=== PATIENT | female | born 1955 | race Caucasian/White ===

== ENCOUNTER 2016-08-26 11:35 | Outpatient (CLI) | payer MEDICARE, MEDICAID ==
[2016-08-26 20:15] LABS: BASOPHILS % (AUTO) 0.6 %; EOSINOPHILS # (AUTO) 0.1 10^3/uL (0.0-0.7); EOSINOPHILS % (AUTO) 2.2 %; HCT - HEMATOCRIT 38.5 % (37.0-47.0); HGB - HEMOGLOBIN 12.6 g/dL (12.0-16.0); LYMPHOCYTES # (AUTO) 1.1 10^3/uL (1.5-3.5); LYMPHOCYTES % (AUTO) 21.1 %; MEAN CORPUSCULAR HEMOGLOBIN 30.5 pg (27.0-31.0); MEAN CORPUSCULAR HGB CONC 32.8 g/dL (32.0-36.0); MEAN CORPUSCULAR VOLUME 92.9 fL (81.0-99.0); MEAN PLATELET VOLUME 8.8 fL (7.9-10.8); MONOCYTES # (AUTO) 0.3 10^3/uL (0.0-1.0); MONOCYTES % (AUTO) 6.7 %; NEUTROPHILS # (AUTO) 3.5 10^3/uL (1.5-6.6); NEUTROPHILS % (AUTO) 69.4 %; NUCLEATED RED BLOOD CELLS AUTO 0.1 /100WBC; RED BLOOD COUNT 4.14 10^6/uL (4.20-5.40); UNCORRECTED WHITE BLOOD COUNT 5.1 x10^3/uL; WHITE BLOOD COUNT 5.1 x10^3/uL (4.8-10.8)
[2016-08-26 20:25] LABS: ALBUMIN/GLOBULIN RATIO 1.3 (1.0-2.2); BILIRUBIN,TOTAL 0.6 mg/dL (0.2-1.0); BUN - BLOOD UREA NITROGEN 12 mg/dL (6-20); CALCIUM 9.8 mg/dL (8.5-10.3); CARBON DIOXIDE - CO2 27 mmol/L (21-32); CHLORIDE 110 mmol/L (101-111); CHOL/HDL RATIO 4.5 (<4.4); CHOLESTEROL 217 mg/dL; CREATININE 0.8 mg/dL (0.4-1.0); GFR - MDRD 74 (>89); GLUCOSE 105 mg/dL (70-100); HDL CHOLESTEROL 48 mg/dL; LDL/HDL RATIO 3.2 (<4.4); POTASSIUM 3.9 mmol/L (3.5-5.0); SODIUM 143 mmol/L (135-145); TRIGLYCERIDES 69 mg/dL; VLDL CHOLESTEROL 14 mg/dL
== END 2016-08-26 11:36 | disposition home or self-care (01) ==
LOC: LAB.WCP 11:35
PROVIDERS: ATTEND Physician Assistant Medical
DX: Z00.00 Encounter for general adult medical examination without abnormal findings (principal); F31.81 Bipolar II disorder; E78.5 Hyperlipidemia, unspecified; Z78.9 Other specified health status
CPT/HCPCS: 36415; 80053; 80061; 80178; 84443; 85025; 86803

== ENCOUNTER 2017-11-29 22:53 | Outpatient (CLI) | payer MEDICARE, MEDICAID ==
[2017-11-29 12:50] LABS: BASOPHILS % (AUTO) 0.3 %; EOSINOPHILS # (AUTO) 0.1 10^3/uL (0.0-0.7); EOSINOPHILS % (AUTO) 2.2 %; HGB - HEMOGLOBIN 12.7 g/dL (12.0-16.0); LYMPHOCYTES # (AUTO) 1.4 10^3/uL (1.5-3.5); LYMPHOCYTES % (AUTO) 32.7 %; MEAN CORPUSCULAR HEMOGLOBIN 31.7 pg (27.0-31.0); MEAN CORPUSCULAR HGB CONC 34.4 g/dL (32.0-36.0); MEAN CORPUSCULAR VOLUME 92.1 fL (81.0-99.0); MEAN PLATELET VOLUME 8.8 fL (7.9-10.8); MONOCYTES # (AUTO) 0.3 10^3/uL (0.0-1.0); MONOCYTES % (AUTO) 6.7 %; NEUTROPHILS # (AUTO) 2.4 10^3/uL (1.5-6.6); NEUTROPHILS % (AUTO) 58.1 %; PLT - PLATELET COUNT 244 10^3/uL (130-450); RED CELL DISTRIBUTION WIDTH 13.8 % (12.0-15.0); WHITE BLOOD COUNT 4.2 x10^3/uL (4.8-10.8)
[2017-11-29 13:25] LABS: ALBUMIN 4.2 g/dL (3.2-5.5); ALBUMIN/GLOBULIN RATIO 1.4 (1.0-2.2); ALKALINE PHOSPHATASE 104 IU/L (42-121); ALT ALANINE AMINOTRANSFERASE 16 IU/L (10-60); AST ASPARTATE AMINOTRANSFERASE 17 IU/L (10-42); BILIRUBIN,TOTAL 0.5 mg/dL (0.2-1.0); BUN - BLOOD UREA NITROGEN 10 mg/dL (6-20); CHOL/HDL RATIO 3.5 (<4.4); CHOLESTEROL 216 mg/dL; CREATININE 0.9 mg/dL (0.4-1.0); GFR - MDRD 64 (>89); HDL CHOLESTEROL 61 mg/dL; LDL CHOLESTEROL,CALCULATED 142 mg/dL; LDL/HDL RATIO 2.3 (<4.4); TOTAL PROTEIN 7.2 g/dL (6.7-8.2); VLDL CHOLESTEROL 13 mg/dL
[2017-11-29 13:36] LABS: LITHIUM < 0.05 mmol/L
[2017-11-29 14:19] LABS: CALCIUM 9.7 mg/dL (8.5-10.3); CARBON DIOXIDE - CO2 23 mmol/L (21-32); CHLORIDE 107 mmol/L (101-111); GLUCOSE 93 mg/dL (70-100); SODIUM 140 mmol/L (135-145)
== END 2017-11-29 22:54 | disposition home or self-care (01) ==
LOC: LAB.WCP 22:53
PROVIDERS: ATTEND Physician Assistant Medical
DX: Z00.00 Encounter for general adult medical examination without abnormal findings (principal); E78.5 Hyperlipidemia, unspecified; E03.9 Hypothyroidism, unspecified; F31.81 Bipolar II disorder
CPT/HCPCS: 36415; 80053; 80061; 80178; 83721; 84443; 85025

== ENCOUNTER 2018-02-15 11:41 | Outpatient (CLI) | payer MEDICARE, MEDICAID ==
--- NOTE | 2018-02-15 15:45 | CT Report ---
Reason: TOBACCO DEPENDENCE Procedure Date: 02/15/2018 Accession Number: [id number] / [id number] Procedure: CT - Chest W/O CPT Code: FULL RESULT: EXAM: CT CHEST EXAM DATE: 02/15/2018 03:07 PM. CLINICAL HISTORY: Tobacco dependence. COMPARISONS: None. TECHNIQUE: Routine helical CT imaging was performed through the chest. IV contrast: None. Reconstructions: Coronal and sagittal. In accordance with CT protocol optimization, one or more of the following dose reduction techniques were utilized for this exam: automated exposure control, adjustment of mA and/or KV based on patient size, or use of iterative reconstructive technique. FINDINGS: Lungs/Pleura: There is a mild to moderate amount of emphysema. No suspicious nodules, bronchial thickening, consolidation, or edema. Pulmonary vasculature is normal. No pericardial or pleural effusion. No pneumothorax. Mediastinum: Proximal coronary calcifications are noted. No adenopathy or masses. The heart and great vessels are normal. Bones: Unremarkable. Visualized Abdomen: Unremarkable. Other: None. IMPRESSION: Emphysema with no suspicious pulmonary nodules. RADIA
== END 2018-02-15 11:42 | disposition home or self-care (01) ==
LOC: DI 11:41
PROVIDERS: ATTEND Physician Assistant Medical
DX: Z12.2 Encounter for screening for malignant neoplasm of respiratory organs (principal); J43.9 Emphysema, unspecified; F17.210 Nicotine dependence, cigarettes, uncomplicated
CPT/HCPCS: 71250

== ENCOUNTER 2018-03-01 08:00 | Outpatient (CLI) | payer MEDICARE, MEDICAID | END 2018-03-01 23:59 | disposition home or self-care (01) | LOC: LAB.WCP 08:00 | PROVIDERS: ATTEND Physician Assistant Medical | DX: E03.9 Hypothyroidism, unspecified (principal) | CPT/HCPCS: 36415; 84443 ==

== ENCOUNTER 2018-04-12 11:36 | Outpatient (CLI) | payer MEDICARE, MEDICAID ==
--- NOTE | 2018-04-13 08:16 | Mammography Report ---
Reason: SCREENING MAMMO Procedure Date: 04/12/2018 Accession Number: [id number] / [id number] Procedure: MGN - Screening Mammo Dig Bilat CPT Code: FULL RESULT: EXAM: Screening Mammo Dig Bilat DATE: 04/12/2018 12:20 PM CLINICAL HISTORY: Screening encounter. Family history of breast cancer in the mother at age 63. TECHNIQUE: Bilateral CC and MLO views were obtained. COMPARISON: 09/09/2015 through 10/01/2010. FINDINGS: The breasts demonstrate scattered fibroglandular densities bilaterally. A isodense ovoid nodule in the upper right breast 9.3 cm from the nipple demonstrates no architectural distortion or suspicious calcifications and is not enlarged dating back to 2010, present on prior studies and therefore typically benign. Similarly, a hyperdense well-circumscribed left breast nodule laterally in the upper breast is stable dating back to 2010 and typically benign. No suspicious masses, clustered microcalcifications, or regions of architectural distortion are identified. IMPRESSION: Benign findings RECOMMENDATION: Routine annual screening unless otherwise clinically indicated. BIRADS CATEGORY 2: Benign findings STANDARD QUALIFYING STATEMENTS: 1. This examination was reviewed with the aid of Computer-Aided Detection (CAD). 2. A negative or benign imaging report should not delay biopsy if clinically suspicious findings are present. Consider surgical consultation if warrented. More than 5% of cancers are not identified by imaging. 3. Dense breasts may obscure an underlying neoplasm.
== END 2018-04-12 11:37 | disposition home or self-care (01) ==
LOC: DI.N 11:36
DX: Z12.31 Encounter for screening mammogram for malignant neoplasm of breast (principal); Z80.3 Family history of malignant neoplasm of breast
CPT/HCPCS: 77067

== ENCOUNTER 2018-04-20 08:00 | Outpatient (CLI) | payer MEDICARE, MEDICAID | END 2018-04-20 23:59 | LOC: LAB.WCP 08:00 | PROVIDERS: ATTEND Physician Assistant Medical | DX: E03.9 Hypothyroidism, unspecified (principal) | CPT/HCPCS: 36415; 84443 ==

== ENCOUNTER 2018-11-29 08:56 | Outpatient (CLI) | payer MEDICARE, MEDICAID ==
[2018-11-29 12:18] LABS: BASOPHILS % (AUTO) 0.6 %; EOSINOPHILS # (AUTO) 0.2 10^3/uL (0.0-0.7); EOSINOPHILS % (AUTO) 3.3 %; HGB - HEMOGLOBIN 11.8 g/dL (12.0-16.0); LYMPHOCYTES # (AUTO) 1.4 10^3/uL (1.5-3.5); LYMPHOCYTES % (AUTO) 27.5 %; MEAN CORPUSCULAR HEMOGLOBIN 30.3 pg (27.0-31.0); MEAN CORPUSCULAR HGB CONC 30.8 g/dL (32.0-36.0); MEAN CORPUSCULAR VOLUME 98.5 fL (81.0-99.0); MEAN PLATELET VOLUME 10.4 fL (7.9-10.8); MONOCYTES # (AUTO) 0.3 10^3/uL (0.0-1.0); MONOCYTES % (AUTO) 6.9 %; NEUTROPHILS % (AUTO) 61.3 %; PLT - PLATELET COUNT 256 10^3/uL (130-450); RED BLOOD COUNT 3.89 10^6/uL (4.20-5.40); RED CELL DISTRIBUTION WIDTH 14.2 % (12.0-15.0); WHITE BLOOD COUNT 4.9 x10^3/uL (4.8-10.8)
[2018-11-29 13:15] LABS: ALBUMIN 4.1 g/dL (3.2-5.5); ALBUMIN/GLOBULIN RATIO 1.3 (1.0-2.2); BILIRUBIN,TOTAL 0.6 mg/dL (0.2-1.0); CALCIUM 9.9 mg/dL (8.5-10.3); CREATININE 0.9 mg/dL (0.4-1.0); TOTAL PROTEIN 7.2 g/dL (6.7-8.2)
[2018-11-29 13:17] LABS: LITHIUM 0.88 mmol/L
== END 2018-11-29 23:59 | disposition home or self-care (01) ==
LOC: LAB.WCP 08:56
PROVIDERS: ATTEND Nurse Practitioner Family
DX: F31.9 Bipolar disorder, unspecified (principal); R42 Dizziness and giddiness
CPT/HCPCS: 36415; 80053; 80178; 85025

== ENCOUNTER 2018-12-13 07:00 | Outpatient (CLI) | payer MEDICARE, MEDICAID ==
[2018-12-13 19:35] LABS: FERRITIN 33.3 ng/mL (11.0-306.8)
== END 2018-12-13 23:59 | disposition home or self-care (01) ==
LOC: LAB.WCP 07:00
PROVIDERS: ATTEND Physician Assistant Medical
DX: E78.5 Hyperlipidemia, unspecified (principal); R53.83 Other fatigue; E03.9 Hypothyroidism, unspecified
CPT/HCPCS: 36415; 82306; 82607; 82728; 84443

== ENCOUNTER 2020-03-14 08:00 | Outpatient (CLI) | payer MEDICARE, MEDICAID ==
[2020-03-14 18:11] LABS: BASOPHILS % (AUTO) 0.7 %; EOSINOPHILS # (AUTO) 0.2 10^3/uL (0.0-0.7); EOSINOPHILS % (AUTO) 3.9 %; HGB - HEMOGLOBIN 12.2 g/dL (12.0-16.0); LYMPHOCYTES # (AUTO) 1.2 10^3/uL (1.5-3.5); LYMPHOCYTES % (AUTO) 25.8 %; MEAN CORPUSCULAR HEMOGLOBIN 30.4 pg (27.0-31.0); MEAN CORPUSCULAR HGB CONC 30.3 g/dL (32.0-36.0); MEAN CORPUSCULAR VOLUME 100.2 fL (81.0-99.0); MEAN PLATELET VOLUME 10.7 fL (7.9-10.8); MONOCYTES # (AUTO) 0.3 10^3/uL (0.0-1.0); MONOCYTES % (AUTO) 6.3 %; NEUTROPHILS # (AUTO) 2.9 10^3/uL (1.5-6.6); NEUTROPHILS % (AUTO) 63.1 %; PLT - PLATELET COUNT 260 10^3/uL (130-450); RED BLOOD COUNT 4.01 10^6/uL (4.20-5.40); RED CELL DISTRIBUTION WIDTH 14.4 % (12.0-15.0); WHITE BLOOD COUNT 4.6 x10^3/uL (4.8-10.8)
[2020-03-14 18:12] LABS: LITHIUM 0.92 mmol/L
[2020-03-14 18:29] LABS: ALBUMIN 4.2 g/dL (3.2-5.5); ALBUMIN/GLOBULIN RATIO 1.4 (1.0-2.2); ALKALINE PHOSPHATASE 76 IU/L (42-121); ALT ALANINE AMINOTRANSFERASE 11 IU/L (10-60); AST ASPARTATE AMINOTRANSFERASE 14 IU/L (10-42); BILIRUBIN,TOTAL 0.8 mg/dL (0.2-1.0); BUN - BLOOD UREA NITROGEN 14 mg/dL (6-20); CARBON DIOXIDE - CO2 25 mmol/L (21-32); CHLORIDE 107 mmol/L (101-111); CHOL/HDL RATIO 4.1 (<4.4); CHOLESTEROL 267 mg/dL; CREATININE 1.1 mg/dL (0.4-1.0); GLUCOSE 95 mg/dL (70-100); HDL CHOLESTEROL 65 mg/dL; LDL CHOLESTEROL,CALCULATED 183 mg/dL; LDL/HDL RATIO 2.8 (<4.4); TOTAL PROTEIN 7.3 g/dL (6.7-8.2); VLDL CHOLESTEROL 19 mg/dL
[2020-03-14 19:25] LABS: FREE T4 (FREE THYROXINE) 0.89 ng/dL (0.58-1.64)
== END 2020-03-14 23:59 | disposition home or self-care (01) ==
LOC: LAB.WCP 08:00
PROVIDERS: ATTEND Physician Assistant Medical
DX: R42 Dizziness and giddiness (principal); E78.5 Hyperlipidemia, unspecified; E03.9 Hypothyroidism, unspecified; F31.9 Bipolar disorder, unspecified
CPT/HCPCS: 36415; 80053; 80061; 80178; 83721; 84439; 84443; 85025

== ENCOUNTER 2020-03-31 12:36 | Outpatient (CLI) | payer MEDICARE, MEDICAID ==
--- NOTE | 2020-03-31 14:29 | DEXA Report ---
PROCEDURE: Dexa Spine and/or Hip INDICATIONS: POST MENOPAUSAL TECHNIQUE: Dual energy x-ray absorptiometry (DXA) was performed on a [employer] System. Regions measur ed are the AP Spine, femoral neck, and if needed forearm. COMPARISON: None. FINDINGS: Lumbar Spine: Bone Mineral Density 1.140 g/cm/cm,T score -0.3, Left Femoral Neck: Bone Mineral Density 0.927 g/cm/cm, T score -0.6, (T score greater or equal to -1.0: NORMAL) (T score from -1.1 to -2.4: OSTEOPENIA) (T score less than or equal to -2.5 to: OSTEOPOROSIS) Impression: Normal Patients with diagnosis of osteoporosis or osteopenia should have regular bone mineral density assess ment. For those eligible for Medicare, routine testing is allowed once every 2 years. Testing frequ ency can be increased for patients who have rapidly progressing disease or for those who are receivin g medical therapy to restore bone mass. Reviewed by: Reza Abdi MD on 03/31/2020 2:28 PM PST Approved by: Reza Abdi MD on 03/31/2020 2:28 PM PST Station ID: [id number]
== END 2020-03-31 12:37 | disposition home or self-care (01) ==
LOC: DI 12:36
PROVIDERS: ATTEND Physician Assistant Medical
DX: Z78.0 Asymptomatic menopausal state (principal)

== ENCOUNTER 2020-06-06 15:06 | Outpatient (CLI) | payer MEDICARE, MEDICAID | END 2020-06-06 15:07 | disposition home or self-care (01) | LOC: COV 15:06 | PROVIDERS: ATTEND Surgery | DX: Z01.812 Encounter for preprocedural laboratory examination (principal); K21.9 Gastro-esophageal reflux disease without esophagitis; R19.4 Change in bowel habit; Z20.822 Contact with and (suspected) exposure to COVID-19 ==

== ENCOUNTER 2020-06-10 11:53 | Day surgery (SDC) | payer MEDICARE, MEDICAID ==
[2020-06-10] MEDS ORDERED: LACTATED RINGERS 1,000 ML IV ONE (12:15)
[2020-06-10] MEDS ORDERED: ePHEDrine 50 MG/ML VIAL IVP PRN (13:13)
[2020-06-10] MEDS ORDERED: METOCLOPRAMIDE 10 MG/2 ML VIAL IVP PRN (13:13)
[2020-06-10] MEDS ORDERED: MORPHINE 2 MG/ML CARPUJECT IVP PRN (13:13)
[2020-06-10] MEDS ORDERED: ONDANSETRON 4 MG/2 ML VIAL IVP PRN (13:13)
[2020-06-10] MEDS ORDERED: NALOXONE 0.4 MG/ML VIAL IVP PRN (13:13)
[2020-06-10] MEDS ORDERED: ATROPINE ABBOJECT 1 MG/10 ML SYRINGE IVP PRN (13:13)
[2020-06-10] MEDS ORDERED: HYDROmorphone 0.5 MG/0.5 ML SYRINGE IVP PRN (13:13)
[2020-06-10] MEDS ORDERED: fentaNYL 100 MCG/2 ML VIAL IVP PRN (13:13)
--- NOTE | 2020-06-10 13:13 | ANESTHESIA ---
Pre-Anesthesia VS, & Labs - Diagnosis reflux, change in bowel habits - Procedure colonoscopy Vital Signs: Temp Pulse Resp BP Pulse Ox 36.8 C 68 16 146/85 H 97 06/10/20 12:18 06/10/20 12:18 06/10/20 12:18 06/10/20 12:18 06/10/20 12:18 Height: 5 ft 4 in Weight (kg): 78 kg Body Mass Index: 29.5 BMI Classification: Overweight - NPO >8 hours - Is Patient ?: No - Lab Results Lab results reviewed: Yes Home Medications and Allergies Home Medications: Ambulatory Orders Atorvastatin [Lipitor] 20 mg PO DAILY PM 06/10/20 Albuterol Sulfate [Proair Hfa] 8.5 gm IH Q4-6H PRN 12/29/12 DULoxetine [Cymbalta] 60 mg PO DAILY 12/29/12 Fluticasone [Flonase] 1 sprays CARLITA DAILY PRN MDD 1 12/29/12 Gabapentin [Neurontin] 1,600 mg PO BID 12/29/12 [place] ER [Lithobid] 900 mg PO DAILY 12/29/12 Omeprazole [Prilosec] 80 mg PO DAILY 12/29/12 Levothyroxine Sodium 125 mcg PO ONCE 12/16/15 Atorvastatin [Lipitor] 20 mg PO DAILY PM 06/10/20 Allergies/Adverse Reactions: Allergies Allergy/AdvReac Type Severity Reaction Status Date / Time bupropion HCl * Allergy ANXIETY/ANG Verified 12/29/12 15:13 [From Wellbutrin] RY cephalexin [From Keflex] Allergy C-Diff/Coli Verified 06/10/20 12:37 tis ciprofloxacin [From Cipro] Allergy C-DIFF/COLI Verified 12/29/12 15:13 TIS ciprofloxacin HCl * Allergy C-DIFF/COLI Verified 12/29/12 15:13 [From Cipro] TIS Anes History & Medical History - Anesthetic History Anesthesia Complications: reports: No previous complications Family history of Anesthesia Complications: Denies Family history of Malignant Hyperthermia: Denies - Medical History Cardiovascular: reports: High cholesterol Pulmonary: reports: Asthma Gastrointestinal: reports: GERD Urinary: reports: None Musculoskeletal: reports: Osteoarthritis, Osteopenia Endocrine/Autoimmune: reports: HyPOthyroidism Skin: reports: Eczema - Surgical History General: reports: Cholecystectomy, Appendectomy, Colonoscopy Gynecologic: reports: LEEP (Cervical surgery) Orthopedic: reports: Other Exam General: Alert, Oriented x3, Cooperative, No acute distress Dental: Dentures full Upper, Dentures full Lower Mouth Openin Fingerbreadth Neck Mobility: Normal Mallampati classification: I Respiratory: Lungs clear, Normal breath sounds, No respiratory distress, No accessory muscle use Cardiovascular: Regular rate, Normal S1, Normal S2, No murmurs Plan Anesthesia Type: General, Total IV Consent for Procedure(s) Verified and Reviewed: Yes Code Status: Attempt Resuscitation ASA classification: 2-Mild systemic disease Is this case an emergency?: No
[2020-06-10] MEDS ORDERED: LACTATED RINGERS 1,000 ML IV SCH (14:00)
[2020-06-10] MEDS ORDERED: LIDOCAINE-MPF 2% 5 ML VIAL ONE (15:29)
[2020-06-10] MEDS ORDERED: PROPOFOL 1000 MG/100 ML 1,000 MG/100 ML BOTTLE IV ONE (15:29)
[2020-06-10] MEDS ORDERED: PROPOFOL 200 MG/20 ML VIAL IVP ONE (16:43)
[2020-06-10] MEDS ORDERED: LACTATED RINGERS 600 ML IV ONE (17:08)
[2020-06-10 17:53] VITALS: BP 133/76
--- NOTE | 2020-06-10 17:58 | ANESTHESIA POST OP EVALUATION ---
Anesthesia Post Eval - Post Anesthesia Eval Vitals: Last Vital Signs Temp 36.3 C L 06/10/20 17:52 Pulse 74 06/10/20 17:52 Resp 16 06/10/20 17:52 BP 133/76 H 06/10/20 17:52 Pulse Ox 100 06/10/20 17:52 CV Function Including HR & BP: Stable Pain Control: Satisfactory Nausea & Vomiting: Negative Mental Status: Baseline Respiratory Status: Airway Patent Hydration Status: Satisfactory Anesthesia Complications: None
== END 2020-06-10 11:54 | disposition home or self-care (01) ==
LOC: SDS 11:53
PROVIDERS: ATTEND Surgery
PROC: 0DB98ZX Excision of Duodenum, Via Natural or Artificial Opening Endoscopic, Diagnostic (ICD-10-PCS; 2020-06-10)
PROC: 0DBL8ZZ Excision of Transverse Colon, Via Natural or Artificial Opening Endoscopic (ICD-10-PCS; principal; 2020-06-10 13:00)
PROC: 0DB68ZZ Excision of Stomach, Via Natural or Artificial Opening Endoscopic (ICD-10-PCS; 2020-06-10 13:00)
DX: D12.2 Benign neoplasm of ascending colon (principal); D12.0 Benign neoplasm of cecum; D12.3 Benign neoplasm of transverse colon; K64.8 Other hemorrhoids; K63.89 Other specified diseases of intestine; K31.7 Polyp of stomach and duodenum; K29.60 Other gastritis without bleeding; K21.9 Gastro-esophageal reflux disease without esophagitis; J45.909 Unspecified asthma, uncomplicated; E03.9 Hypothyroidism, unspecified; E78.00 Pure hypercholesterolemia, unspecified; E66.3 Overweight; Z68.29 Body mass index [BMI] 29.0-29.9, adult; Z79.51 Long term (current) use of inhaled steroids; Z79.899 Other long term (current) drug therapy
CPT/HCPCS: 43239; 43251; 45381; 45385; J7120

== ENCOUNTER 2020-06-12 14:21 | Inpatient (IN) | payer MEDICARE, MEDICAID ==
[~2020-06-12 14:21] MED LIST: PIPERACILLIN/TAZOBACTAM 3.375 GM in SODIUM CHLORIDE 0.9% MINIBAG 100 ML IV ONE
--- OUTSIDE RECORDS SUMMARY | 2020-06-12 14:36 | EXTERNAL MEDICAL SUMMARY RPT | Continuity of Care Document ---
:1955 Demographics Phone Unavailable Preferred Language Unknown Marital Status Unknown Restoration Affiliation Unknown Race Unknown Ethnic Group Unknown Author Organization [place] Address [address] [id number] Phone Social History date description facility [id number]
[2020-06-12 16:32] LABS: BASOPHILS % (AUTO) 0.4 %; EOSINOPHILS # (AUTO) 0.1 10^3/uL (0.0-0.7); EOSINOPHILS % (AUTO) 0.7 %; HCT - HEMATOCRIT 40.3 % (37.0-47.0); HGB - HEMOGLOBIN 13.2 g/dL (12.0-16.0); LYMPHOCYTES # (AUTO) 0.5 10^3/uL (1.5-3.5); LYMPHOCYTES % (AUTO) 4.2 %; MEAN CORPUSCULAR HGB CONC 32.8 g/dL (32.0-36.0); MEAN CORPUSCULAR VOLUME 94.6 fL (81.0-99.0); MEAN PLATELET VOLUME 10.4 fL (7.9-10.8); MONOCYTES # (AUTO) 0.3 10^3/uL (0.0-1.0); MONOCYTES % (AUTO) 2.3 %; NEUTROPHILS # (AUTO) 10.3 10^3/uL (1.5-6.6); NEUTROPHILS % (AUTO) 91.7 %; PLT - PLATELET COUNT 217 10^3/uL (130-450); RED BLOOD COUNT 4.26 10^6/uL (4.20-5.40); RED CELL DISTRIBUTION WIDTH 14.1 % (12.0-15.0); WHITE BLOOD COUNT 11.2 x10^3/uL (4.8-10.8)
[2020-06-12 16:35] LABS: SLIDE REVIEW? Indicated
[2020-06-12 16:46] LABS: ALBUMIN 3.4 g/dL (3.2-5.5); ALBUMIN/GLOBULIN RATIO 0.9 (1.0-2.2); BILIRUBIN,TOTAL 0.5 mg/dL (0.2-1.0); CALCIUM 9.8 mg/dL (8.5-10.3); CREATININE 2.2 mg/dL (0.4-1.0); TOTAL PROTEIN 7.1 g/dL (6.7-8.2)
[2020-06-12 16:48] LABS: PLATELET ESTIMATE, MANUAL NORMAL (130-450,000) (NORMAL); PLATELET MORPHOLOGY NORMAL APPEARANCE (NORMAL); POTASSIUM 2.5 mmol/L (3.5-5.0); RBC MORPHOLOGY (MULTIPLE) NORMAL APPEARANCE (NORMAL); WBC MORPHOLOGY (MULTIPLE) NORMAL APPEARANCE (NORMAL)
[2020-06-12] MEDS ORDERED: SODIUM CHLORIDE 0.9% 1,000 ML IV STA ×2 (17:32→17:47)
[2020-06-12] MEDS ORDERED: ONDANSETRON 4 MG/2 ML VIAL IVP STA (17:47)
[2020-06-12] MEDS ORDERED: HYDROmorphone 1 MG/ML CARPUJECT IVP STA (17:47)
[2020-06-12] MEDS ORDERED: POTASSIUM CHLOR 10 MEQ/100 ML 10 MEQ/100 ML BAG IV STA (17:48)
--- NOTE | 2020-06-12 17:53 | ED Physician Documentation ---
PD HPI ABD PAIN - Stated complaint Stated Complaint: ABD PX POST OP - Chief complaint Chief Complaint: Abd Pain - History obtained from History obtained from: Patient - History of Present Illness Timing - onset: How many days ago (2) Timing - duration: Days (2) Timing - details: Gradual onset, Still present (Patient had routine colonoscopy with standard prep 2 days ago with snare biopsies done. She felt okay on discharge developed abdominal pain later in the day and through yesterday and significantly worse last night to today. She has abdominal pain and distention nausea.) Quality: Cramping, Aching, Fullness/distended Location: RLQ, Suprapubic, LLQ Radiation: Lower back Worsened by: Eating (Trying to drink fluids but felt her abdomen more painful with intake.) Associated symptoms: Nausea, Loss of appetite. No: Fever, Diarrhea (No bowel movement since the colonoscopy 2 days ago which actually is reasonable.), Constipation, Dysuria (States small amounts of urine output the last 2 days.) Similar symptoms before: Has not had sx before Recently seen: Surgery (colonoscopy 2 days ago) Review of Systems Constitutional: reports: Chills, Fatigue. denies: Fever, Myalgias Nose: denies: Rhinorrhea / runny nose, Congestion Throat: denies: Sore throat Respiratory: denies: Cough GI: reports: Abdominal Pain, Abdominal Swelling, Nausea. denies: Vomiting, Diarrhea, Bloody / black stool : denies: Dysuria, Frequency Skin: denies: Rash Neurologic: reports: Generalized weakness, Near syncope. denies: Syncope PD PAST MEDICAL HISTORY - Past Medical History Cardiovascular: High cholesterol Respiratory: Asthma Endocrine/Autoimmune: HyPOthyroidism GI: GERD : None HEENT: Chronic hearing loss Psych: Bipolar disorder, Post traumatic stress disorder, Claustrophobia Musculoskeletal: Osteoarthritis, Osteopenia Derm: Eczema - Past Surgical History General: Cholecystectomy, Appendectomy, Colonoscopy Ortho: Other /[employer]: LEEP (Cervical surgery) - Present Medications Home Medications: Ambulatory Orders Medication Instructions Recorded Confirmed Albuterol Sulfate [Proair Hfa] 8.5 gm IH Q4-6H PRN 12/29/12 06/10/20 DULoxetine [Cymbalta] 60 mg PO DAILY 12/29/12 06/10/20 Fluticasone [Flonase] 1 sprays CARLITA DAILY PRN MDD 1 12/29/12 06/10/20 Gabapentin [Neurontin] 1,600 mg PO BID 12/29/12 06/10/20 [place] ER [Lithobid] 900 mg PO DAILY 12/29/12 06/10/20 Omeprazole [Prilosec] 80 mg PO DAILY 12/29/12 06/10/20 Levothyroxine Sodium 125 mcg PO ONCE 12/16/15 06/10/20 Atorvastatin [Lipitor] 20 mg PO DAILY PM 06/10/20 06/10/20 - Allergies Allergies/Adverse Reactions: Allergies Allergy/AdvReac Type Severity Reaction Status Date / Time bupropion HCl * Allergy ANXIETY/ANG Verified 06/12/20 14:41 [From Wellbutrin] RY cephalexin [From Keflex] Allergy C-Diff/Coli Verified 06/12/20 14:41 tis ciprofloxacin [From Cipro] Allergy C-DIFF/COLI Verified 06/12/20 14:41 TIS ciprofloxacin HCl * Allergy C-DIFF/COLI Verified 06/12/20 14:41 [From Cipro] TIS PD ED PE NORMAL - Vitals Vital signs reviewed: Yes - General General: Alert and oriented X 3, Well developed/nourished, Other (Are slightly pale. Mildly unkempt. Does appear uncomfortable.) - HEENT HEENT: Pharynx benign. No: Moist mucous membranes - Neck Neck: Supple, no meningeal sign, No adenopathy - Cardiac Cardiac: No murmur. No: RRR (tachycardic, regular. ) - Respiratory Respiratory: Clear bilaterally - Abdomen Abdomen: No organomegaly, Other (Tender significantly in the suprapubic and lower abdomen both sides. There is fullness in the lower abdomen and distention of the abdomen. There is guarding and percussion tenderness down lower. The whole abdomen however is somewhat tender with distention.). No: Normal bowel sounds (diminished) - Female Female : Deferred - Rectal Rectal: Deferred - Back Back: No CVA TTP - Derm Derm: No: Normal color (pale) - Extremities Extremities: No edema, No calf tenderness / cord - Neuro Neuro: Alert and oriented X 3, No motor deficit, Normal speech Results - Vitals Vitals: Vital Signs - 24 hr 06/12/20 14:41 Temperature 36.8 C Heart Rate 106 H Respiratory 16 Rate Blood Pressure 100/62 O2 Saturation 92 Oxygen O2 Source Room air - Labs Labs: Laboratory Tests 06/12/20 06/12/20 06/12/20 16:17 16:17 16:17 WBC 11.2 H RBC 4.26 Hgb 13.2 Hct 40.3 MCV 94.6 MCH 31.0 MCHC 32.8 RDW 14.1 Plt Count 217 MPV 10.4 Neut # (Auto) 10.3 H Lymph # (Auto) 0.5 L [place] # (Auto) 0.3 Eos # (Auto) 0.1 Baso # (Auto) 0.0 Absolute Nucleated RBC 0.00 Nucleated RBC % 0.0 Manual Slide Review Indicated WBC Morphology NORMAL APPEARANCE Platelet Estimate NORMAL (130-450,000) Platelet Morphology NORMAL APPEARANCE RBC Morph Micro Appear NORMAL APPEARANCE Sodium 138 Potassium 2.5 L* Chloride 101 Carbon Dioxide 25 Anion Gap 12.0 BUN 30 H Creatinine 2.2 H Estimated GFR (MDRD) 23 L Glucose 113 H Calcium 9.8 Total Bilirubin 0.5 AST 15 ALT 16 Alkaline Phosphatase 66 C-Reactive Protein 47.9 H Total Protein 7.1 Albumin 3.4 Globulin 3.7 Albumin/Globulin Ratio 0.9 L Lipase 18 L - Rads (name of study) abd/pelvic CT Radiology: Prelim report reviewed (Fluid-filled prominence of small bowel suggestive of ileus or partial small bowel obstruction. Focal loop of descending colon with inflammation suggestive of focal colitis. No visualized free air.), See rad report PD MEDICAL DECISION MAKING - ED course Complexity details: considered differential (Significant delay in the waiting room due to nursing staffing and busyness of the ER. She was evaluated upon coming into her room. We will give IV fluids and pain medicine. CT scan without contrast due to acute renal insufficiency. Concern for perforated viscus.), d/w patient Departure - Departure Disposition: ED Place in Observation Clinical Impression: Abdominal distension, Acute colitis, Dehydration, Hypokalemia, JOHANNE (acute kidney injury), Status post colonoscopy Abdominal pain Qualifiers: Abdominal location: lower abdomen, unspecified Qualified Code(s): R10.30 - Lower abdominal pain, unspecified Condition: Stable Record reviewed to determine appropriate education?: Yes
--- NOTE | 2020-06-12 18:12 | CT Report ---
PROCEDURE: Abdomen/Pelvis WO INDICATIONS: abd pain s/p colonoscopy 2 days ago TECHNIQUE: Noncontrast 5 mm thick sections acquired from the diaphragms to the symphysis. 5 mm coronal and sagi ttal reformats were then performed. For radiation dose reduction, the following was used: automated exposure control, adjustment of mA and/or kV according to patient size. COMPARISON: None. FINDINGS: Image quality: Excellent. ABDOMEN: Lung bases: Mild appearance of streaky opacities within the bases are noted, right greater than left. Heart size is normal. Solid organs: Liver and spleen are normal in size. Hepatic steatosis is present. Gallbladder has bee n removed Pancreas is normal in contours. No adrenal nodules. Kidneys are atrophic in size, withou t hydronephrosis or nephrolithiasis. Peritoneum and bowel: Unenhanced small bowel loops demonstrate mild fluid-filled prominence. No free fluid or free air. There is a focal loop of descending colon within the left hemiabdomen demonstrati ng minimal appearance of pericolonic inflammatory change. Nodes and vessels: No retroperitoneal or mesenteric adenopathy by size criteria. Aorta and inferior vena cava are normal in caliber. Miscellaneous: No ventral hernias. PELVIS: Genitourinary: Bladder wall thickness is normal. Miscellaneous: No inguinal hernias or adenopathy. Bones: No suspicious bony lesions. No vertebral body compression fractures. IMPRESSION: 1. Streaky opacities within the bases suggestive atelectasis. 2. Mild fluid-filled prominence of small bowel suggestive of mild partial small bowel obstruction. 3. Focal loop of descending colon demonstrating minimal surrounding inflammatory change. This can be related to a focal area of colitis. 4. No visualized free air. Reviewed by: Joselin Gannon MD on 06/12/2020 5:11 PM AKDT Approved by: Joselin Gannon MD on 06/12/2020 5:11 PM AKDT Station ID: [id number]
[2020-06-12] MEDS ORDERED: AMPICILLIN/SULBACTAM 3 GM in SODIUM CHLORIDE 0.9% MINIBAG 100 ML IV STA (18:36)
[2020-06-12 18:49] LABS: BILIRUBIN,URINE NEGATIVE (NEGATIVE); GLUCOSE, URINE (UA) NEGATIVE (NEGATIVE); KETONES,URINE (UA) NEGATIVE (NEGATIVE); LEUKOCYTE ESTERASE, URINE NEGATIVE (NEGATIVE); NITRITE,URINE NEGATIVE (NEGATIVE); OCCULT BLOOD,URINE TRACE-INTA (NEGATIVE); PH,URINE 5.5 PH (5.0-7.5); PROTEIN,URINE 30 mg/dL (NEGATIVE); UROBILINOGEN,URINE 0.2 (NORMAL) E.U./dL (NORMAL)
[2020-06-12 18:52] LABS: CLARITY,URINE CLOUDY (CLEAR)
[2020-06-12 18:58] LABS: AMORPHOUS SEDIMENT,UR Few /LPF; BACTERIA,URINE Moderate /HPF (None Seen); RBC,URINE 0-5 /HPF (0-5); SQUAMOUS EPITHELIAL CELL,UR MANY Squamous (<= Few)
[2020-06-12 18:59] LABS: CASTS, URINE 3-5 Granular Casts /LPF; MUCUS,URINE Few Strands
[2020-06-12] MEDS ORDERED: LORazepam 2 MG/ML VIAL IVP PRN (19:41)
[2020-06-12] MEDS ORDERED: ONDANSETRON 4 MG/2 ML VIAL IVP PRN (19:41)
[2020-06-12] MEDS ORDERED: HYDROmorphone 1 MG/ML CARPUJECT IVP PRN (19:41)
[2020-06-12] MEDS ORDERED: FLUTICASONE NASAL SPRAY NAS PRN (19:50)
[2020-06-12] MEDS ORDERED: LEVOTHYROXINE 125 MCG TABLET PO ONE (20:00)
--- OUTSIDE RECORDS SUMMARY | 2020-06-12 20:00 | EXTERNAL MEDICAL SUMMARY RPT | Continuity of Care Document ---
:1955 Demographics Phone Unavailable Preferred Language Unknown Marital Status Unknown Syn[employer] Affiliation Unknown Race Unknown Ethnic Group Unknown Author Organization [place] Address [address] [phone] Phone Social History date description facility [phone]
[2020-06-12] MEDS ORDERED: ALBUTEROL 6.7 GM INHALER INH PRN (20:45)
[2020-06-12 21:24] LABS: B. PARAPERTUSSIS- RESP PCR PAN NOT DETECTED; B. PERTUSSIS- RESP PCR PANEL NOT DETECTED; C. PNEUMONIAE- RESP PCR PANEL NOT DETECTED; CORONAVIRUS 229E-RESP PCR NOT DETECTED; CORONAVIRUS HKU1-RESP PCR NOT DETECTED; CORONAVIRUS NL63-RESP PCR NOT DETECTED; CORONAVIRUS OC43-RESP PCR NOT DETECTED; HUMAN METAPNEUMOVIRUS NOT DETECTED; INFLUENZA A- RESP PCR PANEL NOT DETECTED; INFLUENZA B - RESP PCR PANEL NOT DETECTED; M. PNEUMONIAE- RESP PCR PANEL NOT DETECTED; PARAINFLUENZA VIRUS 1 NOT DETECTED; PARAINFLUENZA VIRUS 2 NOT DETECTED; PARAINFLUENZA VIRUS 3 NOT DETECTED; PARAINFLUENZA VIRUS 4 NOT DETECTED; RHINOVIRUS/ENTEROVIRUS NOT DETECTED; RSV- RESP PCR PANEL NOT DETECTED; SARS-CoV-2 -RESP PCR PANEL NOT DETECTED
[2020-06-12] MEDS: ACETAMINOPHEN 1,000 MG/100 ML 100 ML IV SCH (21:42)
[2020-06-12] MEDS: NS W/20 MEQ KCL 1,000 ML IV SCH (21:45)
[2020-06-12] MEDS: GABAPENTIN 400 MG CAPSULE PO SCH (21:49)
[2020-06-12] MEDS: ATORVASTATIN 10 MG TABLET PO SCH (21:49)
[2020-06-12] MEDS: PANTOPRAZOLE 40 MG VIAL IVP SCH (22:00)
[2020-06-12] MEDS: metroNIDAZOLE 500 MG/100 ML 500 MG/100 ML BAG IV SCH (22:03)
[2020-06-13] MEDS ORDERED: PIPERACILLIN/TAZOBACTAM 3.375 GM in SODIUM CHLORIDE 0.9% MINIBAG 100 ML IV ONE ×2
[2020-06-13] MEDS: SODIUM CHLORIDE FLUSH 0.9% 10 ML SYRINGE IVP SCH ×3 (00:21→16:41)
[2020-06-13] MEDS: ACETAMINOPHEN 1,000 MG/100 ML 100 ML IV SCH ×4 (01:32→20:00)
[2020-06-13] MEDS: metroNIDAZOLE 500 MG/100 ML 500 MG/100 ML BAG IV SCH ×3 (05:12→20:16)
[2020-06-13] MEDS: PIPERACILLIN/TAZOBACTAM 3.375 GM in SODIUM CHLORIDE 0.9% MINIBAG 100 ML IV SCH ×3 (05:13→21:28)
[2020-06-13] MEDS: NS W/20 MEQ KCL 1,000 ML IV SCH ×4 (05:13→22:28)
[2020-06-13 05:19] LABS: BASOPHILS % (AUTO) 0.3 %; EOSINOPHILS % (AUTO) 0.3 %; HCT - HEMATOCRIT 31.8 % (37.0-47.0); LYMPHOCYTES # (AUTO) 0.6 10^3/uL (1.5-3.5); LYMPHOCYTES % (AUTO) 7.5 %; MEAN CORPUSCULAR HEMOGLOBIN 30.6 pg (27.0-31.0); MEAN CORPUSCULAR HGB CONC 31.4 g/dL (32.0-36.0); MEAN CORPUSCULAR VOLUME 97.2 fL (81.0-99.0); MEAN PLATELET VOLUME 10.9 fL (7.9-10.8); MONOCYTES # (AUTO) 0.3 10^3/uL (0.0-1.0); MONOCYTES % (AUTO) 3.7 %; NEUTROPHILS # (AUTO) 6.6 10^3/uL (1.5-6.6); NEUTROPHILS % (AUTO) 87.5 %; PLT - PLATELET COUNT 167 10^3/uL (130-450); RED BLOOD COUNT 3.27 10^6/uL (4.20-5.40); RED CELL DISTRIBUTION WIDTH 14.2 % (12.0-15.0); WHITE BLOOD COUNT 7.6 x10^3/uL (4.8-10.8)
[2020-06-13 05:34] LABS: ALBUMIN 2.4 g/dL (3.2-5.5); ALKALINE PHOSPHATASE 55 IU/L (42-121); ALT ALANINE AMINOTRANSFERASE 11 IU/L (10-60); AST ASPARTATE AMINOTRANSFERASE < 10 IU/L (10-42); BILIRUBIN,TOTAL 0.5 mg/dL (0.2-1.0); BUN - BLOOD UREA NITROGEN 35 mg/dL (6-20); CALCIUM 8.3 mg/dL (8.5-10.3); CARBON DIOXIDE - CO2 21 mmol/L (21-32); CHLORIDE 110 mmol/L (101-111); CREATININE 2.1 mg/dL (0.4-1.0); GFR - MDRD 24 (>89); GLUCOSE 93 mg/dL (70-100); POTASSIUM 2.8 mmol/L (3.5-5.0); SODIUM 139 mmol/L (135-145); TOTAL PROTEIN 4.9 g/dL (6.7-8.2)
[2020-06-13] MEDS ORDERED: PANTOPRAZOLE 40 MG VIAL IVP SCH (07:00)
[2020-06-13] MEDS ORDERED: LITHIUM ER 300 MG TABLET PO SCH (09:00)
[2020-06-13] MEDS: GABAPENTIN 400 MG CAPSULE PO SCH ×2 (09:07→21:29)
[2020-06-13] MEDS: ENOXAPARIN 30 MG/0.3 ML SYRINGE SUBQ SCH (09:10)
[2020-06-13] MEDS: DULoxetine 30 MG CAPSULE PO SCH (09:15)
[2020-06-13] MEDS: PANTOPRAZOLE 40 MG VIAL IVP SCH ×2 (09:15→21:29)
[2020-06-13] MEDS ORDERED: SODIUM CHLORIDE 0.9% 1,000 ML IV ONE (09:24)
[2020-06-13] MEDS: POTASSIUM CHLOR 10 MEQ/100 ML 10 MEQ/100 ML BAG IV SCH ×4 (11:17→14:17)
--- NOTE | 2020-06-13 11:27 | SURGERY HX AND PHYSICAL(T) ---
Surgical History & Physical - Chief Complaint/HPI Chief Complaint: Abdominal pain with nausea History of Present Illness: Benjamin is a pleasant 64-year-old lady who underwent a colonoscopy with removal of a large cecal polyp 2 days ago. She reports that she felt fine on the day of the procedure but went home and over the next 2 days has gradually developed abdominal pain that has become more and more severe. She reports she has had some nausea but no vomiting.She has had significantly decreased oral intake.She cannot identify any exacerbating or relieving factors. She reports that the pain is constant now in the right side.She presented to the emergency room where she was seen and evaluated by Dr. Valdez. She was found to have inflammation in the right colon as well as a mild leukocytosis.No pneumoperitoneum was appreciated on CT. Overnight the patient has been hydrated and she reports her abdominal pain is about the same.She describes it as a 6/10.She denies any nausea now. - PMH/PSH/Social Hx Does the pt have a hx of MRSA?: No Neurological History: None Eyes, Ears, Nose, Throat: Chronic hearing loss Cardiovascular: High cholesterol Respiratory: Asthma, COPD, Emphysema Skin: Eczema Endocrine/Autoimmune: HyPOthyroidism Gastrointestinal: GERD, Colon polyps Urinary: Incontinence Musculoskeletal: Osteoarthritis, Osteopenia Blood Disorders: None Psychiatric: Bipolar disorder, Post traumatic stress disorder, Claustrophobia General: Cholecystectomy, Appendectomy, Colonoscopy, EGD Orthopedic: Other Smoking Status: Former smoker Does the pt drink ETOH?: Yes Frequency: Occasional Does the pt have substance abuse?: No - Home Meds and Allergies Home Medications: Albuterol Sulfate [Proair Hfa] 8.5 gm IH Q4-6H PRN 12/29/12 DULoxetine [Cymbalta] 60 mg PO DAILY 12/29/12 Fluticasone [Flonase] 1 sprays CARLITA DAILY PRN MDD 1 12/29/12 Gabapentin [Neurontin] 1,600 mg PO BID 12/29/12 [place] ER [Lithobid] 900 mg PO DAILY 12/29/12 Omeprazole [Prilosec] 80 mg PO DAILY 12/29/12 Levothyroxine Sodium 125 mcg PO ONCE 12/16/15 Atorvastatin [Lipitor] 20 mg PO DAILY PM 06/10/20 Allergies/Adverse Reactions: Allergies Allergy/AdvReac Type Severity Reaction Status Date / Time bupropion HCl * Allergy ANXIETY/ANG Verified 06/12/20 14:41 [From Wellbutrin] RY cephalexin [From Keflex] Allergy C-Diff/Coli Verified 06/12/20 14:41 tis ciprofloxacin [From Cipro] Allergy C-DIFF/COLI Verified 06/12/20 14:41 TIS ciprofloxacin HCl * Allergy C-DIFF/COLI Verified 06/12/20 14:41 [From Cipro] TIS - Review of Systems Constitutional: Fatigue, Malaise, Poor appetite, Night sweats Gastrointestinal: Nausea, Abdominal pain. No: Vomiting - Vital Signs Heart Rate: 92 Blood Pressure: 103/78 Temperature: 36.5 C Respiratory Rate: 14 O2 Saturation: 99 Weight (kg): 80.5 kg Height: 1.63 m - Physical Exam General Appearance: positive: No acute distress, Alert Eyes Bilatera: positive: Normal inspection, PERRL, EOMI ENT: positive: ENT inspection nml, Pharynx nml Neck: positive: Nml inspection, No JVD, Trachea midline Respiratory: positive: Chest non-tender, No respiratory distress, Breath sounds nml Cardiovascular: positive: Regular rate & rhythm Peripheral Pulses: positive: 0 Abdomen: positive: Tenderness, Abnml bowel sounds (Hypoactive), Other (Tender to palpation in the right lower quadrant. Voluntary guarding with palpation on the right side. Very mild tenderness to palpation otherwise.) Skin: positive: Color nml Neurologic/Psychiatric: positive: Oriented x3, Mood/affect nml - Patient Review Patient Review: Problems were reviewed with the patient during this visit. Medications were reviewed with the patient during this visit. Allergies were reviewed this patient during this visit. Pertinent Tests Reviewed: All pertitent test for this patient were reviewed. 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 Overnight she has improved slightly with normalization of her white cell count. She remains volume contracted 1. Advance to clear liquid diet 2. Replace electrolytes 3. Continue fluid resuscitation 4. Repeat labs in the a.m.
--- NOTE | 2020-06-13 14:16 | PHARMACY PROGRESS NOTE ---
- Best Possible Medication History Admit Date and Time: 06/12/201940 Processed by: Pharmacy Medication History completed: Yes Patient Interview: Completed Secondary Source(s): Pharmacy records, Insurance records As the person ultimately responsible for medication therapy, providers are able to order a medication from an existing home medication list in [facility] via the "Reconcile Routine" prior to Confirmation of that medication by residential direct support professional. Such practice is discouraged except when the physician, in their clinical judgment, deems that a medical need exists for a medication without regard to previous use.
[2020-06-13] MEDS: SACCHAROMYCES BOULARDII 250 MG CAPSULE PO SCH (16:40)
[2020-06-13] MEDS: LITHIUM ER 300 MG TABLET PO SCH (21:28)
[2020-06-13] MEDS: ATORVASTATIN 10 MG TABLET PO SCH (21:29)
[2020-06-14] MEDS: SODIUM CHLORIDE FLUSH 0.9% 10 ML SYRINGE IVP SCH ×3 (00:06→18:42)
[2020-06-14] MEDS: ACETAMINOPHEN 1,000 MG/100 ML 100 ML IV SCH ×4 (01:58→20:52)
[2020-06-14] MEDS: metroNIDAZOLE 500 MG/100 ML 500 MG/100 ML BAG IV SCH ×2 (03:50→11:30)
[2020-06-14 05:05] LABS: HCT - HEMATOCRIT 31.7 % (37.0-47.0); HGB - HEMOGLOBIN 10.2 g/dL (12.0-16.0); MEAN CORPUSCULAR HEMOGLOBIN 31.4 pg (27.0-31.0); MEAN CORPUSCULAR HGB CONC 32.2 g/dL (32.0-36.0); MEAN CORPUSCULAR VOLUME 97.5 fL (81.0-99.0); MEAN PLATELET VOLUME 10.5 fL (7.9-10.8); RED BLOOD COUNT 3.25 10^6/uL (4.20-5.40); RED CELL DISTRIBUTION WIDTH 14.6 % (12.0-15.0); WHITE BLOOD COUNT 7.3 x10^3/uL (4.8-10.8)
[2020-06-14] MEDS: NS W/20 MEQ KCL 1,000 ML IV SCH (05:07)
[2020-06-14] MEDS: PIPERACILLIN/TAZOBACTAM 3.375 GM in SODIUM CHLORIDE 0.9% MINIBAG 100 ML IV SCH (05:07)
[2020-06-14 05:18] LABS: ALBUMIN 2.5 g/dL (3.2-5.5); ALBUMIN/GLOBULIN RATIO 0.9 (1.0-2.2); ALKALINE PHOSPHATASE 50 IU/L (42-121); ALT ALANINE AMINOTRANSFERASE 10 IU/L (10-60); AST ASPARTATE AMINOTRANSFERASE < 10 IU/L (10-42); BILIRUBIN,TOTAL 0.8 mg/dL (0.2-1.0); BUN - BLOOD UREA NITROGEN 27 mg/dL (6-20); CALCIUM 8.6 mg/dL (8.5-10.3); CARBON DIOXIDE - CO2 17 mmol/L (21-32); CHLORIDE 111 mmol/L (101-111); CREATININE 1.9 mg/dL (0.4-1.0); GFR - MDRD 27 (>89); GLUCOSE 88 mg/dL (70-100); IONIZED CALCIUM IF INDICATED NO; MAGNESIUM 1.9 mg/dL (1.7-2.8); POTASSIUM 3.4 mmol/L (3.5-5.0); SODIUM 136 mmol/L (135-145); TOTAL PROTEIN 5.4 g/dL (6.7-8.2)
[2020-06-14] MEDS: SACCHAROMYCES BOULARDII 250 MG CAPSULE PO SCH ×2 (08:27→20:55)
[2020-06-14] MEDS: ENOXAPARIN 30 MG/0.3 ML SYRINGE SUBQ SCH (08:27)
[2020-06-14] MEDS: PANTOPRAZOLE 40 MG VIAL IVP SCH ×2 (08:27→20:55)
[2020-06-14] MEDS: GABAPENTIN 400 MG CAPSULE PO SCH ×2 (08:27→20:54)
[2020-06-14] MEDS: DULoxetine 30 MG CAPSULE PO SCH ×2 (08:29→20:54)
--- NOTE | 2020-06-14 11:50 | PROVIDER PROGRESS NOTE ---
Progress Note Subjective Patient hospital day #2 admitted with post polypectomy syndrome. Patient with extensive colonic polyps as per below. Pathology is as follows as well. Continues with discomfort pending CT scan today. Admitted also with acute renal failure. PATHOLOGY: 1. Cecal polypectomy consistent with tubular adenoma negative for high-grade dysplasia and carcinoma. 2. Ascending colon tubular adenoma negative for high-grade dysplasia and carcinoma 3. Transverse colonic polyp please note that this polyp was not completely resected: Tubulovillous adenoma with patchy high-grade dysplasia negative for invasive carcinoma 4. Splenic flexure polyp tubulovillous adenoma multiple fragments negative for high-grade dysplasia and carcinoma COLON FINDINGS: 1. Appropriate prep 2. Ileocecal valve achieved as evidenced by the appendiceal orifice and ICV; both photographed. 3. Multiple scrolling large sessile polyps throughout the entirety of the right and transverse colon please see below. 4. Cecum without cecitis. The entirety of the colon was without colitis. No diverticulosis or diverticulitis. 5. Careful slow withdrawal notable for multiple polyps: A. Ascending colonic hot snare polypectomy x2. Complete. Retrieved. These were both irregular along folds and exceedingly difficult to resect. B. There was a large cecal polyp, broad sessile. Hot snare polypectomy. Complete. Retrieved. C. There was a semicircumferential discontinuous polyp within the mid transverse colon that could not be removed in its entirety thus NOT COMPLETE. Hot snare biopsy performed of an area concerning for malignancy. Clipped & tattoo. D. Within the splenic flexure there was yet another area concerning for a large semicircumferential polyp along a fold. Hot snare polypectomy. Complete. Retrieved. This area was clipped for hemostasis and also injected for tattoo 6. Exceedingly tortuous colon and redundant colon. 7. Rectum without proctitis. 8. Nonbleeding internal hemorrhoids nonbleeding. Objective General Appearance: positive: No acute distress Eyes Bilateral: positive: Normal inspection ENT: positive: ENT inspection nml Neck: positive: Nml inspection Respiratory: positive: Chest non-tender, No respiratory distress, Breath sounds nml. negative: Wheezes, Rales, Rhonchi Cardiovascular: positive: Regular rate & rhythm Abdomen: positive: Mild distention, Other. negative: Guarding, Rebound. Positive tenderness to palpation. Extremities: positive: Non-tender, Full ROM, Nml appearance Neurologic/Psychiatric: positive: Oriented x3, CN's nml (2-12) Impression/Plan Patient hospital day #2 admitted with post polypectomy syndrome. Patient with extensive colonic polyps as per below. Pathology is as follows as well. Continues with discomfort pending CT scan today. Admitted also with acute renal failure. (1) GI - IVF, bowel regimen, bowel rest. GI ppx. Opiate sparring analgesia. (2) SURGERY -Will reevaluate the patient's abdomen by CT scan. Still p ossibility that the patient may need surgical intervention if there is concern about abscess and/or delayed perforation. Patient advised that given the pathology and remnant polyps especially in the mid transverse we may need to consider completion right colectomy in spite of the benign pathology at the level of the cecum. (3) Renal/Lytes - continue IVF. Continues with elevated BUN and creatinine. We will continue to resuscitate. Has not worsened with slow improvement. Hypokalemia will replete. (4) Respiratory - O2 as necessary. Continue IS. (5) Heme - Will continue with DVT ppx. H/H stable. (6) Cardiovascular - HD acceptable. (7) Neuro - Opiate sparring analgesia. (8) Immune/Infectious Disease - continue Zosyn for post polypectomy syndrome and concern for colitis.
[2020-06-14] MEDS ORDERED: POTASSIUM CHLORIDE 20 MEQ/15 ML UDC PO ONE (12:00)
[2020-06-14 12:25] LABS: MAGNESIUM 2.1 mg/dL (1.7-2.8)
[2020-06-14 12:36] LABS: LITHIUM 0.37 mmol/L
[2020-06-14] MEDS: D5NS W/20 MEQ KCL 1,000 ML IV SCH (12:36)
[2020-06-14] MEDS: POTASSIUM CHLOR 10 MEQ/100 ML 10 MEQ/100 ML BAG IV SCH ×3 (12:36→15:41)
[2020-06-14] MEDS: MEROPENEM 1 GM in SODIUM CHLORIDE 0.9% MINIBAG 100 ML IV SCH ×2 (14:23→21:00)
[2020-06-14] MEDS ORDERED: IOPAMIDOL-300 50 ML VIAL ONE (16:35)
[2020-06-14] MEDS ORDERED: IOPAMIDOL-300 100 ML VIAL ONE (16:35)
[2020-06-14] MEDS: ATORVASTATIN 10 MG TABLET PO SCH (20:54)
[2020-06-14] MEDS: LITHIUM ER 300 MG TABLET PO SCH (20:55)
[2020-06-15] MEDS: D5NS W/20 MEQ KCL 1,000 ML IV SCH ×4 (00:13→21:36)
[2020-06-15] MEDS: SODIUM CHLORIDE FLUSH 0.9% 10 ML SYRINGE IVP SCH ×4 (01:17→23:44)
[2020-06-15] MEDS: ACETAMINOPHEN 1,000 MG/100 ML 100 ML IV SCH ×4 (02:07→22:52)
[2020-06-15] MEDS: MEROPENEM 1 GM in SODIUM CHLORIDE 0.9% MINIBAG 100 ML IV SCH ×3 (05:02→21:35)
[2020-06-15 05:10] LABS: BASOPHILS % (AUTO) 0.3 %; EOSINOPHILS # (AUTO) 0.2 10^3/uL (0.0-0.7); EOSINOPHILS % (AUTO) 2.6 %; HCT - HEMATOCRIT 32.8 % (37.0-47.0); HGB - HEMOGLOBIN 10.1 g/dL (12.0-16.0); LYMPHOCYTES # (AUTO) 0.3 10^3/uL (1.5-3.5); MEAN CORPUSCULAR HEMOGLOBIN 30.6 pg (27.0-31.0); MEAN CORPUSCULAR HGB CONC 30.8 g/dL (32.0-36.0); MEAN CORPUSCULAR VOLUME 99.4 fL (81.0-99.0); MEAN PLATELET VOLUME 10.4 fL (7.9-10.8); MONOCYTES # (AUTO) 0.4 10^3/uL (0.0-1.0); MONOCYTES % (AUTO) 5.5 %; NEUTROPHILS # (AUTO) 5.9 10^3/uL (1.5-6.6); NEUTROPHILS % (AUTO) 86.2 %; PLT - PLATELET COUNT 205 10^3/uL (130-450); RED CELL DISTRIBUTION WIDTH 15.2 % (12.0-15.0); WHITE BLOOD COUNT 6.9 x10^3/uL (4.8-10.8)
[2020-06-15 05:28] LABS: ALBUMIN 2.3 g/dL (3.2-5.5); ALBUMIN/GLOBULIN RATIO 0.7 (1.0-2.2); ALKALINE PHOSPHATASE 48 IU/L (42-121); ALT ALANINE AMINOTRANSFERASE < 10 IU/L (10-60); AST ASPARTATE AMINOTRANSFERASE < 10 IU/L (10-42); BILIRUBIN,TOTAL 0.6 mg/dL (0.2-1.0); BUN - BLOOD UREA NITROGEN 19 mg/dL (6-20); CALCIUM 9.2 mg/dL (8.5-10.3); CARBON DIOXIDE - CO2 19 mmol/L (21-32); CHLORIDE 119 mmol/L (101-111); CREATININE 1.5 mg/dL (0.4-1.0); GFR - MDRD 35 (>89); GLUCOSE 142 mg/dL (70-100); MAGNESIUM 2.2 mg/dL (1.7-2.8); PHOSPHORUS 2.4 mg/dL (2.5-4.6); SODIUM 144 mmol/L (135-145); TOTAL PROTEIN 5.5 g/dL (6.7-8.2)
[2020-06-15] MEDS: SACCHAROMYCES BOULARDII 250 MG CAPSULE PO SCH ×2 (07:55→16:40)
[2020-06-15] MEDS: GABAPENTIN 400 MG CAPSULE PO SCH ×2 (08:00→20:45)
[2020-06-15] MEDS: ENOXAPARIN 30 MG/0.3 ML SYRINGE SUBQ SCH (08:00)
[2020-06-15] MEDS: PANTOPRAZOLE 40 MG VIAL IVP SCH ×2 (08:00→20:44)
[2020-06-15] MEDS ORDERED: SODIUM PHOSPHATE 20 MMOL in SODIUM CHLORIDE 0.9% 250 ML IV ONE ×2 (13:42→15:00)
--- NOTE | 2020-06-15 15:04 | PROVIDER PROGRESS NOTE ---
Progress Note Subjective Patient hospital day #3 admitted with post polypectomy syndrome. Patient with extensive colonic polyps as per below. Pathology is as follows as well. Abdominal exam much improved. Voiding without complication. Renal indices appear to be improving as well. See below PATHOLOGY: 1. Cecal polypectomy consistent with tubular adenoma negative for high-grade dysplasia and carcinoma. 2. Ascending colon tubular adenoma negative for high-grade dysplasia and carcinoma 3. Transverse colonic polyp please note that this polyp was not completely resected: Tubulovillous adenoma with patchy high-grade dysplasia negative for invasive carcinoma 4. Splenic flexure polyp tubulovillous adenoma multiple fragments negative for high-grade dysplasia and carcinoma COLON FINDINGS: 1. Appropriate prep 2. Ileocecal valve achieved as evidenced by the appendiceal orifice and ICV; both photographed. 3. Multiple scrolling large sessile polyps throughout the entirety of the right and transverse colon please see below. 4. Cecum without cecitis. The entirety of the colon was without colitis. No diverticulosis or diverticulitis. 5. Careful slow withdrawal notable for multiple polyps: A. Ascending colonic hot snare polypectomy x2. Complete. Retrieved. These were both irregular along folds and exceedingly difficult to resect. B. There was a large cecal polyp, broad sessile. Hot snare polypectomy. Complete. Retrieved. C. There was a semicircumferential discontinuous polyp within the mid transverse colon that could not be removed in its entirety thus NOT COMPLETE. Hot snare biopsy performed of an area concerning for malignancy. Clipped & tattoo. D. Within the splenic flexure there was yet another area concerning for a large semicircumferential polyp along a fold. Hot snare polypectomy. Complete. Retrieved. This area was clipped for hemostasis and also injected for tattoo 6. Exceedingly tortuous colon and redundant colon. 7. Rectum without proctitis. 8. Nonbleeding internal hemorrhoids nonbleeding. Objective General Appearance: positive: No acute distress Eyes Bilateral: positive: Normal inspection ENT: positive: ENT inspection nml Neck: positive: Nml inspection Respiratory: positive: Chest non-tender, No respiratory distress, Breath sounds nml. negative: Wheezes, Rales, Rhonchi Cardiovascular: positive: Regular rate & rhythm Abdomen: positive: Mild distention, Other. negative: Guarding, Rebound. Positive tenderness to palpation. Extremities: positive: Non-tender, Full ROM, Nml appearance Neurologic/Psychiatric: positive: Oriented x3, CN's nml (2-12) Impression/Plan Patient hospital day #3 admitted with post polypectomy syndrome. Imaging and clinical concerns discussed with both the patient and her daughter the latter being a registered nurse. Patient has 1 remnant large sessile polyp with associated high-grade dysplasia within the mid transverse colon. No obvious concerns for perforation or acute intra-abdominal process at this time. She does have small bowel obstruction which could be inflammatory ileus versus mechanical. Will need to discuss with pathology high-grade dysplasia and degree to which this may be something for which further endoscopic intervention may be attempted versus en bloc resection by colectomy. We will reevaluate the patient tomorrow. Continue with fluid resuscitation in this patient who also presented with acute on chronic renal failure. (1) GI - IVF, bowel regimen, bowel rest. GI ppx. Opiate sparring analgesia. (2) SURGERY - See above. Still possibility that the patient may need surgical intervention if there is concern about abscess and/or delayed perforation. Patient and daughter advised that given pathology and remnant polyp especially in the mid transverse we may need to consider completion right colectomy in spite of the benign pathology at the level of the cecum. (3) Renal/Lytes - continue IVF. Continues with elevated BUN and creatinine however improved. We will continue to resuscitate. Has not worsened with slow improvement. (4) Respiratory - O2 as necessary. Continue IS. (5) Heme - Will continue with DVT ppx. H/H stable. (6) Cardiovascular - HD acceptable. (7) Neuro - Opiate sparring analgesia. (8) Immune/Infectious Disease - continue Zosyn for post polypectomy syndrome. CT abdomen pelvis impression May 1: 1. Small bowel obstruction pattern the small bowel dilated up to 5.1 cm, and the obstruction appears high-grade. A definitive source of this finding is not found. There is relatively normal caliber of the colon and contrast to the small bowel. 2. Quality of visualization is somewhat limited by absence of intravenous contrast. All contrast is transited only a small distance into the small bowel. 3. There is no free fluid found, or abscess. There is however a small amount of free peritoneal fluid within the perihepatic space, hepatorenal space on the right in the cul-de-sac of the low midline pelvis. Several scattered abdominal surgical clips appear present including prior cholecystectomy, and postoperative adhesion may explain the small bowel obstruction stenosis pattern.
[2020-06-15] MEDS: SODIUM CHLORIDE FLUSH 0.9% 10 ML SYRINGE IVP PRN (20:46)
[2020-06-15] MEDS: ATORVASTATIN 10 MG TABLET PO SCH (20:46)
[2020-06-15] MEDS: LITHIUM ER 300 MG TABLET PO SCH (20:49)
[2020-06-15] MEDS: DULoxetine 30 MG CAPSULE PO SCH (20:50)
[2020-06-16] MEDS: ACETAMINOPHEN 1,000 MG/100 ML 100 ML IV SCH (02:28)
[2020-06-16 05:36] LABS: BASOPHILS % (AUTO) 0.2 %; EOSINOPHILS # (AUTO) 0.2 10^3/uL (0.0-0.7); EOSINOPHILS % (AUTO) 2.9 %; HCT - HEMATOCRIT 32.5 % (37.0-47.0); HGB - HEMOGLOBIN 9.9 g/dL (12.0-16.0); LYMPHOCYTES # (AUTO) 0.4 10^3/uL (1.5-3.5); LYMPHOCYTES % (AUTO) 5.5 %; MEAN CORPUSCULAR HEMOGLOBIN 30.4 pg (27.0-31.0); MEAN CORPUSCULAR HGB CONC 30.5 g/dL (32.0-36.0); MEAN CORPUSCULAR VOLUME 99.7 fL (81.0-99.0); MEAN PLATELET VOLUME 10.2 fL (7.9-10.8); MONOCYTES # (AUTO) 0.5 10^3/uL (0.0-1.0); MONOCYTES % (AUTO) 7.2 %; NEUTROPHILS # (AUTO) 5.4 10^3/uL (1.5-6.6); NEUTROPHILS % (AUTO) 83.6 %; PLT - PLATELET COUNT 208 10^3/uL (130-450); RED BLOOD COUNT 3.26 10^6/uL (4.20-5.40); RED CELL DISTRIBUTION WIDTH 15.7 % (12.0-15.0); WHITE BLOOD COUNT 6.5 x10^3/uL (4.8-10.8)
[2020-06-16] MEDS: MEROPENEM 1 GM in SODIUM CHLORIDE 0.9% MINIBAG 100 ML IV SCH ×3 (05:40→20:45)
--- NOTE | 2020-06-16 05:42 | CT Report ---
PROCEDURE: Abdomen/Pelvis WO INDICATIONS: EVALUATE FOR ABSCESS/PERFORATION TECHNIQUE: Noncontrast 5 mm thick sections acquired from the diaphragms to the symphysis. 5 mm coronal and sagi ttal reformats were then performed. For radiation dose reduction, the following was used: automated exposure control, adjustment of mA and/or kV according to patient size. COMPARISON: No prior CT of the abdomen or pelvis.. FINDINGS: Image quality: Quality of visualization is limited by the absence of intravenous contrast.. ABDOMEN: Lung bases: Lung bases are clear. Heart size is normal. Solid organs: Liver and spleen are normal in size. Gallbladder has been resected Pancreas is oswald l in contours. No adrenal nodules. Kidneys are normal in size, without hydronephrosis or nephrolith iasis. Peritoneum and bowel: Unenhanced bowel loops demonstrate normal wall thickness but increased caliber . Oral contrast enters the proximal small bowel superiorly, with maximal axial dimension up to 5.1 cm . Upper limits of normal is 3.0 cm. The left colon appears relatively collapsed.. No free air. Mode rate free fluid in the perihepatic space and also at the deep midline pelvis and the hepatorenal spac e to a mild degree. Nodes and vessels: No retroperitoneal or mesenteric adenopathy by size criteria. Aorta and inferior vena cava are normal in caliber. Miscellaneous: No ventral hernias. PELVIS: Genitourinary: Bladder wall thickness is normal. Miscellaneous: No inguinal hernias or adenopathy. Several scattered surgical clips are seen at the lower abdomen on the right and left, Bones: No suspicious bony lesions. No vertebral body compression fractures. IMPRESSION: Small bowel obstruction pattern, with the small bowel dilated up to 5.1 cm, and the obstruction appea rs high-grade. A definite source of this finding is not found. There is a relatively normal caliber o f the colon in contrast to the small bowel. Quality of visualization is somewhat limited by absence of intravenous contrast. Oral contrast has tr ansited only a small distance into the small bowel. There is no free air found, or abscess. There is, however, a small amount of free peritoneal fluid wi thin the perihepatic space, hepatorenal space on the right, and at the cul-de-sac of the low midline pelvis. Several scattered abdominal surgical clips appear present, including prior cholecystectomy, a nd postoperative adhesion may explain this small bowel obstruction/stenosis pattern. Reviewed by: Hood Tai MD on 06/14/2020 6:41 PM PDT Approved by: Hood Tai MD on 06/14/2020 6:41 PM PDT Station ID: [id number]
[2020-06-16] MEDS: D5NS W/20 MEQ KCL 1,000 ML IV SCH (05:52)
[2020-06-16 06:02] LABS: ALBUMIN 2.2 g/dL (3.2-5.5); ALBUMIN/GLOBULIN RATIO 0.7 (1.0-2.2); BILIRUBIN,TOTAL 0.5 mg/dL (0.2-1.0); CREATININE 1.2 mg/dL (0.4-1.0); PHOSPHORUS 2.5 mg/dL (2.5-4.6); POTASSIUM 3.7 mmol/L (3.5-5.0); TOTAL PROTEIN 5.2 g/dL (6.7-8.2)
[2020-06-16] MEDS: ENOXAPARIN 40 MG/0.4 ML SYRINGE SUBQ SCH (08:27)
[2020-06-16] MEDS: GABAPENTIN 400 MG CAPSULE PO SCH ×2 (08:27→20:31)
[2020-06-16] MEDS: SACCHAROMYCES BOULARDII 250 MG CAPSULE PO SCH ×2 (08:27→17:05)
[2020-06-16 08:31] LABS: CALCIUM 9.5 mg/dL (8.5-10.3); CREATININE 1.3 mg/dL (0.4-1.0); POTASSIUM 3.7 mmol/L (3.5-5.0)
[2020-06-16] MEDS ORDERED: ACETAMINOPHEN 500 MG TABLET PO PRN (09:28)
[2020-06-16] MEDS ORDERED: HYDROmorphone 0.5 MG/0.5 ML SYRINGE IVP PRN (09:29)
[2020-06-16] MEDS: PANTOPRAZOLE 40 MG VIAL IVP SCH ×2 (11:11→20:37)
[2020-06-16] MEDS: SODIUM CHLORIDE FLUSH 0.9% 10 ML SYRINGE IVP SCH ×2 (11:13→17:06)
[2020-06-16] MEDS ORDERED: ALBUTEROL NEB 2.5 MG/3 ML INH PRN (11:50)
--- NOTE | 2020-06-16 15:27 | CONSULTATION NOTE ---
Referring Provider Name of Referring Provider:: Ken Cintron MD Consult Date: 06/16/20 Chief Complaint - Chief Complaint Chief Complaint: hyperchloremia and hypernatremia History of Present Illness - Admitted From Admitted From:: Home via POV - History Obtained From Records Reviewed: [facility] History obtained from: Patient, Dr. Cintron and [facility] Exam Limitations: none - History of Present Illness HPI Comment/Other: This osmani lady is a 64-year-old female who is on lithium for major depressive disorder and presented to the emergency room on June 12 complaining of abdominal distention and pain ever since she had a colonoscopy on June 10. She is felt to have post polypectomy syndrome. She has had [address] scans and there is no free air, with pericolonic inflammatory changes in a focal loop of the descending colon. The CT from June 14 shows small bowel obstruction pattern with high-grade obstruction. No abscess. The pathology from the polypectomy was consistent with tubular adenoma negative for high-grade dysplasia and carcinoma. A transverse colonic polyp had tubulovillous adenoma with patchy high-grade dysplasia negative for invasive carcinoma. She has been receiving IV fluids D5NS with 20 meq of potassium. She is a patient on lithium which can result in reduced clearance and excretion of lithium. If lithium is combined with sodium and volume depletion such as in this patient, this will result in increased lithium concentration in the serum, which in turn will affect the kidneys ability to concentrate urine negatively. She is on meropenem which is 444 milligrams of sodium (100 ml of NS + 90.2 mg) and has been given 3 times a day. And also received sodium phosphatase. Her sodium has been steadily climbing. She was admitted at 138 and is now 150 today. Chloride started 101 and is now 123 today. She has had decreased p.o. intake because of the n.p.o. status which was then changed to clear liquids today. Today she is having BM. Tolerating her clear liquids. no emesis. Abd is bloated . No fever. When she gets up to go to the bathroom, trujillo. She has COPD and says it's a little worse than usual. At home gets hand held HFA for treatment. No sputum. No hemoptysis. 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 Dad in his 70s after 20 years of having a heart transplant, and being diagnosed with cardiomyopathy in his 30s as he was attempting to reenlist in the [employer]. 1 brother who is healthy. 1 daughter who is healthy. Living arrangement: At home Living Situation: With family Social History Notes: [place]. They came here because of local friend connection and as well as the fact that she was near her grandparents. [place]. She has been from her for quite some time but they are still fairly good friends. She started smoking at the age of 16 and smoked up to 3 packs/day. Stopped smoking in 1999 when her grandchild was born. She was also a heavy drinker and her last drink was 1992. She has no history of other recreational substance abuse. She moved in with her mother in 2013 when her dad . Mom but never lived alone and did not want to be alone so she asked her daughter to move in with her and the patient did. They recently sold their home a year ago and brought a trailer home in [place]. - Substance History Use: Uses substance without health or social issues: NONE Abuse: Recurrent use of substance despite neg consequences: NONE Dependence: Experiences withdrawal or developed tolerances: NONE - POLST Patient has POLST: No POLST Status: Full Code Meds/Allgy - Home Medications Home Medications: Ambulatory Orders Medication Instructions Recorded Confirmed Albuterol Sulfate [Proair Hfa] 1 puffs IH Q4-6H PRN 12/29/12 06/13/20 DULoxetine [Cymbalta] 60 mg PO DAILY 12/29/12 06/12/20 Fluticasone [Flonase] 1 sprays CARLITA DAILY PRN MDD 1 12/29/12 06/12/20 Gabapentin [Neurontin] 1,600 mg PO BID 12/29/12 06/12/20 Reader ER [Lithobid] 900 mg PO QPM 12/29/12 06/13/20 Atorvastatin [Lipitor] 20 mg PO DAILY PM 06/10/20 06/12/20 Levothyroxine [Synthroid] 100 mcg PO QDAC 06/13/20 06/13/20 Omeprazole Magnesium 20 mg PO QDAC 06/13/20 06/13/20 - Allergies Allergies/Adverse Reactions: Allergies Allergy/AdvReac Type Severity Reaction Status Date / Time bupropion HCl * Allergy ANXIETY/ANG Verified 06/12/20 14:41 [From Wellbutrin] RY cephalexin [From Keflex] Allergy C-Diff/Coli Verified 06/12/20 14:41 tis ciprofloxacin [From Cipro] Allergy C-DIFF/COLI Verified 06/12/20 14:41 TIS ciprofloxacin HCl * Allergy C-DIFF/COLI Verified 06/12/20 14:41 [From Cipro] TIS Review of Systems - Constitutional Constitutional: reports: Fatigue, Poor appetite - Eyes Eyes: reports: Other (All negative) - Ears, Nose & Throat Ears, Nose & Throat: reports: Hearing loss - Cardiovascular Cariovascular: reports: Lightheadedness, Exertional dyspnea, Decr. exercise tolerance. denies: Irregular heart rate, Palpitations, Chest pain, Edema - Respiratory Respiratory: reports: Cough, Wheezing, SOB at rest, SOB with exertion - Gastrointestinal Gastrointestinal: reports: Abdominal pain, Abdominal distention, Change in bowel habits, Nausea, Vomiting. denies: Rectal bleeding, Black stools, Bloody stools, Bile emesis, Guillermo blood emesis - Genitourinary Genitourinary: reports: Frequency. denies: Dysuria, Urgency, Hematuria, Incontinence, Flank pain - Musculoskeletal Musculoskeletal: reports: Joint pain - Integumentary Integumentary: denies: Rash, Pruritis, Lesions, Dryness - Neurological Neurological: reports: General weakness. denies: Focal weakness, Headache, Di zziness, Memory problems, Pre-existing deficit, Abnormal gait - Psychiatric Psychiatric: reports: Depression. denies: Anxiety, Suicidal, Hallucinations - Endocrine Endocrine: denies: Polyuria, Polydypsia, Polyphagia - Hematologic/Lymphatic Hematologic/Lymphatic: denies: Anemia, Bruising, Petechiae Exam - Vital Signs Reviewed Vital Signs: Yes Vital Signs: Vital Signs x48h Temp Pulse Pulse Resp BP Pulse Ox 06/16/20 11:53 84 16 06/16/20 08:26 36.7 C 76 18 135/67 H 99 - Physical Exam General Appearance: positive: Alert, Other (White female who looks stated age, and I watched her get back into bed from bathroom with respiratory distress that clears after about 3 minutes of sitting and speaking to me.) Eyes Bilateral: positive: PERRL, EOMI ENT: positive: Pharynx nml, Other (low voice) Neck: positive: No JVD. negative: Stiff neck Respiratory: positive: Wheezes (that are present after walking to bed, resolve after 3 minutes rest), Rhonchi Cardiovascular: positive: Regular rate & rhythm, Systolic murmur. negative: Gallop/S4, Friction rub Abdomen: positive: Other (diffuse distension, tympanitic, mild gen tenderness, no rebound or guarding. Just had BM) Skin: positive: Warm, Dry Extremities: positive: Full ROM, No pedal edema Neurologic/Psychiatric: positive: Oriented x3, CN's nml (2-12), Motor nml Conclusion/Plan - Diagnosis Diagnosis: Hypernatremic hyperchloremic metabolic acidosis due to excessive normal saline, other sodium solute such as meropenem, in the face of decreased p.o. intake. She also seems to have COPD with wheezing on exam and decreased mobility because of shortness of breath.Anemia, acute without apparent blood loss. Acute kidney injury with creatinine 2.2, 1.3 today. - Plan Plan: D5 normal saline with potassium, is changed to just simple D5. We can not change the solutes in meropenem. Try to give phosphorus supplementation in a different way. Recheck BMP in the morning. She is albuterol as needed, Flonase. I will change to DuoNeb on a scheduled basis. Her anemia may be due to dilutional effects, and not true blood loss. Creatinine responding to hydration with no further intervention needed other than avoiding nephrotoxins. - Lab Results Lab results reviewed: Yes Fish Bones: 06/16/20 05:30 06/16/20 08:05
[2020-06-16] MEDS: DEXTROSE 5% 1,000 ML IV SCH (16:08)
[2020-06-16] MEDS: LITHIUM ER 300 MG TABLET PO SCH (20:30)
[2020-06-16] MEDS: DULoxetine 30 MG CAPSULE PO SCH (20:31)
[2020-06-16] MEDS: ATORVASTATIN 10 MG TABLET PO SCH (20:31)
[2020-06-16] MEDS: IPRATROPIUM/ALBUTEROL 3 ML NEB INH SCH (21:17)
[2020-06-17] MEDS: SODIUM CHLORIDE FLUSH 0.9% 10 ML SYRINGE IVP SCH ×4 (01:50→23:39)
[2020-06-17] MEDS: DEXTROSE 5% 1,000 ML IV SCH ×3 (02:26→22:06)
[2020-06-17] MEDS: SODIUM CHLORIDE FLUSH 0.9% 10 ML SYRINGE IVP PRN ×2 (04:46→20:24)
[2020-06-17] MEDS: MEROPENEM 1 GM in SODIUM CHLORIDE 0.9% MINIBAG 100 ML IV SCH ×3 (04:54→20:24)
[2020-06-17 05:31] LABS: BASOPHILS % (AUTO) 0.2 %; EOSINOPHILS # (AUTO) 0.2 10^3/uL (0.0-0.7); EOSINOPHILS % (AUTO) 2.9 %; HCT - HEMATOCRIT 34.3 % (37.0-47.0); HGB - HEMOGLOBIN 10.6 g/dL (12.0-16.0); LYMPHOCYTES # (AUTO) 0.6 10^3/uL (1.5-3.5); LYMPHOCYTES % (AUTO) 8.7 %; MEAN CORPUSCULAR HEMOGLOBIN 30.5 pg (27.0-31.0); MEAN CORPUSCULAR HGB CONC 30.9 g/dL (32.0-36.0); MEAN CORPUSCULAR VOLUME 98.8 fL (81.0-99.0); MEAN PLATELET VOLUME 10.9 fL (7.9-10.8); MONOCYTES # (AUTO) 0.5 10^3/uL (0.0-1.0); MONOCYTES % (AUTO) 7.7 %; NEUTROPHILS # (AUTO) 5.3 10^3/uL (1.5-6.6); NEUTROPHILS % (AUTO) 79.3 %; PLT - PLATELET COUNT 212 10^3/uL (130-450); RED BLOOD COUNT 3.47 10^6/uL (4.20-5.40); RED CELL DISTRIBUTION WIDTH 15.4 % (12.0-15.0); WHITE BLOOD COUNT 6.6 x10^3/uL (4.8-10.8)
[2020-06-17 05:45] LABS: ALBUMIN 2.2 g/dL (3.2-5.5); ALBUMIN/GLOBULIN RATIO 0.7 (1.0-2.2); BILIRUBIN,TOTAL 0.4 mg/dL (0.2-1.0); CALCIUM 9.1 mg/dL (8.5-10.3); CREATININE 1.1 mg/dL (0.4-1.0); MAGNESIUM 1.7 mg/dL (1.7-2.8); PHOSPHORUS 2.1 mg/dL (2.5-4.6); POTASSIUM 3.2 mmol/L (3.5-5.0); TOTAL PROTEIN 5.3 g/dL (6.7-8.2)
[2020-06-17] MEDS ORDERED: POTASSIUM CHLORIDE 20 MEQ TABLET PO ONE (06:50)
--- NOTE | 2020-06-17 07:58 | PROVIDER PROGRESS NOTE ---
Assessment/Plan - Problem List (1) Hypernatremia Assessment/Plan: Resolved. Patient's IV hydration was switched from D5 normal saline with potassium to simply D5 W yesterday 06/16/20. Patient's sodium level today is 142. This is an improvement from 150. We will continue IV hydration with D5W. Patient tolerate a clear liquid diet. Diet will be advanced as tolerated and per general surgery approval. (2) JOHANNE (acute kidney injury) Assessment/Plan: Likely prerenal. Patient's renal function has been improving steadily with IV hydration. At admission patient's creatinine was 1.9 with an estimated GFR of 27. Today which is 3 days later creatinine is 1.1 with an estimated GFR of 50. We will continue IV hydration with D5W at 100 mils per hour. (3) Hypokalemia Assessment/Plan: Potassium today was 3.2. Magnesium was 1.7. We will recheck with morning labs. Patient given potassium chloride 40 mEq p.o. X1 - Current Meds Current Meds: Current Medications Generic Name Dose Route Start Last Admin Trade Name Freq PRN Reason Stop Dose Admin Albuterol 2.5 mg 06/16/20 11:50 06/16/20 11:53 Albuterol Neb 2.5 Mg/3 Ml INH 2.5 mg RTQ4H PRN Administration Wheezing Albuterol/Ipratropium 3 ml 06/16/20 19:00 06/16/20 21:17 Ipratropium/Albuterol 3 Ml Neb INH 3 ml RTQID TORI Administration Atorvastatin Calcium 20 mg 06/12/20 21:00 06/16/20 20:31 Atorvastatin 10 Mg Tablet PO 20 mg QPM TORI Administration Duloxetine HCl 60 mg 06/14/20 21:00 06/16/20 20:31 Duloxetine 30 Mg Capsule PO 60 mg QPM TORI Administration Enoxaparin Sodium 40 mg 06/16/20 09:00 06/16/20 08:27 Enoxaparin 40 Mg/0.4 Ml Syringe SUBQ 40 mg DAILY TORI Administration Gabapentin 1,600 mg 06/12/20 21:00 06/16/20 20:31 Gabapentin 400 Mg Capsule PO 1,600 mg BID TORI Administration Meropenem 1 gm/ Sodium 100 mls @ 200 mls/hr 06/14/20 13:00 06/17/20 05:27 Chloride IV Infused Q8H TORI Infusion Dextrose 1,000 mls @ 100 mls/hr 06/16/20 16:00 06/17/20 05:28 D5w IV 100 mls/hr .Q10H TORI Infusion [place] Carbonate 900 mg 06/13/20 21:00 06/16/20 20:30 [place] Er 300 Mg Tablet PO 900 mg QPM TORI Administration Pantoprazole Sodium 40 mg 06/12/20 21:00 06/16/20 20:37 Pantoprazole 40 Mg Vial IVP 40 mg BID TORI Administration Saccharomyces Boulardii 250 mg 06/13/20 17:00 06/16/20 17:05 Saccharomyces Boulardii 250 Mg Capsule PO 250 mg BIDWM TORI Administration Sodium Chloride 10 ml 06/13/20 01:00 06/17/20 01:50 Sodium Chloride Flush 0.9% 10 Ml Syringe IVP Not Given 0100,0900,1700 TORI Sodium Chloride 10 ml 06/12/20 19:41 06/17/20 04:46 Sodium Chloride Flush 0.9% 10 Ml Syringe IVP 10 ml PRN PRN Administration NEEDED PER PROVIDER ORDERS - Lab Result Fish Bone Diagrams: 06/17/20 05:20 06/17/20 05:20 Subjective - Subjective Patient Reports: Other (Patient resting comfortably in bed. She reports 2 episodes of diarrhea this morning. Some lower abdominal pain persists. She tolerated a clear liquid diet well. She denied chest pain, dyspnea, nausea, vomiting, fever or chills.) Objective Vital Signs: Vital Signs - 24 hr 06/16/20 06/16/20 06/16/20 08:26 11:53 15:46 Temperature 36.7 C 36.7 C Heart Rate 84 Heart Rate [ 76 87 Brachial] Respiratory 18 16 16 Rate Blood Pressure 135/67 H [Left Radial artery] Blood Pressure 139/75 H [Right Brachial artery] O2 Saturation 99 97 06/16/20 06/17/20 06/17/20 21:18 00:00 05:33 Temperature 36.9 C 36.7 C Heart Rate 85 Heart Rate [ 89 80 Brachial] Respiratory 20 18 18 Rate Blood Pressure [Left Radial artery] Blood Pressure 128/65 143/73 H [Right Brachial artery] O2 Saturation 100 97 Oxygen O2 Source Room air Oxygen Flow Rate 2 I&O (Last 24 Hrs): Intake and Output Totals x24h 06/15/20 06/16/20 06/17/20 23:59 23:59 23:59 Intake Total 4459.3337 5548.333 1398.334 Balance 4459.3337 5548.333 1398.334 General: Alert, Oriented x3, Mild distress HEENT: Atraumatic, PERRLA, EOMI Neck: Supple, No JVD Neuro: Alert, Non Focal, Oriented Times 3 Cardiovascular: Regular rate, Normal S1, Normal S2 Respiratory: Chest non-tender, No respiratory distress, Breath sounds nml Abdomen: Normal bowel sounds, Soft, No tenderness Extremities: No clubbing, No cyanosis, No edema Skin: No rashes, No breakdown - Results Results: Laboratory Results WBC 6.6 x10^3/uL (4.8-10.8) 06/17/20 05:20 RBC 3.47 10^6/uL (4.20-5.40) L 06/17/20 05:20 Hgb 10.6 g/dL (12.0-16.0) L 06/17/20 05:20 Hct 34.3 % (37.0-47.0) L 06/17/20 05:20 MCV 98.8 fL (81.0-99.0) 06/17/20 05:20 MCH 30.5 pg (27.0-31.0) 06/17/20 05:20 MCHC 30.9 g/dL (32.0-36.0) L 06/17/20 05:20 RDW 15.4 % (12.0-15.0) H 06/17/20 05:20 Plt Count 212 10^3/uL (130-450) 06/17/20 05:20 MPV 10.9 fL (7.9-10.8) H 06/17/20 05:20 Neut # (Auto) 5.3 10^3/uL (1.5-6.6) 06/17/20 05:20 Lymph # (Auto) 0.6 10^3/uL (1.5-3.5) L 06/17/20 05:20 [place] # (Auto) 0.5 10^3/uL (0.0-1.0) 06/17/20 05:20 Eos # (Auto) 0.2 10^3/uL (0.0-0.7) 06/17/20 05:20 Baso # (Auto) 0.0 10^3/uL (0.0-0.1) 06/17/20 05:20 Absolute Nucleated RBC 0.00 x10^3/uL 06/17/20 05:20 Nucleated RBC % 0.0 /100WBC 06/17/20 05:20 Manual Slide Review Indicated 06/12/20 16:17 WBC Morphology NORMAL APPEARANCE (NORMAL) 06/12/20 16:17 Platelet Estimate NORMAL (130-450,000) (NORMAL) 06/12/20 16:17 Platelet Morphology NORMAL APPEARANCE (NORMAL) 06/12/20 16:17 RBC Morph Micro Appear NORMAL APPEARANCE (NORMAL) 06/12/20 16:17 Sodium 142 mmol/L (135-145) 06/17/20 05:20 Potassium 3.2 mmol/L (3.5-5.0) L 06/17/20 05:20 Chloride 117 mmol/L (101-111) H 06/17/20 05:20 Carbon Dioxide 19 mmol/L (21-32) L 06/17/20 05:20 Anion Gap 6.0 (6-13) 06/17/20 05:20 BUN 9 mg/dL (6-20) 06/17/20 05:20 Creatinine 1.1 mg/dL (0.4-1.0) H 06/17/20 05:20 Estimated GFR (MDRD) 50 (>89) L 06/17/20 05:20 Glucose 107 mg/dL (70-100) H 06/17/20 05:20 Calcium 9.1 mg/dL (8.5-10.3) 06/17/20 05:20 Ionized Calcium NO 06/14/20 04:25 Phosphorus 2.1 mg/dL (2.5-4.6) L 06/17/20 05:20 Magnesium 1.7 mg/dL (1.7-2.8) 06/17/20 05:20 Total Bilirubin 0.4 mg/dL (0.2-1.0) 06/17/20 05:20 AST 18 IU/L (10-42) 06/17/20 05:20 ALT 20 IU/L (10-60) 06/17/20 05:20 Alkaline Phosphatase 59 IU/L (42-121) 06/17/20 05:20 C-Reactive Protein 47.9 mg/dL (0-1.0) H 06/12/20 16:17 Total Protein 5.3 g/dL (6.7-8.2) L 06/17/20 05:20 Albumin 2.2 g/dL (3.2-5.5) L 06/17/20 05:20 Globulin 3.1 g/dL (2.1-4.2) 06/17/20 05:20 Albumin/Globulin Ratio 0.7 (1.0-2.2) L 06/17/20 05:20 Lipase 18 U/L (22-51) L 06/12/20 16:17 Urine Color YELLOW 06/12/20 18:42 Urine Clarity CLOUDY (CLEAR) 06/12/20 18:42 Urine pH 5.5 PH (5.0-7.5) 06/12/20 18:42 Ur Specific [place] 1.020 (1.002-1.030) 06/12/20 18:42 Urine Protein 30 mg/dL (NEGATIVE) H 06/12/20 18:42 Urine Glucose (UA) NEGATIVE mg/dL (NEGATIVE) 06/12/20 18:42 Urine Ketones NEGATIVE mg/dL (NEGATIVE) 06/12/20 18:42 Urine Occult Blood TRACE-INTA (NEGATIVE) 06/12/20 18:42 Urine Nitrite NEGATIVE (NEGATIVE) 06/12/20 18:42 Urine Bilirubin NEGATIVE (NEGATIVE) 06/12/20 18:42 Urine Urobilinogen 0.2 (NORMAL) E.U./dL (NORMAL) 06/12/20 18:42 Ur Leukocyte Esterase NEGATIVE (NEGATIVE) 06/12/20 18:42 Urine RBC 0-5 /HPF (0-5) 06/12/20 18:42 Urine WBC 4-5 /HPF (0-5) 06/12/20 18:42 Ur Squamous Epith Cells MANY Squamous (<= Few) H 06/12/20 18:42 Amorphous Sediment Few /LPF 06/12/20 18:42 Urine Bacteria Moderate /HPF (None Seen) H 06/12/20 18:42 Urine Casts 3-5 Granular Casts /LPF 06/12/20 18:42 Urine Mucus Few Strands 06/12/20 18:42 Ur Microscopic Review INDICATED 06/12/20 18:42 Urine Culture Comments NOT INDICATED 06/12/20 18:42 Nasal Adenovirus (PCR) NOT DETECTED 06/12/20 20:25 Nasal B. parapertussis DNA (PCR) NOT DETECTED 06/12/20 20:25 Nasal Coronavir 229E PCR NOT DETECTED 06/12/20 20:25 Nasal Coronavir HKU1 PCR NOT DETECTED 06/12/20 20:25 Nasal Coronavir NL63 PCR NOT DETECTED 06/12/20 20:25 Nasal Coronavir OC43 PCR NOT DETECTED 06/12/20 20:25 Nasal Enterovir/Rhinovir PCR NOT DETECTED 06/12/20 20:25 Nasal Influenza B PCR NOT DETECTED 06/12/20 20:25 Nasal Influenza A PCR NOT DETECTED 06/12/20 20:25 Nasal Parainfluen 1 PCR NOT DETECTED 06/12/20 20:25 Nasal Parainfluen 2 PCR NOT DETECTED 06/12/20 20:25 Nasal Parainfluen 3 PCR NOT DETECTED 06/12/20 20:25 Nasal Parainfluen 4 PCR NOT DETECTED 06/12/20 20:25 Nasal RSV (PCR) NOT DETECTED 06/12/20 20:25 Nasal B.pertussis DNA PCR NOT DETECTED 06/12/20 20:25 Nasal C.pneumoniae (PCR) NOT DETECTED 06/12/20 20:25 [place] Human Metapneumo PCR NOT DETECTED 06/12/20 20:25 Nasal M.pneumoniae (PCR) NOT DETECTED 06/12/20 20:25 Nasal SARS-CoV-2 (PCR) NOT DETECTED 06/12/20 20:25 Last Dose Date Not Reportable 06/14/20 11:59 Last Dose Time Not Reportable 06/14/20 11:59 [place] 0.37 mmol/L 06/14/20 11:59 - Procedures Procedures: Procedures EXCISION OF CECUM, ENDO (12/16/15) EXCISION OF SIGMOID COLON, ENDO (12/16/15) HAND FASCIECTOMY NEC (01/02/13) ABX Reporting Has patient been on IV antibiotics over the past 48 hours?: Yes
[2020-06-17] MEDS: ENOXAPARIN 40 MG/0.4 ML SYRINGE SUBQ SCH (08:02)
[2020-06-17] MEDS: GABAPENTIN 400 MG CAPSULE PO SCH ×2 (08:02→20:17)
[2020-06-17] MEDS: SACCHAROMYCES BOULARDII 250 MG CAPSULE PO SCH ×2 (08:02→16:54)
[2020-06-17] MEDS: PANTOPRAZOLE 40 MG VIAL IVP SCH ×2 (08:02→20:24)
[2020-06-17] MEDS: IPRATROPIUM/ALBUTEROL 3 ML NEB INH SCH ×4 (09:10→21:32)
--- NOTE | 2020-06-17 10:55 | PROVIDER PROGRESS NOTE ---
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 Hospital day #3. Pain improved today. Electrolyte abnormalities pending hospitalist consult. Objective General Appearance: positive: No acute distress Eyes Bilateral: positive: Normal inspection ENT: positive: ENT inspection nml Neck: positive: Nml inspection Respiratory: positive: Chest non-tender, No respiratory distress, Breath sounds nml. negative: Wheezes, Rales, Rhonchi Cardiovascular: positive: Regular rate & rhythm Abdomen: positive: No distention, Other. negative: Guarding, Rebound Extremities: positive: Non-tender, Full ROM, Nml appearance Neurologic/Psychiatric: positive: Oriented x3, CN's nml (2-12) Impression CT scan June 14, 2020: Small bowel obstruction pattern, with the small bowel dilated up to 5.1 cm. The obstruction appears high-grade. A definite source of this finding is not found. There is relatively normal caliber of the colon and contrast of the small bowel. Quality visualization is somewhat limited by absence of intravenous contrast. Oral contrast has transition only a small distance into the small bowel. There is no free air. No abscess. Small amount of free peritoneal fluid within the perihepatic space hepatorenal space in the cul-de-sac of the lobe midline pelvic. Several scattered abdominal surgical clips appear present including prior cholecystectomy and postoperative adhesion may explain the small bowel obstruction stenosis pattern. 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 Hospital day #3. Pain improved today. Electrolyte abnormalities pending hospitalist consult. Patient has transverse colonic polyp with high-grade dysplasia; this is not completely resected. (1) GI - IVF, bowel regimen, advance diet as tolerated. GI ppx. Bowel obstruction by imaging. Opiate sparring analgesia. (2) SURGERY - Pending discussion with pathology with regard to possible necessary segmental colectomy. Will discuss with patient and daughter. (3) Renal/Lytes - continue IVF. Renal indices improving. (4) Respiratory - O2 as necessary. Continue IS. (5) Heme - Will continue with DVT ppx. H/H stable. (6) Cardiovascular - HD acceptable. (7) Neuro - Opiate sparring analgesia. Antispasmodics with Robaxin. (8) Immune/Infectious Disease - Continue abx for post-polypectomy syndrome.
--- NOTE | 2020-06-17 15:35 | PROVIDER PROGRESS NOTE ---
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 Hospital day #4. Pain improved today. Electrolyte abnormalities pending hospitalist consult. Objective General Appearance: positive: No acute distress Eyes Bilateral: positive: Normal inspection ENT: positive: ENT inspection nml Neck: positive: Nml inspection Respiratory: positive: Chest non-tender, No respiratory distress, Breath sounds nml. negative: Wheezes, Rales, Rhonchi Cardiovascular: positive: Regular rate & rhythm Abdomen: positive: No distention, Other. negative: Guarding, Rebound Extremities: positive: Non-tender, Full ROM, Nml appearance Neurologic/Psychiatric: positive: Oriented x3, CN's nml (2-12) Impression CT scan June 14, 2020: Small bowel obstruction pattern, with the small bowel dilated up to 5.1 cm. The obstruction appears high-grade. A definite source of this finding is not found. There is relatively normal caliber of the colon and contrast of the small bowel. Quality visualization is somewhat limited by absence of intravenous contrast. Oral contrast has transition only a small distance into the small bowel. There is no free air. No abscess. Small amount of free peritoneal fluid within the perihepatic space hepatorenal space in the cul-de-sac of the lobe midline pelvic. Several scattered abdominal surgical clips appear present including prior cholecystectomy and postoperative adhesion may explain the small bowel obstruction stenosis pattern. Discussed with pathology extensively the patient's mid transverse colonic polyp that was not completely excised and only biopsied given its size. Multiple nests of high-grade dysplasia about 20 to 40% of the entirety of the examined specimen. Given the size of the polyp, the associated high-grade dysplasia, and concerns for remnant malignancy in this polyp that would not likely be candidate for complex polypectomy it seems prudent to proceed with segmental resection. 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 Hospital day #4. Pain improved today. Electrolyte abnormalities pending hospitalist consult. Patient has transverse colonic polyp with high-grade dysplasia; this is not completely resected. Discussed with pathology extensively the patient's mid transverse colonic polyp that was not completely excised and only biopsied given its size. Multiple nests of high-grade dysplasia about 20 to 40% of the entirety of the examined specimen. Given the size of the polyp, the associated high-grade dysplasia, and concerns for remnant malignancy in this polyp that would not likely be candidate for complex polypectomy it seems prudent to proceed with segmental resection. Concerns here include even in the setting of complex polypectomy persistent remnant adenomatous tissue and more concerning for remnant malignancy. Also concerned that the patient failed to tolerate complex polypectomy in a relatively and comparably less complex than benign site at the level of the cecum. (1) GI - IVF, bowel regimen, advance diet as tolerated. GI ppx. Bowel obstruction by imaging. Opiate sparring analgesia. (2) SURGERY - Necessary segmental colectomy. Will discuss with patient and daughter. (3) Renal/Lytes - continue IVF. Renal indices improving. (4) Respiratory - O2 as necessary. Continue IS. (5) Heme - Will continue with DVT ppx. H/H stable. (6) Cardiovascular - HD acceptable. (7) Neuro - Opiate sparring analgesia. Antispasmodics with Robaxin. (8) Immune/Infectious Disease - Continue abx for post-polypectomy syndrome. PREOPERATIVE MEDICAL OPTIMIZATION AND RISK ASSESSMENT: Discussed with hospitalist service. Patient was advised of risks as a relates including but not limited to injury to local structures including, possible conversion to open intervention, need for additional surgeries, as well as the development of postoperative surgical site hernias and infection. Moreover, there were the anesthesia and operative risks of heart attack, stroke, . Please note that voice recognition software was used to transcribe this note and inadvertent errors might persist in spite of review and editing. I am obliged to you for your attention. I am thankful to you for allowing me to participate with you in this care of this patient.
[2020-06-17] MEDS: ATORVASTATIN 10 MG TABLET PO SCH (20:16)
[2020-06-17] MEDS: LITHIUM ER 300 MG TABLET PO SCH (20:16)
[2020-06-17] MEDS: DULoxetine 30 MG CAPSULE PO SCH (20:17)
[2020-06-18 05:19] LABS: BASOPHILS % (AUTO) 0.2 %; EOSINOPHILS # (AUTO) 0.2 10^3/uL (0.0-0.7); HCT - HEMATOCRIT 33.6 % (37.0-47.0); HGB - HEMOGLOBIN 10.3 g/dL (12.0-16.0); LYMPHOCYTES # (AUTO) 0.8 10^3/uL (1.5-3.5); LYMPHOCYTES % (AUTO) 12.7 %; MEAN CORPUSCULAR HEMOGLOBIN 29.9 pg (27.0-31.0); MEAN CORPUSCULAR HGB CONC 30.7 g/dL (32.0-36.0); MEAN CORPUSCULAR VOLUME 97.7 fL (81.0-99.0); MEAN PLATELET VOLUME 10.5 fL (7.9-10.8); MONOCYTES # (AUTO) 0.4 10^3/uL (0.0-1.0); MONOCYTES % (AUTO) 6.7 %; NEUTROPHILS % (AUTO) 76.2 %; PLT - PLATELET COUNT 261 10^3/uL (130-450); RED BLOOD COUNT 3.44 10^6/uL (4.20-5.40); RED CELL DISTRIBUTION WIDTH 15.2 % (12.0-15.0); WHITE BLOOD COUNT 6.6 x10^3/uL (4.8-10.8)
[2020-06-18] MEDS: MEROPENEM 1 GM in SODIUM CHLORIDE 0.9% MINIBAG 100 ML IV SCH ×3 (05:20→21:03)
[2020-06-18 05:27] LABS: ALBUMIN 2.2 g/dL (3.2-5.5); ALBUMIN/GLOBULIN RATIO 0.7 (1.0-2.2); BILIRUBIN,TOTAL 0.5 mg/dL (0.2-1.0); CREATININE 1.1 mg/dL (0.4-1.0); MAGNESIUM 1.7 mg/dL (1.7-2.8); PHOSPHORUS 2.5 mg/dL (2.5-4.6); POTASSIUM 3.2 mmol/L (3.5-5.0); TOTAL PROTEIN 5.3 g/dL (6.7-8.2)
--- NOTE | 2020-06-18 07:18 | PROVIDER PROGRESS NOTE ---
Assessment/Plan - Problem List (1) Hypernatremia Assessment/Plan: Resolved. Patient's IV hydration was switched from D5 normal saline with potassium to simply D5 W yesterday 06/16/20. Patient's sodium level today is 140. We will continue IV hydration with D5W. We will sign off. (2) JOHANNE (acute kidney injury) Assessment/Plan: Stable with creatinine of 1.1 and estimated GFR of 50. (3) Hypokalemia Assessment/Plan: Potassium today was 3.2. Magnesium was 1.7. We will recheck with morning labs. Patient given potassium chloride 40 mEq IV - Current Meds Current Meds: Current Medications Generic Name Dose Route Start Last Admin Trade Name Freq PRN Reason Stop Dose Admin Albuterol 2.5 mg 06/16/20 11:50 06/16/20 11:53 Albuterol Neb 2.5 Mg/3 Ml INH 2.5 mg RTQ4H PRN Administration Wheezing Albuterol/Ipratropium 3 ml 06/16/20 19:00 06/17/20 21:32 Ipratropium/Albuterol 3 Ml Neb INH 3 ml RTQID TORI Administration Atorvastatin Calcium 20 mg 06/12/20 21:00 06/17/20 20:16 Atorvastatin 10 Mg Tablet PO 20 mg QPM TORI Administration Duloxetine HCl 60 mg 06/14/20 21:00 06/17/20 20:17 Duloxetine 30 Mg Capsule PO 60 mg QPM TORI Administration Enoxaparin Sodium 40 mg 06/16/20 09:00 06/17/20 08:02 Enoxaparin 40 Mg/0.4 Ml Syringe SUBQ 40 mg DAILY TORI Administration Gabapentin 1,600 mg 06/12/20 21:00 06/17/20 20:17 Gabapentin 400 Mg Capsule PO 1,600 mg BID TORI Administration Meropenem 1 gm/ Sodium 100 mls @ 200 mls/hr 06/14/20 13:00 06/18/20 05:56 Chloride IV Infused Q8H TORI Infusion Dextrose 1,000 mls @ 100 mls/hr 06/16/20 16:00 06/17/20 22:06 D5w IV 100 mls/hr .Q10H TORI Administration [place] Carbonate 900 mg 06/13/20 21:00 06/17/20 20:16 [place] Er 300 Mg Tablet PO 900 mg QPM TORI Administration Pantoprazole Sodium 40 mg 06/12/20 21:00 06/17/20 20:24 Pantoprazole 40 Mg Vial IVP 40 mg BID TORI Administration Saccharomyces Boulardii 250 mg 06/13/20 17:00 06/17/20 16:54 Saccharomyces Boulardii 250 Mg Capsule PO 250 mg BIDWM TORI Administration Sodium Chloride 10 ml 06/13/20 01:00 06/17/20 23:39 Sodium Chloride Flush 0.9% 10 Ml Syringe IVP Not Given 0100,0900,1700 TORI Sodium Chloride 10 ml 06/12/20 19:41 06/17/20 20:24 Sodium Chloride Flush 0.9% 10 Ml Syringe IVP 10 ml PRN PRN Administration NEEDED PER PROVIDER ORDERS - Lab Result Fish Bone Diagrams: 06/18/20 05:05 06/18/20 05:05 - Additional Planning My Orders: My Active Orders 06/18/20 08:00 Potassium Chloride/Water 10 mEq/100 mL q1h (Enter # of bags) Potassium Chlor 10 Meq/100 ml [Potassium Chloride] 10 meq in 100 ml IV Q1H Subjective - Subjective Patient Reports: Other (Patient resting comfortably in bed. She denied any complaints today. Denied any further incidences of diarrhea. Abdominal pain has significantly improved.) Objective Vital Signs: Vital Signs - 24 hr 06/17/20 06/17/20 06/17/20 07:55 09:10 13:15 Temperature 36.9 C Heart Rate 88 83 Heart Rate [ 92 Brachial] Respiratory 18 18 20 Rate Blood Pressure 121/73 [Right Brachial artery] O2 Saturation 96 06/17/20 06/17/20 06/17/20 16:36 17:50 21:32 Temperature 36.9 C Heart Rate 86 87 Heart Rate [ 88 Brachial] Respiratory 18 16 18 Rate Blood Pressure 140/69 H [Right Brachial artery] O2 Saturation 99 06/17/20 23:39 Temperature 36.8 C Heart Rate Heart Rate [ 77 Brachial] Respiratory 20 Rate Blood Pressure 106/59 L [Right Brachial artery] O2 Saturation 95 Oxygen O2 Source Room air Oxygen Flow Rate 2 I&O (Last 24 Hrs): Intake and Output Totals x24h 06/16/20 06/17/20 06/18/20 23:59 23:59 23:59 Intake Total 5548.333 5720.001 600 Output Total 400 Balance 5548.333 5720.001 200 General: Alert, Oriented x3, No acute distress HEENT: PERRLA, EOMI Neck: Supple, No JVD Neuro: Alert, Non Focal, Oriented Times 3 Cardiovascular: Regular rate Respiratory: Chest non-tender, No respiratory distress, Breath sounds nml Abdomen: Normal bowel sounds, Soft Extremities: No clubbing, No cyanosis, No edema Skin: No rashes, No breakdown, No significant lesion - Results Results: Laboratory Results WBC 6.6 x10^3/uL (4.8-10.8) 06/18/20 05:05 RBC 3.44 10^6/uL (4.20-5.40) L 06/18/20 05:05 Hgb 10.3 g/dL (12.0-16.0) L 06/18/20 05:05 Hct 33.6 % (37.0-47.0) L 06/18/20 05:05 MCV 97.7 fL (81.0-99.0) 06/18/20 05:05 MCH 29.9 pg (27.0-31.0) 06/18/20 05:05 MCHC 30.7 g/dL (32.0-36.0) L 06/18/20 05:05 RDW 15.2 % (12.0-15.0) H 06/18/20 05:05 Plt Count 261 10^3/uL (130-450) 06/18/20 05:05 MPV 10.5 fL (7.9-10.8) 06/18/20 05:05 Neut # (Auto) 5.0 10^3/uL (1.5-6.6) 06/18/20 05:05 Lymph # (Auto) 0.8 10^3/uL (1.5-3.5) L 06/18/20 05:05 [place] # (Auto) 0.4 10^3/uL (0.0-1.0) 06/18/20 05:05 Eos # (Auto) 0.2 10^3/uL (0.0-0.7) 06/18/20 05:05 Baso # (Auto) 0.0 10^3/uL (0.0-0.1) 06/18/20 05:05 Absolute Nucleated RBC 0.00 x10^3/uL 06/18/20 05:05 Nucleated RBC % 0.0 /100WBC 06/18/20 05:05 Manual Slide Review Indicated 06/12/20 16:17 WBC Morphology NORMAL APPEARANCE (NORMAL) 06/12/20 16:17 Platelet Estimate NORMAL (130-450,000) (NORMAL) 06/12/20 16:17 Platelet Morphology NORMAL APPEARANCE (NORMAL) 06/12/20 16:17 RBC Morph Micro Appear NORMAL APPEARANCE (NORMAL) 06/12/20 16:17 Sodium 140 mmol/L (135-145) 06/18/20 05:05 Potassium 3.2 mmol/L (3.5-5.0) L 06/18/20 05:05 Chloride 112 mmol/L (101-111) H 06/18/20 05:05 Carbon Dioxide 21 mmol/L (21-32) 06/18/20 05:05 Anion Gap 7.0 (6-13) 06/18/20 05:05 BUN 5 mg/dL (6-20) L 06/18/20 05:05 Creatinine 1.1 mg/dL (0.4-1.0) H 06/18/20 05:05 Estimated GFR (MDRD) 50 (>89) L 06/18/20 05:05 Glucose 119 mg/dL (70-100) H 06/18/20 05:05 Calcium 9.0 mg/dL (8.5-10.3) 06/18/20 05:05 Ionized Calcium NO 06/14/20 04:25 Phosphorus 2.5 mg/dL (2.5-4.6) 06/18/20 05:05 Magnesium 1.7 mg/dL (1.7-2.8) 06/18/20 05:05 Total Bilirubin 0.5 mg/dL (0.2-1.0) 06/18/20 05:05 AST 16 IU/L (10-42) 06/18/20 05:05 ALT 17 IU/L (10-60) 06/18/20 05:05 Alkaline Phosphatase 56 IU/L (42-121) 06/18/20 05:05 C-Reactive Protein 47.9 mg/dL (0-1.0) H 06/12/20 16:17 Total Protein 5.3 g/dL (6.7-8.2) L 06/18/20 05:05 Albumin 2.2 g/dL (3.2-5.5) L 06/18/20 05:05 Globulin 3.1 g/dL (2.1-4.2) 06/18/20 05:05 Albumin/Globulin Ratio 0.7 (1.0-2.2) L 06/18/20 05:05 Lipase 18 U/L (22-51) L 06/12/20 16:17 Urine Color YELLOW 06/12/20 18:42 Urine Clarity CLOUDY (CLEAR) 06/12/20 18:42 Urine pH 5.5 PH (5.0-7.5) 06/12/20 18:42 Ur Specific [place] 1.020 (1.002-1.030) 06/12/20 18:42 Urine Protein 30 mg/dL (NEGATIVE) H 06/12/20 18:42 Urine Glucose (UA) NEGATIVE mg/dL (NEGATIVE) 06/12/20 18:42 Urine Ketones NEGATIVE mg/dL (NEGATIVE) 06/12/20 18:42 Urine Occult Blood TRACE-INTA (NEGATIVE) 06/12/20 18:42 Urine Nitrite NEGATIVE (NEGATIVE) 06/12/20 18:42 Urine Bilirubin NEGATIVE (NEGATIVE) 06/12/20 18:42 Urine Urobilinogen 0.2 (NORMAL) E.U./dL (NORMAL) 06/12/20 18:42 Ur Leukocyte Esterase NEGATIVE (NEGATIVE) 06/12/20 18:42 Urine RBC 0-5 /HPF (0-5) 06/12/20 18:42 Urine WBC 4-5 /HPF (0-5) 06/12/20 18:42 Ur Squamous Epith Cells MANY Squamous (<= Few) H 06/12/20 18:42 Amorphous Sediment Few /LPF 06/12/20 18:42 Urine Bacteria Moderate /HPF (None Seen) H 06/12/20 18:42 Urine Casts 3-5 Granular Casts /LPF 06/12/20 18:42 Urine Mucus Few Strands 06/12/20 18:42 Ur Microscopic Review INDICATED 06/12/20 18:42 Urine Culture Comments NOT INDICATED 06/12/20 18:42 Nasal Adenovirus (PCR) NOT DETECTED 06/12/20 20:25 Nasal B. parapertussis DNA (PCR) NOT DETECTED 06/12/20 20:25 Nasal Coronavir 229E PCR NOT DETECTED 06/12/20 20:25 Nasal Coronavir HKU1 PCR NOT DETECTED 06/12/20 20:25 Nasal Coronavir NL63 PCR NOT DETECTED 06/12/20 20:25 Nasal Coronavir OC43 PCR NOT DETECTED 06/12/20 20:25 Nasal Enterovir/Rhinovir PCR NOT DETECTED 06/12/20 20:25 Nasal Influenza B PCR NOT DETECTED 06/12/20 20:25 Nasal Influenza A PCR NOT DETECTED 06/12/20 20:25 Nasal Parainfluen 1 PCR NOT DETECTED 06/12/20 20:25 Nasal Parainfluen 2 PCR NOT DETECTED 06/12/20 20:25 Nasal Parainfluen 3 PCR NOT DETECTED 06/12/20 20:25 Nasal Parainfluen 4 PCR NOT DETECTED 06/12/20 20:25 Nasal RSV (PCR) NOT DETECTED 06/12/20 20:25 Nasal B.pertussis DNA PCR NOT DETECTED 06/12/20 20:25 Nasal C.pneumoniae (PCR) NOT DETECTED 06/12/20 20:25 [place] Human Metapneumo PCR NOT DETECTED 06/12/20 20:25 Nasal M.pneumoniae (PCR) NOT DETECTED 06/12/20 20:25 Nasal SARS-CoV-2 (PCR) NOT DETECTED 06/12/20 20:25 Last Dose Date Not Reportable 06/14/20 11:59 Last Dose Time Not Reportable 06/14/20 11:59 [place]arate 0.37 mmol/L 06/14/20 11:59 - Procedures Procedures: Procedures EXCISION OF CECUM, ENDO (12/16/15) EXCISION OF DUODENUM, ENDO, DIAGN (06/10/20) EXCISION OF SIGMOID COLON, ENDO (12/16/15) EXCISION OF STOMACH, ENDO (06/10/20) EXCISION OF TRANSVERSE COLON, ENDO (06/10/20) HAND FASCIECTOMY NEC (01/02/13) ABX Reporting Has patient been on IV antibiotics over the past 48 hours?: Yes
[2020-06-18] MEDS: SACCHAROMYCES BOULARDII 250 MG CAPSULE PO SCH ×2 (07:48→16:46)
[2020-06-18] MEDS: IPRATROPIUM/ALBUTEROL 3 ML NEB INH SCH ×5 (07:50→20:18)
[2020-06-18] MEDS: POTASSIUM CHLOR 10 MEQ/100 ML 10 MEQ/100 ML BAG IV SCH ×4 (07:57→14:16)
[2020-06-18] MEDS: DEXTROSE 5% 1,000 ML IV SCH ×2 (09:16→16:46)
[2020-06-18] MEDS: PANTOPRAZOLE 40 MG VIAL IVP SCH ×2 (09:16→21:04)
[2020-06-18] MEDS: ENOXAPARIN 40 MG/0.4 ML SYRINGE SUBQ SCH (09:18)
[2020-06-18] MEDS: GABAPENTIN 400 MG CAPSULE PO SCH ×2 (09:18→21:05)
[2020-06-18] MEDS: SODIUM CHLORIDE FLUSH 0.9% 10 ML SYRINGE IVP SCH ×2 (09:19→16:00)
[2020-06-18] MEDS ORDERED: LIDOCAINE-MPF 2% 5 ML VIAL ONE (10:26)
[2020-06-18] MEDS: LITHIUM ER 300 MG TABLET PO SCH (21:04)
[2020-06-18] MEDS: ATORVASTATIN 10 MG TABLET PO SCH (21:04)
[2020-06-18] MEDS: DULoxetine 30 MG CAPSULE PO SCH (21:05)
[2020-06-18] MEDS: NS W/20 MEQ KCL 1,000 ML IV SCH (21:15)
[2020-06-19] MEDS: SODIUM CHLORIDE FLUSH 0.9% 10 ML SYRINGE IVP SCH ×7 (02:57→23:39)
[2020-06-19] MEDS: MEROPENEM 1 GM in SODIUM CHLORIDE 0.9% MINIBAG 100 ML IV SCH ×3 (04:51→21:03)
[2020-06-19 05:16] LABS: HCT - HEMATOCRIT 36.7 % (37.0-47.0); HGB - HEMOGLOBIN 11.7 g/dL (12.0-16.0); MEAN CORPUSCULAR HEMOGLOBIN 30.9 pg (27.0-31.0); MEAN CORPUSCULAR HGB CONC 31.9 g/dL (32.0-36.0); MEAN CORPUSCULAR VOLUME 96.8 fL (81.0-99.0); MEAN PLATELET VOLUME 10.7 fL (7.9-10.8); RED BLOOD COUNT 3.79 10^6/uL (4.20-5.40); RED CELL DISTRIBUTION WIDTH 15.1 % (12.0-15.0); WHITE BLOOD COUNT 10.5 x10^3/uL (4.8-10.8)
[2020-06-19 05:22] LABS: CALCIUM 9.2 mg/dL (8.5-10.3); POTASSIUM 3.8 mmol/L (3.5-5.0)
--- NOTE | 2020-06-19 07:24 | PROVIDER PROGRESS NOTE ---
Assessment/Plan - Problem List (1) Hypernatremia Assessment/Plan: Resolved (2) JOHANNE (acute kidney injury) Assessment/Plan: Improved/resolved (3) Hypokalemia Assessment/Plan: Resolved (4) Hyperplastic colonic polyp Qualifiers: Colon location: transverse Qualified Code(s): K63.5 - Polyp of colon Assessment/Plan: This was not completely excised during colonoscopy. Biopsy showed high-grade dysplasia and concern for remnant malignancy in the polyp. Patient is currently undergoing segmental resection by Dr. Ken Cintron. We will continue to follow status post surgery. - Current Meds Current Meds: Current Medications Generic Name Dose Route Start Last Admin Trade Name Freq PRN Reason Stop Dose Admin Albuterol 2.5 mg 06/16/20 11:50 06/16/20 11:53 Albuterol Neb 2.5 Mg/3 Ml INH 2.5 mg RTQ4H PRN Administration Wheezing Albuterol/Ipratropium 3 ml 06/16/20 19:00 06/18/20 20:18 Ipratropium/Albuterol 3 Ml Neb INH 3 ml RTQID TORI Administration Atorvastatin Calcium 20 mg 06/12/20 21:00 06/18/20 21:04 Atorvastatin 10 Mg Tablet PO 20 mg QPM TORI Administration Duloxetine HCl 60 mg 06/14/20 21:00 06/18/20 21:05 Duloxetine 30 Mg Capsule PO 60 mg QPM TORI Administration Enoxaparin Sodium 40 mg 06/16/20 09:00 06/18/20 09:18 Enoxaparin 40 Mg/0.4 Ml Syringe SUBQ 40 mg DAILY TORI Administration Gabapentin 1,600 mg 06/12/20 21:00 06/18/20 21:05 Gabapentin 400 Mg Capsule PO 1,600 mg BID TORI Administration Meropenem 1 gm/ Sodium 100 mls @ 200 mls/hr 06/14/20 13:00 06/19/20 05:21 Chloride IV Infused Q8H TORI Infusion Potassium Chloride/Sodium Chloride 1,000 mls @ 83.333 mls/hr 06/18/20 20:00 06/18/20 21:15 Normal Saline 0.9% W/20 Meq Kcl IV 83.333 mls/hr .Q12H TORI Administration [place] Carbonate 900 mg 06/13/20 21:00 06/18/20 21:04 [place] Er 300 Mg Tablet PO 900 mg QPM TORI Administration Pantoprazole Sodium 40 mg 06/12/20 21:00 06/18/20 21:04 Pantoprazole 40 Mg Vial IVP 40 mg BID TORI Administration Saccharomyces Boulardii 250 mg 06/13/20 17:00 06/18/20 16:46 Saccharomyces Boulardii 250 Mg Capsule PO 250 mg BIDWM TORI Administration Sodium Chloride 10 ml 06/13/20 01:00 06/19/20 02:57 Sodium Chloride Flush 0.9% 10 Ml Syringe IVP Not Given 0100,0900,1700 TORI Sodium Chloride 10 ml 06/12/20 19:41 06/17/20 20:24 Sodium Chloride Flush 0.9% 10 Ml Syringe IVP 10 ml PRN PRN Administration NEEDED PER PROVIDER ORDERS - Lab Result Fish Bone Diagrams: 06/19/20 05:00 06/19/20 05:00 - Additional Planning My Orders: My Active Orders 06/19/20 07:19 EKG - Electrocardiogram [RC] .ONCE 06/19/20 07:20 Chest 1 View X-Ray [XR] Stat Subjective - Subjective Patient Reports: Other (Patient was resting comfortably in bed at time of exam. Denied any chest pain, dyspnea, fever, chills, nausea or vomiting.) Objective Vital Signs: Vital Signs - 24 hr 06/18/20 06/18/20 06/18/20 07:50 08:15 11:30 Temperature 36.7 C Heart Rate 92 86 Heart Rate [ 90 Brachial] Respiratory 18 18 16 Rate Blood Pressure [Left Brachial artery] Blood Pressure 128/71 [Right Brachial artery] O2 Saturation 96 06/18/20 06/18/20 06/18/20 15:30 16:00 20:19 Temperature 37.3 C Heart Rate 95 84 Heart Rate [ 90 Brachial] Respiratory 16 18 16 Rate Blood Pressure [Left Brachial artery] Blood Pressure 121/58 L [Right Brachial artery] O2 Saturation 95 06/18/20 23:34 Temperature 36.7 C Heart Rate Heart Rate [ 93 Brachial] Respiratory 16 Rate Blood Pressure 110/61 [Left Brachial artery] Blood Pressure [Right Brachial artery] O2 Saturation 95 Oxygen O2 Source Room air Oxygen Flow Rate 2 I&O (Last 24 Hrs): Intake and Output Totals x24h 06/17/20 06/18/20 06/19/20 23:59 23:59 23:59 Intake Total 5720.001 5278.750 100 Output Total 400 Balance 5720.001 4878.750 100 General: Alert, Oriented x3, Cooperative, No acute distress HEENT: Atraumatic, PERRLA, EOMI Neck: Supple, No JVD Neuro: Alert, Non Focal, Oriented Times 3 Cardiovascular: Regular rate Respiratory: Chest non-tender, No respiratory distress, Breath sounds nml Abdomen: Soft, No tenderness Extremities: No clubbing, No edema Skin: No rashes, No breakdown, No significant lesion - Results Results: Laboratory Results WBC 10.5 x10^3/uL (4.8-10.8) 06/19/20 05:00 RBC 3.79 10^6/uL (4.20-5.40) L 06/19/20 05:00 Hgb 11.7 g/dL (12.0-16.0) L 06/19/20 05:00 Hct 36.7 % (37.0-47.0) L 06/19/20 05:00 MCV 96.8 fL (81.0-99.0) 06/19/20 05:00 MCH 30.9 pg (27.0-31.0) 06/19/20 05:00 MCHC 31.9 g/dL (32.0-36.0) L 06/19/20 05:00 RDW 15.1 % (12.0-15.0) H 06/19/20 05:00 Plt Count 330 10^3/uL (130-450) 06/19/20 05:00 MPV 10.7 fL (7.9-10.8) 06/19/20 05:00 Neut # (Auto) 5.0 10^3/uL (1.5-6.6) 06/18/20 05:05 Lymph # (Auto) 0.8 10^3/uL (1.5-3.5) L 06/18/20 05:05 [place] # (Auto) 0.4 10^3/uL (0.0-1.0) 06/18/20 05:05 Eos # (Auto) 0.2 10^3/uL (0.0-0.7) 06/18/20 05:05 Baso # (Auto) 0.0 10^3/uL (0.0-0.1) 06/18/20 05:05 Absolute Nucleated RBC 0.00 x10^3/uL 06/18/20 05:05 Nucleated RBC % 0.0 /100WBC 06/18/20 05:05 Manual Slide Review Indicated 06/12/20 16:17 WBC Morphology NORMAL APPEARANCE (NORMAL) 06/12/20 16:17 Platelet Estimate NORMAL (130-450,000) (NORMAL) 06/12/20 16:17 Platelet Morphology NORMAL APPEARANCE (NORMAL) 06/12/20 16:17 RBC Morph Micro Appear NORMAL APPEARANCE (NORMAL) 06/12/20 16:17 Sodium 144 mmol/L (135-145) 06/19/20 05:00 Potassium 3.8 mmol/L (3.5-5.0) 06/19/20 05:00 Chloride 114 mmol/L (101-111) H 06/19/20 05:00 Carbon Dioxide 24 mmol/L (21-32) 06/19/20 05:00 Anion Gap 6.0 (6-13) 06/19/20 05:00 BUN 5 mg/dL (6-20) L 06/19/20 05:00 Creatinine 1.0 mg/dL (0.4-1.0) 06/19/20 05:00 Estimated GFR (MDRD) 56 (>89) L 06/19/20 05:00 Glucose 94 mg/dL (70-100) 06/19/20 05:00 Calcium 9.2 mg/dL (8.5-10.3) 06/19/20 05:00 Ionized Calcium NO 06/14/20 04:25 Phosphorus 2.5 mg/dL (2.5-4.6) 06/18/20 05:05 Magnesium 1.7 mg/dL (1.7-2.8) 06/18/20 05:05 Total Bilirubin 0.5 mg/dL (0.2-1.0) 06/18/20 05:05 AST 16 IU/L (10-42) 06/18/20 05:05 ALT 17 IU/L (10-60) 06/18/20 05:05 Alkaline Phosphatase 56 IU/L (42-121) 06/18/20 05:05 C-Reactive Protein 47.9 mg/dL (0-1.0) H 06/12/20 16:17 Total Protein 5.3 g/dL (6.7-8.2) L 06/18/20 05:05 Albumin 2.2 g/dL (3.2-5.5) L 06/18/20 05:05 Globulin 3.1 g/dL (2.1-4.2) 06/18/20 05:05 Albumin/Globulin Ratio 0.7 (1.0-2.2) L 06/18/20 05:05 Lipase 18 U/L (22-51) L 06/12/20 16:17 Urine Color YELLOW 06/12/20 18:42 Urine Clarity CLOUDY (CLEAR) 06/12/20 18:42 Urine pH 5.5 PH (5.0-7.5) 06/12/20 18:42 Ur Specific [place] 1.020 (1.002-1.030) 06/12/20 18:42 Urine Protein 30 mg/dL (NEGATIVE) H 06/12/20 18:42 Urine Glucose (UA) NEGATIVE mg/dL (NEGATIVE) 06/12/20 18:42 Urine Ketones NEGATIVE mg/dL (NEGATIVE) 06/12/20 18:42 Urine Occult Blood TRACE-INTA (NEGATIVE) 06/12/20 18:42 Urine Nitrite NEGATIVE (NEGATIVE) 06/12/20 18:42 Urine Bilirubin NEGATIVE (NEGATIVE) 06/12/20 18:42 Urine Urobilinogen 0.2 (NORMAL) E.U./dL (NORMAL) 06/12/20 18:42 Ur Leukocyte Esterase NEGATIVE (NEGATIVE) 06/12/20 18:42 Urine RBC 0-5 /HPF (0-5) 06/12/20 18:42 Urine WBC 4-5 /HPF (0-5) 06/12/20 18:42 Ur Squamous Epith Cells MANY Squamous (<= Few) H 06/12/20 18:42 Amorphous Sediment Few /LPF 06/12/20 18:42 Urine Bacteria Moderate /HPF (None Seen) H 06/12/20 18:42 Urine Casts 3-5 Granular Casts /LPF 06/12/20 18:42 Urine Mucus Few Strands 06/12/20 18:42 Ur Microscopic Review INDICATED 06/12/20 18:42 Urine Culture Comments NOT INDICATED 06/12/20 18:42 Nasal Adenovirus (PCR) NOT DETECTED 06/12/20 20:25 Nasal B. parapertussis DNA (PCR) NOT DETECTED 06/12/20 20:25 Nasal Coronavir 229E PCR NOT DETECTED 06/12/20 20:25 Nasal Coronavir HKU1 PCR NOT DETECTED 06/12/20 20:25 Nasal Coronavir NL63 PCR NOT DETECTED 06/12/20 20:25 Nasal Coronavir OC43 PCR NOT DETECTED 06/12/20 20:25 Nasal Enterovir/Rhinovir PCR NOT DETECTED 06/12/20 20:25 Nasal Influenza B PCR NOT DETECTED 06/12/20 20:25 Nasal Influenza A PCR NOT DETECTED 06/12/20 20:25 Nasal Parainfluen 1 PCR NOT DETECTED 06/12/20 20:25 Nasal Parainfluen 2 PCR NOT DETECTED 06/12/20 20:25 Nasal Parainfluen 3 PCR NOT DETECTED 06/12/20 20:25 Nasal Parainfluen 4 PCR NOT DETECTED 06/12/20 20:25 Nasal RSV (PCR) NOT DETECTED 06/12/20 20:25 Nasal B.pertussis DNA PCR NOT DETECTED 06/12/20 20:25 Nasal C.pneumoniae (PCR) NOT DETECTED 06/12/20 20:25 [place] Human Metapneumo PCR NOT DETECTED 06/12/20 20:25 Nasal M.pneumoniae (PCR) NOT DETECTED 06/12/20 20:25 Nasal SARS-CoV-2 (PCR) NOT DETECTED 06/12/20 20:25 Last Dose Date Not Reportable 06/14/20 11:59 Last Dose Time Not Reportable 06/14/20 11:59 [place] 0.37 mmol/L 06/14/20 11:59 - Procedures Procedures: Procedures EXCISION OF CECUM, ENDO (12/16/15) EXCISION OF DUODENUM, ENDO, DIAGN (06/10/20) EXCISION OF SIGMOID COLON, ENDO (12/16/15) EXCISION OF STOMACH, ENDO (06/10/20) EXCISION OF TRANSVERSE COLON, ENDO (06/10/20) HAND FASCIECTOMY NEC (01/02/13) ABX Reporting Has patient been on IV antibiotics over the past 48 hours?: Yes
[2020-06-19] MEDS: IPRATROPIUM/ALBUTEROL 3 ML NEB INH SCH ×4 (07:30→20:19)
[2020-06-19] MEDS: NS W/20 MEQ KCL 1,000 ML IV SCH (07:46)
[2020-06-19] MEDS: SACCHAROMYCES BOULARDII 250 MG CAPSULE PO SCH ×2 (07:46→17:59)
--- NOTE | 2020-06-19 08:18 | XRAY Report ---
PROCEDURE: Chest 1 View X-Ray INDICATIONS: pre-op eval TECHNIQUE: One view of the chest was acquired. COMPARISON: CT chest 02/15/18. FINDINGS: Surgical changes and devices: None. Lungs and pleura: No pleural effusions or pneumothorax. Lungs are clear considering mildly reduced inspiration. Mediastinum: Mediastinal contours appear normal. Heart size is normal. Bones and chest wall: No suspicious bony lesions. Overlying soft tissues appear unremarkable. IMPRESSION: No acute disease, reduced inspiratory volume, no contraindication to operative intervention seen. Reviewed by: Hood Tai MD on 06/19/2020 8:17 AM PDT Approved by: Hood Tai MD on 06/19/2020 8:17 AM PDT Station ID: [id number]
[2020-06-19] MEDS: ENOXAPARIN 40 MG/0.4 ML SYRINGE SUBQ SCH (08:30)
[2020-06-19] MEDS: PANTOPRAZOLE 40 MG VIAL IVP SCH ×2 (08:31→21:03)
[2020-06-19] MEDS: GABAPENTIN 400 MG CAPSULE PO SCH ×2 (08:31→22:11)
--- NOTE | 2020-06-19 11:41 | ANESTHESIA ---
Pre-Anesthesia VS, & Labs - Diagnosis Diagnosis Hypernatremic hyperchloremic metabolic acidosis due to excessive normal saline, other sodium solute such as meropenem, in the face of decreased p.o. intake. She also seems to have COPD with wheezing on exam and decreased mobility because of shortness of breath.Anemia, acute without apparent blood loss. Acute kidney injury with creatinine 2.2, 1.3 today. - Procedure Laparoscopic colectomy Vital Signs: Temp Pulse Resp BP Pulse Ox 36.6 C 91 16 123/66 93 06/19/20 07:59 06/19/20 07:59 06/19/20 07:59 06/19/20 07:59 06/19/20 07:59 Height: 5 ft 4 in Weight (kg): 80.5 kg Body Mass Index: 30.4 BMI Classification: Obese - NPO >8 hours - Is Patient ?: No - Lab Results Current Lab Results: Laboratory Tests 06/19/20 05:00: Sodium 144, Potassium 3.8, Chloride 114 H, Carbon Dioxide 24, Anion Gap 6.0, BUN 5 L, Creatinine 1.0, Estimated GFR (MDRD) 56 L, Glucose 94, Calcium 9.2 06/19/20 05:00: WBC 10.5, RBC 3.79 L, Hgb 11.7 L, Hct 36.7 L, MCV 96.8, MCH 30.9, MCHC 31.9 L, RDW 15.1 H, Plt Count 330, MPV 10.7 06/18/20 05:05: Sodium 140, Potassium 3.2 L, Chloride 112 H, Carbon Dioxide 21, Anion Gap 7.0, BUN 5 L, Creatinine 1.1 H, Estimated GFR (MDRD) 50 L, Glucose 119 H, Calcium 9.0, Phosphorus 2.5, Magnesium 1.7, Total Bilirubin 0.5, AST 16, ALT 17, Alkaline Phosphatase 56, Total Protein 5.3 L, Albumin 2.2 L, Globulin 3.1, Albumin/Globulin Ratio 0.7 L 06/18/20 05:05: WBC 6.6, RBC 3.44 L, Hgb 10.3 L, Hct 33.6 L, MCV 97.7, MCH 29.9, MCHC 30.7 L, RDW 15.2 H, Plt Count 261, MPV 10.5, Neut # (Auto) 5.0, Lymph # (Auto) 0.8 L, [place] # (Auto) 0.4, Eos # (Auto) 0.2, Baso # (Auto) 0.0, Absolute Nucleated RBC 0.00, Nucleated RBC % 0.0 06/17/20 05:20: Sodium 142, Potassium 3.2 L, Chloride 117 H, Carbon Dioxide 19 L , Anion Gap 6.0, BUN 9, Creatinine 1.1 H, Estimated GFR (MDRD) 50 L, Glucose 107 H, Calcium 9.1, Phosphorus 2.1 L, Magnesium 1.7, Total Bilirubin 0.4, AST 18, ALT 20, Alkaline Phosphatase 59, Total Protein 5.3 L, Albumin 2.2 L, Globulin 3.1, Albumin/Globulin Ratio 0.7 L 06/17/20 05:20: WBC 6.6, RBC 3.47 L, Hgb 10.6 L, Hct 34.3 L, MCV 98.8, MCH 30.5, MCHC 30.9 L, RDW 15.4 H, Plt Count 212, MPV 10.9 H, Neut # (Auto) 5.3, Lymph # (Auto) 0.6 L, [place] # (Auto) 0.5, Eos # (Auto) 0.2, Baso # (Auto) 0.0, Absolute Nucleated RBC 0.00, Nucleated RBC % 0.0 06/16/20 08:05: Sodium 150 H, Potassium 3.7, Chloride 123 H*, Carbon Dioxide 21, Anion Gap 6.0, BUN 14, Creatinine 1.3 H, Estimated GFR (MDRD) 42 L, Glucose 123 H, Calcium 9.5 06/16/20 05:30: Sodium 146 H, Potassium 3.7, Chloride 122 H*, Carbon Dioxide 19 L, Anion Gap 5.0 L, BUN 14, Creatinine 1.2 H, Estimated GFR (MDRD) 46 L, Glucose 140 H, Calcium 9.0, Phosphorus 2.5, Magnesium 2.0, Total Bilirubin 0.5, AST 18, ALT 18, Alkaline Phosphatase 51, Total Protein 5.2 L, Albumin 2.2 L, Globulin 3.0, Albumin/Globulin Ratio 0.7 L 06/16/20 05:30: WBC 6.5, RBC 3.26 L, Hgb 9.9 L, Hct 32.5 L, MCV 99.7 H, MCH 30.4, MCHC 30.5 L, RDW 15.7 H, Plt Count 208, MPV 10.2, Neut # (Auto) 5.4, Lymph # (Auto) 0.4 L, [place] # (Auto) 0.5, Eos # (Auto) 0.2, Baso # (Auto) 0.0, Absolute Nucleated RBC 0.00, Nucleated RBC % 0.0 06/15/20 04:30: Sodium 144, Potassium 4.0, Chloride 119 H, Carbon Dioxide 19 L, Anion Gap 6.0, BUN 19, Creatinine 1.5 H, Estimated GFR (MDRD) 35 L, Glucose 142 H, Calcium 9.2, Phosphorus 2.4 L, Magnesium 2.2, Total Bilirubin 0.6, AST < 10 L , ALT < 10 L, Alkaline Phosphatase 48, Total Protein 5.5 L, Albumin 2.3 L, Globulin 3.2, Albumin/Globulin Ratio 0.7 L 06/15/20 04:30: WBC 6.9, RBC 3.30 L, Hgb 10.1 L, Hct 32.8 L, MCV 99.4 H, MCH 30.6, MCHC 30.8 L, RDW 15.2 H, Plt Count 205, MPV 10.4, Neut # (Auto) 5.9, Lymph # (Auto) 0.3 L, [place] # (Auto) 0.4, Eos # (Auto) 0.2, Baso # (Auto) 0.0, Absolute Nucleated RBC 0.00, Nucleated RBC % 0.0 06/14/20 11:59: Last Dose Date Not Reportable, Last Dose Time Not Reportable, [place] 0.37 06/14/20 11:59: Phosphorus 4.0, Magnesium 2.1 06/14/20 04:25: Sodium 136, Potassium 3.4 L, Chloride 111, Carbon Dioxide 17 L, Anion Gap 8.0, BUN 27 H, Creatinine 1.9 H, Estimated GFR (MDRD) 27 L, Glucose 88, Calcium 8.6, Ionized Calcium NO, Magnesium 1.9, Total Bilirubin 0.8, AST < 10 L, ALT 10, Alkaline Phosphatase 50, Total Protein 5.4 L, Albumin 2.5 L, Globulin 2.9, Albumin/Globulin Ratio 0.9 L 06/14/20 04:25: WBC 7.3, RBC 3.25 L, Hgb 10.2 L, Hct 31.7 L, MCV 97.5, MCH 31.4 H, MCHC 32.2, RDW 14.6, Plt Count 178, MPV 10.5 06/13/20 04:20: Sodium 139, Potassium 2.8 L, Chloride 110, Carbon Dioxide 21, Anion Gap 8.0, BUN 35 H, Creatinine 2.1 H, Estimated GFR (MDRD) 24 L, Glucose 93, Calcium 8.3 L, Magnesium 2.0, Total Bilirubin 0.5, AST < 10 L, ALT 11, Alkaline Phosphatase 55, Total Protein 4.9 L, Albumin 2.4 L, Globulin 2.5, Albumin/Globulin Ratio 1.0 06/13/20 04:20: WBC 7.6, RBC 3.27 L, Hgb 10.0 L, Hct 31.8 L, MCV 97.2, MCH 30.6, MCHC 31.4 L, RDW 14.2, Plt Count 167, MPV 10.9 H, Neut # (Auto) 6.6, Lymph # (Auto) 0.6 L, [place] # (Auto) 0.3, Eos # (Auto) 0.0, Baso # (Auto) 0.0, Absolute Nucleated RBC 0.00, Nucleated RBC % 0.0 06/12/20 16:17: C-Reactive Protein 47.9 H 06/12/20 16:17: Sodium 138, Potassium 2.5 L*, Chloride 101, Carbon Dioxide 25, Anion Gap 12.0, BUN 30 H, Creatinine 2.2 H, Estimated GFR (MDRD) 23 L, Glucose 113 H, Calcium 9.8, Total Bilirubin 0.5, AST 15, ALT 16, Alkaline Phosphatase 66, Total Protein 7.1, Albumin 3.4, Globulin 3.7, Albumin/Globulin Ratio 0.9 L, Lipase 18 L 06/12/20 16:17: WBC 11.2 H, RBC 4.26, Hgb 13.2, Hct 40.3, MCV 94.6, MCH 31.0, MCHC 32.8, RDW 14.1, Plt Count 217, MPV 10.4, Neut # (Auto) 10.3 H, Lymph # (Auto) 0.5 L, [place] # (Auto) 0.3, Eos # (Auto) 0.1, Baso # (Auto) 0.0, Absolute Nucleated RBC 0.00, Nucleated RBC % 0.0, Manual Slide Review Indicated, WBC Morphology NORMAL APPEARANCE, Platelet Estimate NORMAL (130-450,000), Platelet Morphology NORMAL APPEARANCE, RBC Morph Micro Appear NORMAL APPEARANCE Fish Bones: 06/19/20 05:00 06/19/20 05:00 Home Medications and Allergies Home Medications: Ambulatory Orders Levothyroxine [Synthroid] 100 mcg PO QDAC 06/13/20 Omeprazole Magnesium 20 mg PO QDAC 06/13/20 Active Medications Acetaminophen (Acetaminophen 500 Mg Tablet) 500 mg PO Q4HR PRN PRN Reason: Pain or Fever > 38C (100.4F) Albuterol (Albuterol Neb 2.5 Mg/3 Ml) 2.5 mg INH RTQ4H PRN PRN Reason: Wheezing Last Admin: 06/16/20 11:53 Dose: 2.5 mg Documented by: Albuterol/Ipratropium (Ipratropium/Albuterol 3 Ml Neb) 3 ml INH RTQID TORI Last Admin: 06/19/20 07:30 Dose: 3 ml Documented by: Atorvastatin Calcium (Atorvastatin 10 Mg Tablet) 20 mg PO QPM [facility] Last Admin: 06/18/20 21:04 Dose: 20 mg Documented by: Duloxetine HCl (Duloxetine 30 Mg Capsule) 60 mg PO QPM TORI Last Admin: 06/18/20 21:05 Dose: 60 mg Documented by: Enoxaparin Sodium (Enoxaparin 40 Mg/0.4 Ml Syringe) 40 mg SUBQ DAILY [facility] Last Admin: 06/19/20 08:30 Dose: Not Given Documented by: Fluticasone Propionate (Fluticasone Nasal [place]) 1 sprays CARLITA DAILY PRN PRN Reason: Nasal Congestion Gabapentin (Gabapentin 400 Mg Capsule) 1,600 mg PO BID [facility] Last Admin: 06/19/20 08:31 Dose: 1,600 mg Documented by: Hydromorphone HCl (Hydromorphone 0.5 Mg/0.5 Ml Syringe) 0.5 mg IVP Q2HR PRN PRN Reason: PAIN Meropenem 1 gm/ Sodium (Chloride) 100 mls @ 200 mls/hr IV Q8H [facility] Last Infusion: 06/19/20 05:21 Dose: Infused Documented by: Potassium Chloride/Sodium Chloride (Normal Saline 0.9% W/20 Meq Kcl) 1,000 mls @ 83.333 mls/hr IV .Q12H [facility] Last Admin: 06/19/20 07:46 Dose: 83.333 mls/hr Documented by: [place] Carbonate ([place] Er 300 Mg Tablet) 900 mg PO QPM [facility] Last Admin: 06/18/20 21:04 Dose: 900 mg Documented by: Lorazepam (Lorazepam 2 Mg/Ml Vial) 0.5 mg IVP Q1H PRN PRN Reason: Anxiety Pantoprazole Sodium (Pantoprazole 40 Mg Vial) 40 mg IVP BID [facility] Last Admin: 06/19/20 08:31 Dose: 40 mg Documented by: Saccharomyces Boulardii (Saccharomyces Boulardii 250 Mg Capsule) 250 mg PO BIDWM [facility] Last Admin: 06/19/20 07:46 Dose: 250 mg Documented by: Sodium Chloride (Sodium Chloride Flush 0.9% 10 Ml Syringe) 10 ml IVP 0100,0900,1700 [facility] Last Admin: 06/19/20 08:31 Dose: Not Given Documented by: Sodium Chloride (Sodium Chloride Flush 0.9% 10 Ml Syringe) 10 ml IVP PRN PRN PRN Reason: NEEDED PER PROVIDER ORDERS Last Admin: 06/17/20 20:24 Dose: 10 ml Documented by: Albuterol Sulfate [Proair Hfa] 1 puffs IH Q4-6H PRN 12/29/12 DULoxetine [Cymbalta] 60 mg PO DAILY 12/29/12 Fluticasone [Flonase] 1 sprays CARLITA DAILY PRN MDD 1 12/29/12 Gabapentin [Neurontin] 1,600 mg PO BID 12/29/12 [place] ER [Lithobid] 900 mg PO QPM 12/29/12 Atorvastatin [Lipitor] 20 mg PO DAILY PM 06/10/20 Levothyroxine [Synthroid] 100 mcg PO QDAC 06/13/20 Omeprazole Magnesium 20 mg PO QDAC 06/13/20 Allergies/Adverse Reactions: Allergies Allergy/AdvReac Type Severity Reaction Status Date / Time bupropion HCl * Allergy ANXIETY/ANG Verified 06/12/20 14:41 [From Wellbutrin] RY cephalexin [From Keflex] Allergy C-Diff/Coli Verified 06/12/20 14:41 tis ciprofloxacin [From Cipro] Allergy C-DIFF/COLI Verified 06/12/20 14:41 TIS ciprofloxacin HCl * Allergy C-DIFF/COLI Verified 06/12/20 14:41 [From Cipro] TIS Anes History & Medical History - Anesthetic History Anesthesia Complications: reports: No previous complications - Medical History Cardiovascular: reports: High cholesterol Pulmonary: reports: Asthma, COPD, Emphysema Gastrointestinal: reports: GERD, Colon polyps Urinary: reports: Incontinence Neuro: reports: None Musculoskeletal: reports: Osteoarthritis, Osteopenia Endocrine/Autoimmune: reports: HyPOthyroidism Blood Disorders: reports: None Skin: reports: Eczema Smoking Status: Former smoker (quit 1999) Psychosocial: reports: No issues indicated, Other (Bipolar type2) History of Cancer?: No - Surgical History General: reports: Cholecystectomy, Appendectomy, Colonoscopy, EGD Gynecologic: reports: LEEP (Cervical surgery) Orthopedic: reports: Other Exam General: Alert, Oriented x3, Cooperative, No acute distress Dental: Poor dentition (prominent over bite.), Other Mouth Openin Fingerbreadth Neck Mobility: Normal Mallampati classification: II Thyromental Distance: greater than 6 cm Respiratory: Lungs clear, Normal breath sounds, No respiratory distress, No accessory muscle use Cardiovascular: Regular rate, Normal S1, Normal S2, No murmurs Mental/Cognitive Status: Alert/Oriented X3, Normal for patient Plan Anesthesia Type: General, Transverse Abdominis Plane (TAP) Block (bilateral), Other (PICC line placement) Regional Block: Per Surgeon's request for Post Op pain control Consent for Procedure(s) Verified and Reviewed: Yes Code Status: Attempt Resuscitation ASA classification: 2-Mild systemic disease Is this case an emergency?: No
[2020-06-19] MEDS ORDERED: LIDOCAINE 1% 50 ML MDV ONE (11:46)
[2020-06-19] MEDS ORDERED: BUPIVACAINE 0.5%-EPI 1:200000 PF 30 ML VIAL ONE (11:46)
[2020-06-19] MEDS ORDERED: PROPOFOL 200 MG/20 ML VIAL IVP ONE (11:53)
[2020-06-19] MEDS ORDERED: MIDAZOLAM 2 MG/2 ML VIAL ONE (11:53)
[2020-06-19] MEDS ORDERED: fentaNYL 100 MCG/2 ML VIAL ONE ×2 (11:53→15:04)
[2020-06-19] MEDS ORDERED: LIDOCAINE-MPF 2% 5 ML VIAL ONE (11:53)
[2020-06-19] MEDS ORDERED: ROCURONIUM 50 MG/5 ML VIAL ONE ×2 (11:54→13:58)
--- NOTE | 2020-06-19 12:56 | PROVIDER PROGRESS NOTE ---
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 Hospital day #5. Pain improved today. Electrolyte abnormalities pending hospitalist consult. Objective General Appearance: positive: No acute distress Eyes Bilateral: positive: Normal inspection ENT: positive: ENT inspection nml Neck: positive: Nml inspection Respiratory: positive: Chest non-tender, No respiratory distress, Breath sounds nml. negative: Wheezes, Rales, Rhonchi Cardiovascular: positive: Regular rate & rhythm Abdomen: positive: No distention, Other. negative: Guarding, Rebound Extremities: positive: Non-tender, Full ROM, Nml appearance Neurologic/Psychiatric: positive: Oriented x3, CN's nml (2-12) Impression CT scan June 14, 2020: Small bowel obstruction pattern, with the small bowel dilated up to 5.1 cm. The obstruction appears high-grade. A definite source of this finding is not found. There is relatively normal caliber of the colon and contrast of the small bowel. Quality visualization is somewhat limited by absence of intravenous contrast. Oral contrast has transition only a small distance into the small bowel. There is no free air. No abscess. Small amount of free peritoneal fluid within the perihepatic space hepatorenal space in the cul-de-sac of the lobe midline pelvic. Several scattered abdominal surgical clips appear present including prior cholecystectomy and postoperative adhesion may explain the small bowel obstruction stenosis pattern. Discussed with pathology extensively the patient's mid transverse colonic polyp that was not completely excised and only biopsied given its size. Multiple nests of high-grade dysplasia about 20 to 40% of the entirety of the examined specimen. Given the size of the polyp, the associated high-grade dysplasia, and concerns for remnant malignancy in this polyp that would not likely be candidate for complex polypectomy it seems prudent to proceed with segmental resection. 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 Hospital day #5. Pain improved today. Electrolyte abnormalities pending hospitalist consult. Patient has transverse colonic polyp with high-grade dysplasia; this is not completely resected. Discussed with pathology extensively the patient's mid transverse colonic polyp that was not completely excised and only biopsied given its size. Multiple nests of high-grade dysplasia about 20 to 40% of the entirety of the examined specimen. Given the size of the polyp, the associated high-grade dysplasia, and concerns for remnant malignancy in this polyp that would not likely be candidate for complex polypectomy it seems prudent to proceed with segmental resection. 1. Diagnostic laparoscopy 2. Laparoscopic adhesio lysis 3. Laparoscopic right colon resection 4. Laparoscopic hepatic flexure mobilization 5. Open umbilical hernia repair 6. Extracorporeal zzia-lc-[id number] functional end-to-end isoperistaltic anastomosis 7. Tap block per anesthesia 8. Drain placement Concerns here include even in the setting of complex polypectomy persistent remnant adenomatous tissue and more concerning for remnant malignancy. Also concerned that the patient failed to tolerate complex polypectomy in a relatively and comparably less complex than benign site at the level of the cecum. (1) GI - IVF, bowel regimen, advance diet as tolerated. GI ppx. Bowel obstruction by imaging. Opiate sparring analgesia. (2) SURGERY - Necessary segmental colectomy. Will discuss with patient and daughter. Plan to place PICC line and will start TPN today. (3) Renal/Lytes - continue IVF. Renal indices improving. (4) Respiratory - O2 as necessary. Continue IS. (5) Heme - Will continue with DVT ppx. H/H stable. (6) Cardiovascular - HD acceptable. (7) Neuro - Opiate sparring analgesia. Antispasmodics with Robaxin. (8) Immune/Infectious Disease - Continue abx for post-polypectomy syndrome. PREOPERATIVE MEDICAL OPTIMIZATION AND RISK ASSESSMENT: Discussed with hospitalist service. Patient was advised of risks as a relates including but not limited to injury to local structures including, possible conversion to open intervention, need for additional surgeries, as well as the development of postoperative surgical site hernias and infection. Moreover, there were the anesthesia and operative risks of heart attack, stroke, . Please note that voice recognition software was used to transcribe this note and inadvertent errors might persist in spite of review and editing. I am obliged to you for your attention. I am thankful to you for allowing me to participate with you in this care of this patient.
[2020-06-19] MEDS ORDERED: MORPHINE 2 MG/ML CARPUJECT IVP PRN (13:12)
[2020-06-19] MEDS ORDERED: ATROPINE ABBOJECT 1 MG/10 ML SYRINGE IVP PRN (13:12)
[2020-06-19] MEDS ORDERED: fentaNYL 100 MCG/2 ML VIAL IVP PRN (13:12)
[2020-06-19] MEDS ORDERED: NALOXONE 0.4 MG/ML VIAL IVP PRN (13:12)
[2020-06-19] MEDS ORDERED: ONDANSETRON 4 MG/2 ML VIAL IVP PRN ×2 (13:12→16:53)
[2020-06-19] MEDS ORDERED: HYDROmorphone 0.5 MG/0.5 ML SYRINGE IVP PRN (13:12)
--- NOTE | 2020-06-19 13:53 | ANESTHESIA PROCEDURE NOTE ---
Anesth Central Line Template - Central Line Central Line Preparation: Consent Obtained, Time out completed, Ultrasound used, Sterile prep and drape Central line location: Right Basilic Central line type: PICC Double Lumen Central line catheter tip site resides: Superior vena cava (SVC) (Cath cut at 40, hubbed. Initial CXR in OR showed cath tip residing in R IJ. Cath pulled back, readvanced, aspirate/flush, new PCXR confirms tip in SVC, ok to use PICC.) Central line aftercare: Secured, Placement confirmed, No pneumothorax, No complications, Bundle checklist complete, Pt tolerated well
[2020-06-19] MEDS ORDERED: DEXAMETHASONE 4 MG/ML VIAL ONE (13:56)
[2020-06-19] MEDS ORDERED: LACTATED RINGERS 1,000 ML IV SCH (14:00)
[2020-06-19] MEDS ORDERED: ACETAMINOPHEN 1,000 MG/100 ML 100 ML IV ONE (14:13)
--- NOTE | 2020-06-19 14:13 | XRAY Report ---
PROCEDURE: Chest for Line Placement INDICATIONS: New PICC line TECHNIQUE: One view of the chest was acquired. COMPARISON: 06/19/2020 chest radiograph. FINDINGS: Right upper extremity PICC tip projects over the proximal SVC. Advancement recommended. Endotracheal tube terminates in the right mainstem bronchus. There is atelectasis involving much of t he left lung, new from the prior study. IMPRESSION: Retraction of the endotracheal tube is recommended. The endotracheal tube terminates in the right christopher nstem bronchus and there is atelectasis involving much of the left lung. Right upper extremity PICC tip projects over the proximal SVC. Advancement recommended. Reviewed by: Tal Tapia MD on 06/19/2020 2:12 PM PDT Approved by: Tal Tapia MD on 06/19/2020 2:12 PM PDT Station ID: [id number]
[2020-06-19] MEDS ORDERED: ROPIVACAINE 0.5% PF 20 ML AMPULE ONE (14:16)
[2020-06-19] MEDS ORDERED: ONDANSETRON 4 MG/2 ML VIAL ONE (14:22)
[2020-06-19] MEDS ORDERED: PHENYLEPHRINE 10 MG/ML VIAL ONE (14:58)
[2020-06-19] MEDS ORDERED: ePHEDrine 50 MG/ML VIAL IVP ONE (14:58)
[2020-06-19] MEDS ORDERED: NEOSTIGMINE 1 MG/1 ML 10 ML MDV ONE (15:46)
[2020-06-19] MEDS ORDERED: GLYCOPYRROLATE 1 MG/5 ML VIAL ONE (15:46)
[2020-06-19] MEDS ORDERED: VASOPRESSIN 20 UNIT/ML VIAL ONE (16:04)
[2020-06-19] MEDS ORDERED: ALBUTEROL NEB 2.5 MG/3 ML INH PRN (16:50)
[2020-06-19] MEDS ORDERED: IPRATROPIUM 0.2 MG/ML NEB INH PRN (16:50)
--- NOTE | 2020-06-19 17:04 | OPERATIVE REPORT ---
Operative Report - General Admit Date: 06/13/20 Planned Procedure: 1. Diagnostic laparoscopy 2. Laparoscopic adhesiolysis 3. Laparoscopic right colon resection 4. Laparoscopic hepatic flexure mobilization 5. Open umbilical hernia repair Pre-Op Diagnosis: Post-polypectomy; unresectable adenomatous polyp, high grade dysplasia; SBO Procedure Performed: 1. Diagnostic laparoscopy 2. Laparoscopic adhesiolysis, extensive 3. Laparoscopic extended right colon resection 4. Laparoscopic hepatic flexure mobilization 5. Open umbilical hernia repair 6. Extracorporeal [id number]-el-spzf functional end-to-end isoperistaltic anastomosis 7. Tap block per anesthesia 8. Drain placement 9. Extensive abdominal washout 10. Drainage of abdominal fluid 11. Small bowel resection at site of obstruction Post Op Diagnosis: Same; SBO 2o SB inflammatory adhesion; extended right colectomy - Procedure Note Primary Surgeon: Saida Secondary Surgeon: Alondra Anesthesia Provider: Nino Anesthesia Technique: General ET tube, Regional block Pathology: 1. Small bowel 2. Terminal ileum, cecum, ascending colon, hepatic flexure with tattoos in mid transverse Estimated Blood Loss (mL): 350 Drain/Tube Type: Rk drain Indications: See EMR Findings: See below Complications: NONE - Other Other Information/Narrative: Laparoscopic Right Colectomy: INDICATION: 64-year-old female with multiple adenomatous polyps transverse colonic for which there was high-grade dysplasia. This was not able or amendable to endoscopic resection. Moreover the patient had been attempted for complex polypectomy of cecal polyp for which the patient admitted with post polypectomy syndrome. Given remnant polyp with high-grade dysplasia in the transverse colon and her presentation with abdominal pain patient was advised of the indication to undergo completion colectomy. Risk and benefits discussed. OPERATIVE REPORT: The patient was taken to the operating room, placed supine on the operating table. At this time, bilateral lower extremity serial compression devices were placed. Informed consent was confirmed by OR staff, and thereafter, the patient was induced for general endotracheal anesthesia. The patient was placed for a Funk catheter and orogastric tube was inserted as well. Perioperative antibiotics of were dosed within an hour of incision. All pressure points were offloaded and padded. At this time, a timeout was called and agreed to by all in the room. Circumumbilical vertical incision was made incorporating a known umbilical defect, hernia for which would be repaired at the conclusion of this case. This was taken down through the subcutaneous tissue the umbilicus was lifted off the known defect in the fascia was entered sharply without any complication. Dilated bowel was palpated and carefully the trocar, Galindo, was inserted balloon inflated and the abdomen was insufflated without any complication to 15 mmHg. After pneumoperitoneum was established, and trochars were placed as per above under findings, the patient was thereafter placed in steep Trendelenburg with the right side up and we proceeded to continue with diagnostic laparoscopy. Again, liver was evaluated as was the omentum with findings as noted above. Case began with adhesiolysis as follows: Trochars were sequentially placed towards affording appropriate abdominal access for laparoscopic and ultimately robotic adhesiolysis and enterolysis. This was performed in such a way as to maximize exposure and minimize abdominal trauma. We clearly visualized, after appropriate and lengthy laparoscopic adhesiolysis, each trocar placement. Thereafter once appropriate and safe exposure was achieved without any inadvertent injuries or other complicating factors, we proceeded with trocar placement as follows in such a way as to take down the patient's extensive intra-abdominal adhesions using sharp laparoscopic dissection, diligent electrocautery, and appropriate countertraction. Additional trochars were placed as follows: 1. Left lower quadrant 5 mm port 2. Suprapubic 5 mm port 3. 11 mm left upper quadrant trocar All ports were placed under direct laparoscopic visualization. Please note for multiple reasons as listed above under brief procedural findings, this patient was best suited to minimal access adhesiolysis towards avoiding open intervention, reducing the associated risks thereof, maximizing recovery, minimizing postoperative morbidity and associated stigmata, and enhancing the patient's convalescence towards assuring safe and expeditious ushering of patient into the next step of therapeutic intervention which was crucial in overall plan of care. This proceeded without any untoward complications, and without any inadvertent injuries or other adverse effect events. After adhesiolysis was performed, the omentum, which was freed from the pelvis and associated adhesions, was ultimately lifted above the transverse colon and the small bowel was reflected laterally to the left upper quadrant. At this time with the right colon tented, the ileocolic artery was noted after appropriate traction of the cecum into the anterior lateral direction. The associated "bowstringing" was seen and the peritoneum was thereafter scored using laparoscopic roxy with energy and the underlying retroperitoneal structures were gently swept away. Ultimately, the ileocolic pedicle was identified, encircled and it was divided using a vascular load of an Endo-DONNA stapler. With this completed, we proceeded to continue carefully sweeping the retroperitoneal structures posteriorly and away. The duodenum was protected throughout the entirety of this operative intervention. With the ileocolic artery divided, we proceeded to lyse the right colon's lateral peritoneal attachments, which were divided using cautery and the Ligasure Device. Once this was performed through to the hepatic flexure, we at this time having mobilized caecum, divided the ileocolic pedicle, mobilized the terminal ileum, we proceeded to place the patient in reverse Trendelenburg, allowing for better exposure for the remainder of this operative intervention. Using the Ligasure Advanced, we dissected free the gastrocolic ligament. The omentum was carefully from the transverse colon and this was also freed from adhesions within the mesentery as well. This was carefully performed through to hepatic flexure. Once accomplished, the transverse mesocolon could be appropriately elevated and evaluated. Again, the duodenum, head of pancreas were very carefully swept from beneath transverse mesocolon with gentle blunt dissection to avoid any vascular avulsion or injury. With these structures again protected and identified throughout the entirety of this case, we proceeded to continue marching up the right colonic mesentery, at which time the transverse mesocolon was elevated and tented bilaterally. With appropriate exposure, we proceeded to continue using the energy device to further delineate the branches of the middle colic. This was thereafter skeletonized and depending upon whether proceeding with a formal Right Hemicolectomy or Extended Right Colectomy, the vessels were divided using a vascular load of the Endo-DONNA stapler (please see above for specifics under findings). With vasculature divided, the remainder of the transverse mesocolon was addressed using, again, the Ligasure vessel sealer. With this completed and the remainder of colonic mesocolon divided, we proceeded to perform the superior takedown of the hepatic flexure. Again, the duodenum and head of pancreas were noted and protected throughout the entirety of this operative procedure. Using the vessel sealer with the gastrocolic omentum already divided and the lesser sac entered, dissection was carried down towards the hepatic flexure and ultimately the hepatocolic ligament was divided, and the hepatic flexure was retracted medially to divide the final attachments using again the vessel sealer. There is an area of adhesed small bowel to the cecum that required segmental small bowel resection for which we performed the following. Please note that this was meant to reduce the overall risk of postoperative complication as it relates to this area with then stricturing from likely the patient's historic operative interventions. we chose points of transection and after dividing and ligating the intervening mesentery, the small intestine was divided using a linear cutting stapler with a triple staple line. The ileostomy was sent for permanent pathology. Once this was completed, Allis clamps were placed along the antimesenteric staple lines of both ends. These were incised and divided using curved Londono scissors and thereafter limbs of the linear cutting stapler were placed through both enterotomies and the [id number] anastomosis was created. There was no bleeding, and after the stapler was fired, two seromuscular crotch stitches were placed in order to relieve any tension. Thereafter, the enterotomies were closed in two layers, first with a Dominick running suture, followed by interrupted Lembert stitches of 2-0 Vicryl. The anastomosis was widely patent, intact, with no ischemic changes noted. Once the hepatic flexure was ultimately taken, we proceeded to assess for the mobility of the right colon, hepatic flexure, proximal and mid transverse colons which were all mobilized through to the distal transverse colon. With this completed, we thereafter proceeded with the anastamosis as follows. Extracorporeal Enterocolonic Anastamosis: The patient was planned for an extracorporeal stapled [id number] functional end-to-end anastomosis at this time (isoperistaltic). Once adequate length was achieved of the terminal ileum as well as of the transverse colon, again, the mobilized colon was exteriorized through incision and again was felt appropriate for a [id number]-dj-[id number] functional end-to-end anastomosis with adequate, viable, grossly normal margins. With the small bowel and colon lying comfortably besides one another, we chose a point of proximal margin which was divided for its mesentery, clamp-clamp, cut, tie with Vicryl ligature. The small bowel was divided using a Linear Cutter stapler. The colon was similarly divided at a chosen distal margin, with the mesentery divided as above and the colonic tissue divided again using the linear cutting stapler as described to follow. This was again divided for its mesentery, using both the wlxfl-[id number]-gar and tie process, using Vicryl ligatures. The colon was thereafter divided using the Linear Cutter stapler as well. Again, with the small bowel and colon lying comfortably beside one another with no torsion or twisting, enterotomies were made first through the small bowel at its antimesenteric border with the enteric contents suctioned using a pool sucker and or sterile gastric stump and tube, and thereafter similarly through the antimesenteric border of the colon as well with the enteric contents similarly decompressed. These areas were pink, viable and notable for healthy bleeding margins. Once the enterotomy and colotomy was made an linear cutting stapler was inserted and once the taenia from the transverse colon was appropriately incorporated into the planned anastomotic site and mesentery was assured to be excluded from the staple line, the stapler was fired. This was performed in a isoperistaltic fashion with multiple firings of the [employer] DONNA linear cutting stapler. Once stapler was withdrawn, 2 crotch stitches were placed in a seromuscular fashion. With this completed, Allis clamps were used to approximate the enterotomies and these were additionally in two layers, first with a running [place] stitch. Additional reinforcement was achieved with 2-0 Vicryl stitches to imbricate the staple lines as well as reinforce closure in a Lembert fashion. Once this was completed, the abdomen was irrigated and aspirated clear with no evidence of active bleeding. The mesenteric defect was closed to prevent internal herniation. Once this was completed, a stapled [id number]-kh-[id number] functional end-to-end anastomosis was widely patent and again already confirmed as stated above for viability by pink healthy mucosa with bleeding edges and noted peristalsis. With this ileocolonic anastamosis completed, after confirming the anastomosis was intact and hemostatic, we proceeded to close the extraction site as follows: 1 - Bidirectional loop PDS tied above the umbilicus and incorporating the umbilical hernia defect 2 - See below for skin closure At this time we reinsufflated the abdomen and proceeded to close any accessory ports greater than 8 mm with a Mukesh-Earline suture passer. We also proceeded to place a closed suction drain as well. Please note that we changed gloves and removed all contaminated instruments off the field as her proceeded from the anastomosis to closure of the extraction site. With the patient tolerating insufflation without any complication, we closed the left upper quadrant 11 mm trocar with a Mukesh-Earline suture passing device forming a [id number] to prevent any post operative risk of herniation. With this completed, omentum was replaced over the anastomosis where available and after the abdomen had been extensively irrigated and aspirated clear, we proceeded to desufflate the abdomen. Laparoscopically we placed a closed suction 19 Rk drain along the anastomosis and also to assure that we had complete decompression of any trapped insufflation and ultimately towards draining any residual irrigant for which we are just greater than 2 L of warm saline prior to closing the midline wound. The incisions were all closed using skin bonnie after again irrigating. Please note and abdominal wound VAC was placed superiorly and inferiorly given concerns for acute infectious process and for planned delayed primary closure. Umbilical plasty was performed. The patient tolerated the procedure well for which there was no complication. All counts for sponges, needles, and instruments were correct at the conclusion of this operative case. The wounds were instilled with local anesthetic. The wounds were dressed with Telfa and Tegaderm, the patient was extubated and taken to postanesthesia care unit in stable condition. A Biopatch was placed around the drain. I was physically present for the entire procedure. Please note that voice recognition software was used to transcribe this note and inadvertent errors might persist in spite of review and editing. I am obliged to you for your attention. I am thankful to you for allowing me to participate with you in this care of this patient.
--- NOTE | 2020-06-19 17:11 | PROVIDER PROGRESS NOTE ---
Progress Note Operative Report - General Admit Date: 06/13/20 Planned Procedure: 1. Diagnostic laparoscopy 2. Laparoscopic adhesiolysis 3. Laparoscopic right colon resection 4. Laparoscopic hepatic flexure mobilization 5. Open umbilical hernia repair Pre-Op Diagnosis: Post-polypectomy; unresectable adenomatous polyp, high grade dysplasia; SBO Procedure Performed: 1. Diagnostic laparoscopy 2. Laparoscopic adhesiolysis, extensive 3. Laparoscopic extended right colon resection 4. Laparoscopic hepatic flexure mobilization 5. Open umbilical hernia repair 6. Extracorporeal smlp-ga-owez functional end-to-end isoperistaltic anastomosis 7. Tap block per anesthesia 8. Drain placement 9. Extensive abdominal washout 10. Drainage of abdominal fluid 11. Small bowel resection at site of obstruction Post Op Diagnosis: Same; SBO 2o SB inflammatory adhesion; extended right colectomy - Procedure Note Primary Surgeon: Saida Secondary Surgeon: Alondra Anesthesia Provider: Nino Anesthesia Technique: General ET tube, Regional block Pathology: 1. Small bowel 2. Terminal ileum, cecum, ascending colon, hepatic flexure with tattoos in mid transverse Estimated Blood Loss (mL): 350 Drain/Tube Type: Rk drain Indications: See EMR Findings: See below Complications: NONE
[2020-06-19 17:16] LABS: HCT - HEMATOCRIT 26.4 % (37.0-47.0); HGB - HEMOGLOBIN 8.3 g/dL (12.0-16.0)
[2020-06-19] MEDS ORDERED: LACTATED RINGERS 50 ML IV ONE (17:21)
[2020-06-19] MEDS ORDERED: SODIUM CHLORIDE 0.9% 1,000 ML IV ONE ×3 (17:42→18:13)
[2020-06-19 17:43] LABS: ABG BASE EXCESS -3.9 mmol/L (-2.0-3.0); ABG HCO3 21.4 mmol/L (22.0-26.0); ABG OXYGEN SATURATION 97 % (94-98); ABG PCO2 40 mmHg (34-45); ABG PH 7.35 (7.35-7.45); ABG PO2 98 mmHg (80-100); ABG TCO2 22.6 MMOL/L (21.0-29.0)
--- NOTE | 2020-06-19 17:48 | ANESTHESIA POST OP EVALUATION ---
Anesthesia Post Eval - Post Anesthesia Eval Vitals: Last Vital Signs Temp 36.5 C 06/19/20 17:18 Pulse 95 06/19/20 17:18 Resp 19 06/19/20 17:18 BP 60/37 L 06/19/20 17:18 Pulse Ox 100 06/19/20 17:18 CV Function Including HR & BP: Additional Therapies Ordered (Ninole, CVP placed in ICU) Pain Control: Satisfactory Nausea & Vomiting: Negative Mental Status: Patient Participates Respiratory Status: Airway Patent Hydration Status: Satisfactory (adequate volume during surgery but BP remains low in recovery, H&H pending, troponin, EKG) Anesthesia Complications: None
--- NOTE | 2020-06-19 17:59 | PROVIDER PROGRESS NOTE ---
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 She returned to the ICU from PACU around 5:30pm Her systolic blood pressure was as low as 40 during surgery. She requred 2 pushes of Estimated blood loss of about 350 mils. Patient was transferred to the ICU after being extubated in the PACU. She is arousable to verbal stimuli. She is AO x3 but drowsy. Her oxygen saturation is 100% on 9 L. Her lungs are clear to auscultation bilaterally. No wheezing rhonchi or crackles noted. ABG showed a pH of 7.35, PCO2 39.6, PO2 98, bicarb 21.4, lactic acid 1.73. She had an arterial line and a central line placed. Her blood pressure was recycled in the ICU and was noted to be in the 60s. She received a total of about 2 L of fluid in the OR. 1 L normal saline bolus is being administered over 1 hours. The patient was started on Levophed. Will titrate to effect. Goal is to keep MAP greater than 65. Patient's hemoglobin was 9.1. Hemoglobin earlier in the morning was 11.7. 1 unit Packed red blood cells have been ordered and will be transfused as soon as available. Sodium level later came back at 150 so IV fluids were changed to D5 half-normal saline. It will be run at 250 mils per hour x4 hours due to hypotension. A repeat BMP will be done at 11 PM after which it will be determined which fluid and rate to continue. Sliding scale insulin ordered for hyperglycemia. Patient's troponin came back at 18.[address] depressions in diffuse leads. This is likely due to demand ischemia from patient's low systolic blood pressure. Patient is actively being hydrated with appropriate response. We will trend troponin x3 more. Patient is not experiencing any chest pain or dyspnea. CBC, BMP, troponin and an EKG are pending. A total of 40 minutes of critical care time was spent.
[2020-06-19] MEDS ORDERED: ACETAMINOPHEN 1,000 MG/100 ML 100 ML IV SCH (18:00)
[2020-06-19] MEDS ORDERED: METOCLOPRAMIDE 10 MG/2 ML VIAL IVP SCH (18:00)
[2020-06-19 18:02] LABS: HCT - HEMATOCRIT 26.1 % (37.0-47.0); HGB - HEMOGLOBIN 8.2 g/dL (12.0-16.0); MEAN CORPUSCULAR HEMOGLOBIN 31.4 pg (27.0-31.0); MEAN CORPUSCULAR HGB CONC 31.4 g/dL (32.0-36.0); MEAN PLATELET VOLUME 11.3 fL (7.9-10.8); RED BLOOD COUNT 2.61 10^6/uL (4.20-5.40); RED CELL DISTRIBUTION WIDTH 15.5 % (12.0-15.0); WHITE BLOOD COUNT 17.1 x10^3/uL (4.8-10.8)
[2020-06-19] MEDS: methocarbamoL 500 MG TABLET PO SCH (18:11)
[2020-06-19 18:19] LABS: ALBUMIN 1.4 g/dL (3.2-5.5); ALBUMIN/GLOBULIN RATIO 0.7 (1.0-2.2); BILIRUBIN,TOTAL 0.4 mg/dL (0.2-1.0); CALCIUM 8.1 mg/dL (8.5-10.3); CREATININE 1.1 mg/dL (0.4-1.0); POTASSIUM 4.2 mmol/L (3.5-5.0); TOTAL PROTEIN 3.3 g/dL (6.7-8.2)
--- NOTE | 2020-06-19 18:19 | XRAY Report ---
PROCEDURE: Chest for Line Placement INDICATIONS: Verify TLC placement TECHNIQUE: One view of the chest was acquired. COMPARISON: 06/19/2020 at 1305 FINDINGS: Surgical changes and devices: Left internal jugular vein central venous catheter is present, tip of w hich is in the mid SVC. Right arm PICC is present, tip of which is in the mid SVC. Lungs and pleura: No pleural effusions or pneumothorax. Mild bilateral perihilar and basilar opaciti es Mediastinum: Mediastinal contours appear normal. Heart size is normal. Bones and chest wall: No suspicious bony lesions. Overlying soft tissues appear unremarkable. IMPRESSION: 1. Venous catheters as above. 2. Mild atypical pneumonia. Reviewed by: Rodriguez Brantley MD on 06/19/2020 6:17 PM PDT Approved by: Rodriguez Brantley MD on 06/19/2020 6:17 PM PDT Station ID: [id number]
--- NOTE | 2020-06-19 18:54 | OPERATIVE REPORT ---
Operative Report - General Admit Date: 06/13/20 Procedure Date: 06/19/20 Planned Procedure: Femoral arterial line catheter placement for hemodynamic monitoring: Procedure performed: 1. Ultrasound guided right femoral artery access 2. Successful placement right femoral arterial catheter placement Pre-Op Diagnosis: See below under indications Procedure Performed: Femoral arterial line catheter placement for hemodynamic monitoring: Procedure performed: 1. Ultrasound guided right femoral artery access 2. Successful placement right femoral arterial catheter placement Post Op Diagnosis: See below under indications - Procedure Note Primary Surgeon: Saida Secondary Surgeon: Alondra Anesthesia Provider: None Pathology: None Estimated Blood Loss (mL): 3 Indications: INTRAOPERATIVE FINDINGS: We successfully proceeded with right femoral arterial line access using a 22 [place]uvian kit by modified Seldinger technique with a single stick and no complication. Good waveform achieved. Preoperative diagnosis: 1. Hemodynamic lability 2. Septic shock 3. Pressor support 4. Need for additional Hemodynamic monitoring. Postoperative diagnosis: 1. Hemodynamic lability 2. Septic shock 3. Pressor support 4. Need for additional Hemodynamic monitoring. 5. Successful placement of Left arterial line, radial artery. Findings: See above and below. Complications: None - Other Other Information/Narrative: Femoral arterial line catheter placement for hemodynamic monitoring: Procedure performed: 1. Ultrasound guided right femoral artery access 2. Successful placement right femoral arterial catheter placement INTRAOPERATIVE FINDINGS: We successfully proceeded with right femoral arterial line access using a 22 [place] kit by modified Seldinger technique with a single stick and no complication. Good waveform achieved. Preoperative diagnosis: 1. Hemodynamic lability 2. Septic shock 3. Pressor support 4. Need for additional Hemodynamic monitoring. Postoperative diagnosis: 1. Hemodynamic lability 2. Septic shock 3. Pressor support 4. Need for additional Hemodynamic monitoring. 5. Successful placement of Left arterial line, radial artery. PROCEDURAL REPORT Attempted bilateral right radial arterial catheterization by anesthesia. We opted to proceed with the right femoral artery for access given the patient with hypotension vasoconstriction and under resuscitation as noted on venous access and ultrasound guidance. Time out was called and agreed to by all in the room. Please note secondary to the urgency of the procedure verbal informed consent was obtained and witnessed by nurse attendant in room. Pulsatile structures were noted for right femoral artery. We proceeded to access the right femoral artery by ultrasound guidance with positive arterial blood return. The catheter was easily placed over the wire by modified Seldinger technique. Appropriate arterial waveform was appreciated with no complication. There was no complication after single stick/puncture for right femoral arterial access. At the conclusion of this case we we reevaluated bilateral bilateral lower extremities given the significant vasoconstriction and patient was noted for good cap refill with no complication to both feet at the conclusion of this procedure. The patient tolerated the procedure well for which there was no complication. All counts for sponges, needles, instruments were correct at the conclusion of this operative intervention.
--- NOTE | 2020-06-19 18:54 | OPERATIVE REPORT ---
Operative Report - General Admit Date: 06/13/20 Procedure Date: 06/19/20 Planned Procedure: 1. Left internal jugular ultrasound-guided venous access 2. Placement of left deep neck venous vascular access 3. Radiographic confirmation of line placement Pre-Op Diagnosis: SEE BELOW Procedure Performed: 1. Left internal jugular ultrasound-guided venous access 2. Placement of left deep neck venous vascular access 3. Radiographic confirmation of line placement Post Op Diagnosis: SEE BELOW - Procedure Note Primary Surgeon: JOYCE Secondary Surgeon: RAKESH Anesthesia Provider: RAKESH Anesthesia Technique: Local Pathology: NONE Estimated Blood Loss (mL): 3 Indications: Hemodynamic monitoring and additional access for pressors and fluid resuscitation Findings: INTRAOPERATIVE FINDINGS: Left internal jugular was noted ultrasonographically. It was passed for the guidewire without any complication, which was confirmed by ultrasound imaging. The catheter ultimately was placed at the junction between the SVC and the atria of the atriocaval junction without any complication as confirmed by postoperative x-ray. Again, postoperative radiography confirmed placement. Patient tolerated the procedure well for which there was no complication. The port flushed easily, it aspirated well across all 3 ports. Preoperative diagnosis: 1. Hypovolemic shock 2. Septic shock 3. Suspicion for sepsis 4. Hematemesis 5. Need for additional IV access Postoperative diagnosis: 1. Hypovolemic shock 2. Septic shock 3. Suspicion for sepsis 4. Hematemesis 5. Need for additional IV access 6. Successful placement of left internal jugular triple-lumen catheter Complications: NONE - Other Other Information/Narrative: INTRAOPERATIVE FINDINGS: Left internal jugular was noted ultrasonographically. It was passed for the guidewire without any complication, which was confirmed by ultrasound imaging. The catheter ultimately was placed at the junction between the SVC and the atria of the atriocaval junction without any complication as confirmed by postoperative x-ray. Again, postoperative radiography confirmed placement. Patient tolerated the procedure well for which there was no complication. The port flushed easily, it aspirated well across all 3 ports. Preoperative diagnosis: 1. Hypovolemic shock 2. Septic shock 3. Suspicion for sepsis 4. Hematemesis 5. Need for additional IV access Postoperative diagnosis: 1. Hypovolemic shock 2. Septic shock 3. Suspicion for sepsis 4. Hematemesis 5. Need for additional IV access 6. Successful placement of left internal jugular triple-lumen catheter PROCEDURAL REPORT The patient was prepped for left neck and chest in the usual sterile fashion. Time out was called and agreed to by all in the room. Please note secondary to the urgency of the procedure verbal informed consent was obtained and witnessed by nurse attendant in room. The ultrasound probe was draped with a sterile sleeve, and internal jugular was noted. The patient was placed in Trendelenburg, and the vein was cannulated using the introducer needle without any complication. There was venous return. The wire was easily passed through the introducer needle without any complication. The wire placement was confirmed Ultrasonographically. At this time, the wire was secured after the needle was removed. Thereafter, we dilated the tract after having incise the skin to accommodate. This was achieved without any complication. The triple-lumen catheter was already flushed and once the dilator was removed over the wire, the triple-lumen catheter was placed and appropriately positioned anticipating tip at the atriocaval junction. We had easy return of blood x3 ports which flushed without any complication as well. Please note the patient was performed for postoperative x-ray which confirmed placement at the atriocaval junction. The patient tolerated the procedure well for which there was no complication. All counts for sponges, needles, instruments were correct at the conclusion of this operative intervention. Post-op XR was reviewed without any deviation.
[2020-06-19] MEDS ORDERED: DEXTROSE 5%-0.45% NACL 1,000 ML IV SCH (19:00)
[2020-06-19] MEDS ORDERED: polyethylene glycoL 3350 17 GM PACKET PO SCH (21:00)
[2020-06-19] MEDS: HEPARIN 5,000 UNIT/ML VIAL SUBQ SCH (21:04)
[2020-06-19] MEDS: ATORVASTATIN 10 MG TABLET PO SCH (22:10)
[2020-06-19] MEDS: DOCUSATE SODIUM 100 MG CAPSULE PO SCH (22:10)
[2020-06-19] MEDS: polyethylene glycoL 3350 17 GM PACKET PO SCH (22:11)
[2020-06-19] MEDS: LITHIUM ER 300 MG TABLET PO SCH (22:11)
[2020-06-19] MEDS: DULoxetine 30 MG CAPSULE PO SCH (22:11)
[2020-06-19] MEDS: SODIUM CHLORIDE FLUSH 0.9% 10 ML SYRINGE IVP PRN ×2 (23:39)
[2020-06-20] MEDS: methocarbamoL 500 MG TABLET PO SCH ×5 (00:01→23:48)
[2020-06-20 00:03] LABS: CALCIUM 7.9 mg/dL (8.5-10.3); CREATININE 1.5 mg/dL (0.4-1.0); POTASSIUM 4.1 mmol/L (3.5-5.0)
[2020-06-20] MEDS ORDERED: MORPHINE 10 MG/ML VIAL IVP PRN (00:21)
[2020-06-20] MEDS ORDERED: LACTATED RINGERS 1,000 ML IV SCH (01:00)
[2020-06-20] MEDS: ACETAMINOPHEN 1,000 MG/100 ML 100 ML IV SCH ×4 (02:18→20:06)
[2020-06-20] MEDS: METOCLOPRAMIDE 10 MG/2 ML VIAL IVP SCH ×4 (02:18→20:06)
[2020-06-20] MEDS: MEROPENEM 1 GM in SODIUM CHLORIDE 0.9% MINIBAG 100 ML IV SCH ×3 (05:01→20:52)
[2020-06-20] MEDS: SODIUM CHLORIDE FLUSH 0.9% 10 ML SYRINGE IVP PRN ×5 (05:25→20:54)
[2020-06-20 05:42] LABS: HCT - HEMATOCRIT 31.6 % (37.0-47.0); HGB - HEMOGLOBIN 10.4 g/dL (12.0-16.0); MEAN CORPUSCULAR HEMOGLOBIN 31.8 pg (27.0-31.0); MEAN CORPUSCULAR HGB CONC 32.9 g/dL (32.0-36.0); MEAN CORPUSCULAR VOLUME 96.6 fL (81.0-99.0); RED BLOOD COUNT 3.27 10^6/uL (4.20-5.40); RED CELL DISTRIBUTION WIDTH 15.6 % (12.0-15.0); WHITE BLOOD COUNT 29.3 x10^3/uL (4.8-10.8)
[2020-06-20 06:01] LABS: ALBUMIN 1.7 g/dL (3.2-5.5); ALBUMIN/GLOBULIN RATIO 0.7 (1.0-2.2); BILIRUBIN,TOTAL 0.3 mg/dL (0.2-1.0); CREATININE 1.5 mg/dL (0.4-1.0); MAGNESIUM 1.6 mg/dL (1.7-2.8); PHOSPHORUS 3.8 mg/dL (2.5-4.6); POTASSIUM 4.1 mmol/L (3.5-5.0); TOTAL PROTEIN 4.3 g/dL (6.7-8.2)
[2020-06-20] MEDS: INSULIN REGULAR HUMAN 300 UNIT/3 ML VIAL SUBQ SCH ×4 (06:03→18:22)
[2020-06-20] MEDS ORDERED: OMEPRAZOLE MAGNESIUM 20 MG PO SCH (07:00)
[2020-06-20] MEDS: LEVOTHYROXINE 100 MCG TABLET PO SCH (07:07)
--- NOTE | 2020-06-20 07:52 | PROVIDER PROGRESS NOTE ---
Assessment/Plan - Problem List (1) Hypovolemic shock Assessment/Plan: Postoperatively. Patient was given 3 L bolus of normal saline yesterday then D5 half-normal saline at 250 mils over 4 hours. She is currently on lactated ringer at 150 mils per hour. Cannot rule out the possibility of septic shock contributing to patient's low blood pressure. She is on Levophed. It is being titrated to keep the MAP greater than 65. (2) Leukocytosis Assessment/Plan: Reactive and/or infectious. Patient's WBC increased from 17.1 yesterday to 29.3 today. Potential infectious source would be GI. She is status post a right hemicolectomy for an adenomatous colon polyp with hyperplasia concerning for potential malignancy. Prior to the hemicolectomy she underwent a colonoscopy w ith attempted polypectomy which did not completely address the polyp due to its size. She had post-polypectomy syndrome. Patient is on meropenem. Lactic acid was normal at 2.0. Patient is receiving IV hydration with lactated Ringer's. She is on Levophed with a goal to titrate for map of 65 or greater. Blood cultures are pending. (3) JOHANNE (acute kidney injury) Assessment/Plan: Likely Prerenal due to hypovolemic shock. Patient systolic blood pressure was as low as 40 during surgery yesterday. Cr is 1.5 today Patient is actively being hydrated. Anticipating improvement with continued IV hydration. (4) Hypernatremia Assessment/Plan: This was due to aggressive IV hydration with normal saline following hypovolemic shock. Patient's initial sodium level was 150. IV fluids was changed to D5 half- normal. This was subsequently changed to lactated Ringer's after the patient received a total of 1 L of D5 half-normal saline. Patient is currently on lactated Ringer's at 150 mils per hour. Most recent sodium recheck was 145. We will continue to monitor. (5) Hypokalemia Assessment/Plan: Resolved. (6) Elevated troponin Assessment/Plan: Likely due to demand ischemia from hypovolemic shock. Patient's systolic blood pressure was as low as 40 Troponin trend was 18.2, 46.3, 43.7. The patient did not experience chest pain or difficulty breathing. Recommendation would be for a stress test in the future after patient has fully recovered from the surgery and hospital stay (7) Adenomatous colon polyp Assessment/Plan: She is status post a right hemicolectomy for an adenomatous colon polyp with hyperplasia concerning for potential malignancy. JAIRO drainage is in place draining serosanguineous fluid. Patient also has a wound VAC in place. TPN ordered and will be initiated today 06/20/2020. Nutrition following. General surgery: Dr. Ken Cintron managing. - Current Meds Current Meds: Current Medications Generic Name Dose Route Start Last Admin Trade Name Freq PRN Reason Stop Dose Admin Albuterol 2.5 mg 06/16/20 11:50 06/16/20 11:53 Albuterol Neb 2.5 Mg/3 Ml INH 2.5 mg RTQ4H PRN Administration Wheezing Albuterol/Ipratropium 3 ml 06/16/20 19:00 06/19/20 20:19 Ipratropium/Albuterol 3 Ml Neb INH 3 ml RTQID TORI Administration Atorvastatin Calcium 20 mg 06/12/20 21:00 06/19/20 22:10 Atorvastatin 10 Mg Tablet PO Not Given QPM TORI Docusate Sodium 100 mg 06/19/20 21:00 06/19/20 22:10 Docusate Sodium 100 Mg Capsule PO Not Given BID TORI Duloxetine HCl 60 mg 06/14/20 21:00 06/19/20 22:11 Duloxetine 30 Mg Capsule PO Not Given QPM TORI Gabapentin 1,600 mg 06/12/20 21:00 06/19/20 22:11 Gabapentin 400 Mg Capsule PO Not Given BID TORI Heparin Sodium (Porcine) 5,000 unit 06/19/20 21:00 06/19/20 21:04 Heparin 5,000 Unit/Ml Vial SUBQ 5,000 unit BID TORI Administration Meropenem 1 gm/ Sodium 100 mls @ 200 mls/hr 06/14/20 13:00 06/20/20 05:35 Chloride IV Infused Q8H TORI Infusion Norepinephrine Bitartrate 8 mg 250 mls @ 15 mls/hr 06/19/20 18:00 06/20/20 02:25 / Dextrose IV 10 mcg/min .[id number] TORI 18.75 mls/hr Titration Protocol 8 MCG/MIN Acetaminophen 100 mls @ 400 mls/hr 06/20/20 00:21 06/20/20 02:38 Ofirmev IV Infused Q6H TORI Infusion Lactated Ringer's 1,000 mls @ 83.333 mls/hr 06/20/20 01:00 06/20/20 00:59 Lr IV 83.333 mls/hr .Q12H TORI Administration Insulin Human Regular 1 - 5 unit 06/20/20 00:00 06/20/20 06:03 Insulin Regular Human 300 Unit/3 Ml Vial SUBQ 1 unit Q6HR TORI Administration Protocol Levothyroxine Sodium 100 mcg 06/20/20 07:00 06/20/20 07:07 Levothyroxine 100 Mcg Tablet PO Not Given QDAC TORI [place] Carbonate 900 mg 06/13/20 21:00 06/19/20 22:11 [place] Er 300 Mg Tablet PO Not Given QPM TORI Lorazepam 0.5 mg 06/12/20 19:41 06/19/20 23:40 Lorazepam 2 Mg/Ml Vial IVP 0.5 mg Q1H PRN Administration Anxiety Methocarbamol 500 mg 06/19/20 18:00 06/20/20 06:03 Methocarbamol 500 Mg Tablet PO Not Given Q6HR TORI Metoclopramide HCl 10 mg 06/20/20 02:00 06/20/20 02:18 Metoclopramide 10 Mg/2 Ml Vial IVP 10 mg Q6H TORI Administration Pantoprazole Sodium 40 mg 06/12/20 21:00 06/19/20 21:03 Pantoprazole 40 Mg Vial IVP 40 mg BID TORI Administration Polyethylene Glycol 17 gm 06/19/20 21:00 06/19/20 22:11 Polyethylene Glycol 3350 17 Gm Packet PO Not Given BID TORI Saccharomyces Boulardii 250 mg 06/13/20 17:00 06/19/20 17:59 Saccharomyces Boulardii 250 Mg Capsule PO Not Given BIDWM TORI Sodium Chloride 10 ml 06/13/20 01:00 06/19/20 23:39 Sodium Chloride Flush 0.9% 10 Ml Syringe IVP 10 ml 0100,0900,1700 TORI Administration Sodium Chloride 10 ml 06/12/20 19:41 06/20/20 05:25 Sodium Chloride Flush 0.9% 10 Ml Syringe IVP 10 ml PRN PRN Administration NEEDED PER PROVIDER ORDERS Sodium Chloride 10 ml 06/19/20 17:00 06/19/20 23:13 Sodium Chloride Flush 0.9% 10 Ml Syringe IVP 10 ml 0100,0900,1700 TORI Administration Sodium Chloride 10 ml 06/19/20 16:50 06/20/20 05:27 Sodium Chloride Flush 0.9% 10 Ml Syringe IVP 10 ml PRN PRN Administration NEEDED PER PROVIDER ORDERS - Lab Result Fish Bone Diagrams: 06/20/20 05:28 06/20/20 05:28 - Additional Planning My Orders: My Active Orders 06/19/20 18:36 Initiate Hypoglycemia Protocol [RC] .protocol 06/19/20 18:56 Transfuse RBCs Leukoreduced [RC] .ONCE 06/20/20 00:00 Insulin Regular Human [Humulin R] 1 - 5 unit SUBQ Q6HR 06/20/20 11:00 TROPONIN I HIGH SENSITIVITY [IAI] Q6H Subjective - Subjective Patient Reports: Other (Patient is very drowsy this morning. She is arousable to verbal stimuli but almost immediately falls back to sleep. She is oriented to self and place.) Objective Vital Signs: Vital Signs - 24 hr 06/19/20 06/19/20 06/19/20 07:59 11:39 12:00 Temperature 36.6 C 36.6 C Heart Rate 91 95 Heart Rate [ 91 Brachial] Heart Rate [ Monitoring electrodes] Respiratory 16 16 16 Rate Blood Pressure Blood Pressure 123/66 [Left Brachial artery] Blood Pressure [Right Femoral artery] O2 Saturation 93 95 06/19/20 06/19/20 06/19/20 16:59 17:03 17:08 Temperature 36.6 C 36.6 C 36.6 C Heart Rate 94 93 92 Heart Rate [ Brachial] Heart Rate [ Monitoring electrodes] Respiratory 18 17 18 Rate Blood Pressure 74/51 L 73/58 L 86/51 L Blood Pressure [Left Brachial artery] Blood Pressure [Right Femoral artery] O2 Saturation 95 96 96 06/19/20 06/19/20 06/19/20 17:13 17:18 17:45 Temperature 36.5 C 36.5 C Heart Rate 96 95 Heart Rate [ Brachial] Heart Rate [ 94 Monitoring electrodes] Respiratory 18 19 15 Rate Blood Pressure 82/55 L 60/37 L Blood Pressure [Left Brachial artery] Blood Pressure 81/41 L [Right Femoral artery] O2 Saturation 97 100 100 06/19/20 06/19/20 06/19/20 18:00 18:30 20:04 Temperature 36.1 C L 36.5 C Heart Rate 104 H Heart Rate [ Brachial] Heart Rate [ 91 95 Monitoring electrodes] Respiratory 17 19 17 Rate Blood Pressure 111/55 L Blood Pressure [Left Brachial artery] Blood Pressure 121/57 L 114/60 [Right Femoral artery] O2 Saturation 100 100 06/19/20 06/19/20 06/19/20 20:10 20:20 20:25 Temperature 36.4 C L 36.4 C L Heart Rate 103 H 110 H 101 H Heart Rate [ Brachial] Heart Rate [ Monitoring electrodes] Respiratory 12 18 13 Rate Blood Pressure 103/52 L 112/54 L Blood Pressure [Left Brachial artery] Blood Pressure [Right Femoral artery] O2 Saturation 06/19/20 06/19/20 06/19/20 20:30 20:45 21:00 Temperature 36.5 C 36.4 C L 36.4 C L Heart Rate 97 96 96 Heart Rate [ Brachial] Heart Rate [ Monitoring electrodes] Respiratory 13 12 11 L Rate Blood Pressure 116/56 L 122/58 L 125/58 L Blood Pressure [Left Brachial artery] Blood Pressure [Right Femoral artery] O2 Saturation 06/19/20 06/19/20 06/19/20 21:30 22:00 22:09 Temperature 36.4 C L 36.5 C 36.5 C Heart Rate 96 95 Heart Rate [ Brachial] Heart Rate [ 95 Monitoring electrodes] Respiratory 11 L 10 L 10 L Rate Blood Pressure 128/61 132/64 H Blood Pressure 117/79 [Left Brachial artery] Blood Pressure 132/64 H [Right Femoral artery] O2 Saturation 100 06/19/20 06/19/20 06/20/20 22:30 23:00 00:00 Temperature 36.5 C 36.6 C 36.6 C Heart Rate 94 98 Heart Rate [ Brachial] Heart Rate [ 98 95 Monitoring electrodes] Respiratory 11 L 13 12 Rate Blood Pressure 130/64 123/65 Blood Pressure 109/79 109/85 H [Left Brachial artery] Blood Pressure 123/65 117/60 [Right Femoral artery] O2 Saturation 99 100 06/20/20 06/20/20 06/20/20 01:00 02:00 03:00 Temperature Heart Rate Heart Rate [ Brachial] Heart Rate [ 96 93 86 Monitoring electrodes] Respiratory 11 L 23 12 Rate Blood Pressure Blood Pressure 111/68 99/74 103/71 [Left Brachial artery] Blood Pressure 116/60 99/52 L 103/52 L [Right Femoral artery] O2 Saturation 99 99 100 06/20/20 06/20/20 06/20/20 04:00 05:00 06:00 Temperature 36.6 C 36.6 C Heart Rate Heart Rate [ Brachial] Heart Rate [ 91 91 91 Monitoring electrodes] Respiratory 12 11 L 13 Rate Blood Pressure Blood Pressure 110/69 107/71 114/70 [Left Brachial artery] Blood Pressure 111/54 L 107/52 L 106/50 L [Right Femoral artery] O2 Saturation 99 100 98 06/20/20 07:00 Temperature Heart Rate Heart Rate [ Brachial] Heart Rate [ 90 Monitoring electrodes] Respiratory 13 Rate Blood Pressure Blood Pressure 111/64 [Left Brachial artery] Blood Pressure 104/49 L [Right Femoral artery] O2 Saturation 95 Oxygen O2 Source Room air Oxygen Flow Rate 2 I&O (Last 24 Hrs): Intake and Output Totals x24h 06/18/20 06/19/20 06/20/20 23:59 23:59 23:59 Intake Total 5278.750 4341.572 323.438 Output Total 400 287 210 Balance 4878.750 4054.572 113.438 General: Other (Somnolent. oriented X2) HEENT: PERRLA, EOMI Neck: Supple, No JVD Neuro: Non Focal, Other (Somnolent but arousable to verbal stimuli, oriented X 2) Cardiovascular: Regular rate, No murmurs Respiratory: Chest non-tender, No respiratory distress, Breath sounds nml Abdomen: Soft, Other (decreased bowel sound. JAIRO drainage draining sero sanguinous output. Wound vac in place) Extremities: No clubbing, No cyanosis, No edema Skin: No rashes, No breakdown - Results Results: Laboratory Results WBC 29.3 x10^3/uL (4.8-10.8) H 06/20/20 05:28 RBC 3.27 10^6/uL (4.20-5.40) L 06/20/20 05:28 Hgb 10.4 g/dL (12.0-16.0) L 06/20/20 05:28 Hct 31.6 % (37.0-47.0) L 06/20/20 05:28 MCV 96.6 fL (81.0-99.0) 06/20/20 05:28 MCH 31.8 pg (27.0-31.0) H 06/20/20 05:28 MCHC 32.9 g/dL (32.0-36.0) 06/20/20 05:28 RDW 15.6 % (12.0-15.0) H 06/20/20 05:28 Plt Count 311 10^3/uL (130-450) 06/20/20 05:28 MPV 11.0 fL (7.9-10.8) H 06/20/20 05:28 Neut # (Auto) 5.0 10^3/uL (1.5-6.6) 06/18/20 05:05 Lymph # (Auto) 0.8 10^3/uL (1.5-3.5) L 06/18/20 05:05 [place] # (Auto) 0.4 10^3/uL (0.0-1.0) 06/18/20 05:05 Eos # (Auto) 0.2 10^3/uL (0.0-0.7) 06/18/20 05:05 Baso # (Auto) 0.0 10^3/uL (0.0-0.1) 06/18/20 05:05 Absolute Nucleated RBC 0.00 x10^3/uL 06/18/20 05:05 Nucleated RBC % 0.0 /100WBC 06/18/20 05:05 Manual Slide Review Indicated 06/12/20 16:17 WBC Morphology NORMAL APPEARANCE (NORMAL) 06/12/20 16:17 Platelet Estimate NORMAL (130-450,000) (NORMAL) 06/12/20 16:17 Platelet Morphology NORMAL APPEARANCE (NORMAL) 06/12/20 16:17 RBC Morph Micro Appear NORMAL APPEARANCE (NORMAL) 06/12/20 16:17 Bld Gas Analysis Time 1737 06/19/20 17:35 Sample Site A-LINE 06/19/20 17:35 ABG pH 7.35 (7.35-7.45) 06/19/20 17:35 ABG pCO2 40 mmHg (34-45) 06/19/20 17:35 ABG pO2 98 mmHg (80-100) 06/19/20 17:35 ABG HCO3 21.4 mmol/L (22.0-26.0) L 06/19/20 17:35 ABG Total CO2 22.6 MMOL/L (21.0-29.0) 06/19/20 17:35 ABG O2 Saturation 97 % (94-98) 06/19/20 17:35 ABG Base Excess -3.9 mmol/L (-2.0-3.0) L 06/19/20 17:35 César Test NOT APPLICABLE 06/19/20 17:35 O2 Delivery Device SIMPLE MASK 06/19/20 17:35 O2 Liters/Min 9.00 LPM 06/19/20 17:35 Sodium 145 mmol/L (135-145) 06/20/20 05:28 Potassium 4.1 mmol/L (3.5-5.0) 06/20/20 05:28 Chloride 117 mmol/L (101-111) H 06/20/20 05:28 Carbon Dioxide 21 mmol/L (21-32) 06/20/20 05:28 Anion Gap 7.0 (6-13) 06/20/20 05:28 BUN 12 mg/dL (6-20) 06/20/20 05:28 Creatinine 1.5 mg/dL (0.4-1.0) H 06/20/20 05:28 Estimated GFR (MDRD) 35 (>89) L 06/20/20 05:28 Glucose 154 mg/dL (70-100) H 06/20/20 05:28 POC Whole Bld Glucose 148 mg/dL (70 - 100) H 06/20/20 05:35 Lactic Acid 2.0 mmol/L (0.5-2.2) 06/19/20 18:06 Calcium 8.0 mg/dL (8.5-10.3) L 06/20/20 05:28 Ionized Calcium NO 06/14/20 04:25 Phosphorus 3.8 mg/dL (2.5-4.6) 06/20/20 05:28 Magnesium 1.6 mg/dL (1.7-2.8) L 06/20/20 05:28 Total Bilirubin 0.3 mg/dL (0.2-1.0) 06/20/20 05:28 AST 16 IU/L (10-42) 06/20/20 05:28 ALT 16 IU/L (10-60) 06/20/20 05:28 Alkaline Phosphatase 40 IU/L (42-121) L 06/20/20 05:28 Troponin I High Sens 43.7 ng/L (2.3-14.8) H* 06/20/20 05:28 C-Reactive Protein 47.9 mg/dL (0-1.0) H 06/12/20 16:17 Total Protein 4.3 g/dL (6.7-8.2) L 06/20/20 05:28 Albumin 1.7 g/dL (3.2-5.5) L 06/20/20 05:28 Globulin 2.6 g/dL (2.1-4.2) 06/20/20 05:28 Albumin/Globulin Ratio 0.7 (1.0-2.2) L 06/20/20 05:28 Prealbumin 12 mg/dL (18-45) L 06/20/20 05:28 Triglycerides 76 mg/dL (-149) 06/20/20 05:28 Lipase 18 U/L (22-51) L 06/12/20 16:17 Urine Color YELLOW 06/12/20 18:42 Urine Clarity CLOUDY (CLEAR) 06/12/20 18:42 Urine pH 5.5 PH (5.0-7.5) 06/12/20 18:42 Ur Specific [place] 1.020 (1.002-1.030) 06/12/20 18:42 Urine Protein 30 mg/dL (NEGATIVE) H 06/12/20 18:42 Urine Glucose (UA) NEGATIVE mg/dL (NEGATIVE) 06/12/20 18:42 Urine Ketones NEGATIVE mg/dL (NEGATIVE) 06/12/20 18:42 Urine Occult Blood TRACE-INTA (NEGATIVE) 06/12/20 18:42 Urine Nitrite NEGATIVE (NEGATIVE) 06/12/20 18:42 Urine Bilirubin NEGATIVE (NEGATIVE) 06/12/20 18:42 Urine Urobilinogen 0.2 (NORMAL) E.U./dL (NORMAL) 06/12/20 18:42 Ur Leukocyte Esterase NEGATIVE (NEGATIVE) 06/12/20 18:42 Urine RBC 0-5 /HPF (0-5) 06/12/20 18:42 Urine WBC 4-5 /HPF (0-5) 06/12/20 18:42 Ur Squamous Epith Cells MANY Squamous (<= Few) H 06/12/20 18:42 Amorphous Sediment Few /LPF 06/12/20 18:42 Urine Bacteria Moderate /HPF (None Seen) H 06/12/20 18:42 Urine Casts 3-5 Granular Casts /LPF 06/12/20 18:42 Urine Mucus Few Strands 06/12/20 18:42 Ur Microscopic Review INDICATED 06/12/20 18:42 Urine Culture Comments NOT INDICATED 06/12/20 18:42 Nasal Adenovirus (PCR) NOT DETECTED 06/12/20 20:25 Nasal B. parapertussis DNA (PCR) NOT DETECTED 06/12/20 20:25 Nasal Coronavir 229E PCR NOT DETECTED 06/12/20 20:25 Nasal Coronavir HKU1 PCR NOT DETECTED 06/12/20 20:25 Nasal Coronavir NL63 PCR NOT DETECTED 06/12/20 20:25 Nasal Coronavir OC43 PCR NOT DETECTED 06/12/20 20:25 Nasal Enterovir/Rhinovir PCR NOT DETECTED 06/12/20 20:25 Nasal Influenza B PCR NOT DETECTED 06/12/20 20:25 Nasal Influenza A PCR NOT DETECTED 06/12/20 20:25 Nasal Parainfluen 1 PCR NOT DETECTED 06/12/20 20:25 Nasal Parainfluen 2 PCR NOT DETECTED 06/12/20 20:25 Nasal Parainfluen 3 PCR NOT DETECTED 06/12/20 20:25 Nasal Parainfluen 4 PCR NOT DETECTED 06/12/20 20:25 Nasal RSV (PCR) NOT DETECTED 06/12/20 20:25 Nasal Screen MRSA (PCR) NEGATIVE (NEGATIVE) 06/19/20 18:00 Nasal B.pertussis DNA PCR NOT DETECTED 06/12/20 20:25 Nasal C.pneumoniae (PCR) NOT DETECTED 06/12/20 20:25 [place]aleb Human Metapneumo PCR NOT DETECTED 06/12/20 20:25 Nasal M.pneumoniae (PCR) NOT DETECTED 06/12/20 20:25 Nasal SARS-CoV-2 (PCR) NOT DETECTED 06/12/20 20:25 Last Dose Date Not Reportable 06/14/20 11:59 Last Dose Time Not Reportable 06/14/20 11:59 [place] 0.37 mmol/L 06/14/20 11:59 Blood Type A POSITIVE 06/19/20 17:45 Blood Type Recheck A POSITIVE 06/19/20 17:11 Antibody Screen NEGATIVE 06/19/20 17:45 Crossmatch IS Only See Detail 06/19/20 17:45 - Procedures Procedures: Procedures EXCISION OF CECUM, ENDO (12/16/15) EXCISION OF DUODENUM, ENDO, DIAGN (06/10/20) EXCISION OF SIGMOID COLON, ENDO (12/16/15) EXCISION OF STOMACH, ENDO (06/10/20) EXCISION OF TRANSVERSE COLON, ENDO (06/10/20) HAND FASCIECTOMY NEC (01/02/13) ABX Reporting Has patient been on IV antibiotics over the past 48 hours?: Yes
[2020-06-20] MEDS ORDERED: MAGNESIUM SULFATE 2 GRAM 2 GM/50 ML BAG IV ONE (08:00)
[2020-06-20] MEDS: SACCHAROMYCES BOULARDII 250 MG CAPSULE PO SCH ×2 (08:37→17:33)
[2020-06-20] MEDS: IPRATROPIUM/ALBUTEROL 3 ML NEB INH SCH ×4 (09:19→19:35)
[2020-06-20] MEDS: PANTOPRAZOLE 40 MG VIAL IVP SCH ×2 (09:20→20:54)
[2020-06-20] MEDS: SODIUM CHLORIDE FLUSH 0.9% 10 ML SYRINGE IVP SCH ×4 (09:21→17:33)
[2020-06-20] MEDS: HEPARIN 5,000 UNIT/ML VIAL SUBQ SCH ×2 (09:23→20:55)
[2020-06-20] MEDS: polyethylene glycoL 3350 17 GM PACKET PO SCH ×2 (09:27→20:53)
[2020-06-20] MEDS: GABAPENTIN 400 MG CAPSULE PO SCH ×2 (09:28→20:54)
[2020-06-20] MEDS: DOCUSATE SODIUM 100 MG CAPSULE PO SCH ×2 (09:29→20:54)
[2020-06-20] MEDS: LACTATED RINGERS 1,000 ML IV SCH ×3 (11:35→19:05)
[2020-06-20 11:39] LABS: CALCIUM 8.2 mg/dL (8.5-10.3); CREATININE 1.7 mg/dL (0.4-1.0); POTASSIUM 3.8 mmol/L (3.5-5.0)
[2020-06-20] MEDS: TPN (CLINIMIX E 5/15) 2,000 ML with MULTIVITAMIN 10 ML, TRACE ELEMENTS 1 ML IV SCH ×3 (17:58)
[2020-06-20] MEDS: FAT EMULSION 20% 250 ML IV SCH (17:59)
[2020-06-20] MEDS: MORPHINE 2 MG/ML CARPUJECT IVP PRN (19:28)
[2020-06-20] MEDS: LITHIUM ER 300 MG TABLET PO SCH (20:53)
[2020-06-20] MEDS: ATORVASTATIN 10 MG TABLET PO SCH (20:54)
[2020-06-20] MEDS: DULoxetine 30 MG CAPSULE PO SCH (20:54)
[2020-06-21] MEDS: MORPHINE 2 MG/ML CARPUJECT IVP PRN ×5 (00:09→22:33)
[2020-06-21] MEDS: SODIUM CHLORIDE FLUSH 0.9% 10 ML SYRINGE IVP SCH ×6 (00:09→16:02)
[2020-06-21] MEDS: INSULIN REGULAR HUMAN 300 UNIT/3 ML VIAL SUBQ SCH ×4 (00:10→18:06)
[2020-06-21] MEDS: ACETAMINOPHEN 1,000 MG/100 ML 100 ML IV SCH ×4 (01:35→20:02)
[2020-06-21] MEDS: METOCLOPRAMIDE 10 MG/2 ML VIAL IVP SCH ×4 (01:35→20:02)
[2020-06-21] MEDS: MEROPENEM 1 GM in SODIUM CHLORIDE 0.9% MINIBAG 100 ML IV SCH ×2 (04:43→17:56)
[2020-06-21] MEDS: SODIUM CHLORIDE FLUSH 0.9% 10 ML SYRINGE IVP PRN ×7 (04:43→20:50)
[2020-06-21 05:11] LABS: CALCIUM 8.1 mg/dL (8.5-10.3); CREATININE 1.7 mg/dL (0.4-1.0); POTASSIUM 3.5 mmol/L (3.5-5.0)
[2020-06-21 05:34] LABS: HCT - HEMATOCRIT 22.4 % (37.0-47.0); MEAN CORPUSCULAR HEMOGLOBIN 30.8 pg (27.0-31.0); MEAN CORPUSCULAR HGB CONC 30.8 g/dL (32.0-36.0); MEAN PLATELET VOLUME 11.3 fL (7.9-10.8); RED BLOOD COUNT 2.24 10^6/uL (4.20-5.40); WHITE BLOOD COUNT 27.1 x10^3/uL (4.8-10.8)
[2020-06-21 05:36] LABS: HGB - HEMOGLOBIN 6.9 g/dL (12.0-16.0)
[2020-06-21] MEDS: methocarbamoL 500 MG TABLET PO SCH ×4 (06:19→23:53)
[2020-06-21] MEDS: LACTATED RINGERS 1,000 ML IV SCH (06:20)
[2020-06-21] MEDS: LEVOTHYROXINE 100 MCG TABLET PO SCH (06:20)
[2020-06-21 06:44] LABS: PHOSPHORUS 3.1 mg/dL (2.5-4.6)
[2020-06-21] MEDS: IPRATROPIUM/ALBUTEROL 3 ML NEB INH SCH ×4 (07:26→20:30)
--- NOTE | 2020-06-21 07:26 | PROVIDER PROGRESS NOTE ---
Assessment/Plan - Problem List (1) Hypovolemic shock Assessment/Plan: Patient systolic blood pressure briefly dropped into the 80s in the early mornings so Levophed which had been discontinued was resumed. She was given a 500 mL bolus of lactated Ringer this morning. We will titrate and wean off Levophed as indicated. Patient has good urine output. (2) Leukocytosis Assessment/Plan: Reactive versus infectious. WBCs today is 27. We will continue meropenem every 8 hours. No growth on blood cultures. Patient remains afebrile (3) JOHANNE (acute kidney injury) Assessment/Plan: Likely Prerenal due to hypovolemic shock. Patient systolic blood pressure was as low as 40 during surgery. Cr is 1.7 with an eGRF of 30 today Patient is actively being hydrated. Urine output has improved. Anticipating improvement with continued IV hydration. (4) Hypernatremia Assessment/Plan: Resolved. Stable. Na today is 142. Continue monitoring (5) Hypokalemia Assessment/Plan: Resolved. Stable. K is 3.5 today. (6) Elevated troponin Assessment/Plan: Likely due to demand ischemia from hypovolemic shock. Patient's systolic blood pressure was as low as 40 Troponin trend was 18.2, 46.3, 43.7. The patient did not experience chest pain or difficulty breathing. Recommendation would be for a stress test in the future after patient has fully recovered from the surgery and hospital stay (7) Adenomatous colon polyp Assessment/Plan: She is status post a right hemicolectomy for an adenomatous colon polyp with hyperplasia concerning for potential malignancy. JAIRO drainage is in place draining serosanguineous fluid. Patient also has a wound VAC in place. TPN initiated 06/20/2020. Nutrition following. General surgery managing. - Current Meds Current Meds: Current Medications Generic Name Dose Route Start Last Admin Trade Name Freq PRN Reason Stop Dose Admin Albuterol 2.5 mg 06/16/20 11:50 06/16/20 11:53 Albuterol Neb 2.5 Mg/3 Ml INH 2.5 mg RTQ4H PRN Administration Wheezing Albuterol/Ipratropium 3 ml 06/16/20 19:00 06/20/20 19:35 Ipratropium/Albuterol 3 Ml Neb INH 3 ml RTQID TORI Administration Atorvastatin Calcium 20 mg 06/12/20 21:00 06/20/20 20:54 Atorvastatin 10 Mg Tablet PO 20 mg QPM TORI Administration Docusate Sodium 100 mg 06/19/20 21:00 06/20/20 20:54 Docusate Sodium 100 Mg Capsule PO 100 mg BID TORI Administration Duloxetine HCl 60 mg 06/14/20 21:00 06/20/20 20:54 Duloxetine 30 Mg Capsule PO 60 mg QPM TORI Administration Gabapentin 1,600 mg 06/12/20 21:00 06/20/20 20:54 Gabapentin 400 Mg Capsule PO 1,600 mg BID TORI Administration Heparin Sodium (Porcine) 5,000 unit 06/19/20 21:00 06/20/20 20:55 Heparin 5,000 Unit/Ml Vial SUBQ 5,000 unit BID TORI Administration Meropenem 1 gm/ Sodium 100 mls @ 200 mls/hr 06/14/20 13:00 06/21/20 05:15 Chloride IV Infused Q8H TORI Infusion Norepinephrine Bitartrate 8 mg 250 mls @ 15 mls/hr 06/19/20 18:00 06/21/20 04:20 / Dextrose IV 4 mcg/min .[id number] TORI 7.5 mls/hr Titration Protocol 8 MCG/MIN Acetaminophen 100 mls @ 400 mls/hr 06/20/20 00:21 06/21/20 01:50 Ofirmev IV Infused Q6H TORI Infusion Multivitamins 10 ml/ TRACE 2,011 mls @ 83 mls/hr 06/20/20 19:00 06/20/20 17:58 ELEMENTS 1 ml/ Amino Ac/ IV 83 mls/hr Electrol/Dextrose/Calcium TPN/PPN TORI Administration Fat Emulsion Intravenous 250 mls @ 21 mls/hr 06/20/20 19:00 06/21/20 06:10 Intralipid 20% IV Infused 1900 TORI Infusion Lactated Ringer's 1,000 mls @ 83.33 mls/hr 06/20/20 18:56 06/21/20 06:20 Lr IV 83.33 mls/hr .Q12H1M TORI Administration Insulin Human Regular 1 - 5 unit 06/20/20 00:00 06/21/20 06:19 Insulin Regular Human 300 Unit/3 Ml Vial SUBQ 1 unit Q6HR TORI Administration Protocol Levothyroxine Sodium 100 mcg 06/20/20 07:00 06/21/20 06:20 Levothyroxine 100 Mcg Tablet PO 100 mcg QDAC TORI Administration [place] Carbonate 900 mg 06/13/20 21:00 06/20/20 20:53 [place] Er 300 Mg Tablet PO 900 mg QPM TORI Administration Lorazepam 0.5 mg 06/12/20 19:41 06/19/20 23:40 Lorazepam 2 Mg/Ml Vial IVP 0.5 mg Q1H PRN Administration Anxiety Methocarbamol 500 mg 06/19/20 18:00 06/21/20 06:19 Methocarbamol 500 Mg Tablet PO 500 mg Q6HR TORI Administration Metoclopramide HCl 10 mg 06/20/20 02:00 06/21/20 01:35 Metoclopramide 10 Mg/2 Ml Vial IVP 10 mg Q6H TORI Administration Morphine Sulfate 1 mg 06/20/20 19:20 06/21/20 04:53 Morphine 2 Mg/Ml Carpuject IVP 1 mg Q2H PRN Administration PAIN Pantoprazole Sodium 40 mg 06/12/20 21:00 06/20/20 20:54 Pantoprazole 40 Mg Vial IVP 40 mg BID TORI Administration Polyethylene Glycol 17 gm 06/19/20 21:00 06/20/20 20:53 Polyethylene Glycol 3350 17 Gm Packet PO 17 gm BID TORI Administration Saccharomyces Boulardii 250 mg 06/13/20 17:00 06/20/20 17:33 Saccharomyces Boulardii 250 Mg Capsule PO Not Given BIDWM TORI Sodium Chloride 10 ml 06/13/20 01:00 06/21/20 00:09 Sodium Chloride Flush 0.9% 10 Ml Syringe IVP 10 ml 0100,0900,1700 TORI Administration Sodium Chloride 10 ml 06/12/20 19:41 06/21/20 04:43 Sodium Chloride Flush 0.9% 10 Ml Syringe IVP 10 ml PRN PRN Administration NEEDED PER PROVIDER ORDERS Sodium Chloride 10 ml 06/19/20 17:00 06/21/20 01:40 Sodium Chloride Flush 0.9% 10 Ml Syringe IVP 10 ml 0100,0900,1700 TORI Administration Sodium Chloride 10 ml 06/19/20 16:50 06/21/20 04:53 Sodium Chloride Flush 0.9% 10 Ml Syringe IVP 10 ml PRN PRN Administration NEEDED PER PROVIDER ORDERS - Lab Result Fish Bone Diagrams: 06/21/20 07:47 06/21/20 04:44 - Additional Planning My Orders: My Active Orders 06/20/20 11:10 Blood Culture [CULTURE, BLOOD #1] [RM] Stat 06/20/20 11:24 Blood Culture [CULTURE, BLOOD #2] [RM] Stat 06/20/20 18:56 Lactated Ringers [Lr] 1,000 ml IV 83.33 mls/hr Subjective - Subjective Patient Reports: Other (Overall patient had still very somnolent but more r eadily awakens to verbal stimuli. Her response to questions was very sluggish. She is moving all extremities. Her abdomen is very tender to palpation. The JAIRO drainage is serosanguineous.) Objective Vital Signs: Vital Signs - 24 hr 06/20/20 06/20/20 06/20/20 08:00 08:30 09:00 Temperature 36.8 C Heart Rate Heart Rate [ 96 91 90 Monitoring electrodes] Respiratory 14 12 13 Rate Blood Pressure 107/50 L 135/69 H 103/60 [Left Brachial artery] Blood Pressure 113/64 129/70 113/51 L [Right Femoral artery] O2 Saturation 96 94 100 06/20/20 06/20/20 06/20/20 09:22 10:00 11:00 Temperature Heart Rate 103 H Heart Rate [ 92 89 Monitoring electrodes] Respiratory 20 12 13 Rate Blood Pressure 103/58 L 101/55 L [Left Brachial artery] Blood Pressure 110/53 L 106/50 L [Right Femoral artery] O2 Saturation 95 95 06/20/20 06/20/20 06/20/20 12:00 12:22 13:00 Temperature 36.7 C Heart Rate 112 H Heart Rate [ 92 104 H Monitoring electrodes] Respiratory 12 20 21 Rate Blood Pressure 111/57 L 123/77 [Left Brachial artery] Blood Pressure 110/53 L 117/56 L [Right Femoral artery] O2 Saturation 100 06/20/20 06/20/20 06/20/20 14:00 15:00 15:19 Temperature Heart Rate 102 H Heart Rate [ 97 102 H Monitoring electrodes] Respiratory 14 15 20 Rate Blood Pressure 113/64 129/76 [Left Brachial artery] Blood Pressure 109/50 L 108/55 L [Right Femoral artery] O2 Saturation 93 06/20/20 06/20/20 06/20/20 16:00 17:00 18:00 Temperature 36.7 C Heart Rate Heart Rate [ 102 H 100 Monitoring electrodes] Respiratory 16 14 Rate Blood Pressure 92/57 L 92/56 L 122/67 [Left Brachial artery] Blood Pressure 101/47 L 99/46 L 119/57 L [Right Femoral artery] O2 Saturation 94 92 06/20/20 06/20/20 06/20/20 19:00 19:35 20:00 Temperature 37.1 C Heart Rate 105 H Heart Rate [ 100 100 Monitoring electrodes] Respiratory 23 18 18 Rate Blood Pressure 127/69 125/63 [Left Brachial artery] Blood Pressure 109/51 L 105/50 L [Right Femoral artery] O2 Saturation 95 93 06/20/20 06/20/20 06/20/20 21:00 22:00 23:00 Temperature Heart Rate Heart Rate [ 107 H 98 94 Monitoring electrodes] Respiratory 24 15 15 Rate Blood Pressure 118/65 105/60 97/55 L [Left Brachial artery] Blood Pressure 122/61 103/47 L 97/46 L [Right Femoral artery] O2 Saturation 98 92 91 L 06/21/20 06/21/20 06/21/20 00:00 01:00 01:46 Temperature 37.2 C Heart Rate Heart Rate [ 95 94 Monitoring electrodes] Respiratory 16 21 12 Rate Blood Pressure 101/53 L 99/49 L [Left Brachial artery] Blood Pressure 103/46 L 98/43 L [Right Femoral artery] O2 Saturation 90 L 90 L 93 06/21/20 06/21/20 06/21/20 02:03 02:35 02:40 Temperature Heart Rate Heart Rate [ 94 93 91 Monitoring electrodes] Respiratory 14 Rate Blood Pressure 97/50 L 87/45 L 93/52 L [Left Brachial artery] Blood Pressure 98/43 L 95/43 L 97/44 L [Right Femoral artery] O2 Saturation 95 06/21/20 06/21/20 06/21/20 02:45 02:51 03:00 Temperature Heart Rate Heart Rate [ 91 90 90 Monitoring electrodes] Respiratory 13 Rate Blood Pressure 78/52 L 87/49 L 97/49 L [Left Brachial artery] Blood Pressure 99/45 L 100/46 L 98/44 L [Right Femoral artery] O2 Saturation 97 06/21/20 06/21/20 06/21/20 03:15 03:30 04:00 Temperature 37.2 C Heart Rate Heart Rate [ 89 89 89 Monitoring electrodes] Respiratory 13 Rate Blood Pressure 80/49 L 99/48 L 96/47 L [Left Brachial artery] Blood Pressure 98/45 L 103/46 L 101/44 L [Right Femoral artery] O2 Saturation 97 06/21/20 06/21/20 06/21/20 05:00 06:00 07:00 Temperature Heart Rate Heart Rate [ 91 89 89 Monitoring electrodes] Respiratory 14 14 15 Rate Blood Pressure 109/56 L 97/60 116/54 L [Left Brachial artery] Blood Pressure 112/54 L 112/53 L 119/55 L [Right Femoral artery] O2 Saturation 95 96 96 Oxygen O2 Source Nasal cannula Oxygen Flow Rate 2 I&O (Last 24 Hrs): Intake and Output Totals x24h 06/19/20 06/20/20 06/21/20 23:59 23:59 23:59 Intake Total 4341.572 3472.347 1494.276 Output Total 738 521 2300 Balance 4054.572 2491.347 319.276 General: Other (somnolent, awake oriented X2) HEENT: PERRLA, EOMI Neck: Supple, No JVD Neuro: Alert, Non Focal Cardiovascular: Regular rate Respiratory: Chest non-tender, No respiratory distress, Breath sounds nml Abdomen: Normal bowel sounds, Soft, Other (tender to palpation) Extremities: No clubbing, No cyanosis, Other (+1 non-pitting edema in upper exttremities) Skin: No rashes, No breakdown - Results Results: Laboratory Results WBC 27.1 x10^3/uL (4.8-10.8) H 06/21/20 05:29 RBC 2.24 10^6/uL (4.20-5.40) L 06/21/20 05:29 Hgb 6.9 g/dL (12.0-16.0) L* 06/21/20 05:29 Hct 22.4 % (37.0-47.0) L 06/21/20 05:29 MCV 100.0 fL (81.0-99.0) H 06/21/20 05:29 MCH 30.8 pg (27.0-31.0) 06/21/20 05:29 MCHC 30.8 g/dL (32.0-36.0) L 06/21/20 05: RDW 16.0 % (12.0-15.0) H 06/21/20 05:29 Plt Count 223 10^3/uL (130-450) 06/21/20 05:29 MPV 11.3 fL (7.9-10.8) H 06/21/20 05:29 Neut # (Auto) 5.0 10^3/uL (1.5-6.6) 06/18/20 05:05 Lymph # (Auto) 0.8 10^3/uL (1.5-3.5) L 06/18/20 05:05 [place] # (Auto) 0.4 10^3/uL (0.0-1.0) 06/18/20 05:05 Eos # (Auto) 0.2 10^3/uL (0.0-0.7) 06/18/20 05:05 Baso # (Auto) 0.0 10^3/uL (0.0-0.1) 06/18/20 05:05 Absolute Nucleated RBC 0.00 x10^3/uL 06/18/20 05:05 Nucleated RBC % 0.0 /100WBC 06/18/20 05:05 Manual Slide Review Indicated 06/12/20 16:17 WBC Morphology NORMAL APPEARANCE (NORMAL) 06/12/20 16:17 Platelet Estimate NORMAL (130-450,000) (NORMAL) 06/12/20 16:17 Platelet Morphology NORMAL APPEARANCE (NORMAL) 06/12/20 16:17 RBC Morph Micro Appear NORMAL APPEARANCE (NORMAL) 06/12/20 16:17 Bld Gas Analysis Time 1737 06/19/20 17:35 Sample Site A-LINE 06/19/20 17:35 ABG pH 7.35 (7.35-7.45) 06/19/20 17:35 ABG pCO2 40 mmHg (34-45) 06/19/20 17:35 ABG pO2 98 mmHg (80-100) 06/19/20 17:35 ABG HCO3 21.4 mmol/L (22.0-26.0) L 06/19/20 17:35 ABG Total CO2 22.6 MMOL/L (21.0-29.0) 06/19/20 17:35 ABG O2 Saturation 97 % (94-98) 06/19/20 17:35 ABG Base Excess -3.9 mmol/L (-2.0-3.0) L 06/19/20 17:35 César Test NOT APPLICABLE 06/19/20 17:35 O2 Delivery Device SIMPLE MASK 06/19/20 17:35 O2 Liters/Min 9.00 LPM 06/19/20 17:35 Sodium 142 mmol/L (135-145) 06/21/20 04:44 Potassium 3.5 mmol/L (3.5-5.0) 06/21/20 04:44 Chloride 113 mmol/L (101-111) H 06/21/20 04:44 Carbon Dioxide 22 mmol/L (21-32) 06/21/20 04:44 Anion Gap 7.0 (6-13) 06/21/20 04:44 BUN 16 mg/dL (6-20) 06/21/20 04:44 Creatinine 1.7 mg/dL (0.4-1.0) H 06/21/20 04:44 Estimated GFR (MDRD) 30 (>89) L 06/21/20 04:44 Glucose 170 mg/dL (70-100) H 06/21/20 04:44 POC Whole Bld Glucose 148 mg/dL (70 - 100) H 06/21/20 06:17 Lactic Acid 2.0 mmol/L (0.5-2.2) 06/19/20 18:06 Calcium 8.1 mg/dL (8.5-10.3) L 06/21/20 04:44 Ionized Calcium NO 06/14/20 04:25 Phosphorus 3.1 mg/dL (2.5-4.6) 06/21/20 04:44 Magnesium 2.0 mg/dL (1.7-2.8) 06/21/20 04:44 Total Bilirubin 0.3 mg/dL (0.2-1.0) 06/20/20 05:28 AST 16 IU/L (10-42) 06/20/20 05:28 ALT 16 IU/L (10-60) 06/20/20 05:28 Alkaline Phosphatase 40 IU/L (42-121) L 06/20/20 05:28 Troponin I High Sens 43.7 ng/L (2.3-14.8) H* 06/20/20 05:28 C-Reactive Protein 47.9 mg/dL (0-1.0) H 06/12/20 16:17 Total Protein 4.3 g/dL (6.7-8.2) L 06/20/20 05:28 Albumin 1.7 g/dL (3.2-5.5) L 06/20/20 05:28 Globulin 2.6 g/dL (2.1-4.2) 06/20/20 05:28 Albumin/Globulin Ratio 0.7 (1.0-2.2) L 06/20/20 05:28 Prealbumin 12 mg/dL (18-45) L 06/20/20 05:28 Triglycerides 76 mg/dL (-149) 06/20/20 05:28 Lipase 18 U/L (22-51) L 06/12/20 16:17 Urine Color YELLOW 06/12/20 18:42 Urine Clarity CLOUDY (CLEAR) 06/12/20 18:42 Urine pH 5.5 PH (5.0-7.5) 06/12/20 18:42 Ur Specific [place] 1.020 (1.002-1.030) 06/12/20 18:42 Urine Protein 30 mg/dL (NEGATIVE) H 06/12/20 18:42 Urine Glucose (UA) NEGATIVE mg/dL (NEGATIVE) 06/12/20 18:42 Urine Ketones NEGATIVE mg/dL (NEGATIVE) 06/12/20 18:42 Urine Occult Blood TRACE-INTA (NEGATIVE) 06/12/20 18:42 Urine Nitrite NEGATIVE (NEGATIVE) 06/12/20 18:42 Urine Bilirubin NEGATIVE (NEGATIVE) 06/12/20 18:42 Urine Urobilinogen 0.2 (NORMAL) E.U./dL (NORMAL) 06/12/20 18:42 Ur Leukocyte Esterase NEGATIVE (NEGATIVE) 06/12/20 18:42 Urine RBC 0-5 /HPF (0-5) 06/12/20 18:42 Urine WBC 4-5 /HPF (0-5) 06/12/20 18:42 Ur Squamous Epith Cells MANY Squamous (<= Few) H 06/12/20 18:42 Amorphous Sediment Few /LPF 06/12/20 18:42 Urine Bacteria Moderate /HPF (None Seen) H 06/12/20 18:42 Urine Casts 3-5 Granular Casts /LPF 06/12/20 18:42 Urine Mucus Few Strands 06/12/20 18:42 Ur Microscopic Review INDICATED 06/12/20 18:42 Urine Culture Comments NOT INDICATED 06/12/20 18:42 Nasal Adenovirus (PCR) NOT DETECTED 06/12/20 20:25 Nasal B. parapertussis DNA (PCR) NOT DETECTED 06/12/20 20:25 Nasal Coronavir 229E PCR NOT DETECTED 06/12/20 20:25 Nasal Coronavir HKU1 PCR NOT DETECTED 06/12/20 20:25 Nasal Coronavir NL63 PCR NOT DETECTED 06/12/20 20:25 Nasal Coronavir OC43 PCR NOT DETECTED 06/12/20 20:25 Nasal Enterovir/Rhinovir PCR NOT DETECTED 06/12/20 20:25 Nasal Influenza B PCR NOT DETECTED 06/12/20 20:25 Nasal Influenza A PCR NOT DETECTED 06/12/20 20:25 Nasal Parainfluen 1 PCR NOT DETECTED 06/12/20 20:25 Nasal Parainfluen 2 PCR NOT DETECTED 06/12/20 20:25 Nasal Parainfluen 3 PCR NOT DETECTED 06/12/20 20:25 Nasal Parainfluen 4 PCR NOT DETECTED 06/12/20 20:25 Nasal RSV (PCR) NOT DETECTED 06/12/20 20:25 Nasal Screen MRSA (PCR) NEGATIVE (NEGATIVE) 06/19/20 18:00 Nasal B.pertussis DNA PCR NOT DETECTED 06/12/20 20:25 Nasal C.pneumoniae (PCR) NOT DETECTED 06/12/20 20:25 [place] Human Metapneumo PCR NOT DETECTED 06/12/20 20:25 Nasal M.pneumoniae (PCR) NOT DETECTED 06/12/20 20:25 Nasal SARS-CoV-2 (PCR) NOT DETECTED 06/12/20 20:25 Last Dose Date Not Reportable 06/14/20 11:59 Last Dose Time Not Reportable 06/14/20 11:59 [place] 0.37 mmol/L 06/14/20 11:59 Blood Type A POSITIVE 06/19/20 17:45 Blood Type Recheck A POSITIVE 06/19/20 17:11 Antibody Screen NEGATIVE 06/19/20 17:45 Crossmatch IS Only See Detail 06/19/20 17:45 - Procedures Procedures: Procedures EXCISION OF CECUM, ENDO (12/16/15) EXCISION OF DUODENUM, ENDO, DIAGN (06/10/20) EXCISION OF SIGMOID COLON, ENDO (12/16/15) EXCISION OF STOMACH, ENDO (06/10/20) EXCISION OF TRANSVERSE COLON, ENDO (06/10/20) HAND FASCIECTOMY NEC (01/02/13) ABX Reporting Has patient been on IV antibiotics over the past 48 hours?: Yes
[2020-06-21] MEDS ORDERED: LACTATED RINGERS 500 ML IV ONE (07:28)
[2020-06-21 07:56] LABS: BASOPHILS # (AUTO) 0.1 10^3/uL (0.0-0.1); BASOPHILS % (AUTO) 0.2 %; EOSINOPHILS # (AUTO) 0.2 10^3/uL (0.0-0.7); EOSINOPHILS % (AUTO) 0.8 %; HCT - HEMATOCRIT 21.7 % (37.0-47.0); HGB - HEMOGLOBIN 7.1 g/dL (12.0-16.0); LYMPHOCYTES # (AUTO) 0.9 10^3/uL (1.5-3.5); LYMPHOCYTES % (AUTO) 3.2 %; MEAN CORPUSCULAR HEMOGLOBIN 31.8 pg (27.0-31.0); MEAN CORPUSCULAR HGB CONC 32.7 g/dL (32.0-36.0); MEAN CORPUSCULAR VOLUME 97.3 fL (81.0-99.0); MEAN PLATELET VOLUME 11.3 fL (7.9-10.8); MONOCYTES # (AUTO) 0.7 10^3/uL (0.0-1.0); MONOCYTES % (AUTO) 2.4 %; NEUTROPHILS # (AUTO) 25.5 10^3/uL (1.5-6.6); NEUTROPHILS % (AUTO) 92.6 %; PLT - PLATELET COUNT 270 10^3/uL (130-450); RED BLOOD COUNT 2.23 10^6/uL (4.20-5.40); RED CELL DISTRIBUTION WIDTH 15.9 % (12.0-15.0); SLIDE REVIEW? Indicated; WHITE BLOOD COUNT 27.6 x10^3/uL (4.8-10.8)
[2020-06-21 08:00] LABS: INR 1.3 (0.8-1.2)
[2020-06-21 09:07] LABS: PLATELET MORPHOLOGY NORMAL APPEARANCE (NORMAL)
[2020-06-21 09:08] LABS: PLATELET ESTIMATE, MANUAL NORMAL (130-450,000) (NORMAL); WBC MORPHOLOGY (MULTIPLE) NORMAL APPEARANCE (NORMAL)
--- NOTE | 2020-06-21 10:01 | CT Report ---
PROCEDURE: Abdomen/Pelvis WO INDICATIONS: abd pain, hemoglobin drop s/p surgery postop day2 TECHNIQUE: Noncontrast 5 mm thick sections acquired from the diaphragms to the symphysis. 5 mm coronal and sagi ttal reformats were then performed. For radiation dose reduction, the following was used: automated exposure control, adjustment of mA and/or kV according to patient size. COMPARISON: 06/14/2020, 06/12/2020 FINDINGS: Image quality: Limited by lack of IV and oral contrast. ABDOMEN: Lung bases: Small bilateral pleural effusions are seen, with overlying presumed atelectasis.. Heart size is normal. Solid organs: Liver and spleen are normal in size. Gallbladder has been removed. Pancreas is normal in contours. No adrenal nodules. Kidneys are normal in size, without hydronephrosis or nephrolithi asis. Peritoneum and bowel: Postoperative change can be seen, with anastomic bonnie lines involving the tr ansverse colon and at the right lower quadrant. Dilated loops of jejunum can be seen, which measure u p to 6.6 cm. The more distal small bowel loops are decompressed. A peritoneal drain is seen, which is inserted from the left. There is a small amount of free air seen. A small amount of ascites is also seen. The colon is largel y decompressed. Nodes and vessels: No retroperitoneal or mesenteric adenopathy by size criteria. Aorta and inferior vena cava are normal in caliber. Atherosclerotic calcification is seen. Miscellaneous: No ventral hernias. Generalized body wall edema can be seen. Postoperative change of the anterior abdominal wall can be seen. PELVIS: Genitourinary: A Funk catheter seen, which decompresses the bladder. Miscellaneous: No inguinal hernias or adenopathy. Bones: No suspicious bony lesions. No vertebral body compression fractures. S-shaped scoliotic curv ature is incidentally noted. IMPRESSION: No significant postoperative hematoma is identified. Postoperative changes are seen, with postoperative change of the anterior abdominal wall and right lo wer quadrant and transverse colon anastomotic staple lines. A small amount of intraperitoneal gas is seen, which is considered to be within postoperative limits. Prominently dilated loops of jejunum can be seen, which measure up to 6.6 cm. The distal small bowel loops are decompressed. This is felt most likely be related to postoperative ileus, although differen tial diagnosis would also include small bowel obstruction. A peritoneal drain has been inserted from the left. Generalized body wall edema is seen. There are small bilateral pleural effusions, with overlying presumed atelectasis. If clinically appropriate, please consider short-term follow-up CT study, performed with IV and oral contrast. The oral contrast should be given a long dwell time, at least 4 hours. Incidental note is made of: Cholecystectomy Funk catheter Reviewed by: Oleksandr Dill MD on 06/21/2020 9:00 AM [facility] Approved by: Oleksandr Dill MD on 06/21/2020 9:00 AM [place] Station ID: [id number]
[2020-06-21] MEDS: PANTOPRAZOLE 40 MG VIAL IVP SCH ×2 (10:05→20:50)
[2020-06-21] MEDS: SACCHAROMYCES BOULARDII 250 MG CAPSULE PO SCH ×2 (10:23→18:13)
[2020-06-21] MEDS: HEPARIN 5,000 UNIT/ML VIAL SUBQ SCH ×2 (10:24→20:59)
[2020-06-21] MEDS: GABAPENTIN 400 MG CAPSULE PO SCH ×2 (10:33→20:50)
[2020-06-21] MEDS: DOCUSATE SODIUM 100 MG CAPSULE PO SCH ×2 (10:33→21:11)
[2020-06-21] MEDS: polyethylene glycoL 3350 17 GM PACKET PO SCH ×2 (10:33→20:50)
[2020-06-21 13:30] LABS: LITHIUM 0.66 mmol/L
--- NOTE | 2020-06-21 13:33 | PROVIDER PROGRESS NOTE ---
Subjective - Prog Note Date Prog Note Date: 06/21/20 - Subjective Pt reports feeling: No change (no complaints. no n/v) Objective - Vital Signs/Intake & Output Reviewed Vital Signs: Yes Vital Signs: Vital Signs x48h Temp Pulse Pulse Resp BP BP BP 06/21/20 13:00 92 18 109/58 L 107/53 L 06/21/20 12:00 37.0 C 91 93 15 111/56 L 109/54 L 110/56 L 06/21/20 11:30 106/52 L 114/57 L 06/21/20 11:13 89 16 06/21/20 11:00 91 16 115/62 126/61 06/21/20 10:18 36.7 C 92 16 103/56 L 06/21/20 10:01 36.9 C 94 20 117/52 L 06/21/20 10:00 95 19 117/52 L 118/54 L 06/21/20 09:00 91 14 106/49 L 113/52 L 06/21/20 08:32 118/57 L 113/52 L 06/21/20 08:00 37.0 C 89 14 99/77 108/55 L 06/21/20 07:27 95 16 06/21/20 07:00 89 15 116/54 L 119/55 L 06/21/20 06:00 89 14 97/60 112/53 L Pulse Ox 06/21/20 13:00 95 06/21/20 12:00 99 06/21/20 11:30 06/21/20 11:13 06/21/20 11:00 97 06/21/20 10:18 06/21/20 10:01 06/21/20 10:00 96 06/21/20 09:00 96 06/21/20 08:32 06/21/20 08:00 93 06/21/20 07:27 06/21/20 07:00 96 06/21/20 06:00 96 Intake & Output: Intake & Output 06/18/20 06/19/20 06/20/20 06/21/20 23:59 23:59 23:59 23:59 Intake Total 5278.750 4341.572 3472.347 2687.120 Output Total 400 974 977 9228 Balance 4878.750 4054.572 2491.347 232.120 - Objective General Appearance: positive: No acute distress, Alert Eyes Bilateral: positive: PERRL, EOMI ENT: positive: No signs of dehydration Neck: positive: No JVD Respiratory: positive: No respiratory distress Abdomen: positive: Non-tender, No distention, Other (no erythema. jorge alberto serous) Neurologic/Psychiatric: positive: Oriented x3 - Lab Results Fish Bones: 06/21/20 07:47 06/21/20 04:44 Other Labs: Lab Results x24hrs 06/21/20 06/21/20 06/21/20 Range/Units 12:13 12:02 07:47 WBC (4.8-10.8) x10^3/uL RBC (4.20-5.40) 10^6/uL Hgb (12.0-16.0) g/dL Hct (37.0-47.0) % MCV (81.0-99.0) fL MCH (27.0-31.0) pg MCHC (32.0-36.0) g/dL RDW (12.0-15.0) % Plt Count (130-450) 10^3/uL MPV (7.9-10.8) fL Neut # (Auto) (1.5-6.6) 10^3/uL Lymph # (Auto) (1.5-3.5) 10^3/uL [place] # (Auto) (0.0-1.0) 10^3/uL Eos # (Auto) (0.0-0.7) 10^3/uL Baso # (Auto) (0.0-0.1) 10^3/uL Absolute Nucleated RBC x10^3/uL Nucleated RBC % /100WBC Manual Slide Review WBC Morphology (NORMAL) Platelet Estimate (NORMAL) Platelet Morphology (NORMAL) RBC Morph Micro Appear (NORMAL) PT 14.0 H (9.9-12.6) secs INR 1.3 H (0.8-1.2) Sodium (135-145) mmol/L Potassium (3.5-5.0) mmol/L Chloride (101-111) mmol/L Carbon Dioxide (21-32) mmol/L Anion Gap (6-13) BUN (6-20) mg/dL Creatinine (0.4-1.0) mg/dL Estimated GFR (MDRD) (>89) Glucose (70-100) mg/dL POC Whole Bld Glucose 131 H (70 - 100) mg/dL Calcium (8.5-10.3) mg/dL Phosphorus (2.5-4.6) mg/dL Magnesium (1.7-2.8) mg/dL Jette 0.66 mmol/L Blood Type Antibody Screen Crossmatch IS Only 06/21/20 06/21/20 06/21/20 Range/Units 07:47 06:17 05:29 WBC 27.6 H 27.1 H (4.8-10.8) x10^3/uL RBC 2.23 L 2.24 L (4.20-5.40) 10^6/uL Hgb 7.1 L 6.9 L* (12.0-16.0) g/dL Hct 21.7 L 22.4 L (37.0-47.0) % MCV 97.3 100.0 H (81.0-99.0) fL MCH 31.8 H 30.8 (27.0-31.0) pg MCHC 32.7 30.8 L (32.0-36.0) g/dL RDW 15.9 H 16.0 H (12.0-15.0) % Plt Count 270 223 (130-450) 10^3/uL MPV 11.3 H 11.3 H (7.9-10.8) fL Neut # (Auto) 25.5 H (1.5-6.6) 10^3/uL Lymph # (Auto) 0.9 L (1.5-3.5) 10^3/uL [place] # (Auto) 0.7 (0.0-1.0) 10^3/uL Eos # (Auto) 0.2 (0.0-0.7) 10^3/uL Baso # (Auto) 0.1 (0.0-0.1) 10^3/uL Absolute Nucleated RBC 0.00 x10^3/uL Nucleated RBC % 0.0 /100WBC Manual Slide Review Indicated WBC Morphology NORMAL APPEARANCE (NORMAL) Platelet Estimate NORMAL (130-450,000) (NORMAL) Platelet Morphology NORMAL APPEARANCE (NORMAL) RBC Morph Micro Appear 1+ HYPOCHROMASIA (NORMAL) PT (9.9-12.6) secs INR (0.8-1.2) Sodium (135-145) mmol/L Potassium (3.5-5.0) mmol/L Chloride (101-111) mmol/L Carbon Dioxide (21-32) mmol/L Anion Gap (6-13) BUN (6-20) mg/dL Creatinine (0.4-1.0) mg/dL Estimated GFR (MDRD) (>89) Glucose (70-100) mg/dL POC Whole Bld Glucose 148 H (70 - 100) mg/dL Calcium (8.5-10.3) mg/dL Phosphorus (2.5-4.6) mg/dL Magnesium (1.7-2.8) mg/dL Jette mmol/L Blood Type Antibody Screen Crossmatch IS Only 06/21/20 06/21/20 06/20/20 Range/Units 04:44 04:44 23:47 WBC (4.8-10.8) x10^3/uL RBC (4.20-5.40) 10^6/uL Hgb (12.0-16.0) g/dL Hct (37.0-47.0) % MCV (81.0-99.0) fL MCH (27.0-31.0) pg MCHC (32.0-36.0) g/dL RDW (12.0-15.0) % Plt Count (130-450) 10^3/uL MPV (7.9-10.8) fL Neut # (Auto) (1.5-6.6) 10^3/uL Lymph # (Auto) (1.5-3.5) 10^3/uL [place] # (Auto) (0.0-1.0) 10^3/uL Eos # (Auto) (0.0-0.7) 10^3/uL Baso # (Auto) (0.0-0.1) 10^3/uL Absolute Nucleated RBC x10^3/uL Nucleated RBC % /100WBC Manual Slide Review WBC Morphology (NORMAL) Platelet Estimate (NORMAL) Platelet Morphology (NORMAL) RBC Morph Micro Appear (NORMAL) PT (9.9-12.6) secs INR (0.8-1.2) Sodium 142 (135-145) mmol/L Potassium 3.5 (3.5-5.0) mmol/L Chloride 113 H (101-111) mmol/L Carbon Dioxide 22 (21-32) mmol/L Anion Gap 7.0 (6-13) BUN 16 (6-20) mg/dL Creatinine 1.7 H (0.4-1.0) mg/dL Estimated GFR (MDRD) 30 L (>89) Glucose 170 H (70-100) mg/dL POC Whole Bld Glucose 124 H (70 - 100) mg/dL Calcium 8.1 L (8.5-10.3) mg/dL Phosphorus 3.1 (2.5-4.6) mg/dL Magnesium 2.0 (1.7-2.8) mg/dL Jette mmol/L Blood Type Antibody Screen Crossmatch IS Only 06/20/20 06/19/20 Range/Units 18:07 17:45 WBC (4.8-10.8) x10^3/uL RBC (4.20-5.40) 10^6/uL Hgb (12.0-16.0) g/dL Hct (37.0-47.0) % MCV (81.0-99.0) fL MCH (27.0-31.0) pg MCHC (32.0-36.0) g/dL RDW (12.0-15.0) % Plt Count (130-450) 10^3/uL MPV (7.9-10.8) fL Neut # (Auto) (1.5-6.6) 10^3/uL Lymph # (Auto) (1.5-3.5) 10^3/uL [place] # (Auto) (0.0-1.0) 10^3/uL Eos # (Auto) (0.0-0.7) 10^3/uL Baso # (Auto) (0.0-0.1) 10^3/uL Absolute Nucleated RBC x10^3/uL Nucleated RBC % /100WBC Manual Slide Review WBC Morphology (NORMAL) Platelet Estimate (NORMAL) Platelet Morphology (NORMAL) RBC Morph Micro Appear (NORMAL) PT (9.9-12.6) secs INR (0.8-1.2) Sodium (135-145) mmol/L Potassium (3.5-5.0) mmol/L Chloride (101-111) mmol/L Carbon Dioxide (21-32) mmol/L Anion Gap (6-13) BUN (6-20) mg/dL Creatinine (0.4-1.0) mg/dL Estimated GFR (MDRD) (>89) Glucose (70-100) mg/dL POC Whole Bld Glucose 99 (70 - 100) mg/dL Calcium (8.5-10.3) mg/dL Phosphorus (2.5-4.6) mg/dL Magnesium (1.7-2.8) mg/dL Jette mmol/L Blood Type A POSITIVE Antibody Screen NEGATIVE Crossmatch IS Only See Detail Assessment/Plan - Problem List (1) Adenomatous colon polyp Impression: post op ileus. ct scan reviewed. plan continue present care
[2020-06-21 18:08] LABS: HGB - HEMOGLOBIN 7.7 g/dL (12.0-16.0)
[2020-06-21] MEDS ORDERED: LACTATED RINGERS 1,000 ML IV SCH (18:26)
[2020-06-21] MEDS: FAT EMULSION 20% 250 ML IV SCH (19:05)
[2020-06-21] MEDS: TPN (CLINIMIX E 5/15) 2,000 ML with MULTIVITAMIN 10 ML, TRACE ELEMENTS 1 ML IV SCH ×3 (19:19)
[2020-06-21] MEDS: LITHIUM ER 300 MG TABLET PO SCH (20:50)
[2020-06-21] MEDS: ATORVASTATIN 10 MG TABLET PO SCH (20:50)
[2020-06-21] MEDS: DULoxetine 30 MG CAPSULE PO SCH (20:50)
[2020-06-22] MEDS: INSULIN REGULAR HUMAN 300 UNIT/3 ML VIAL SUBQ SCH ×5 (00:06→23:18)
[2020-06-22] MEDS: MORPHINE 2 MG/ML CARPUJECT IVP PRN ×4 (02:01→21:29)
[2020-06-22] MEDS: SODIUM CHLORIDE FLUSH 0.9% 10 ML SYRINGE IVP SCH ×8 (02:02→23:20)
[2020-06-22] MEDS: ACETAMINOPHEN 1,000 MG/100 ML 100 ML IV SCH ×2 (02:07→08:49)
[2020-06-22] MEDS: METOCLOPRAMIDE 10 MG/2 ML VIAL IVP SCH ×4 (02:07→20:43)
[2020-06-22] MEDS: MEROPENEM 1 GM in SODIUM CHLORIDE 0.9% MINIBAG 100 ML IV SCH ×3 (04:53→20:46)
[2020-06-22] MEDS: SODIUM CHLORIDE FLUSH 0.9% 10 ML SYRINGE IVP PRN ×3 (05:00→23:20)
[2020-06-22 05:37] LABS: ALBUMIN 1.5 g/dL (3.2-5.5); ALBUMIN/GLOBULIN RATIO 0.5 (1.0-2.2); BILIRUBIN,TOTAL 0.3 mg/dL (0.2-1.0); CALCIUM 8.2 mg/dL (8.5-10.3); CREATININE 1.2 mg/dL (0.4-1.0); MAGNESIUM 2.2 mg/dL (1.7-2.8); PHOSPHORUS 2.9 mg/dL (2.5-4.6); POTASSIUM 3.5 mmol/L (3.5-5.0); TOTAL PROTEIN 4.3 g/dL (6.7-8.2)
[2020-06-22] MEDS: LEVOTHYROXINE 100 MCG TABLET PO SCH (06:13)
[2020-06-22] MEDS: methocarbamoL 500 MG TABLET PO SCH ×4 (06:13→23:18)
[2020-06-22 07:33] LABS: HCT - HEMATOCRIT 23.5 % (37.0-47.0); HGB - HEMOGLOBIN 7.6 g/dL (12.0-16.0); MEAN CORPUSCULAR HEMOGLOBIN 31.5 pg (27.0-31.0); MEAN CORPUSCULAR HGB CONC 32.3 g/dL (32.0-36.0); MEAN CORPUSCULAR VOLUME 97.5 fL (81.0-99.0); MEAN PLATELET VOLUME 12.7 fL (7.9-10.8); RED BLOOD COUNT 2.41 10^6/uL (4.20-5.40); RED CELL DISTRIBUTION WIDTH 17.5 % (12.0-15.0); WHITE BLOOD COUNT 14.6 x10^3/uL (4.8-10.8)
--- NOTE | 2020-06-22 07:39 | PROVIDER PROGRESS NOTE ---
Assessment/Plan - Problem List (1) Hypovolemic shock Assessment/Plan: Improved/ Resolved Patient is currently off Levophed With systolic blood pressure between 108 and 125. Patient's urine output has significantly improved. Continue lactated Ringer at 83 mL/h (2) Leukocytosis Assessment/Plan: Improved. Patient's white blood cell count today is 14. This is an improvement from 27 yesterday. Blood cultures are no growth to date. We will continue meropenem 1 g every 8 hours. (3) JOHANNE (acute kidney injury) Assessment/Plan: Improved. This was likely prerenal due to hypovolemic shock which is also resolved. Patient's urine output has tremendously improved. Creatinine this morning was 1.2. This is an improvement from 1.7. Estimated GFR was 46. (4) Hypernatremia Assessment/Plan: Sodium today was 147 with chloride of 117. This is likely confounded by patient's TPN. Lactated ringer was resumed at 83 mL/h. Continue monitoring (5) Hypokalemia Assessment/Plan: Resolved. Stable. K is 3.5 today. (6) Elevated troponin Assessment/Plan: Likely due to demand ischemia from hypovolemic shock. Patient's systolic blood pressure was as low as 40 Troponin trend was 18.2, 46.3, 43.7. The patient did not experience chest pain or difficulty breathing. Recommendation would be for a stress test in the future after patient has fully recovered from the surgery and hospital stay (7) Adenomatous colon polyp Assessment/Plan: She is status post a right hemicolectomy for an adenomatous colon polyp with hyperplasia concerning for potential malignancy. JAIRO drainage is in place draining serosanguineous fluid. Patient also has a wound VAC in place. TPN initiated 06/20/2020. Nutrition following. General surgery managing. - Current Meds Current Meds: Current Medications Generic Name Dose Route Start Last Admin Trade Name Freq PRN Reason Stop Dose Admin Albuterol 2.5 mg 06/16/20 11:50 06/16/20 11:53 Albuterol Neb 2.5 Mg/3 Ml INH 2.5 mg RTQ4H PRN Administration Wheezing Albuterol/Ipratropium 3 ml 06/16/20 19:00 06/21/20 20:30 Ipratropium/Albuterol 3 Ml Neb INH 3 ml RTQID TORI Administration Atorvastatin Calcium 20 mg 06/12/20 21:00 06/21/20 20:50 Atorvastatin 10 Mg Tablet PO 20 mg QPM TORI Administration Docusate Sodium 100 mg 06/19/20 21:00 06/21/20 21:11 Docusate Sodium 100 Mg Capsule PO 100 mg BID TORI Administration Duloxetine HCl 60 mg 06/14/20 21:00 06/21/20 20:50 Duloxetine 30 Mg Capsule PO 60 mg QPM TORI Administration Gabapentin 1,600 mg 06/12/20 21:00 06/21/20 20:50 Gabapentin 400 Mg Capsule PO 1,600 mg BID TORI Administration Heparin Sodium (Porcine) 5,000 unit 06/19/20 21:00 06/21/20 20:59 Heparin 5,000 Unit/Ml Vial SUBQ 5,000 unit BID TORI Administration Norepinephrine Bitartrate 8 mg 250 mls @ 15 mls/hr 06/19/20 18:00 06/22/20 07:37 / Dextrose IV Not Given .[id number] [facility] Protocol 8 MCG/MIN Acetaminophen 100 mls @ 400 mls/hr 06/20/20 00:21 06/22/20 02:27 Ofirmev IV Infused Q6H TORI Infusion Multivitamins 10 ml/ TRACE 2,011 mls @ 83 mls/hr 06/20/20 19:00 06/22/20 07:00 ELEMENTS 1 ml/ Amino Ac/ IV 83 mls/hr Electrol/Dextrose/Calcium TPN/PPN TORI Infusion Fat Emulsion Intravenous 250 mls @ 21 mls/hr 06/20/20 19:00 06/22/20 07:00 Intralipid 20% IV Infused 1900 TORI Infusion Meropenem 1 gm/ Sodium 100 mls @ 200 mls/hr 06/21/20 12:09 06/22/20 05:25 Chloride IV Infused Q12H TORI Infusion Insulin Human Regular 1 - 5 unit 06/20/20 00:00 06/22/20 06:13 Insulin Regular Human 300 Unit/3 Ml Vial SUBQ 1 unit Q6HR TORI Administration Protocol Levothyroxine Sodium 100 mcg 06/20/20 07:00 06/22/20 06:13 Levothyroxine 100 Mcg Tablet PO 100 mcg QDAC TORI Administration [place] Carbonate 900 mg 06/13/20 21:00 06/21/20 20:50 [place] Er 300 Mg Tablet PO 900 mg QPM TORI Administration Lorazepam 0.5 mg 06/12/20 19:41 06/19/20 23:40 Lorazepam 2 Mg/Ml Vial IVP 0.5 mg Q1H PRN Administration Anxiety Methocarbamol 500 mg 06/19/20 18:00 06/22/20 06:13 Methocarbamol 500 Mg Tablet PO 500 mg Q6HR TORI Administration Metoclopramide HCl 10 mg 06/20/20 02:00 06/22/20 07:38 Metoclopramide 10 Mg/2 Ml Vial IVP 10 mg Q6H TORI Administration Morphine Sulfate 1 mg 06/20/20 19:20 06/22/20 07:38 Morphine 2 Mg/Ml Carpuject IVP 1 mg Q2H PRN Administration PAIN Pantoprazole Sodium 40 mg 06/12/20 21:00 06/21/20 20:50 Pantoprazole 40 Mg Vial IVP 40 mg BID TORI Administration Polyethylene Glycol 17 gm 06/19/20 21:00 06/21/20 20:50 Polyethylene Glycol 3350 17 Gm Packet PO 17 gm BID TORI Administration Saccharomyces Boulardii 250 mg 06/13/20 17:00 06/21/20 18:13 Saccharomyces Boulardii 250 Mg Capsule PO 250 mg BIDWM TORI Administration Sodium Chloride 10 ml 06/13/20 01:00 06/22/20 02:02 Sodium Chloride Flush 0.9% 10 Ml Syringe IVP 10 ml 0100,0900,1700 TORI Administration Sodium Chloride 10 ml 06/12/20 19:41 06/22/20 05:00 Sodium Chloride Flush 0.9% 10 Ml Syringe IVP 10 ml PRN PRN Administration NEEDED PER PROVIDER ORDERS Sodium Chloride 10 ml 06/19/20 17:00 06/22/20 05:01 Sodium Chloride Flush 0.9% 10 Ml Syringe IVP 10 ml 0100,0900,1700 TORI Administration Sodium Chloride 10 ml 06/19/20 16:50 06/22/20 05:00 Sodium Chloride Flush 0.9% 10 Ml Syringe IVP 10 ml PRN PRN Administration NEEDED PER PROVIDER ORDERS - Lab Result Fish Bone Diagrams: 06/22/20 05:00 06/22/20 05:00 - Additional Planning My Orders: My Active Orders 06/22/20 07:38 Lactated Ringers [Lr] 1,000 ml IV 83.33 mls/hr Subjective - Subjective Patient Reports: Other (Patient is much more awake alert and oriented today. Abdominal pain persist but improved. Her urine output has significantly improved. She denies any other complaints.) Objective Vital Signs: Vital Signs - 24 hr 06/21/20 06/21/20 06/21/20 08:00 08:32 09:00 Temperature 37.0 C Heart Rate Heart Rate [ 89 91 Monitoring electrodes] Respiratory 14 14 Rate Blood Pressure Blood Pressure 99/77 118/57 L 106/49 L [Left Brachial artery] Blood Pressure 108/55 L 113/52 L 113/52 L [Right Femoral artery] O2 Saturation 93 96 06/21/20 06/21/20 06/21/20 10:00 10:01 10:18 Temperature 36.9 C 36.7 C Heart Rate 94 92 Heart Rate [ 95 Monitoring electrodes] Respiratory 19 20 16 Rate Blood Pressure 117/52 L 103/56 L Blood Pressure 117/52 L [Left Brachial artery] Blood Pressure 118/54 L [Right Femoral artery] O2 Saturation 96 06/21/20 06/21/20 06/21/20 11:00 11:13 11:30 Temperature Heart Rate 89 Heart Rate [ 91 Monitoring electrodes] Respiratory 16 16 Rate Blood Pressure Blood Pressure 115/62 106/52 L [Left Brachial artery] Blood Pressure 126/61 114/57 L [Right Femoral artery] O2 Saturation 97 06/21/20 06/21/20 06/21/20 12:00 13:00 14:00 Temperature 37.0 C Heart Rate 91 Heart Rate [ 93 92 88 Monitoring electrodes] Respiratory 15 18 14 Rate Blood Pressure 111/56 L Blood Pressure 109/54 L 109/58 L 96/55 L [Left Brachial artery] Blood Pressure 110/56 L 107/53 L 103/51 L [Right Femoral artery] O2 Saturation 99 95 97 06/21/20 06/21/20 06/21/20 15:00 16:00 17:00 Temperature 36.9 C Heart Rate Heart Rate [ 98 102 H 96 Monitoring electrodes] Respiratory 20 18 14 Rate Blood Pressure Blood Pressure 123/62 122/57 L 112/61 [Left Brachial artery] Blood Pressure 126/59 L 122/62 102/52 L [Right Femoral artery] O2 Saturation 96 97 95 06/21/20 06/21/20 06/21/20 18:00 19:00 20:00 Temperature 36.9 C Heart Rate Heart Rate [ 95 98 95 Monitoring electrodes] Respiratory 14 16 14 Rate Blood Pressure Blood Pressure 94/52 L 104/67 103/57 L [Left Brachial artery] Blood Pressure 98/49 L 110/56 L 100/49 L [Right Femoral artery] O2 Saturation 95 94 92 06/21/20 06/21/20 06/21/20 20:30 21:02 22:00 Temperature Heart Rate 97 Heart Rate [ 104 H 102 H Monitoring electrodes] Respiratory 16 19 15 Rate Blood Pressure Blood Pressure 119/64 97/58 L [Left Brachial artery] Blood Pressure 132/68 H 107/51 L [Right Femoral artery] O2 Saturation 95 92 06/21/20 06/21/20 06/22/20 23:01 23:02 00:00 Temperature 37.5 C Heart Rate Heart Rate [ 104 H 104 H 103 H Monitoring electrodes] Respiratory 15 16 16 Rate Blood Pressure Blood Pressure 106/57 L 106/57 L 103/51 L [Left Brachial artery] Blood Pressure 112/54 L 110/53 L 120/51 L [Right Femoral artery] O2 Saturation 93 96 95 06/22/20 06/22/20 06/22/20 01:00 02:00 03:09 Temperature Heart Rate Heart Rate [ 107 H 103 H 99 Monitoring electrodes] Respiratory 18 16 14 Rate Blood Pressure Blood Pressure 118/64 116/53 L 115/65 [Left Brachial artery] Blood Pressure 120/57 L 119/57 L 108/51 L [Right Femoral artery] O2 Saturation 94 95 94 06/22/20 06/22/20 06/22/20 04:00 05:00 06:00 Temperature 37.5 C Heart Rate Heart Rate [ 99 91 91 Monitoring electrodes] Respiratory 14 13 12 Rate Blood Pressure Blood Pressure 115/74 110/56 L 108/50 L [Left Brachial artery] Blood Pressure 110/66 111/51 L 109/62 [Right Femoral artery] O2 Saturation 94 96 93 06/22/20 07:00 Temperature Heart Rate Heart Rate [ 95 Monitoring electrodes] Respiratory 16 Rate Blood Pressure Blood Pressure 100/52 L [Left Brachial artery] Blood Pressure 122/58 L [Right Femoral artery] O2 Saturation 93 Oxygen O2 Source Room air Oxygen Flow Rate 2 I&O (Last 24 Hrs): Intake and Output Totals x24h 06/20/20 06/21/20 06/22/20 23:59 23:59 23:59 Intake Total 7194.469 5436.720 1539.717 Output Total 981 5664 7325 Balance 2553.347 761.720 -1380.283 General: Alert, Oriented x3, Cooperative, Mild distress, Moderate distress HEENT: PERRLA, EOMI Neck: Supple, No JVD Neuro: Alert, Non Focal, Oriented Times 3 Cardiovascular: Regular rate Respiratory: Chest non-tender, No respiratory distress, Breath sounds nml Abdomen: Normal bowel sounds, Soft, Other (tenderness to palpation) Extremities: No clubbing, No edema, No tenderness/swelling Skin: No rashes, No breakdown, No significant lesion - Results Results: Laboratory Results WBC 14.6 x10^3/uL (4.8-10.8) H 06/22/20 05:00 RBC 2.41 10^6/uL (4.20-5.40) L 06/22/20 05:00 Hgb 7.6 g/dL (12.0-16.0) L 06/22/20 05:00 Hct 23.5 % (37.0-47.0) L 06/22/20 05:00 MCV 97.5 fL (81.0-99.0) 06/22/20 05:00 MCH 31.5 pg (27.0-31.0) H 06/22/20 05:00 MCHC 32.3 g/dL (32.0-36.0) 06/22/20 05:00 RDW 17.5 % (12.0-15.0) H 06/22/20 05:00 Plt Count 229 10^3/uL (130-450) 06/22/20 05:00 MPV 12.7 fL (7.9-10.8) H 06/22/20 05:00 Neut # (Auto) 25.5 10^3/uL (1.5-6.6) H 06/21/20 07:47 Lymph # (Auto) 0.9 10^3/uL (1.5-3.5) L 06/21/20 07:47 [place] # (Auto) 0.7 10^3/uL (0.0-1.0) 06/21/20 07:47 Eos # (Auto) 0.2 10^3/uL (0.0-0.7) 06/21/20 07:47 Baso # (Auto) 0.1 10^3/uL (0.0-0.1) 06/21/20 07:47 Absolute Nucleated RBC 0.00 x10^3/uL 06/21/20 07:47 Nucleated RBC % 0.0 /100WBC 06/21/20 07:47 Manual Slide Review Indicated 06/21/20 07:47 WBC Morphology NORMAL APPEARANCE (NORMAL) 06/21/20 07:47 Platelet Estimate NORMAL (130-450,000) (NORMAL) 06/21/20 07:47 Platelet Morphology NORMAL APPEARANCE (NORMAL) 06/21/20 07:47 RBC Morph Micro Appear 1+ ANISOCYTOSIS (NORMAL) 1+ HYPOCHROMASIA (NORMAL) 06/21/20 07:47 RBC Morph Micro Appear 1+ ANISOCYTOSIS (NORMAL) 1+ HYPOCHROMASIA (NORMAL) 06/21/20 07:47 PT 14.0 secs (9.9-12.6) H 06/21/20 07:47 INR 1.3 (0.8-1.2) H 06/21/20 07:47 Bld Gas Analysis Time 1737 06/19/20 17:35 Sample Site A-LINE 06/19/20 17:35 ABG pH 7.35 (7.35-7.45) 06/19/20 17:35 ABG pCO2 40 mmHg (34-45) 06/19/20 17:35 ABG pO2 98 mmHg (80-100) 06/19/20 17:35 ABG HCO3 21.4 mmol/L (22.0-26.0) L 06/19/20 17:35 ABG Total CO2 22.6 MMOL/L (21.0-29.0) 06/19/20 17:35 ABG O2 Saturation 97 % (94-98) 06/19/20 17:35 ABG Base Excess -3.9 mmol/L (-2.0-3.0) L 06/19/20 17:35 César Test NOT APPLICABLE 06/19/20 17:35 O2 Delivery Device SIMPLE MASK 06/19/20 17:35 O2 Liters/Min 9.00 LPM 06/19/20 17:35 Sodium 147 mmol/L (135-145) H 06/22/20 05:00 Potassium 3.5 mmol/L (3.5-5.0) 06/22/20 05:00 Chloride 117 mmol/L (101-111) H 06/22/20 05:00 Carbon Dioxide 24 mmol/L (21-32) 06/22/20 05:00 Anion Gap 6.0 (6-13) 06/22/20 05:00 BUN 16 mg/dL (6-20) 06/22/20 05:00 Creatinine 1.2 mg/dL (0.4-1.0) H 06/22/20 05:00 Estimated GFR (MDRD) 46 (>89) L 06/22/20 05:00 Glucose 160 mg/dL (70-100) H 06/22/20 05:00 POC Whole Bld Glucose 145 mg/dL (70 - 100) H 06/22/20 05:07 Lactic Acid 2.0 mmol/L (0.5-2.2) 06/19/20 18:06 Calcium 8.2 mg/dL (8.5-10.3) L 06/22/20 05:00 Ionized Calcium NO 06/14/20 04:25 Phosphorus 2.9 mg/dL (2.5-4.6) 06/22/20 05:00 Magnesium 2.2 mg/dL (1.7-2.8) 06/22/20 05:00 Total Bilirubin 0.3 mg/dL (0.2-1.0) 06/22/20 05:00 AST 13 IU/L (10-42) 06/22/20 05:00 ALT 10 IU/L (10-60) 06/22/20 05:00 Alkaline Phosphatase 50 IU/L (42-121) 06/22/20 05:00 Troponin I High Sens 43.7 ng/L (2.3-14.8) H* 06/20/20 05:28 C-Reactive Protein 47.9 mg/dL (0-1.0) H 06/12/20 16:17 Total Protein 4.3 g/dL (6.7-8.2) L 06/22/20 05:00 Albumin 1.5 g/dL (3.2-5.5) L 06/22/20 05:00 Globulin 2.8 g/dL (2.1-4.2) 06/22/20 05:00 Albumin/Globulin Ratio 0.5 (1.0-2.2) L 06/22/20 05:00 Prealbumin 7 mg/dL (18-45) L 06/22/20 05:00 Triglycerides 118 mg/dL (-149) 06/22/20 05:00 Lipase 18 U/L (22-51) L 06/12/20 16:17 Urine Color YELLOW 06/12/20 18:42 Urine Clarity CLOUDY (CLEAR) 06/12/20 18:42 Urine pH 5.5 PH (5.0-7.5) 06/12/20 18:42 Ur Specific [place] 1.020 (1.002-1.030) 06/12/20 18:42 Urine Protein 30 mg/dL (NEGATIVE) H 06/12/20 18:42 Urine Glucose (UA) NEGATIVE mg/dL (NEGATIVE) 06/12/20 18:42 Urine Ketones NEGATIVE mg/dL (NEGATIVE) 06/12/20 18:42 Urine Occult Blood TRACE-INTA (NEGATIVE) 06/12/20 18:42 Urine Nitrite NEGATIVE (NEGATIVE) 06/12/20 18:42 Urine Bilirubin NEGATIVE (NEGATIVE) 06/12/20 18:42 Urine Urobilinogen 0.2 (NORMAL) E.U./dL (NORMAL) 06/12/20 18:42 Ur Leukocyte Esterase NEGATIVE (NEGATIVE) 06/12/20 18:42 Urine RBC 0-5 /HPF (0-5) 06/12/20 18:42 Urine WBC 4-5 /HPF (0-5) 06/12/20 18:42 Ur Squamous Epith Cells MANY Squamous (<= Few) H 06/12/20 18:42 Amorphous Sediment Few /LPF 06/12/20 18:42 Urine Bacteria Moderate /HPF (None Seen) H 06/12/20 18:42 Urine Casts 3-5 Granular Casts /LPF 06/12/20 18:42 Urine Mucus Few Strands 06/12/20 18:42 Ur Microscopic Review INDICATED 06/12/20 18:42 Urine Culture Comments NOT INDICATED 06/12/20 18:42 Nasal Adenovirus (PCR) NOT DETECTED 06/12/20 20:25 Nasal B. parapertussis DNA (PCR) NOT DETECTED 06/12/20 20:25 Nasal Coronavir 229E PCR NOT DETECTED 06/12/20 20:25 Nasal Coronavir HKU1 PCR NOT DETECTED 06/12/20 20:25 Nasal Coronavir NL63 PCR NOT DETECTED 06/12/20 20:25 Nasal Coronavir OC43 PCR NOT DETECTED 06/12/20 20:25 Nasal Enterovir/Rhinovir PCR NOT DETECTED 06/12/20 20:25 Nasal Influenza B PCR NOT DETECTED 06/12/20 20:25 Nasal Influenza A PCR NOT DETECTED 06/12/20 20:25 Nasal Parainfluen 1 PCR NOT DETECTED 06/12/20 20:25 Nasal Parainfluen 2 PCR NOT DETECTED 06/12/20 20:25 Nasal Parainfluen 3 PCR NOT DETECTED 06/12/20 20:25 Nasal Parainfluen 4 PCR NOT DETECTED 06/12/20 20:25 Nasal RSV (PCR) NOT DETECTED 06/12/20 20:25 Nasal Screen MRSA (PCR) NEGATIVE (NEGATIVE) 06/19/20 18:00 Nasal B.pertussis DNA PCR NOT DETECTED 06/12/20 20:25 Nasal C.pneumoniae (PCR) NOT DETECTED 06/12/20 20:25 [place] Human Metapneumo PCR NOT DETECTED 06/12/20 20:25 Nasal M.pneumoniae (PCR) NOT DETECTED 06/12/20 20:25 Nasal SARS-CoV-2 (PCR) NOT DETECTED 06/12/20 20:25 Last Dose Date UNK 06/21/20 12:13 Last Dose Time UNK 06/21/20 12:13 [place] 0.66 mmol/L 06/21/20 12:13 Blood Type A POSITIVE 06/19/20 17:45 Blood Type Recheck A POSITIVE 06/19/20 17:11 Antibody Screen NEGATIVE 06/19/20 17:45 Crossmatch IS Only See Detail 06/19/20 17:45 - Procedures Procedures: Procedures EXCISION OF CECUM, ENDO (12/16/15) EXCISION OF DUODENUM, ENDO, DIAGN (06/10/20) EXCISION OF SIGMOID COLON, ENDO (12/16/15) EXCISION OF STOMACH, ENDO (06/10/20) EXCISION OF TRANSVERSE COLON, ENDO (06/10/20) HAND FASCIECTOMY NEC (01/02/13) ABX Reporting Has patient been on IV antibiotics over the past 48 hours?: Yes
[2020-06-22] MEDS: IPRATROPIUM/ALBUTEROL 3 ML NEB INH SCH (07:45)
[2020-06-22] MEDS: LACTATED RINGERS 1,000 ML IV SCH ×2 (07:47→16:17)
[2020-06-22] MEDS: polyethylene glycoL 3350 17 GM PACKET PO SCH ×2 (09:11→20:46)
[2020-06-22] MEDS: SACCHAROMYCES BOULARDII 250 MG CAPSULE PO SCH ×2 (09:12→17:11)
[2020-06-22] MEDS: PANTOPRAZOLE 40 MG VIAL IVP SCH ×2 (09:12→20:46)
[2020-06-22] MEDS: GABAPENTIN 400 MG CAPSULE PO SCH ×2 (09:12→20:44)
[2020-06-22] MEDS: DOCUSATE SODIUM 100 MG CAPSULE PO SCH ×2 (09:12→20:44)
[2020-06-22] MEDS: HEPARIN 5,000 UNIT/ML VIAL SUBQ SCH ×2 (10:02→20:51)
[2020-06-22] MEDS ORDERED: IPRATROPIUM/ALBUTEROL 3 ML NEB INH PRN (11:28)
--- NOTE | 2020-06-22 13:53 | PROVIDER PROGRESS NOTE ---
Subjective - Prog Note Date Prog Note Date: 06/22/20 - Subjective Pt reports feeling: No change (no complaints. no abdominal activity/ passing gas. no n/v) Objective - Vital Signs/Intake & Output Reviewed Vital Signs: Yes Vital Signs: Vital Signs x48h Temp Pulse Pulse Resp BP BP Pulse Ox 06/22/20 13:00 94 13 110/56 L 115/58 L 94 06/22/20 12:00 36.9 C 91 12 104/56 L 115/58 L 95 06/22/20 11:00 92 14 108/64 118/59 L 94 06/22/20 10:00 90 14 106/58 L 111/56 L 95 06/22/20 09:00 92 13 126/62 122/59 L 94 06/22/20 08:00 36.9 C 99 13 117/70 130/66 94 06/22/20 07:45 97 14 06/22/20 07:00 95 16 100/52 L 122/58 L 93 06/22/20 06:00 91 12 108/50 L 109/62 93 Intake & Output: Intake & Output 06/19/20 06/20/20 06/21/20 06/22/20 23:59 23:59 23:59 23:59 Intake Total 4341.572 3534.347 5436.720 2370.717 Output Total 524 704 8449 4485 Balance 4054.572 2553.347 761.720 -2114.283 - Objective General Appearance: positive: No acute distress, Alert Eyes Bilateral: positive: PERRL, EOMI ENT: positive: No signs of dehydration Neck: positive: No JVD Respiratory: positive: No respiratory distress Cardiovascular: positive: Regular rate & rhythm Abdomen: positive: Non-tender, No distention Neurologic/Psychiatric: positive: Oriented x3 - Lab Results Fish Bones: 06/22/20 05:00 06/22/20 05:00 Other Labs: Lab Results x24hrs 06/22/20 06/22/20 06/22/20 Range/Units 11:29 05:07 05:00 WBC 14.6 H (4.8-10.8) x10^3/uL RBC 2.41 L (4.20-5.40) 10^6/uL Hgb 7.6 L (12.0-16.0) g/dL Hct 23.5 L (37.0-47.0) % MCV 97.5 (81.0-99.0) fL MCH 31.5 H (27.0-31.0) pg MCHC 32.3 (32.0-36.0) g/dL RDW 17.5 H (12.0-15.0) % Plt Count 229 (130-450) 10^3/uL MPV 12.7 H (7.9-10.8) fL Sodium (135-145) mmol/L Potassium (3.5-5.0) mmol/L Chloride (101-111) mmol/L Carbon Dioxide (21-32) mmol/L Anion Gap (6-13) BUN (6-20) mg/dL Creatinine (0.4-1.0) mg/dL Estimated GFR (MDRD) (>89) Glucose (70-100) mg/dL POC Whole Bld Glucose 118 H 145 H (70 - 100) mg/dL Calcium (8.5-10.3) mg/dL Phosphorus (2.5-4.6) mg/dL Magnesium (1.7-2.8) mg/dL Total Bilirubin (0.2-1.0) mg/dL AST (10-42) IU/L ALT (10-60) IU/L Alkaline Phosphatase (42-121) IU/L Total Protein (6.7-8.2) g/dL Albumin (3.2-5.5) g/dL Globulin (2.1-4.2) g/dL Albumin/Globulin Ratio (1.0-2.2) Prealbumin (18-45) mg/dL Triglycerides ( - 149) mg/dL 06/22/20 06/21/20 06/21/20 Range/Units 05:00 23:53 18:05 WBC (4.8-10.8) x10^3/uL RBC (4.20-5.40) 10^6/uL Hgb (12.0-16.0) g/dL Hct (37.0-47.0) % MCV (81.0-99.0) fL MCH (27.0-31.0) pg MCHC (32.0-36.0) g/dL RDW (12.0-15.0) % Plt Count (130-450) 10^3/uL MPV (7.9-10.8) fL Sodium 147 H (135-145) mmol/L Potassium 3.5 (3.5-5.0) mmol/L Chloride 117 H (101-111) mmol/L Carbon Dioxide 24 (21-32) mmol/L Anion Gap 6.0 (6-13) BUN 16 (6-20) mg/dL Creatinine 1.2 H (0.4-1.0) mg/dL Estimated GFR (MDRD) 46 L (>89) Glucose 160 H (70-100) mg/dL POC Whole Bld Glucose 125 H 127 H (70 - 100) mg/dL Calcium 8.2 L (8.5-10.3) mg/dL Phosphorus 2.9 (2.5-4.6) mg/dL Magnesium 2.2 (1.7-2.8) mg/dL Total Bilirubin 0.3 (0.2-1.0) mg/dL AST 13 (10-42) IU/L ALT 10 (10-60) IU/L Alkaline Phosphatase 50 (42-121) IU/L Total Protein 4.3 L (6.7-8.2) g/dL Albumin 1.5 L (3.2-5.5) g/dL Globulin 2.8 (2.1-4.2) g/dL Albumin/Globulin Ratio 0.5 L (1.0-2.2) Prealbumin 7 L (18-45) mg/dL Triglycerides 118 ( - 149) mg/dL 06/21/20 Range/Units 18:03 WBC (4.8-10.8) x10^3/uL RBC (4.20-5.40) 10^6/uL Hgb 7.7 L (12.0-16.0) g/dL Hct 23.0 L (37.0-47.0) % MCV (81.0-99.0) fL MCH (27.0-31.0) pg MCHC (32.0-36.0) g/dL RDW (12.0-15.0) % Plt Count (130-450) 10^3/uL MPV (7.9-10.8) fL Sodium (135-145) mmol/L Potassium (3.5-5.0) mmol/L Chloride (101-111) mmol/L Carbon Dioxide (21-32) mmol/L Anion Gap (6-13) BUN (6-20) mg/dL Creatinine (0.4-1.0) mg/dL Estimated GFR (MDRD) (>89) Glucose (70-100) mg/dL POC Whole Bld Glucose (70 - 100) mg/dL Calcium (8.5-10.3) mg/dL Phosphorus (2.5-4.6) mg/dL Magnesium (1.7-2.8) mg/dL Total Bilirubin (0.2-1.0) mg/dL AST (10-42) IU/L ALT (10-60) IU/L Alkaline Phosphatase (42-121) IU/L Total Protein (6.7-8.2) g/dL Albumin (3.2-5.5) g/dL Globulin (2.1-4.2) g/dL Albumin/Globulin Ratio (1.0-2.2) Prealbumin (18-45) mg/dL Triglycerides ( - 149) mg/dL Assessment/Plan - Problem List (1) Adenomatous colon polyp Impression: doing well after complex surgery. ileus present. WBC much improved and diuresing well. continue npo except ice chips and sips
[2020-06-22] MEDS: ACETAMINOPHEN 500 MG TABLET PO SCH ×2 (13:59→20:42)
[2020-06-22] MEDS: FAT EMULSION 20% 250 ML IV SCH (18:39)
[2020-06-22] MEDS: TPN (CLINIMIX E 5/15) 2,000 ML with MULTIVITAMIN 10 ML, TRACE ELEMENTS 1 ML IV SCH ×3 (18:39)
[2020-06-22] MEDS: ATORVASTATIN 10 MG TABLET PO SCH (20:43)
[2020-06-22] MEDS: DULoxetine 30 MG CAPSULE PO SCH (20:44)
[2020-06-22] MEDS: LITHIUM ER 300 MG TABLET PO SCH (20:45)
[2020-06-23] MEDS: MORPHINE 2 MG/ML CARPUJECT IVP PRN ×2 (00:09→01:41)
[2020-06-23] MEDS: METOCLOPRAMIDE 10 MG/2 ML VIAL IVP SCH ×4 (03:08→20:06)
[2020-06-23] MEDS: LACTATED RINGERS 1,000 ML IV SCH (03:11)
[2020-06-23] MEDS: ACETAMINOPHEN 500 MG TABLET PO SCH ×4 (03:30→20:06)
[2020-06-23] MEDS: MEROPENEM 1 GM in SODIUM CHLORIDE 0.9% MINIBAG 100 ML IV SCH ×3 (04:23→21:07)
[2020-06-23] MEDS: INSULIN REGULAR HUMAN 300 UNIT/3 ML VIAL SUBQ SCH ×4 (06:29→23:57)
[2020-06-23] MEDS: methocarbamoL 500 MG TABLET PO SCH ×4 (06:30→23:50)
[2020-06-23] MEDS: LEVOTHYROXINE 100 MCG TABLET PO SCH (06:30)
[2020-06-23 08:08] LABS: BASOPHILS % (AUTO) 0.3 %; EOSINOPHILS # (AUTO) 0.2 10^3/uL (0.0-0.7); EOSINOPHILS % (AUTO) 1.6 %; HCT - HEMATOCRIT 26.1 % (37.0-47.0); HGB - HEMOGLOBIN 8.3 g/dL (12.0-16.0); LYMPHOCYTES # (AUTO) 0.6 10^3/uL (1.5-3.5); LYMPHOCYTES % (AUTO) 3.9 %; MEAN CORPUSCULAR HEMOGLOBIN 31.2 pg (27.0-31.0); MEAN CORPUSCULAR HGB CONC 31.8 g/dL (32.0-36.0); MEAN CORPUSCULAR VOLUME 98.1 fL (81.0-99.0); MEAN PLATELET VOLUME 11.3 fL (7.9-10.8); MONOCYTES # (AUTO) 0.5 10^3/uL (0.0-1.0); MONOCYTES % (AUTO) 3.5 %; NEUTROPHILS # (AUTO) 13.2 10^3/uL (1.5-6.6); NEUTROPHILS % (AUTO) 89.8 %; PLT - PLATELET COUNT 263 10^3/uL (130-450); RED BLOOD COUNT 2.66 10^6/uL (4.20-5.40); RED CELL DISTRIBUTION WIDTH 17.3 % (12.0-15.0); WHITE BLOOD COUNT 14.7 x10^3/uL (4.8-10.8)
[2020-06-23 08:20] LABS: CALCIUM 8.8 mg/dL (8.5-10.3); POTASSIUM 3.6 mmol/L (3.5-5.0)
[2020-06-23] MEDS: SACCHAROMYCES BOULARDII 250 MG CAPSULE PO SCH ×2 (08:25→18:51)
[2020-06-23] MEDS: DOCUSATE SODIUM 100 MG CAPSULE PO SCH ×2 (08:25→21:07)
[2020-06-23] MEDS: GABAPENTIN 400 MG CAPSULE PO SCH ×2 (08:25→21:06)
[2020-06-23] MEDS: PANTOPRAZOLE 40 MG VIAL IVP SCH ×2 (08:25→21:07)
[2020-06-23] MEDS: SODIUM CHLORIDE FLUSH 0.9% 10 ML SYRINGE IVP SCH ×5 (08:26→21:07)
--- NOTE | 2020-06-23 08:58 | PROVIDER PROGRESS NOTE ---
Assessment/Plan - Problem List (1) Hypovolemic shock Assessment/Plan: Resolved Solid blood pressure has maintained in the 120s while off pressors. Patient's renal function improved with a creatinine of 1.0 and an estimated GFR of 56. Patient's urine output continues to be good. (2) Leukocytosis Assessment/Plan: There is no change in patient's white blood cell count from yesterday but overall patient is improved clinically. Blood cultures are no growth to date. We will continue meropenem 1 g every 8 hours. (3) JOHANNE (acute kidney injury) Assessment/Plan: Improved. Resolved. Patient's creatinine today is 1.0 with an estimated GFR of 56. This is an improvement from yesterday when the creatinine was 1.2 with an estimated GFR of 46. (4) Hypernatremia Assessment/Plan: Sodium today was 152 with chloride of 120. This is likely confounded by patient's TPN. Lactated ringer was changed to D5W at 83 mL/h. Continue monitoring (5) Hypokalemia Assessment/Plan: Resolved. Stable. K is 3.6 today. (7) Adenomatous colon polyp Assessment/Plan: She is status post a right hemicolectomy for an adenomatous colon polyp with hyperplasia concerning for potential malignancy POD#4. JAIRO drainage is in place draining serosanguineous fluid. Patient also has a wound VAC in place. TPN initiated 06/20/2020. Nutrition following. General surgery managing. - Current Meds Current Meds: Current Medications Generic Name Dose Route Start Last Admin Trade Name Freq PRN Reason Stop Dose Admin Acetaminophen 1,000 mg 06/22/20 14:00 06/23/20 03:30 Acetaminophen 500 Mg Tablet PO 1,000 mg Q6H TORI Administration Albuterol 2.5 mg 06/16/20 11:50 06/16/20 11:53 Albuterol Neb 2.5 Mg/3 Ml INH 2.5 mg RTQ4H PRN Administration Wheezing Atorvastatin Calcium 20 mg 06/12/20 21:00 06/22/20 20:43 Atorvastatin 10 Mg Tablet PO 20 mg QPM TORI Administration Docusate Sodium 100 mg 06/19/20 21:00 06/23/20 08:25 Docusate Sodium 100 Mg Capsule PO 100 mg BID TORI Administration Duloxetine HCl 60 mg 06/14/20 21:00 06/22/20 20:44 Duloxetine 30 Mg Capsule PO 60 mg QPM TORI Administration Gabapentin 1,600 mg 06/12/20 21:00 06/23/20 08:25 Gabapentin 400 Mg Capsule PO 1,600 mg BID TORI Administration Heparin Sodium (Porcine) 5,000 unit 06/19/20 21:00 06/22/20 20:51 Heparin 5,000 Unit/Ml Vial SUBQ 5,000 unit BID TORI Administration Multivitamins 10 ml/ TRACE 2,011 mls @ 83 mls/hr 06/20/20 19:00 06/23/20 07:00 ELEMENTS 1 ml/ Amino Ac/ IV 83 mls/hr Electrol/Dextrose/Calcium TPN/PPN TORI Infusion Fat Emulsion Intravenous 250 mls @ 21 mls/hr 06/20/20 19:00 06/23/20 06:10 Intralipid 20% IV Infused 1900 TORI Infusion Meropenem 1 gm/ Sodium 100 mls @ 200 mls/hr 06/22/20 13:00 06/23/20 05:00 Chloride IV Infused Q8H TORI Infusion Insulin Human Regular 1 - 5 unit 06/20/20 00:00 06/23/20 06:29 Insulin Regular Human 300 Unit/3 Ml Vial SUBQ Not Given Q6HR REPLACED BY [facility] Protocol Levothyroxine Sodium 100 mcg 06/20/20 07:00 06/23/20 06:30 Levothyroxine 100 Mcg Tablet PO 100 mcg QDAC TORI Administration [place] Carbonate 900 mg 06/13/20 21:00 06/22/20 20:45 [place] Er 300 Mg Tablet PO 900 mg QPM TORI Administration Lorazepam 0.5 mg 06/12/20 19:41 06/19/20 23:40 Lorazepam 2 Mg/Ml Vial IVP 0.5 mg Q1H PRN Administration Anxiety Methocarbamol 500 mg 06/19/20 18:00 06/23/20 06:30 Methocarbamol 500 Mg Tablet PO 500 mg Q6HR TORI Administration Metoclopramide HCl 10 mg 06/20/20 02:00 06/23/20 03:08 Metoclopramide 10 Mg/2 Ml Vial IVP 10 mg Q6H TORI Administration Morphine Sulfate 1 mg 06/20/20 19:20 06/23/20 01:41 Morphine 2 Mg/Ml Carpuject IVP 1 mg Q2H PRN Administration PAIN Pantoprazole Sodium 40 mg 06/12/20 21:00 06/23/20 08:25 Pantoprazole 40 Mg Vial IVP 40 mg BID TORI Administration Polyethylene Glycol 17 gm 06/19/20 21:00 06/22/20 20:46 Polyethylene Glycol 3350 17 Gm Packet PO 17 gm BID TORI Administration Saccharomyces Boulardii 250 mg 06/13/20 17:00 06/23/20 08:25 Saccharomyces Boulardii 250 Mg Capsule PO 250 mg BIDWM TORI Administration Sodium Chloride 10 ml 06/13/20 01:00 06/23/20 08:26 Sodium Chloride Flush 0.9% 10 Ml Syringe IVP 40 ml 0100,0900,1700 TORI Administration Sodium Chloride 10 ml 06/12/20 19:41 06/22/20 05:00 Sodium Chloride Flush 0.9% 10 Ml Syringe IVP 10 ml PRN PRN Administration NEEDED PER PROVIDER ORDERS Sodium Chloride 10 ml 06/19/20 17:00 06/23/20 08:26 Sodium Chloride Flush 0.9% 10 Ml Syringe IVP Not Given 0100,0900,1700 TORI Sodium Chloride 10 ml 06/19/20 16:50 06/22/20 23:20 Sodium Chloride Flush 0.9% 10 Ml Syringe IVP 10 ml PRN PRN Administration NEEDED PER PROVIDER ORDERS - Lab Result Fish Bone Diagrams: 06/23/20 08:01 06/23/20 08:01 - Additional Planning My Orders: My Active Orders 06/23/20 09:00 D5W @ 83.333 mls/hr Dextrose 5% [D5w] 1,000 ml IV 83.333 mls/hr 06/23/20 14:30 BMP - BASIC METABOLIC PANEL [CHEM] Timed 06/24/20 05:00 BMP - BASIC METABOLIC PANEL [CHEM] DAILYLAB CBC - COMP BLD CT W/AUTO DIFF [HEME] DAILYLAB 06/25/20 05:00 BMP - BASIC METABOLIC PANEL [CHEM] DAILYLAB CBC - COMP BLD CT W/AUTO DIFF [HEME] DAILYLAB 06/26/20 05:00 BMP - BASIC METABOLIC PANEL [CHEM] DAILYLAB CBC - COMP BLD CT W/AUTO DIFF [HEME] DAILYLAB 06/27/20 05:00 BMP - BASIC METABOLIC PANEL [CHEM] DAILYLAB CBC - COMP BLD CT W/AUTO DIFF [HEME] DAILYLAB 06/28/20 05:00 BMP - BASIC METABOLIC PANEL [CHEM] DAILYLAB CBC - COMP BLD CT W/AUTO DIFF [HEME] DAILYLAB Subjective - Subjective Patient Reports: Other (Sitting comfortably in bed. Abdominal pain has significantly improved. Patient had a bowel movement today. Denies any other complaints.) Objective Vital Signs: Vital Signs - 24 hr 06/22/20 06/22/20 06/22/20 09:00 10:00 11:00 Temperature Heart Rate Heart Rate [ 92 90 92 Monitoring electrodes] Respiratory 13 14 14 Rate Blood Pressure 126/62 106/58 L 108/64 [Left Brachial artery] Blood Pressure 122/59 L 111/56 L 118/59 L [Right Femoral artery] O2 Saturation 94 95 94 06/22/20 06/22/20 06/22/20 12:00 13:00 14:00 Temperature 36.9 C Heart Rate Heart Rate [ 91 94 98 Monitoring electrodes] Respiratory 12 13 18 Rate Blood Pressure 104/56 L 110/56 L 119/67 [Left Brachial artery] Blood Pressure 115/58 L 115/58 L 124/66 [Right Femoral artery] O2 Saturation 95 94 95 06/22/20 06/22/20 06/22/20 15:00 16:00 17:00 Temperature 36.9 C Heart Rate Heart Rate [ 94 92 99 Monitoring electrodes] Respiratory 17 13 17 Rate Blood Pressure 125/66 112/65 126/66 [Left Brachial artery] Blood Pressure 125/66 113/55 L 129/68 [Right Femoral artery] O2 Saturation 98 95 94 06/22/20 06/22/20 06/22/20 18:00 19:00 19:05 Temperature Heart Rate 96 Heart Rate [ 91 102 H Monitoring electrodes] Respiratory 13 11 L 16 Rate Blood Pressure 108/59 L 108/61 [Left Brachial artery] Blood Pressure 119/61 123/64 [Right Femoral artery] O2 Saturation 97 93 06/22/20 06/22/20 06/22/20 20:00 21:00 22:00 Temperature Heart Rate Heart Rate [ 96 101 H Monitoring electrodes] Respiratory 14 19 12 Rate Blood Pressure 102/64 117/68 114/71 [Left Brachial artery] Blood Pressure 115/56 L 138/68 H 132/66 H [Right Femoral artery] O2 Saturation 94 95 06/22/20 06/22/20 06/23/20 23:00 23:15 00:00 Temperature 36.9 C Heart Rate Heart Rate [ 101 H 102 H Monitoring electrodes] Respiratory 14 17 Rate Blood Pressure 122/66 127/67 [Left Brachial artery] Blood Pressure 124/61 [Right Femoral artery] O2 Saturation 93 93 06/23/20 06/23/20 06/23/20 01:00 02:00 03:00 Temperature Heart Rate Heart Rate [ 97 98 97 Monitoring electrodes] Respiratory 14 17 13 Rate Blood Pressure 127/74 135/70 H 119/70 [Left Brachial artery] Blood Pressure [Right Femoral artery] O2 Saturation 92 93 93 06/23/20 06/23/20 06/23/20 03:38 05:00 06:00 Temperature 36.9 C Heart Rate Heart Rate [ 98 89 Monitoring electrodes] Respiratory 16 12 Rate Blood Pressure 126/69 113/67 [Left Brachial artery] Blood Pressure [Right Femoral artery] O2 Saturation 94 96 06/23/20 06/23/20 07:00 08:00 Temperature Heart Rate Heart Rate [ 92 91 Monitoring electrodes] Respiratory 13 14 Rate Blood Pressure 126/65 124/70 [Left Brachial artery] Blood Pressure [Right Femoral artery] O2 Saturation 95 97 Oxygen O2 Source Room air Oxygen Flow Rate 2 I&O (Last 24 Hrs): Intake and Output Totals x24h 06/21/20 06/22/20 06/23/20 23:59 23:59 23:59 Intake Total 5436.720 5257.952 2330.050 Output Total 4675 7265 2145 Balance 761.720 -2007.048 185.050 General: Alert, Oriented x3, Moderate distress HEENT: PERRLA, EOMI Neck: Supple, No JVD Neuro: Alert, Non Focal, Oriented Times 3 Cardiovascular: Regular rate, No murmurs Respiratory: Chest non-tender, No respiratory distress, Breath sounds nml Abdomen: Soft, Other (Mild to moderate tenderness) Extremities: No clubbing, No cyanosis, No edema, No tenderness/swelling Skin: No rashes, No breakdown, No significant lesion - Results Results: Laboratory Results WBC 14.7 x10^3/uL (4.8-10.8) H 06/23/20 08:01 RBC 2.66 10^6/uL (4.20-5.40) L 06/23/20 08:01 Hgb 8.3 g/dL (12.0-16.0) L 06/23/20 08:01 Hct 26.1 % (37.0-47.0) L 06/23/20 08:01 MCV 98.1 fL (81.0-99.0) 06/23/20 08:01 MCH 31.2 pg (27.0-31.0) H 06/23/20 08:01 MCHC 31.8 g/dL (32.0-36.0) L 06/23/20 08:01 RDW 17.3 % (12.0-15.0) H 06/23/20 08:01 Plt Count 263 10^3/uL (130-450) 06/23/20 08:01 MPV 11.3 fL (7.9-10.8) H 06/23/20 08:01 Neut # (Auto) 13.2 10^3/uL (1.5-6.6) H 06/23/20 08:01 Lymph # (Auto) 0.6 10^3/uL (1.5-3.5) L 06/23/20 08:01 [place] # (Auto) 0.5 10^3/uL (0.0-1.0) 06/23/20 08:01 Eos # (Auto) 0.2 10^3/uL (0.0-0.7) 06/23/20 08:01 Baso # (Auto) 0.0 10^3/uL (0.0-0.1) 06/23/20 08:01 Absolute Nucleated RBC 0.00 x10^3/uL 06/23/20 08:01 Nucleated RBC % 0.0 /100WBC 06/23/20 08:01 Manual Slide Review Indicated 06/21/20 07:47 WBC Morphology NORMAL APPEARANCE (NORMAL) 06/21/20 07:47 Platelet Estimate NORMAL (130-450,000) (NORMAL) 06/21/20 07:47 Platelet Morphology NORMAL APPEARANCE (NORMAL) 06/21/20 07:47 RBC Morph Micro Appear 1+ ANISOCYTOSIS (NORMAL) 1+ HYPOCHROMASIA (NORMAL) 06/21/20 07:47 RBC Morph Micro Appear 1+ ANISOCYTOSIS (NORMAL) 1+ HYPOCHROMASIA (NORMAL) 06/21/20 07:47 PT 14.0 secs (9.9-12.6) H 06/21/20 07:47 INR 1.3 (0.8-1.2) H 06/21/20 07:47 Bld Gas Analysis Time 1737 06/19/20 17:35 Sample Site A-LINE 06/19/20 17:35 ABG pH 7.35 (7.35-7.45) 06/19/20 17:35 ABG pCO2 40 mmHg (34-45) 06/19/20 17:35 ABG pO2 98 mmHg (80-100) 06/19/20 17:35 ABG HCO3 21.4 mmol/L (22.0-26.0) L 06/19/20 17:35 ABG Total CO2 22.6 MMOL/L (21.0-29.0) 06/19/20 17:35 ABG O2 Saturation 97 % (94-98) 06/19/20 17:35 ABG Base Excess -3.9 mmol/L (-2.0-3.0) L 06/19/20 17:35 César Test NOT APPLICABLE 06/19/20 17:35 O2 Delivery Device SIMPLE MASK 06/19/20 17:35 O2 Liters/Min 9.00 LPM 06/19/20 17:35 Sodium 152 mmol/L (135-145) H 06/23/20 08:01 Potassium 3.6 mmol/L (3.5-5.0) 06/23/20 08:01 Chloride 120 mmol/L (101-111) H* 06/23/20 08:01 Carbon Dioxide 27 mmol/L (21-32) 06/23/20 08:01 Anion Gap 5.0 (6-13) L 06/23/20 08:01 BUN 19 mg/dL (6-20) 06/23/20 08:01 Creatinine 1.0 mg/dL (0.4-1.0) 06/23/20 08:01 Estimated GFR (MDRD) 56 (>89) L 06/23/20 08:01 Glucose 137 mg/dL (70-100) H 06/23/20 08:01 POC Whole Bld Glucose 108 mg/dL (70 - 100) H 06/23/20 06:28 Lactic Acid 2.0 mmol/L (0.5-2.2) 06/19/20 18:06 Calcium 8.8 mg/dL (8.5-10.3) 06/23/20 08:01 Ionized Calcium NO 06/14/20 04:25 Phosphorus 2.9 mg/dL (2.5-4.6) 06/22/20 05:00 Magnesium 2.2 mg/dL (1.7-2.8) 06/22/20 05:00 Total Bilirubin 0.3 mg/dL (0.2-1.0) 06/22/20 05:00 AST 13 IU/L (10-42) 06/22/20 05:00 ALT 10 IU/L (10-60) 06/22/20 05:00 Alkaline Phosphatase 50 IU/L (42-121) 06/22/20 05:00 Troponin I High Sens 43.7 ng/L (2.3-14.8) H* 06/20/20 05:28 C-Reactive Protein 47.9 mg/dL (0-1.0) H 06/12/20 16:17 Total Protein 4.3 g/dL (6.7-8.2) L 06/22/20 05:00 Albumin 1.5 g/dL (3.2-5.5) L 06/22/20 05:00 Globulin 2.8 g/dL (2.1-4.2) 06/22/20 05:00 Albumin/Globulin Ratio 0.5 (1.0-2.2) L 06/22/20 05:00 Prealbumin 7 mg/dL (18-45) L 06/22/20 05:00 Triglycerides 118 mg/dL (-149) 06/22/20 05:00 Lipase 18 U/L (22-51) L 06/12/20 16:17 Urine Color YELLOW 06/12/20 18:42 Urine Clarity CLOUDY (CLEAR) 06/12/20 18:42 Urine pH 5.5 PH (5.0-7.5) 06/12/20 18:42 Ur Specific [place] 1.020 (1.002-1.030) 06/12/20 18:42 Urine Protein 30 mg/dL (NEGATIVE) H 06/12/20 18:42 Urine Glucose (UA) NEGATIVE mg/dL (NEGATIVE) 06/12/20 18:42 Urine Ketones NEGATIVE mg/dL (NEGATIVE) 06/12/20 18:42 Urine Occult Blood TRACE-INTA (NEGATIVE) 06/12/20 18:42 Urine Nitrite NEGATIVE (NEGATIVE) 06/12/20 18:42 Urine Bilirubin NEGATIVE (NEGATIVE) 06/12/20 18:42 Urine Urobilinogen 0.2 (NORMAL) E.U./dL (NORMAL) 06/12/20 18:42 Ur Leukocyte Esterase NEGATIVE (NEGATIVE) 06/12/20 18:42 Urine RBC 0-5 /HPF (0-5) 06/12/20 18:42 Urine WBC 4-5 /HPF (0-5) 06/12/20 18:42 Ur Squamous Epith Cells MANY Squamous (<= Few) H 06/12/20 18:42 Amorphous Sediment Few /LPF 06/12/20 18:42 Urine Bacteria Moderate /HPF (None Seen) H 06/12/20 18:42 Urine Casts 3-5 Granular Casts /LPF 06/12/20 18:42 Urine Mucus Few Strands 06/12/20 18:42 Ur Microscopic Review INDICATED 06/12/20 18:42 Urine Culture Comments NOT INDICATED 06/12/20 18:42 Nasal Adenovirus (PCR) NOT DETECTED 06/12/20 20:25 Nasal B. parapertussis DNA (PCR) NOT DETECTED 06/12/20 20:25 Nasal Coronavir 229E PCR NOT DETECTED 06/12/20 20:25 Nasal Coronavir HKU1 PCR NOT DETECTED 06/12/20 20:25 Nasal Coronavir NL63 PCR NOT DETECTED 06/12/20 20:25 Nasal Coronavir OC43 PCR NOT DETECTED 06/12/20 20:25 Nasal Enterovir/Rhinovir PCR NOT DETECTED 06/12/20 20:25 Nasal Influenza B PCR NOT DETECTED 06/12/20 20:25 Nasal Influenza A PCR NOT DETECTED 06/12/20 20:25 Nasal Parainfluen 1 PCR NOT DETECTED 06/12/20 20:25 Nasal Parainfluen 2 PCR NOT DETECTED 06/12/20 20:25 Nasal Parainfluen 3 PCR NOT DETECTED 06/12/20 20:25 Nasal Parainfluen 4 PCR NOT DETECTED 06/12/20 20:25 Nasal RSV (PCR) NOT DETECTED 06/12/20 20:25 Nasal Screen MRSA (PCR) NEGATIVE (NEGATIVE) 06/19/20 18:00 Nasal B.pertussis DNA PCR NOT DETECTED 06/12/20 20:25 Nasal C.pneumoniae (PCR) NOT DETECTED 06/12/20 20:25 [place] Human Metapneumo PCR NOT DETECTED 06/12/20 20:25 Nasal M.pneumoniae (PCR) NOT DETECTED 06/12/20 20:25 Nasal SARS-CoV-2 (PCR) NOT DETECTED 06/12/20 20:25 Last Dose Date UNK 06/21/20 12:13 Last Dose Time UNK 06/21/20 12:13 [place] 0.66 mmol/L 06/21/20 12:13 Blood Type A POSITIVE 06/19/20 17:45 Blood Type Recheck A POSITIVE 06/19/20 17:11 Antibody Screen NEGATIVE 06/19/20 17:45 Crossmatch IS Only See Detail 06/19/20 17:45 - Procedures Procedures: Procedures EXCISION OF CECUM, ENDO (12/16/15) EXCISION OF DUODENUM, ENDO, DIAGN (06/10/20) EXCISION OF SIGMOID COLON, ENDO (12/16/15) EXCISION OF STOMACH, ENDO (06/10/20) EXCISION OF TRANSVERSE COLON, ENDO (06/10/20) HAND FASCIECTOMY NEC (01/02/13) ABX Reporting Has patient been on IV antibiotics over the past 48 hours?: Yes
[2020-06-23] MEDS ORDERED: DEXTROSE 5% 1,000 ML IV SCH (09:00)
[2020-06-23] MEDS: HEPARIN 5,000 UNIT/ML VIAL SUBQ SCH ×2 (09:15→21:16)
[2020-06-23] MEDS: polyethylene glycoL 3350 17 GM PACKET PO SCH ×2 (09:15→21:17)
[2020-06-23 14:47] LABS: CALCIUM 8.8 mg/dL (8.5-10.3); POTASSIUM 3.8 mmol/L (3.5-5.0)
[2020-06-23] MEDS: DEXTROSE 5% 1,000 ML IV SCH ×2 (14:55→19:21)
--- NOTE | 2020-06-23 16:26 | PROVIDER PROGRESS NOTE ---
Subjective - Subjective Pt reports feeling: Improved (having bms and appetite returning) Objective - Vital Signs/Intake & Output Reviewed Vital Signs: Yes Vital Signs: Vital Signs x48h Pulse Pulse Pulse Resp BP BP BP 06/23/20 16:00 97 12 130/66 06/23/20 15:00 93 19 136/71 H 06/23/20 14:00 90 13 104/61 06/23/20 13:00 84 13 130/60 06/23/20 12:00 92 17 122/75 06/23/20 11:00 99 18 140/69 H 06/23/20 10:45 100 100 140/69 H 126/67 06/23/20 10:43 101 H 85 140/69 H 126/67 06/23/20 10:00 96 15 125/88 H 06/23/20 09:00 91 15 138/66 H Pulse Ox 06/23/20 16:00 98 06/23/20 15:00 98 06/23/20 14:00 98 06/23/20 13:00 100 06/23/20 12:00 97 06/23/20 11:00 97 06/23/20 10:45 06/23/20 10:43 06/23/20 10:00 97 06/23/20 09:00 97 Intake & Output: Intake & Output 06/20/20 06/21/20 06/22/20 06/23/20 23:59 23:59 23:59 23:59 Intake Total 3534.347 5436.720 5257.952 3089.122 Output Total 981 4675 7265 3835 Balance 2553.347 761.720 -2007.048 -745.878 - Objective General Appearance: positive: Alert Eyes Bilateral: positive: PERRL, EOMI ENT: positive: No signs of dehydration Neck: positive: No JVD Abdomen: positive: Non-tender, No distention Neurologic/Psychiatric: positive: Oriented x3 - Lab Results Fish Bones: 06/23/20 08:01 06/23/20 14:33 Other Labs: Lab Results x24hrs 06/23/20 06/23/20 06/23/20 Range/Units 14:33 11:53 08:01 WBC (4.8-10.8) x10^3/uL RBC (4.20-5.40) 10^6/uL Hgb (12.0-16.0) g/dL Hct (37.0-47.0) % MCV (81.0-99.0) fL MCH (27.0-31.0) pg MCHC (32.0-36.0) g/dL RDW (12.0-15.0) % Plt Count (130-450) 10^3/uL MPV (7.9-10.8) fL Neut # (Auto) (1.5-6.6) 10^3/uL Lymph # (Auto) (1.5-3.5) 10^3/uL [place] # (Auto) (0.0-1.0) 10^3/uL Eos # (Auto) (0.0-0.7) 10^3/uL Baso # (Auto) (0.0-0.1) 10^3/uL Absolute Nucleated RBC x10^3/uL Nucleated RBC % /100WBC Sodium 152 H 152 H (135-145) mmol/L Potassium 3.8 3.6 (3.5-5.0) mmol/L Chloride 120 H* 120 H* (101-111) mmol/L Carbon Dioxide 28 27 (21-32) mmol/L Anion Gap 4.0 L 5.0 L (6-13) BUN 20 19 (6-20) mg/dL Creatinine 1.0 1.0 (0.4-1.0) mg/dL Estimated GFR (MDRD) 56 L 56 L (>89) Glucose 133 H 137 H (70-100) mg/dL POC Whole Bld Glucose 129 H (70 - 100) mg/dL Calcium 8.8 8.8 (8.5-10.3) mg/dL 06/23/20 06/23/20 06/22/20 Range/Units 08:01 06:28 23:16 WBC 14.7 H (4.8-10.8) x10^3/uL RBC 2.66 L (4.20-5.40) 10^6/uL Hgb 8.3 L (12.0-16.0) g/dL Hct 26.1 L (37.0-47.0) % MCV 98.1 (81.0-99.0) fL MCH 31.2 H (27.0-31.0) pg MCHC 31.8 L (32.0-36.0) g/dL RDW 17.3 H (12.0-15.0) % Plt Count 263 (130-450) 10^3/uL MPV 11.3 H (7.9-10.8) fL Neut # (Auto) 13.2 H (1.5-6.6) 10^3/uL Lymph # (Auto) 0.6 L (1.5-3.5) 10^3/uL [place] # (Auto) 0.5 (0.0-1.0) 10^3/uL Eos # (Auto) 0.2 (0.0-0.7) 10^3/uL Baso # (Auto) 0.0 (0.0-0.1) 10^3/uL Absolute Nucleated RBC 0.00 x10^3/uL Nucleated RBC % 0.0 /100WBC Sodium (135-145) mmol/L Potassium (3.5-5.0) mmol/L Chloride (101-111) mmol/L Carbon Dioxide (21-32) mmol/L Anion Gap (6-13) BUN (6-20) mg/dL Creatinine (0.4-1.0) mg/dL Estimated GFR (MDRD) (>89) Glucose (70-100) mg/dL POC Whole Bld Glucose 108 H 133 H (70 - 100) mg/dL Calcium (8.5-10.3) mg/dL 06/22/20 Range/Units 17:14 WBC (4.8-10.8) x10^3/uL RBC (4.20-5.40) 10^6/uL Hgb (12.0-16.0) g/dL Hct (37.0-47.0) % MCV (81.0-99.0) fL MCH (27.0-31.0) pg MCHC (32.0-36.0) g/dL RDW (12.0-15.0) % Plt Count (130-450) 10^3/uL MPV (7.9-10.8) fL Neut # (Auto) (1.5-6.6) 10^3/uL Lymph # (Auto) (1.5-3.5) 10^3/uL [place] # (Auto) (0.0-1.0) 10^3/uL Eos # (Auto) (0.0-0.7) 10^3/uL Baso # (Auto) (0.0-0.1) 10^3/uL Absolute Nucleated RBC x10^3/uL Nucleated RBC % /100WBC Sodium (135-145) mmol/L Potassium (3.5-5.0) mmol/L Chloride (101-111) mmol/L Carbon Dioxide (21-32) mmol/L Anion Gap (6-13) BUN (6-20) mg/dL Creatinine (0.4-1.0) mg/dL Estimated GFR (MDRD) (>89) Glucose (70-100) mg/dL POC Whole Bld Glucose 113 H (70 - 100) mg/dL Calcium (8.5-10.3) mg/dL Assessment/Plan - Problem List (1) Adenomatous colon polyp Impression: doing well. diet clears
[2020-06-23] MEDS: TPN (CLINIMIX E 5/15) 2,000 ML with MULTIVITAMIN 10 ML, TRACE ELEMENTS 1 ML IV SCH ×3 (18:52)
[2020-06-23] MEDS: FAT EMULSION 20% 250 ML IV SCH (18:52)
[2020-06-23 19:15] LABS: CALCIUM 8.7 mg/dL (8.5-10.3); POTASSIUM 3.2 mmol/L (3.5-5.0)
[2020-06-23] MEDS: ATORVASTATIN 10 MG TABLET PO SCH (21:06)
[2020-06-23] MEDS: DULoxetine 30 MG CAPSULE PO SCH (21:06)
[2020-06-23] MEDS: LITHIUM ER 300 MG TABLET PO SCH (21:06)
[2020-06-24] MEDS: SODIUM CHLORIDE FLUSH 0.9% 10 ML SYRINGE IVP SCH ×7 (01:36→20:53)
[2020-06-24] MEDS: ACETAMINOPHEN 500 MG TABLET PO SCH ×4 (01:36→19:47)
[2020-06-24] MEDS: METOCLOPRAMIDE 10 MG/2 ML VIAL IVP SCH ×3 (01:36→15:10)
[2020-06-24] MEDS: DEXTROSE 5% 1,000 ML IV SCH (04:01)
[2020-06-24] MEDS: SODIUM CHLORIDE FLUSH 0.9% 10 ML SYRINGE IVP PRN ×7 (04:25→19:37)
[2020-06-24] MEDS: MORPHINE 2 MG/ML CARPUJECT IVP PRN (04:25)
[2020-06-24] MEDS: MEROPENEM 1 GM in SODIUM CHLORIDE 0.9% MINIBAG 100 ML IV SCH ×2 (04:58→12:44)
[2020-06-24 05:12] LABS: BASOPHILS % (AUTO) 0.1 %; EOSINOPHILS # (AUTO) 0.2 10^3/uL (0.0-0.7); EOSINOPHILS % (AUTO) 2.3 %; HCT - HEMATOCRIT 23.7 % (37.0-47.0); HGB - HEMOGLOBIN 7.5 g/dL (12.0-16.0); LYMPHOCYTES # (AUTO) 0.6 10^3/uL (1.5-3.5); LYMPHOCYTES % (AUTO) 6.4 %; MEAN CORPUSCULAR HEMOGLOBIN 31.3 pg (27.0-31.0); MEAN CORPUSCULAR HGB CONC 31.6 g/dL (32.0-36.0); MEAN CORPUSCULAR VOLUME 98.8 fL (81.0-99.0); MEAN PLATELET VOLUME 11.4 fL (7.9-10.8); MONOCYTES # (AUTO) 0.4 10^3/uL (0.0-1.0); MONOCYTES % (AUTO) 4.2 %; NEUTROPHILS # (AUTO) 8.6 10^3/uL (1.5-6.6); PLT - PLATELET COUNT 235 10^3/uL (130-450); RED CELL DISTRIBUTION WIDTH 16.9 % (12.0-15.0)
[2020-06-24 05:26] LABS: ALBUMIN 1.5 g/dL (3.2-5.5); ALBUMIN/GLOBULIN RATIO 0.5 (1.0-2.2); BILIRUBIN,TOTAL 0.5 mg/dL (0.2-1.0); CALCIUM 8.2 mg/dL (8.5-10.3); CREATININE 0.9 mg/dL (0.4-1.0); MAGNESIUM 1.9 mg/dL (1.7-2.8); PHOSPHORUS 2.4 mg/dL (2.5-4.6); POTASSIUM 3.1 mmol/L (3.5-5.0); TOTAL PROTEIN 4.8 g/dL (6.7-8.2)
[2020-06-24] MEDS: methocarbamoL 500 MG TABLET PO SCH ×4 (06:06→23:57)
[2020-06-24] MEDS: LEVOTHYROXINE 100 MCG TABLET PO SCH (06:06)
[2020-06-24] MEDS: INSULIN REGULAR HUMAN 300 UNIT/3 ML VIAL SUBQ SCH ×2 (06:26→12:32)
--- NOTE | 2020-06-24 07:40 | PROVIDER PROGRESS NOTE ---
Subjective - Prog Note Date Prog Note Date: 06/24/20 - Subjective Subjective: She reports feeling better today. Still has mild abdominal pain with some movement. No nausea or vomiting. Denies chest pain or dyspnea. Has an occasional cough. She is having diarrhea that began yesterday evening. She reports a history of C. difficile about 15 years ago. Current Medications - Current Medications Current Medications: Active Medications Acetaminophen (Acetaminophen 500 Mg Tablet) 1,000 mg PO Q6H [facility] Last Admin: 06/24/20 01:36 Dose: 1,000 mg Documented by: Albuterol (Albuterol Neb 2.5 Mg/3 Ml) 2.5 mg INH RTQ4H PRN PRN Reason: Wheezing Last Admin: 06/16/20 11:53 Dose: 2.5 mg Documented by: Albuterol/Ipratropium (Ipratropium/Albuterol 3 Ml Neb) 3 ml INH RTQID PRN PRN Reason: Wheezing Atorvastatin Calcium (Atorvastatin 10 Mg Tablet) 20 mg PO QPM [facility] Last Admin: 06/23/20 21:06 Dose: 20 mg Documented by: Docusate Sodium (Docusate Sodium 100 Mg Capsule) 100 mg PO BID [facility] Last Admin: 06/23/20 21:07 Dose: 100 mg Documented by: Duloxetine HCl (Duloxetine 30 Mg Capsule) 60 mg PO QPM [facility] Last Admin: 06/23/20 21:06 Dose: 60 mg Documented by: Fluticasone Propionate (Fluticasone Nasal [place]) 1 sprays CARLITA DAILY PRN PRN Reason: Nasal Congestion Gabapentin (Gabapentin 400 Mg Capsule) 1,600 mg PO BID [facility] Last Admin: 06/23/20 21:06 Dose: 1,600 mg Documented by: Heparin Sodium (Porcine) (Heparin 5,000 Unit/Ml Vial) 5,000 unit SUBQ BID [facility] Last Admin: 06/23/20 21:16 Dose: 5,000 unit Documented by: Multivitamins 10 ml/ TRACE ELEMENTS 1 ml/ Amino Ac/Electrol/Dextrose/Calcium 2,011 mls @ 83 mls/hr IV TPN/PPN [facility] Last Admin: 06/23/20 18:52 Dose: 83 mls/hr Documented by: Fat Emulsion Intravenous (Intralipid 20%) 250 mls @ 21 mls/hr IV 1900 [facility] Last Admin: 06/23/20 18:52 Dose: 21 mls/hr Documented by: Meropenem 1 gm/ Sodium (Chloride) 100 mls @ 200 mls/hr IV Q8H [facility] Last Infusion: 06/24/20 05:30 Dose: Infused Documented by: Insulin Human Regular (Insulin Regular Human 300 Unit/3 Ml Vial) 1 - 5 unit SUBQ Q6HR [facility]; Protocol Last Admin: 06/24/20 06:26 Dose: Not Given Documented by: Ipratropium [place] (Ipratropium 0.2 Mg/Ml Neb) 0.5 mg INH Q6HR PRN PRN Reason: Wheezing Levothyroxine Sodium (Levothyroxine 100 Mcg Tablet) 100 mcg PO QDAC [facility] Last Admin: 06/24/20 06:06 Dose: 100 mcg Documented by: Broseley Carbonate (Broseley Er 300 Mg Tablet) 900 mg PO QPM [facility] Last Admin: 06/23/20 21:06 Dose: 900 mg Documented by: Lorazepam (Lorazepam 2 Mg/Ml Vial) 0.5 mg IVP Q1H PRN PRN Reason: Anxiety Last Admin: 06/19/20 23:40 Dose: 0.5 mg Documented by: Methocarbamol (Methocarbamol 500 Mg Tablet) 500 mg PO Q6HR [facility] Last Admin: 06/24/20 06:06 Dose: 500 mg Documented by: Metoclopramide HCl (Metoclopramide 10 Mg/2 Ml Vial) 10 mg IVP Q6H [facility] Last Admin: 06/24/20 01:36 Dose: 10 mg Documented by: Morphine Sulfate (Morphine 2 Mg/Ml Carpuject) 1 mg IVP Q2H PRN PRN Reason: PAIN Last Admin: 06/24/20 04:25 Dose: 1 mg Documented by: Ondansetron HCl (Ondansetron 4 Mg/2 Ml Vial) 4 mg IVP Q6HR PRN PRN Reason: Nausea / Vomiting Pantoprazole Sodium (Pantoprazole 40 Mg Vial) 40 mg IVP BID [facility] Last Admin: 06/23/20 21:07 Dose: 40 mg Documented by: Polyethylene Glycol (Polyethylene Glycol 3350 17 Gm Packet) 17 gm PO BID [facility] Last Admin: 06/23/20 21:17 Dose: Not Given Documented by: Potassium Chloride (Potassium Chloride 20 Meq Tablet) 40 meq PO ONCE ONE; Protocol Stop: 06/24/20 08:01 Saccharomyces Boulardii (Saccharomyces Boulardii 250 Mg Capsule) 250 mg PO BIDWM [facility] Last Admin: 06/23/20 18:51 Dose: 250 mg Documented by: Sodium Chloride (Sodium Chloride Flush 0.9% 10 Ml Syringe) 10 ml IVP 0100,0900,1700 [facility] Last Admin: 06/23/20 21:07 Dose: 10 ml Documented by: Sodium Chloride (Sodium Chloride Flush 0.9% 10 Ml Syringe) 10 ml IVP PRN PRN PRN Reason: NEEDED PER PROVIDER ORDERS Last Admin: 06/24/20 04:59 Dose: 10 ml Documented by: Sodium Chloride (Sodium Chloride Flush 0.9% 10 Ml Syringe) 10 ml IVP 0100,0900,1700 [facility] Last Admin: 06/24/20 01:36 Dose: 10 ml Documented by: Sodium Chloride (Sodium Chloride Flush 0.9% 10 Ml Syringe) 10 ml IVP PRN PRN PRN Reason: NEEDED PER PROVIDER ORDERS Last Admin: 06/24/20 04:59 Dose: 20 ml Documented by: Sodium Phosphate (Neutra-Phos 250 Mg Tablet) 250 mg PO Q2H [facility]; Protocol Stop: 06/24/20 10:01 Albuterol Sulfate [Proair Hfa] 1 puffs IH Q4-6H PRN 12/29/12 DULoxetine [Cymbalta] 60 mg PO DAILY 12/29/12 Fluticasone [Flonase] 1 sprays CARLITA DAILY PRN MDD 1 12/29/12 Gabapentin [Neurontin] 1,600 mg PO BID 12/29/12 Broseley ER [Lithobid] 900 mg PO QPM 12/29/12 Atorvastatin [Lipitor] 20 mg PO DAILY PM 06/10/20 Levothyroxine [Synthroid] 100 mcg PO QDAC 06/13/20 Omeprazole Magnesium 20 mg PO QDAC 06/13/20 Objective - Vital Signs/Intake & Output Reviewed Vital Signs: Yes Vital Signs: Vital Signs Temp Pulse Resp BP Pulse Ox 06/24/20 07:00 95 16 119/88 H 94 06/24/20 06:00 93 20 106/53 L 99 06/24/20 05:00 90 16 117/65 98 06/24/20 04:00 36.8 C 98 21 107/83 H 99 Intake & Output: Intake & Output 06/21/20 06/22/20 06/23/20 06/24/20 23:59 23:59 23:59 23:59 Intake Total 5436.720 5257.952 6268.222 2250 Output Total 46 7246 5463 3351 Balance 761.720 -2006.048 808.222 -1105 - Objective General Appearance: positive: No acute distress, Alert Eyes Bilateral: positive: Normal inspection, Conjunctivae nml ENT: positive: ENT inspection nml Neck: positive: Nml inspection Respiratory: positive: No respiratory distress. negative: Wheezes, Rales Cardiovascular: positive: Regular rate & rhythm, No murmur. negative: Tachycardia Abdomen: positive: Tenderness (Mild epigastric tenderness.), Abnml bowel sounds (Hyperactive), Other (Wound VAC in place. JAIRO drain in the left lower quadrant with minimal serosanguineous output.). negative: No distention, Guarding, Rebound Extremities: positive: Pedal edema (+1 to +2 pitting edema in her bilateral lower extremities.) Neurologic/Psychiatric: negative: Disoriented to person, Disoriented to place - Lab Results Fish Bones: 06/24/20 05:00 06/24/20 05:00 Other Labs: Lab Results x24hrs 06/24/20 06/24/20 06/24/20 Range/Units 06:05 05:00 05:00 WBC 10.0 (4.8-10.8) x10^3/uL RBC 2.40 L (4.20-5.40) 10^6/uL Hgb 7.5 L (12.0-16.0) g/dL Hct 23.7 L (37.0-47.0) % MCV 98.8 (81.0-99.0) fL MCH 31.3 H (27.0-31.0) pg MCHC 31.6 L (32.0-36.0) g/dL RDW 16.9 H (12.0-15.0) % Plt Count 235 (130-450) 10^3/uL MPV 11.4 H (7.9-10.8) fL Neut # (Auto) 8.6 H (1.5-6.6) 10^3/uL Lymph # (Auto) 0.6 L (1.5-3.5) 10^3/uL [place] # (Auto) 0.4 (0.0-1.0) 10^3/uL Eos # (Auto) 0.2 (0.0-0.7) 10^3/uL Baso # (Auto) 0.0 (0.0-0.1) 10^3/uL Absolute Nucleated RBC 0.00 x10^3/uL Nucleated RBC % 0.0 /100WBC Sodium 141 (135-145) mmol/L Potassium 3.1 L (3.5-5.0) mmol/L Chloride 111 (101-111) mmol/L Carbon Dioxide 25 (21-32) mmol/L Anion Gap 5.0 L (6-13) BUN 18 (6-20) mg/dL Creatinine 0.9 (0.4-1.0) mg/dL Estimated GFR (MDRD) 63 L (>89) Glucose 144 H (70-100) mg/dL POC Whole Bld Glucose 130 H (70 - 100) mg/dL Calcium 8.2 L (8.5-10.3) mg/dL Phosphorus 2.4 L (2.5-4.6) mg/dL Magnesium 1.9 (1.7-2.8) mg/dL Total Bilirubin 0.5 (0.2-1.0) mg/dL AST 31 (10-42) IU/L ALT 22 (10-60) IU/L Alkaline Phosphatase 68 (42-121) IU/L Total Protein 4.8 L (6.7-8.2) g/dL Albumin 1.5 L (3.2-5.5) g/dL Globulin 3.3 (2.1-4.2) g/dL Albumin/Globulin Ratio 0.5 L (1.0-2.2) Prealbumin 12 L (18-45) mg/dL Triglycerides 126 ( - 149) mg/dL 06/23/20 06/23/20 06/23/20 Range/Units 23:50 19:00 17:07 WBC (4.8-10.8) x10^3/uL RBC (4.20-5.40) 10^6/uL Hgb (12.0-16.0) g/dL Hct (37.0-47.0) % MCV (81.0-99.0) fL MCH (27.0-31.0) pg MCHC (32.0-36.0) g/dL RDW (12.0-15.0) % Plt Count (130-450) 10^3/uL MPV (7.9-10.8) fL Neut # (Auto) (1.5-6.6) 10^3/uL Lymph # (Auto) (1.5-3.5) 10^3/uL [place] # (Auto) (0.0-1.0) 10^3/uL Eos # (Auto) (0.0-0.7) 10^3/uL Baso # (Auto) (0.0-0.1) 10^3/uL Absolute Nucleated RBC x10^3/uL Nucleated RBC % /100WBC Sodium 149 H (135-145) mmol/L Potassium 3.2 L (3.5-5.0) mmol/L Chloride 118 H (101-111) mmol/L Carbon Dioxide 26 (21-32) mmol/L Anion Gap 5.0 L (6-13) BUN 18 (6-20) mg/dL Creatinine 1.0 (0.4-1.0) mg/dL Estimated GFR (MDRD) 56 L (>89) Glucose 131 H (70-100) mg/dL POC Whole Bld Glucose 111 H 103 H (70 - 100) mg/dL Calcium 8.7 (8.5-10.3) mg/dL Phosphorus (2.5-4.6) mg/dL Magnesium (1.7-2.8) mg/dL Total Bilirubin (0.2-1.0) mg/dL AST (10-42) IU/L ALT (10-60) IU/L Alkaline Phosphatase (42-121) IU/L Total Protein (6.7-8.2) g/dL Albumin (3.2-5.5) g/dL Globulin (2.1-4.2) g/dL Albumin/Globulin Ratio (1.0-2.2) Prealbumin (18-45) mg/dL Triglycerides ( - 149) mg/dL 06/23/20 06/23/20 06/23/20 Range/Units 14:33 11:53 08:01 WBC (4.8-10.8) x10^3/uL RBC (4.20-5.40) 10^6/uL Hgb (12.0-16.0) g/dL Hct (37.0-47.0) % MCV (81.0-99.0) fL MCH (27.0-31.0) pg MCHC (32.0-36.0) g/dL RDW (12.0-15.0) % Plt Count (130-450) 10^3/uL MPV (7.9-10.8) fL Neut # (Auto) (1.5-6.6) 10^3/uL Lymph # (Auto) (1.5-3.5) 10^3/uL [place] # (Auto) (0.0-1.0) 10^3/uL Eos # (Auto) (0.0-0.7) 10^3/uL Baso # (Auto) (0.0-0.1) 10^3/uL Absolute Nucleated RBC x10^3/uL Nucleated RBC % /100WBC Sodium 152 H 152 H (135-145) mmol/L Potassium 3.8 3.6 (3.5-5.0) mmol/L Chloride 120 H* 120 H* (101-111) mmol/L Carbon Dioxide 28 27 (21-32) mmol/L Anion Gap 4.0 L 5.0 L (6-13) BUN 20 19 (6-20) mg/dL Creatinine 1.0 1.0 (0.4-1.0) mg/dL Estimated GFR (MDRD) 56 L 56 L (>89) Glucose 133 H 137 H (70-100) mg/dL POC Whole Bld Glucose 129 H (70 - 100) mg/dL Calcium 8.8 8.8 (8.5-10.3) mg/dL Phosphorus (2.5-4.6) mg/dL Magnesium (1.7-2.8) mg/dL Total Bilirubin (0.2-1.0) mg/dL AST (10-42) IU/L ALT (10-60) IU/L Alkaline Phosphatase (42-121) IU/L Total Protein (6.7-8.2) g/dL Albumin (3.2-5.5) g/dL Globulin (2.1-4.2) g/dL Albumin/Globulin Ratio (1.0-2.2) Prealbumin (18-45) mg/dL Triglycerides ( - 149) mg/dL 06/23/20 Range/Units 08:01 WBC 14.7 H (4.8-10.8) x10^3/uL RBC 2.66 L (4.20-5.40) 10^6/uL Hgb 8.3 L (12.0-16.0) g/dL Hct 26.1 L (37.0-47.0) % MCV 98.1 (81.0-99.0) fL MCH 31.2 H (27.0-31.0) pg MCHC 31.8 L (32.0-36.0) g/dL RDW 17.3 H (12.0-15.0) % Plt Count 263 (130-450) 10^3/uL MPV 11.3 H (7.9-10.8) fL Neut # (Auto) 13.2 H (1.5-6.6) 10^3/uL Lymph # (Auto) 0.6 L (1.5-3.5) 10^3/uL [place] # (Auto) 0.5 (0.0-1.0) 10^3/uL Eos # (Auto) 0.2 (0.0-0.7) 10^3/uL Baso # (Auto) 0.0 (0.0-0.1) 10^3/uL Absolute Nucleated RBC 0.00 x10^3/uL Nucleated RBC % 0.0 /100WBC Sodium (135-145) mmol/L Potassium (3.5-5.0) mmol/L Chloride (101-111) mmol/L Carbon Dioxide (21-32) mmol/L Anion Gap (6-13) BUN (6-20) mg/dL Creatinine (0.4-1.0) mg/dL Estimated GFR (MDRD) (>89) Glucose (70-100) mg/dL POC Whole Bld Glucose (70 - 100) mg/dL Calcium (8.5-10.3) mg/dL Phosphorus (2.5-4.6) mg/dL Magnesium (1.7-2.8) mg/dL Total Bilirubin (0.2-1.0) mg/dL AST (10-42) IU/L ALT (10-60) IU/L Alkaline Phosphatase (42-121) IU/L Total Protein (6.7-8.2) g/dL Albumin (3.2-5.5) g/dL Globulin (2.1-4.2) g/dL Albumin/Globulin Ratio (1.0-2.2) Prealbumin (18-45) mg/dL Triglycerides ( - 149) mg/dL Assessment/Plan - Problem List (1) Hypovolemic shock Impression: She has remained normotensive now over the past 24 hours. She was previously hypotensive requiring vasopressors. It was felt this was related to hypovolemia rather than septic shock despite her elevated white count. She was treated with meropenem IV but she responded well to IV fluids. At this point time, there is no concern for sepsis. We will discontinue the IV fluids and monitor her blood pressure. We will look discontinue antibiotics today as her white count is normal without an obvious source of infection. (2) Hypernatremia Impression: This has now resolved after receiving IV dextrose. Her sodium has decreased about 11 mmol over the past 24 hours. This should hopefully remained stable with no further episodes as she increases her free water intake as she can now take p.o. We will discontinue the dextrose and recheck a sodium this afternoon to ensure it is stable. Continue to encourage oral intake. (3) Leukocytosis Impression: This has now resolved. It appears this was likely reactive rather than related to infection. Her blood cultures have been negative to date. She does remain on meropenem which at this point in time can likely be discontinued. We will discuss this with general surgery. (4) Diarrhea Impression: Given she has been on antibiotics, the concern is for C. difficile. We will check for this and if it is negative then will place her on Imodium as needed. (5) Status post right hemicolectomy Impression: She is now postop day 5 for right hemicolectomy. She has been on TPN but now that she is tolerating clear liquid diet, I am hopeful that her diet can be advanced. Management as per general surgery. (6) Adenomatous colon polyp Impression: She is now status post right hemicolectomy as the polyp had hyperplasia and was concerning for potential malignancy. Postop management as described below and per general surgery. (7) Hypothyroidism Impression: Continue Synthroid. (8) JOHANNE (acute kidney injury) Impression: This has resolved. This was likely prerenal injury as well as component of ATN given the hypotension. Her renal function is back to baseline.
[2020-06-24] MEDS ORDERED: POTASSIUM CHLORIDE 20 MEQ TABLET PO ONE (08:00)
[2020-06-24] MEDS: GABAPENTIN 400 MG CAPSULE PO SCH ×2 (08:46→20:54)
[2020-06-24] MEDS: SACCHAROMYCES BOULARDII 250 MG CAPSULE PO SCH ×2 (08:49→18:43)
[2020-06-24] MEDS: NEUTRA-PHOS 250 MG TABLET PO SCH ×2 (08:49→10:28)
[2020-06-24] MEDS: PANTOPRAZOLE 40 MG VIAL IVP SCH ×2 (08:56→20:53)
[2020-06-24] MEDS: HEPARIN 5,000 UNIT/ML VIAL SUBQ SCH ×2 (09:11→21:03)
[2020-06-24] MEDS: DOCUSATE SODIUM 100 MG CAPSULE PO SCH (09:14)
[2020-06-24] MEDS: polyethylene glycoL 3350 17 GM PACKET PO SCH (09:14)
[2020-06-24 12:48] LABS: CALCIUM 8.3 mg/dL (8.5-10.3); CREATININE 0.9 mg/dL (0.4-1.0); POTASSIUM 3.5 mmol/L (3.5-5.0)
[2020-06-24] MEDS: MIN OIL/DIMETHICON/COCONUT OIL 92 GM TUBE TOP PRN ×2 (15:49→21:37)
--- NOTE | 2020-06-24 16:28 | PROVIDER PROGRESS NOTE ---
Progress Note Subjective: Patient remains in the ICU. Continues with Funk catheter. Now with bowel function. Advance to clear liquids. Out of bed with assistance. Advised of pathology which returned negative for malignancy. However extensive remnant adenomatous tissue. Pre-Op Diagnosis: Post-polypectomy; unresectable adenomatous polyp, high grade dysplasia; SBO Procedure Performed: 1. Diagnostic laparoscopy 2. Laparoscopic adhesiolysis, extensive 3. Laparoscopic extended right colon resection 4. Laparoscopic hepatic flexure mobilization 5. Open umbilical hernia repair 6. Extracorporeal [id number] functional end-to-end isoperistaltic anastomosis 7. Tap block per anesthesia 8. Drain placement 9. Extensive abdominal washout 10. Drainage of abdominal fluid 11. Small bowel resection at site of obstruction Post Op Diagnosis: Same; SBO 2o SB inflammatory adhesion; extended right colectomy Objective Afebrile hemodynamically acceptable General Appearance: positive: No acute distress Eyes Bilateral: positive: Normal inspection ENT: positive: ENT inspection nml Neck: positive: Nml inspection Respiratory: positive: Chest non-tender, No respiratory distress, Breath sounds nml. negative: Wheezes, Rales, Rhonchi Cardiovascular: positive: Regular rate & rhythm Extremities: positive: Non-tender, Full ROM, Nml appearance Neurologic/Psychiatric: positive: Oriented x3, CN's nml (2-12) Abdominal Exam: Inspection - Erythema [none]; Scars [trocars well healed] Auscultation - [Normoactive bowel sounds] Palpation - Hernias [none]; Fluctuance [none]; Induration [none]; Scar [N/A] Wound VAC intact. Drain intact with serosanguineous fluid. Wounds clean dry and intact Impression/Plan Postoperative day #5 status post laparoscopic-assisted right colectomy amongst others as listed above. Resolving ileus. We will continue ICU for another day as the patient continues to auto diurese. (1) GI - IVF, bowel regimen, advance diet as tolerated. GI ppx. [Anticipate ileus]. Opiate sparring analgesia. (2) SURGERY - replace wound VAC. Plan for delayed primary closure of midline wound. (3) Renal/Lytes - continue IVF. Renal indices within normal limits. Continue Funk catheter. (4) Respiratory - O2 as necessary. Continue IS. (5) Heme - Will continue with DVT ppx. H/H stable. (6) Cardiovascular - HD acceptable. (7) Neuro - Opiate sparring analgesia. Antispasmodics with Robaxin. Neuropathic agents. Opiate sparing analgesia as stated. (8) Immune/Infectious Disease - discontinue antibiotics as the patient has gotten appropriate dosing and has normalized from white count..
[2020-06-24] MEDS ORDERED: DEXTROSE 50% ABBOJECT 25 GM/50 ML SYRINGE IVP ONE (17:17)
[2020-06-24] MEDS: DEXTROSE 5%-0.45% NACL 1,000 ML IV SCH (17:35)
[2020-06-24] MEDS: INSULIN ASPART 300 UNIT/3 ML PEN SUBQ SCH ×2 (18:38→21:39)
[2020-06-24] MEDS: DEXTROSE 10% 1,000 ML IV SCH (19:48)
[2020-06-24 19:50] LABS: CALCIUM 8.4 mg/dL (8.5-10.3); CREATININE 0.9 mg/dL (0.4-1.0); POTASSIUM 3.5 mmol/L (3.5-5.0)
[2020-06-24] MEDS: DULoxetine 30 MG CAPSULE PO SCH (20:53)
[2020-06-24] MEDS: LITHIUM ER 300 MG TABLET PO SCH (20:53)
[2020-06-24] MEDS: ATORVASTATIN 10 MG TABLET PO SCH (20:54)
[2020-06-25] MEDS: ACETAMINOPHEN 500 MG TABLET PO SCH ×4 (01:51→20:22)
[2020-06-25] MEDS: SODIUM CHLORIDE FLUSH 0.9% 10 ML SYRINGE IVP PRN ×2 (04:48)
[2020-06-25] MEDS: MIN OIL/DIMETHICON/COCONUT OIL 92 GM TUBE TOP PRN (05:00)
[2020-06-25 05:21] LABS: BASOPHILS % (AUTO) 0.3 %; EOSINOPHILS # (AUTO) 0.2 10^3/uL (0.0-0.7); EOSINOPHILS % (AUTO) 2.1 %; HGB - HEMOGLOBIN 7.6 g/dL (12.0-16.0); LYMPHOCYTES % (AUTO) 8.9 %; MEAN CORPUSCULAR HEMOGLOBIN 31.4 pg (27.0-31.0); MEAN CORPUSCULAR HGB CONC 31.7 g/dL (32.0-36.0); MEAN CORPUSCULAR VOLUME 99.2 fL (81.0-99.0); MEAN PLATELET VOLUME 11.7 fL (7.9-10.8); MONOCYTES # (AUTO) 0.7 10^3/uL (0.0-1.0); MONOCYTES % (AUTO) 6.3 %; NEUTROPHILS # (AUTO) 8.9 10^3/uL (1.5-6.6); NEUTROPHILS % (AUTO) 81.7 %; PLT - PLATELET COUNT 283 10^3/uL (130-450); RED BLOOD COUNT 2.42 10^6/uL (4.20-5.40); RED CELL DISTRIBUTION WIDTH 16.1 % (12.0-15.0)
[2020-06-25 05:29] LABS: CALCIUM 8.3 mg/dL (8.5-10.3); CREATININE 0.9 mg/dL (0.4-1.0); MAGNESIUM 1.8 mg/dL (1.7-2.8); PHOSPHORUS 2.4 mg/dL (2.5-4.6); POTASSIUM 3.5 mmol/L (3.5-5.0)
[2020-06-25] MEDS: methocarbamoL 500 MG TABLET PO SCH ×3 (06:23→17:03)
[2020-06-25] MEDS: LEVOTHYROXINE 100 MCG TABLET PO SCH (06:23)
[2020-06-25] MEDS: DEXTROSE 10% 1,000 ML IV SCH (07:04)
--- NOTE | 2020-06-25 07:40 | PROVIDER PROGRESS NOTE ---
Subjective - Prog Note Date Prog Note Date: 06/25/20 - Subjective Subjective: She continues to report feeling well. Denies any nausea or vomiting. Only has minimal abdominal pain. Continues to have diarrhea. She been able to ambulate although gets fatigued very quickly. Current Medications - Current Medications Current Medications: Active Medications Acetaminophen (Acetaminophen 500 Mg Tablet) 1,000 mg PO Q6H TORI Last Admin: 06/25/20 01:51 Dose: 1,000 mg Documented by: Albuterol (Albuterol Neb 2.5 Mg/3 Ml) 2.5 mg INH RTQ4H PRN PRN Reason: Wheezing Last Admin: 06/16/20 11:53 Dose: 2.5 mg Documented by: Albuterol/Ipratropium (Ipratropium/Albuterol 3 Ml Neb) 3 ml INH RTQID PRN PRN Reason: Wheezing Last Admin: 06/25/20 07:24 Dose: 3 ml Documented by: Atorvastatin Calcium (Atorvastatin 10 Mg Tablet) 20 mg PO QPM TORI Last Admin: 06/24/20 20:54 Dose: 20 mg Documented by: Duloxetine HCl (Duloxetine 30 Mg Capsule) 60 mg PO QPM TORI Last Admin: 06/24/20 20:53 Dose: 60 mg Documented by: Fluticasone Propionate (Fluticasone Nasal Bitely) 1 sprays CARLITA DAILY PRN PRN Reason: Nasal Congestion Gabapentin (Gabapentin 400 Mg Capsule) 1,600 mg PO BID [facility] Last Admin: 06/24/20 20:54 Dose: 1,600 mg Documented by: Heparin Sodium (Porcine) (Heparin 5,000 Unit/Ml Vial) 5,000 unit SUBQ BID [facility] Last Admin: 06/24/20 21:03 Dose: 5,000 unit Documented by: Dextrose/Sodium Chloride (D5.45ns) 1,000 mls @ 83.333 mls/hr IV .Q12H [facility] Last Infusion: 06/24/20 19:50 Dose: Infused Documented by: Dextrose (D10w) 1,000 mls @ 85 mls/hr IV .[id number] [facility] Last Admin: 06/25/20 07:04 Dose: 85 mls/hr Documented by: Insulin Aspart (Insulin Aspart 300 Unit/3 Ml Pen) 1 - 5 unit SUBQ 0800,1200,1700,2100 [facility]; Protocol Last Admin: 06/24/20 21:39 Dose: Not Given Documented by: Ipratropium [place] (Ipratropium 0.2 Mg/Ml Neb) 0.5 mg INH Q6HR PRN PRN Reason: Wheezing Levothyroxine Sodium (Levothyroxine 100 Mcg Tablet) 100 mcg PO QDAC [facility] Last Admin: 06/25/20 06:23 Dose: 100 mcg Documented by: [place] Carbonate ([place] Er 300 Mg Tablet) 900 mg PO QPM [facility] Last Admin: 06/24/20 20:53 Dose: 900 mg Documented by: Lorazepam (Lorazepam 2 Mg/Ml Vial) 0.5 mg IVP Q1H PRN PRN Reason: Anxiety Last Admin: 06/19/20 23:40 Dose: 0.5 mg Documented by: Methocarbamol (Methocarbamol 500 Mg Tablet) 500 mg PO Q6HR [facility] Last Admin: 06/25/20 06:23 Dose: 500 mg Documented by: Mineral Oil (Min Oil/Dimethicon/Coconut Oil 92 Gm Tube) 1 applic TOP PRN PRN PRN Reason: Skin Care Last Admin: 06/25/20 05:00 Dose: 1 applic Documented by: Morphine Sulfate (Morphine 2 Mg/Ml Carpuject) 1 mg IVP Q2H PRN PRN Reason: PAIN Last Admin: 06/24/20 04:25 Dose: 1 mg Documented by: Ondansetron HCl (Ondansetron 4 Mg/2 Ml Vial) 4 mg IVP Q6HR PRN PRN Reason: Nausea / Vomiting Pantoprazole Sodium (Pantoprazole 40 Mg Vial) 40 mg IVP BID [facility] Last Admin: 06/24/20 20:53 Dose: 40 mg Documented by: Saccharomyces Boulardii (Saccharomyces Boulardii 250 Mg Capsule) 250 mg PO BIDWM [facility] Last Admin: 06/24/20 18:43 Dose: 250 mg Documented by: Sodium Chloride (Sodium Chloride Flush 0.9% 10 Ml Syringe) 10 ml IVP 0100,0900,1700 [facility] Last Admin: 06/24/20 19:37 Dose: 10 ml Documented by: Sodium Chloride (Sodium Chloride Flush 0.9% 10 Ml Syringe) 10 ml IVP PRN PRN PRN Reason: NEEDED PER PROVIDER ORDERS Last Admin: 06/25/20 04:48 Dose: 20 ml Documented by: Sodium Chloride (Sodium Chloride Flush 0.9% 10 Ml Syringe) 10 ml IVP 0100,0900,1700 TORI Last Admin: 06/24/20 20:53 Dose: 10 ml Documented by: Sodium Chloride (Sodium Chloride Flush 0.9% 10 Ml Syringe) 10 ml IVP PRN PRN PRN Reason: NEEDED PER PROVIDER ORDERS Last Admin: 06/25/20 04:48 Dose: 10 ml Documented by: Sodium Phosphate (Neutra-Phos 250 Mg Tablet) 250 mg PO Q2H TORI; Protocol Stop: 06/25/20 10:01 Albuterol Sulfate [Proair Hfa] 1 puffs IH Q4-6H PRN 12/29/12 DULoxetine [Cymbalta] 60 mg PO DAILY 12/29/12 Fluticasone [Flonase] 1 sprays CARLITA DAILY PRN MDD 1 12/29/12 Gabapentin [Neurontin] 1,600 mg PO BID 12/29/12 [place] ER [Lithobid] 900 mg PO QPM 12/29/12 Atorvastatin [Lipitor] 20 mg PO DAILY PM 06/10/20 Levothyroxine [Synthroid] 100 mcg PO QDAC 06/13/20 Omeprazole Magnesium 20 mg PO QDAC 06/13/20 Objective - Vital Signs/Intake & Output Reviewed Vital Signs: Yes Vital Signs: Vital Signs x48h Temp Pulse Pulse Resp BP Pulse Ox 06/25/20 07:24 92 20 06/25/20 07:00 97 16 123/71 98 06/25/20 06:00 92 17 110/64 98 06/25/20 05:00 94 21 125/79 100 06/25/20 04:00 36.8 C 96 16 106/71 98 06/25/20 03:00 100 18 114/59 L 96 06/25/20 02:00 95 18 93/60 98 06/25/20 01:00 100 21 111/74 98 06/25/20 00:00 36.8 C 101 H 21 126/84 H 99 Intake & Output: Intake & Output 06/22/20 06/23/20 06/24/20 06/25/20 23:59 23:59 23:59 23:59 Intake Total 5257.952 6268.222 10164.020 3357.667 Output Total 7265 5460 77673 2960 808.222 -104.980 397.667 - Objective General Appearance: positive: No acute distress, Alert Eyes Bilateral: positive: Normal inspection, Conjunctivae nml ENT: positive: ENT inspection nml Neck: positive: Nml inspection Respiratory: positive: No respiratory distress. negative: Wheezes, Rales Cardiovascular: positive: Regular rate & rhythm, No murmur. negative: Tachycardia Abdomen: positive: Nml bowel sounds, Tenderness (Mild diffuse tenderness.), Other (Wound VAC in place. JAIRO drain in the left lower quadrant with minimal output.). negative: Guarding, Rebound Extremities: positive: Pedal edema (+1 to +2 pitting edema in her bilateral lower extremities.) Neurologic/Psychiatric: negative: Disoriented to person, Disoriented to place - Lab Results Fish Bones: 06/25/20 04:50 06/25/20 04:50 Other Labs: Lab Results x24hrs 06/25/20 06/25/20 06/25/20 Range/Units 06:40 04:55 04:50 WBC (4.8-10.8) x10^3/uL RBC (4.20-5.40) 10^6/uL Hgb (12.0-16.0) g/dL Hct (37.0-47.0) % MCV (81.0-99.0) fL MCH (27.0-31.0) pg MCHC (32.0-36.0) g/dL RDW (12.0-15.0) % Plt Count (130-450) 10^3/uL MPV (7.9-10.8) fL Neut # (Auto) (1.5-6.6) 10^3/uL Lymph # (Auto) (1.5-3.5) 10^3/uL [place] # (Auto) (0.0-1.0) 10^3/uL Eos # (Auto) (0.0-0.7) 10^3/uL Baso # (Auto) (0.0-0.1) 10^3/uL Absolute Nucleated RBC x10^3/uL Nucleated RBC % /100WBC Sodium 142 (135-145) mmol/L Potassium 3.5 (3.5-5.0) mmol/L Chloride 112 H (101-111) mmol/L Carbon Dioxide 25 (21-32) mmol/L Anion Gap 5.0 L (6-13) BUN 15 (6-20) mg/dL Creatinine 0.9 (0.4-1.0) mg/dL Estimated GFR (MDRD) 63 L (>89) Glucose 114 H (70-100) mg/dL POC Whole Bld Glucose 108 H 95 (70 - 100) mg/dL Calcium 8.3 L (8.5-10.3) mg/dL Phosphorus 2.4 L (2.5-4.6) mg/dL Magnesium 1.8 (1.7-2.8) mg/dL Stl C. diff Tox B Gene (NEGATIVE) 06/25/20 06/25/20 06/24/20 Range/Units 04:50 00:01 21:02 WBC 11.0 H (4.8-10.8) x10^3/uL RBC 2.42 L (4.20-5.40) 10^6/uL Hgb 7.6 L (12.0-16.0) g/dL Hct 24.0 L (37.0-47.0) % MCV 99.2 H (81.0-99.0) fL MCH 31.4 H (27.0-31.0) pg MCHC 31.7 L (32.0-36.0) g/dL RDW 16.1 H (12.0-15.0) % Plt Count 283 (130-450) 10^3/uL MPV 11.7 H (7.9-10.8) fL Neut # (Auto) 8.9 H (1.5-6.6) 10^3/uL Lymph # (Auto) 1.0 L (1.5-3.5) 10^3/uL [place] # (Auto) 0.7 (0.0-1.0) 10^3/uL Eos # (Auto) 0.2 (0.0-0.7) 10^3/uL Baso # (Auto) 0.0 (0.0-0.1) 10^3/uL Absolute Nucleated RBC 0.00 x10^3/uL Nucleated RBC % 0.0 /100WBC Sodium (135-145) mmol/L Potassium (3.5-5.0) mmol/L Chloride (101-111) mmol/L Carbon Dioxide (21-32) mmol/L Anion Gap (6-13) BUN (6-20) mg/dL Creatinine (0.4-1.0) mg/dL Estimated GFR (MDRD) (>89) Glucose (70-100) mg/dL POC Whole Bld Glucose 85 105 H (70 - 100) mg/dL Calcium (8.5-10.3) mg/dL Phosphorus (2.5-4.6) mg/dL Magnesium (1.7-2.8) mg/dL Stl C. diff Tox B Gene (NEGATIVE) 06/24/20 06/24/20 06/24/20 Range/Units 19:38 19:30 18:47 WBC (4.8-10.8) x10^3/uL RBC (4.20-5.40) 10^6/uL Hgb (12.0-16.0) g/dL Hct (37.0-47.0) % MCV (81.0-99.0) fL MCH (27.0-31.0) pg MCHC (32.0-36.0) g/dL RDW (12.0-15.0) % Plt Count (130-450) 10^3/uL MPV (7.9-10.8) fL Neut # (Auto) (1.5-6.6) 10^3/uL Lymph # (Auto) (1.5-3.5) 10^3/uL [place] # (Auto) (0.0-1.0) 10^3/uL Eos # (Auto) (0.0-0.7) 10^3/uL Baso # (Auto) (0.0-0.1) 10^3/uL Absolute Nucleated RBC x10^3/uL Nucleated RBC % /100WBC Sodium 144 (135-145) mmol/L Potassium 3.5 (3.5-5.0) mmol/L Chloride 115 H (101-111) mmol/L Carbon Dioxide 24 (21-32) mmol/L Anion Gap 5.0 L (6-13) BUN 17 (6-20) mg/dL Creatinine 0.9 (0.4-1.0) mg/dL Estimated GFR (MDRD) 63 L (>89) Glucose 138 H (70-100) mg/dL POC Whole Bld Glucose 131 H 104 H (70 - 100) mg/dL Calcium 8.4 L (8.5-10.3) mg/dL Phosphorus (2.5-4.6) mg/dL Magnesium (1.7-2.8) mg/dL Stl C. diff Tox B Gene (NEGATIVE) 06/24/20 06/24/20 06/24/20 Range/Units 17:52 17:27 17:06 WBC (4.8-10.8) x10^3/uL RBC (4.20-5.40) 10^6/uL Hgb (12.0-16.0) g/dL Hct (37.0-47.0) % MCV (81.0-99.0) fL MCH (27.0-31.0) pg MCHC (32.0-36.0) g/dL RDW (12.0-15.0) % Plt Count (130-450) 10^3/uL MPV (7.9-10.8) fL Neut # (Auto) (1.5-6.6) 10^3/uL Lymph # (Auto) (1.5-3.5) 10^3/uL [place] # (Auto) (0.0-1.0) 10^3/uL Eos # (Auto) (0.0-0.7) 10^3/uL Baso # (Auto) (0.0-0.1) 10^3/uL Absolute Nucleated RBC x10^3/uL Nucleated RBC % /100WBC Sodium (135-145) mmol/L Potassium (3.5-5.0) mmol/L Chloride (101-111) mmol/L Carbon Dioxide (21-32) mmol/L Anion Gap (6-13) BUN (6-20) mg/dL Creatinine (0.4-1.0) mg/dL Estimated GFR (MDRD) (>89) Glucose (70-100) mg/dL POC Whole Bld Glucose 168 H 55 L* 50 L* (70 - 100) mg/dL Calcium (8.5-10.3) mg/dL Phosphorus (2.5-4.6) mg/dL Magnesium (1.7-2.8) mg/dL Stl C. diff Tox B Gene (NEGATIVE) 06/24/20 06/24/20 06/24/20 Range/Units 16:54 16:49 12:28 WBC (4.8-10.8) x10^3/uL RBC (4.20-5.40) 10^6/uL Hgb (12.0-16.0) g/dL Hct (37.0-47.0) % MCV (81.0-99.0) fL MCH (27.0-31.0) pg MCHC (32.0-36.0) g/dL RDW (12.0-15.0) % Plt Count (130-450) 10^3/uL MPV (7.9-10.8) fL Neut # (Auto) (1.5-6.6) 10^3/uL Lymph # (Auto) (1.5-3.5) 10^3/uL [place] # (Auto) (0.0-1.0) 10^3/uL Eos # (Auto) (0.0-0.7) 10^3/uL Baso # (Auto) (0.0-0.1) 10^3/uL Absolute Nucleated RBC x10^3/uL Nucleated RBC % /100WBC Sodium 143 (135-145) mmol/L Potassium 3.5 (3.5-5.0) mmol/L Chloride 112 H (101-111) mmol/L Carbon Dioxide 26 (21-32) mmol/L Anion Gap 5.0 L (6-13) BUN 17 (6-20) mg/dL Creatinine 0.9 (0.4-1.0) mg/dL Estimated GFR (MDRD) 63 L (>89) Glucose 115 H (70-100) mg/dL POC Whole Bld Glucose 66 L 32 L* (70 - 100) mg/dL Calcium 8.3 L (8.5-10.3) mg/dL Phosphorus (2.5-4.6) mg/dL Magnesium (1.7-2.8) mg/dL Stl C. diff Tox B Gene (NEGATIVE) 06/24/20 06/24/20 Range/Units 12:21 10:21 WBC (4.8-10.8) x10^3/uL RBC (4.20-5.40) 10^6/uL Hgb (12.0-16.0) g/dL Hct (37.0-47.0) % MCV (81.0-99.0) fL MCH (27.0-31.0) pg MCHC (32.0-36.0) g/dL RDW (12.0-15.0) % Plt Count (130-450) 10^3/uL MPV (7.9-10.8) fL Neut # (Auto) (1.5-6.6) 10^3/uL Lymph # (Auto) (1.5-3.5) 10^3/uL [place] # (Auto) (0.0-1.0) 10^3/uL Eos # (Auto) (0.0-0.7) 10^3/uL Baso # (Auto) (0.0-0.1) 10^3/uL Absolute Nucleated RBC x10^3/uL Nucleated RBC % /100WBC Sodium (135-145) mmol/L Potassium (3.5-5.0) mmol/L Chloride (101-111) mmol/L Carbon Dioxide (21-32) mmol/L Anion Gap (6-13) BUN (6-20) mg/dL Creatinine (0.4-1.0) mg/dL Estimated GFR (MDRD) (>89) Glucose (70-100) mg/dL POC Whole Bld Glucose 109 H (70 - 100) mg/dL Calcium (8.5-10.3) mg/dL Phosphorus (2.5-4.6) mg/dL Magnesium (1.7-2.8) mg/dL Stl C. diff Tox B Gene NEGATIVE (NEGATIVE) Assessment/Plan - Problem List (1) Hypoglycemia Impression: She was hypoglycemic yesterday evening and this was likely due to decreased p.o. intake as she was being weaned off of the TPN. She was placed back on D5 and her blood glucose has been stable. Given her p.o. intake is now increasing, will discontinue the IV dextrose and monitor her blood glucose. If she has further episodes of hypoglycemia then we will resume D5. We will check an A1c and TSH. (2) Leukocytosis Impression: The slightly increased today but overall stable and improved. We have discontinued her IV antibiotics given there has been no obvious source of infection. We will continue to monitor. (3) Diarrhea Impression: She was tested for C. difficile and this is negative. We will place her on Imodium as needed. (4) Status post right hemicolectomy Impression: She is now postop day 6 for right hemicolectomy. She is now off of TPN and has been tolerating liquid diet which is being advanced. Management as per general surgery. (5) Adenomatous colon polyp Impression: She is now status post right hemicolectomy as the polyp had hyperplasia and was concerning for potential malignancy. Postop management as described below and per general surgery. (6) Hypothyroidism Impression: Stable. Continue Synthroid. (7) JOHANNE (acute kidney injury) Impression: This has resolved. Her renal function is back to baseline. (8) Hypernatremia Impression: This has not resolved and was likely due to decreased free water intake. (9) Hypovolemic shock Impression: This has resolved. It was felt she had hypovolemic shock rather than septic shock. We discontinued IV antibiotics and her blood pressure has remained stable.
[2020-06-25] MEDS: DEXTROSE 5%-0.45% NACL 1,000 ML IV SCH (07:58)
[2020-06-25] MEDS: INSULIN ASPART 300 UNIT/3 ML PEN SUBQ SCH ×4 (08:43→21:25)
[2020-06-25] MEDS: SODIUM CHLORIDE FLUSH 0.9% 10 ML SYRINGE IVP SCH ×4 (08:44→17:01)
[2020-06-25] MEDS: PANTOPRAZOLE 40 MG VIAL IVP SCH (08:52)
[2020-06-25] MEDS: HEPARIN 5,000 UNIT/ML VIAL SUBQ SCH ×2 (08:53→21:12)
[2020-06-25] MEDS: NEUTRA-PHOS 250 MG TABLET PO SCH ×2 (08:53→11:54)
[2020-06-25] MEDS: GABAPENTIN 400 MG CAPSULE PO SCH ×2 (08:53→20:31)
[2020-06-25] MEDS: PANTOPRAZOLE 40 MG TABLET PO SCH (15:19)
[2020-06-25] MEDS: SACCHAROMYCES BOULARDII 250 MG CAPSULE PO SCH (17:03)
[2020-06-25] MEDS: LOPERAMIDE 2 MG CAPSULE PO PRN (18:11)
[2020-06-25] MEDS: DULoxetine 30 MG CAPSULE PO SCH (20:32)
[2020-06-25] MEDS: ATORVASTATIN 10 MG TABLET PO SCH (20:32)
[2020-06-25] MEDS: LITHIUM ER 300 MG TABLET PO SCH (20:32)
[2020-06-26] MEDS: SODIUM CHLORIDE FLUSH 0.9% 10 ML SYRINGE IVP SCH ×6 (00:04→18:13)
[2020-06-26] MEDS: methocarbamoL 500 MG TABLET PO SCH ×4 (00:04→18:05)
[2020-06-26] MEDS: LOPERAMIDE 2 MG CAPSULE PO PRN ×2 (00:04→09:00)
[2020-06-26] MEDS: ACETAMINOPHEN 500 MG TABLET PO SCH ×4 (01:58→21:35)
[2020-06-26] MEDS: SODIUM CHLORIDE FLUSH 0.9% 10 ML SYRINGE IVP PRN ×2 (05:07)
[2020-06-26 05:25] LABS: BASOPHILS % (AUTO) 0.3 %; EOSINOPHILS # (AUTO) 0.3 10^3/uL (0.0-0.7); EOSINOPHILS % (AUTO) 2.8 %; HCT - HEMATOCRIT 22.2 % (37.0-47.0); LYMPHOCYTES # (AUTO) 1.2 10^3/uL (1.5-3.5); LYMPHOCYTES % (AUTO) 10.1 %; MEAN CORPUSCULAR HEMOGLOBIN 31.1 pg (27.0-31.0); MEAN CORPUSCULAR HGB CONC 31.5 g/dL (32.0-36.0); MEAN CORPUSCULAR VOLUME 98.7 fL (81.0-99.0); MEAN PLATELET VOLUME 11.2 fL (7.9-10.8); MONOCYTES # (AUTO) 0.7 10^3/uL (0.0-1.0); MONOCYTES % (AUTO) 5.8 %; NEUTROPHILS # (AUTO) 9.5 10^3/uL (1.5-6.6); PLT - PLATELET COUNT 282 10^3/uL (130-450); RED BLOOD COUNT 2.25 10^6/uL (4.20-5.40); RED CELL DISTRIBUTION WIDTH 15.5 % (12.0-15.0); WHITE BLOOD COUNT 11.9 x10^3/uL (4.8-10.8)
[2020-06-26 05:37] LABS: CALCIUM 8.1 mg/dL (8.5-10.3); MAGNESIUM 1.9 mg/dL (1.7-2.8); PHOSPHORUS 3.2 mg/dL (2.5-4.6); POTASSIUM 3.8 mmol/L (3.5-5.0)
[2020-06-26] MEDS: LEVOTHYROXINE 100 MCG TABLET PO SCH (06:04)
[2020-06-26] MEDS: PANTOPRAZOLE 40 MG TABLET PO SCH ×2 (06:04→16:15)
--- NOTE | 2020-06-26 07:41 | PROVIDER PROGRESS NOTE ---
Subjective - Prog Note Date Prog Note Date: 06/26/20 - Subjective Subjective: She reports feeling better each day. She is able to ambulate the hallways yesterday with physical therapy. She became easily fatigued but was happy to walk. Denies chest pain or dyspnea. States her pain is controlled in her abdomen. She is having less diarrhea with the Imodium. Current Medications - Current Medications Current Medications: Active Medications Acetaminophen (Acetaminophen 500 Mg Tablet) 1,000 mg PO Q6H FORMERLY [facility], [facility]1983 Last Admin: 06/26/20 09:00 Dose: 1,000 mg Documented by: Albuterol (Albuterol Neb 2.5 Mg/3 Ml) 2.5 mg INH RTQ4H PRN PRN Reason: Wheezing Last Admin: 06/16/20 11:53 Dose: 2.5 mg Documented by: Albuterol/Ipratropium (Ipratropium/Albuterol 3 Ml Neb) 3 ml INH RTQID PRN PRN Reason: Wheezing Last Admin: 06/25/20 07:24 Dose: 3 ml Documented by: Atorvastatin Calcium (Atorvastatin 10 Mg Tablet) 20 mg PO QPM FOR[facility]LY [facility], [facility]1983 Last Admin: 06/25/20 20:32 Dose: 20 mg Documented by: Duloxetine HCl (Duloxetine 30 Mg Capsule) 60 mg PO QPM FOR[facility], [facility]1983 Last Admin: 06/25/20 20:32 Dose: 60 mg Documented by: Fluticasone Propionate (Fluticasone Nasal Sunset) 1 sprays CARLITA DAILY PRN PRN Reason: Nasal Congestion Gabapentin (Gabapentin 400 Mg Capsule) 1,600 mg PO BID FORMERLY [facility], [facility] Last Admin: 06/26/20 09:00 Dose: 1,600 mg Documented by: Heparin Sodium (Porcine) (Heparin 5,000 Unit/Ml Vial) 5,000 unit SUBQ BID FOR[facility]LY [facility], [facility]1983 Last Admin: 06/26/20 09:07 Dose: 5,000 unit Documented by: Insulin Aspart (Insulin Aspart 300 Unit/3 Ml Pen) 1 - 5 unit SUBQ 0800,1200,1700,2100 [facility], [facility]; Protocol Last Admin: 06/26/20 09:00 Dose: Not Given Documented by: Ipratropium [place] (Ipratropium 0.2 Mg/Ml Neb) 0.5 mg INH Q6HR PRN PRN Reason: Wheezing Levothyroxine Sodium (Levothyroxine 125 Mcg Tablet) 125 mcg PO QDAC FOR[facility]LY [facility], [facility]1983 Goulds Carbonate (Goulds Er 300 Mg Tablet) 900 mg PO QPM FOR[facility], [facility] Last Admin: 06/25/20 20:32 Dose: 900 mg Documented by: Loperamide HCl (Loperamide 2 Mg Capsule) 2 mg PO QID PRN PRN Reason: Diarrhea Last Admin: 06/26/20 09:00 Dose: 2 mg Documented by: Lorazepam (Lorazepam 2 Mg/Ml Vial) 0.5 mg IVP Q1H PRN PRN Reason: Anxiety Last Admin: 06/19/20 23:40 Dose: 0.5 mg Documented by: Methocarbamol (Methocarbamol 500 Mg Tablet) 500 mg PO Q6HR FOR[facility], [facility] Last Admin: 06/26/20 06:04 Dose: 500 mg Documented by: Mineral Oil (Min Oil/Dimethicon/Coconut Oil 92 Gm Tube) 1 applic TOP PRN PRN PRN Reason: Skin Care Last Admin: 06/25/20 05:00 Dose: 1 applic Documented by: Morphine Sulfate (Morphine 2 Mg/Ml Carpuject) 1 mg IVP Q2H PRN PRN Reason: PAIN Last Admin: 06/24/20 04:25 Dose: 1 mg Documented by: Ondansetron HCl (Ondansetron 4 Mg/2 Ml Vial) 4 mg IVP Q6HR PRN PRN Reason: Nausea / Vomiting Pantoprazole Sodium (Pantoprazole 40 Mg Tablet) 40 mg PO BIDAC FOR[facility], [facility]1983 Last Admin: 06/26/20 06:04 Dose: 40 mg Documented by: Saccharomyces Boulardii (Saccharomyces Boulardii 250 Mg Capsule) 500 mg PO BIDWM FOR[facility], [facility]1983 Last Admin: 06/26/20 09:00 Dose: 500 mg Documented by: Sodium Chloride (Sodium Chloride Flush 0.9% 10 Ml Syringe) 10 ml IVP 0100,0900,1700 FOR[facility], [facility]1983 Last Admin: 06/26/20 09:07 Dose: 10 ml Documented by: Sodium Chloride (Sodium Chloride Flush 0.9% 10 Ml Syringe) 10 ml IVP PRN PRN PRN Reason: NEEDED PER PROVIDER ORDERS Last Admin: 06/26/20 05:07 Dose: 20 ml Documented by: Sodium Chloride (Sodium Chloride Flush 0.9% 10 Ml Syringe) 10 ml IVP 0100, 0900,1700 [facility], [facility] Last Admin: 06/26/20 11:01 Dose: Not Given Documented by: Sodium Chloride (Sodium Chloride Flush 0.9% 10 Ml Syringe) 10 ml IVP PRN PRN PRN Reason: NEEDED PER PROVIDER ORDERS Last Admin: 06/26/20 05:07 Dose: 10 ml Documented by: Albuterol Sulfate [Proair Hfa] 1 puffs IH Q4-6H PRN 12/29/12 DULoxetine [Cymbalta] 60 mg PO DAILY 12/29/12 Fluticasone [Flonase] 1 sprays CARLITA DAILY PRN MDD 1 12/29/12 Gabapentin [Neurontin] 1,600 mg PO BID 12/29/12 Goulds ER [Lithobid] 900 mg PO QPM 12/29/12 Atorvastatin [Lipitor] 20 mg PO DAILY PM 06/10/20 Levothyroxine [Synthroid] 100 mcg PO QDAC 06/13/20 Omeprazole Magnesium 20 mg PO QDAC 06/13/20 Objective - Vital Signs/Intake & Output Reviewed Vital Signs: Yes Vital Signs: Vital Signs x48h Temp Pulse Resp BP Pulse Ox 06/26/20 07:00 87 18 99/57 L 100 06/26/20 06:00 88 17 111/62 98 06/26/20 05:00 88 14 106/64 97 06/26/20 04:00 36.7 C 89 16 112/56 L 96 06/26/20 03:00 88 16 110/60 96 06/26/20 02:00 89 17 99/63 98 06/26/20 01:00 89 15 107/68 96 06/26/20 00:12 36.7 C 88 19 122/67 96 Intake & Output: Intake & Output 06/23/20 06/24/20 06/25/20 06/26/20 23:59 23:59 23:59 23:59 Intake Total 6268.222 52208.020 8112.667 2350 Output Total 5460 38781 8165 2420 Balance 808.222 -104.980 -52.333 -70 - Objective General Appearance: positive: No acute distress, Alert Eyes Bilateral: positive: Other (Conjuctival pallor.) ENT: positive: ENT inspection nml Respiratory: positive: No respiratory distress. negative: Wheezes, Rales Cardiovascular: positive: Regular rate & rhythm, No murmur. negative: Tachycardia Abdomen: positive: Nml bowel sounds, Tenderness (Minimal tenderness.), Other (Wound vac in place. JAIRO drain in left lower quadratant with serosanguineous drainage.) Extremities: positive: Pedal edema (+1 to +2 pitting edema in bilateral lower extremities.) Neurologic/Psychiatric: negative: Disoriented to person, Disoriented to place - Lab Results Fish Bones: 06/26/20 05:10 06/26/20 05:10 Other Labs: Lab Results x24hrs 06/26/20 06/26/20 06/26/20 Range/Units 06:48 06:20 05:10 WBC (4.8-10.8) x10^3/uL RBC (4.20-5.40) 10^6/uL Hgb (12.0-16.0) g/dL Hct (37.0-47.0) % MCV (81.0-99.0) fL MCH (27.0-31.0) pg MCHC (32.0-36.0) g/dL RDW (12.0-15.0) % Plt Count (130-450) 10^3/uL MPV (7.9-10.8) fL Neut # (Auto) (1.5-6.6) 10^3/uL Lymph # (Auto) (1.5-3.5) 10^3/uL Cherry # (Auto) (0.0-1.0) 10^3/uL Eos # (Auto) (0.0-0.7) 10^3/uL Baso # (Auto) (0.0-0.1) 10^3/uL Absolute Nucleated RBC x10^3/uL Nucleated RBC % /100WBC Sodium (135-145) mmol/L Potassium (3.5-5.0) mmol/L Chloride (101-111) mmol/L Carbon Dioxide (21-32) mmol/L Anion Gap (6-13) BUN (6-20) mg/dL Creatinine (0.4-1.0) mg/dL Estimated GFR (MDRD) (>89) Glucose (70-100) mg/dL POC Whole Bld Glucose 77 69 L (70 - 100) mg/dL Calcium (8.5-10.3) mg/dL Phosphorus (2.5-4.6) mg/dL Magnesium (1.7-2.8) mg/dL TSH 44.24 H (0.34-5.60) uIU/mL 06/26/20 06/26/20 06/25/20 Range/Units 05:10 05:10 21:10 WBC 11.9 H (4.8-10.8) x10^3/uL RBC 2.25 L (4.20-5.40) 10^6/uL Hgb 7.0 L* (12.0-16.0) g/dL Hct 22.2 L (37.0-47.0) % MCV 98.7 (81.0-99.0) fL MCH 31.1 H (27.0-31.0) pg MCHC 31.5 L (32.0-36.0) g/dL RDW 15.5 H (12.0-15.0) % Plt Count 282 (130-450) 10^3/uL MPV 11.2 H (7.9-10.8) fL Neut # (Auto) 9.5 H (1.5-6.6) 10^3/uL Lymph # (Auto) 1.2 L (1.5-3.5) 10^3/uL Cherry # (Auto) 0.7 (0.0-1.0) 10^3/uL Eos # (Auto) 0.3 (0.0-0.7) 10^3/uL Baso # (Auto) 0.0 (0.0-0.1) 10^3/uL Absolute Nucleated RBC 0.00 x10^3/uL Nucleated RBC % 0.0 /100WBC Sodium 141 (135-145) mmol/L Potassium 3.8 (3.5-5.0) mmol/L Chloride 110 (101-111) mmol/L Carbon Dioxide 25 (21-32) mmol/L Anion Gap 6.0 (6-13) BUN 14 (6-20) mg/dL Creatinine 1.0 (0.4-1.0) mg/dL Estimated GFR (MDRD) 56 L (>89) Glucose 81 (70-100) mg/dL POC Whole Bld Glucose 76 (70 - 100) mg/dL Calcium 8.1 L (8.5-10.3) mg/dL Phosphorus 3.2 (2.5-4.6) mg/dL Magnesium 1.9 (1.7-2.8) mg/dL TSH (0.34-5.60) uIU/mL 06/25/20 06/25/20 06/25/20 Range/Units 20:25 17:36 16:50 WBC (4.8-10.8) x10^3/uL RBC (4.20-5.40) 10^6/uL Hgb (12.0-16.0) g/dL Hct (37.0-47.0) % MCV (81.0-99.0) fL MCH (27.0-31.0) pg MCHC (32.0-36.0) g/dL RDW (12.0-15.0) % Plt Count (130-450) 10^3/uL MPV (7.9-10.8) fL Neut # (Auto) (1.5-6.6) 10^3/uL Lymph # (Auto) (1.5-3.5) 10^3/uL Cherry # (Auto) (0.0-1.0) 10^3/uL Eos # (Auto) (0.0-0.7) 10^3/uL Baso # (Auto) (0.0-0.1) 10^3/uL Absolute Nucleated RBC x10^3/uL Nucleated RBC % /100WBC Sodium (135-145) mmol/L Potassium (3.5-5.0) mmol/L Chloride (101-111) mmol/L Carbon Dioxide (21-32) mmol/L Anion Gap (6-13) BUN (6-20) mg/dL Creatinine (0.4-1.0) mg/dL Estimated GFR (MDRD) (>89) Glucose (70-100) mg/dL POC Whole Bld Glucose 76 72 69 L (70 - 100) mg/dL Calcium (8.5-10.3) mg/dL Phosphorus (2.5-4.6) mg/dL Magnesium (1.7-2.8) mg/dL TSH (0.34-5.60) uIU/mL 06/25/20 06/25/20 Range/Units 11:35 08:30 WBC (4.8-10.8) x10^3/uL RBC (4.20-5.40) 10^6/uL Hgb (12.0-16.0) g/dL Hct (37.0-47.0) % MCV (81.0-99.0) fL MCH (27.0-31.0) pg MCHC (32.0-36.0) g/dL RDW (12.0-15.0) % Plt Count (130-450) 10^3/uL MPV (7.9-10.8) fL Neut # (Auto) (1.5-6.6) 10^3/uL Lymph # (Auto) (1.5-3.5) 10^3/uL Cherry # (Auto) (0.0-1.0) 10^3/uL Eos # (Auto) (0.0-0.7) 10^3/uL Baso # (Auto) (0.0-0.1) 10^3/uL Absolute Nucleated RBC x10^3/uL Nucleated RBC % /100WBC Sodium (135-145) mmol/L Potassium (3.5-5.0) mmol/L Chloride (101-111) mmol/L Carbon Dioxide (21-32) mmol/L Anion Gap (6-13) BUN (6-20) mg/dL Creatinine (0.4-1.0) mg/dL Estimated GFR (MDRD) (>89) Glucose (70-100) mg/dL POC Whole Bld Glucose 84 95 (70 - 100) mg/dL Calcium (8.5-10.3) mg/dL Phosphorus (2.5-4.6) mg/dL Magnesium (1.7-2.8) mg/dL TSH (0.34-5.60) uIU/mL ABX Reporting Has patient been on IV antibiotics over the past 48 hours?: No Assessment/Plan - Problem List (1) Postoperative anemia Impression: Her hemoglobin is decreased this morning at 7.0. She has already received 1 unit of packed red blood cell earlier on during this hospitalization. I suspect her anemia is dilutional and postoperative. Has been no obvious evidence of bleeding. We will transfuse 1 unit of packed red blood cell today. We will check her stool for occult blood. Check iron studies. (2) Lower extremity edema Impression: Although she has lower extremity edema, she does not have evidence of heart fa ilure. She has no dyspnea and was able to ambulate yesterday. She has excellent urine output and is mobilizing the fluid. She is likely edematous amount of IV fluid she has received during his hospitalization. Nonetheless, we will check an echocardiogram. This point time, we will hold off on diuresis given her excellent urine output. I discussed with the patient that her edema should improve over the next few weeks. (3) Hypoglycemia Impression: Her lowest blood glucose has been 69 over the past 24 hours. She has not required further dextrose. I suspect now that she is increasing her p.o. intake, she will no longer have episodes of hypoglycemia. Continue p.o. intake as tolerated. Continue blood glucose checks. (4) Leukocytosis Impression: Slightly increased today but overall stable. She has been off of meropenem now for more than 24 hours. There is no evidence of infection. Continue to monitor . (5) Diarrhea Impression: C. difficile was negative. She has improved with Imodium which wee will continue as needed. (6) Status post right hemicolectomy Impression: She appears to be doing well postoperatively. Tolerating a diet and her pain is controlled. Management as per general surgery. (7) Adenomatous colon polyp Impression: She is now status post right hemicolectomy as the polyp had hyperplasia and was concerning for potential malignancy. Postop management per general surgery. (8) Hypothyroidism Impression: Her TSH was elevated at 44 when checked. We will increase her Synthroid to 125 mcg. She will need a repeat TSH in 4 to 6 weeks and this was discussed with the patient. (9) JOHANNE (acute kidney injury) Impression: Resolved. (10) Hypernatremia Impression: Resolved. (11) Hypovolemic shock Impression: Resolved.
[2020-06-26 08:19] LABS: % IRON SATURATION 12 % (20-50); IRON 20 ug/dL (28-170); TOTAL IRON BINDING CAPACITY 162 ug/dL (250-450); TRANSFERRIN 116 mg/dL (192-382)
[2020-06-26] MEDS: GABAPENTIN 400 MG CAPSULE PO SCH ×2 (09:00→21:35)
[2020-06-26] MEDS: SACCHAROMYCES BOULARDII 250 MG CAPSULE PO SCH ×2 (09:00→16:42)
[2020-06-26] MEDS: INSULIN ASPART 300 UNIT/3 ML PEN SUBQ SCH ×3 (09:00→17:00)
[2020-06-26] MEDS: HEPARIN 5,000 UNIT/ML VIAL SUBQ SCH (09:07)
--- NOTE | 2020-06-26 10:32 | PROVIDER PROGRESS NOTE ---
Progress Note Subjective: Patient remains in the ICU. Continues with Funk catheter. Positive bowel function. Advance to clear liquids. Out of bed with assistance. Advised of pathology which returned negative for malignancy. However extensive remnant adenomatous tissue. Pre-Op Diagnosis: Post-polypectomy; unresectable adenomatous polyp, high grade dysplasia; SBO Procedure Performed: 1. Diagnostic laparoscopy 2. Laparoscopic adhesiolysis, extensive 3. Laparoscopic extended right colon resection 4. Laparoscopic hepatic flexure mobilization 5. Open umbilical hernia repair 6. Extracorporeal [id number] functional end-to-end isoperistaltic anastomosis 7. Tap block per anesthesia 8. Drain placement 9. Extensive abdominal washout 10. Drainage of abdominal fluid 11. Small bowel resection at site of obstruction Post Op Diagnosis: Same; SBO 2o SB inflammatory adhesion; extended right colectomy Objective Afebrile hemodynamically acceptable General Appearance: positive: No acute distress Eyes Bilateral: positive: Normal inspection ENT: positive: ENT inspection nml Neck: positive: Nml inspection Respiratory: positive: Chest non-tender, No respiratory distress, Breath sounds nml. negative: Wheezes, Rales, Rhonchi Cardiovascular: positive: Regular rate & rhythm Extremities: positive: Non-tender, Full ROM, Nml appearance Neurologic/Psychiatric: positive: Oriented x3, CN's nml (2-12) Abdominal Exam: Inspection - Erythema [none]; Scars [trocars well healed] Auscultation - [Normoactive bowel sounds] Palpation - Hernias [none]; Fluctuance [none]; Induration [none]; Scar [N/A] Wound VAC intact. Drain intact with serosanguineous fluid. Wounds clean dry and intact Impression/Plan Postoperative day #6 status post laparoscopic-assisted right colectomy amongst others as listed above. Resolving ileus. We will continue ICU for another day as the patient continues to auto diurese. Will need to also be considered for diuresis as well - will discuss with hospitalist service. (1) GI - IVF, bowel regimen, advance diet as tolerated. GI ppx. Resolved ileus. Opiate sparring analgesia. Loose stool, C diff negative. (2) SURGERY - plan to replace wound VAC. Plan for delayed primary closure of midline wound. (3) Renal/Lytes - continue IVF. Renal indices within normal limits. Continue Funk catheter. (4) Respiratory - O2 as necessary. Continue IS. (5) Heme - Will continue with DVT ppx. H/H stable. (6) Cardiovascular - HD acceptable. (7) Neuro - Opiate sparring analgesia. Antispasmodics with Robaxin. Neuropathic agents. Opiate sparing analgesia as stated. (8) Immune/Infectious Disease - discontinued antibiotics as the patient has gotten appropriate dosing and has normalized from white count.
[2020-06-26 11:05] LABS: ESTIMATED AVERAGE GLUCOSE 114 mg/dL (70-100); HEMOGLOBIN A1c% 5.6 % (4.27-6.07)
[2020-06-26] MEDS: DULoxetine 30 MG CAPSULE PO SCH (21:35)
[2020-06-26] MEDS: LITHIUM ER 300 MG TABLET PO SCH (21:35)
[2020-06-26] MEDS: ATORVASTATIN 10 MG TABLET PO SCH (21:35)
[2020-06-27] MEDS: HEPARIN 5,000 UNIT/ML VIAL SUBQ SCH ×3 (00:52→20:54)
[2020-06-27] MEDS: INSULIN ASPART 300 UNIT/3 ML PEN SUBQ SCH ×3 (00:54→12:02)
[2020-06-27] MEDS: methocarbamoL 500 MG TABLET PO SCH ×4 (00:56→18:21)
[2020-06-27] MEDS: SODIUM CHLORIDE FLUSH 0.9% 10 ML SYRINGE IVP SCH ×4 (00:56→18:22)
[2020-06-27] MEDS: ACETAMINOPHEN 500 MG TABLET PO SCH ×4 (02:58→21:25)
[2020-06-27 05:00] LABS: BASOPHILS % (AUTO) 0.3 %; EOSINOPHILS # (AUTO) 0.3 10^3/uL (0.0-0.7); EOSINOPHILS % (AUTO) 3.3 %; HCT - HEMATOCRIT 26.1 % (37.0-47.0); HGB - HEMOGLOBIN 8.4 g/dL (12.0-16.0); LYMPHOCYTES % (AUTO) 10.5 %; MEAN CORPUSCULAR HEMOGLOBIN 31.1 pg (27.0-31.0); MEAN CORPUSCULAR HGB CONC 32.2 g/dL (32.0-36.0); MEAN CORPUSCULAR VOLUME 96.7 fL (81.0-99.0); MEAN PLATELET VOLUME 11.2 fL (7.9-10.8); MONOCYTES # (AUTO) 0.6 10^3/uL (0.0-1.0); MONOCYTES % (AUTO) 6.2 %; NEUTROPHILS # (AUTO) 7.6 10^3/uL (1.5-6.6); NEUTROPHILS % (AUTO) 78.6 %; PLT - PLATELET COUNT 316 10^3/uL (130-450); RED CELL DISTRIBUTION WIDTH 15.8 % (12.0-15.0); WHITE BLOOD COUNT 9.7 x10^3/uL (4.8-10.8)
[2020-06-27 05:18] LABS: ALBUMIN 1.5 g/dL (3.2-5.5); ALBUMIN/GLOBULIN RATIO 0.5 (1.0-2.2); BILIRUBIN,TOTAL 0.4 mg/dL (0.2-1.0); CALCIUM 8.5 mg/dL (8.5-10.3); MAGNESIUM 1.9 mg/dL (1.7-2.8); PHOSPHORUS 3.7 mg/dL (2.5-4.6); POTASSIUM 3.6 mmol/L (3.5-5.0); TOTAL PROTEIN 4.6 g/dL (6.7-8.2)
[2020-06-27] MEDS: PANTOPRAZOLE 40 MG TABLET PO SCH ×2 (05:48→16:05)
[2020-06-27] MEDS: LEVOTHYROXINE 125 MCG TABLET PO SCH (07:01)
--- NOTE | 2020-06-27 07:35 | PROVIDER PROGRESS NOTE ---
Subjective - Prog Note Date Prog Note Date: 06/27/20 - Subjective Subjective: She continues to report feeling better each day. She has been working with physical therapy and is able to ambulate a further distance each day. States her abdominal pain is controlled. Her diarrhea is improving. Her lower extremity edema is also improved. Current Medications - Current Medications Current Medications: Active Medications Acetaminophen (Acetaminophen 500 Mg Tablet) 1,000 mg PO Q6H [facility] Last Admin: 06/27/20 02:58 Dose: 1,000 mg Documented by: Albuterol (Albuterol Neb 2.5 Mg/3 Ml) 2.5 mg INH RTQ4H PRN PRN Reason: Wheezing Last Admin: 06/16/20 11:53 Dose: 2.5 mg Documented by: Albuterol/Ipratropium (Ipratropium/Albuterol 3 Ml Neb) 3 ml INH RTQID PRN PRN Reason: Wheezing Last Admin: 06/25/20 07:24 Dose: 3 ml Documented by: Atorvastatin Calcium (Atorvastatin 10 Mg Tablet) 20 mg PO QPM [facility] Last Admin: 06/26/20 21:35 Dose: 20 mg Documented by: Duloxetine HCl (Duloxetine 30 Mg Capsule) 60 mg PO QPM [facility] Last Admin: 06/26/20 21:35 Dose: 60 mg Documented by: Fluticasone Propionate (Fluticasone Nasal [place]) 1 sprays CARLITA DAILY PRN PRN Reason: Nasal Congestion Gabapentin (Gabapentin 400 Mg Capsule) 1,600 mg PO BID [facility] Last Admin: 06/26/20 21:35 Dose: 1,600 mg Documented by: Heparin Sodium (Porcine) (Heparin 5,000 Unit/Ml Vial) 5,000 unit SUBQ BID [facility] Last Admin: 06/27/20 00:52 Dose: 5,000 unit Documented by: Insulin Aspart (Insulin Aspart 300 Unit/3 Ml Pen) 1 - 5 unit SUBQ 0800,1200,1700,2100 [facility]; Protocol Last Admin: 06/27/20 00:54 Dose: Not Given Documented by: Ipratropium [place] (Ipratropium 0.2 Mg/Ml Neb) 0.5 mg INH Q6HR PRN PRN Reason: Wheezing Levothyroxine Sodium (Levothyroxine 125 Mcg Tablet) 125 mcg PO QDAC [facility] Last Admin: 06/27/20 07:01 Dose: 125 mcg Documented by: Chillum Carbonate (Chillum Er 300 Mg Tablet) 900 mg PO QPM [facility] Last Admin: 06/26/20 21:35 Dose: 900 mg Documented by: Loperamide HCl (Loperamide 2 Mg Capsule) 2 mg PO QID PRN PRN Reason: Diarrhea Last Admin: 06/26/20 09:00 Dose: 2 mg Documented by: Lorazepam (Lorazepam 2 Mg/Ml Vial) 0.5 mg IVP Q1H PRN PRN Reason: Anxiety Last Admin: 06/19/20 23:40 Dose: 0.5 mg Documented by: Methocarbamol (Methocarbamol 500 Mg Tablet) 500 mg PO Q6HR [facility] Last Admin: 06/27/20 05:48 Dose: 500 mg Documented by: Mineral Oil (Min Oil/Dimethicon/Coconut Oil 92 Gm Tube) 1 applic TOP PRN PRN PRN Reason: Skin Care Last Admin: 06/25/20 05:00 Dose: 1 applic Documented by: Morphine Sulfate (Morphine 2 Mg/Ml Carpuject) 1 mg IVP Q2H PRN PRN Reason: PAIN Last Admin: 06/24/20 04:25 Dose: 1 mg Documented by: Multivitamins/Minerals (Multivitamin W/Minerals Tablet) 1 tab PO QDLUNCH [facility] Ondansetron HCl (Ondansetron 4 Mg/2 Ml Vial) 4 mg IVP Q6HR PRN PRN Reason: Nausea / Vomiting Pantoprazole Sodium (Pantoprazole 40 Mg Tablet) 40 mg PO BIDAC [facility] Last Admin: 06/27/20 05:48 Dose: 40 mg Documented by: Saccharomyces Boulardii (Saccharomyces Boulardii 250 Mg Capsule) 500 mg PO BIDWM [facility] Last Admin: 06/26/20 16:42 Dose: 500 mg Documented by: Sodium Chloride (Sodium Chloride Flush 0.9% 10 Ml Syringe) 10 ml IVP 0100,0900,1700 [facility] Last Admin: 06/27/20 00:56 Dose: 10 ml Documented by: Sodium Chloride (Sodium Chloride Flush 0.9% 10 Ml Syringe) 10 ml IVP PRN PRN PRN Reason: NEEDED PER PROVIDER ORDERS Last Admin: 06/26/20 05:07 Dose: 20 ml Documented by: Sodium Chloride (Sodium Chloride Flush 0.9% 10 Ml Syringe) 10 ml IVP 0100,0900,1700 [facility] Last Admin: 06/27/20 00:57 Dose: 10 ml Documented by: Sodium Chloride (Sodium Chloride Flush 0.9% 10 Ml Syringe) 10 ml IVP PRN PRN PRN Reason: NEEDED PER PROVIDER ORDERS Last Admin: 06/26/20 05:07 Dose: 10 ml Documented by: Albuterol Sulfate [Proair Hfa] 1 puffs IH Q4-6H PRN 12/29/12 DULoxetine [Cymbalta] 60 mg PO DAILY 12/29/12 Fluticasone [Flonase] 1 sprays CARLITA DAILY PRN MDD 1 12/29/12 Gabapentin [Neurontin] 1,600 mg PO BID 12/29/12 Chillum ER [Lithobid] 900 mg PO QPM 12/29/12 Atorvastatin [Lipitor] 20 mg PO DAILY PM 06/10/20 Levothyroxine [Synthroid] 100 mcg PO QDAC 06/13/20 Omeprazole Magnesium 20 mg PO QDAC 06/13/20 Objective - Vital Signs/Intake & Output Reviewed Vital Signs: Yes Vital Signs: Vital Signs x48h Temp Pulse Resp BP Pulse Ox 06/27/20 07:00 88 15 127/65 06/27/20 06:00 87 14 114/91 H 06/27/20 05:00 93 18 128/69 98 06/27/20 04:00 36.8 C 87 15 115/65 06/27/20 03:00 86 16 133/67 H 98 06/27/20 02:00 84 15 123/65 97 06/27/20 01:00 88 15 100/56 L 06/27/20 00:00 86 15 115/65 94 Intake & Output: Intake & Output 06/24/20 06/25/20 06/26/20 06/27/20 23:59 23:59 23:59 23:59 Intake Total 43827.020 8112.667 5910 1000 Output Total 18211 8165 7060 2395 Balance -104.980 -52.333 -1150 -1395 - Objective General Appearance: positive: No acute distress, Alert Eyes Bilateral: positive: Normal inspection, Conjunctivae nml ENT: positive: ENT inspection nml Neck: positive: Nml inspection Respiratory: positive: No respiratory distress. negative: Wheezes, Rales Cardiovascular: positive: Regular rate & rhythm, No murmur. negative: Tachycardia Abdomen: positive: Nml bowel sounds, Tenderness (Minimal tenderness around the wound VAC.), Other (Wound VAC in place. JAIRO drain in left lower quadrant with serosanguineous drainage.). negative: Non-tender Skin: positive: Warm, Dry Extremities: positive: Pedal edema (+1 pitting edema in the bilateral lower extremities) Neurologic/Psychiatric: positive: Motor nml. negative: Disoriented to person, Disoriented to place - Lab Results Fish Bones: 06/27/20 04:20 06/27/20 04:20 Other Labs: Lab Results x24hrs 06/27/20 06/27/20 06/26/20 Range/Units 04:20 04:20 20:17 WBC 9.7 (4.8-10.8) x10^3/uL RBC 2.70 L (4.20-5.40) 10^6/uL Hgb 8.4 L (12.0-16.0) g/dL Hct 26.1 L (37.0-47.0) % MCV 96.7 (81.0-99.0) fL MCH 31.1 H (27.0-31.0) pg MCHC 32.2 (32.0-36.0) g/dL RDW 15.8 H (12.0-15.0) % Plt Count 316 (130-450) 10^3/uL MPV 11.2 H (7.9-10.8) fL Neut # (Auto) 7.6 H (1.5-6.6) 10^3/uL Lymph # (Auto) 1.0 L (1.5-3.5) 10^3/uL [place] # (Auto) 0.6 (0.0-1.0) 10^3/uL Eos # (Auto) 0.3 (0.0-0.7) 10^3/uL Baso # (Auto) 0.0 (0.0-0.1) 10^3/uL Absolute Nucleated RBC 0.00 x10^3/uL Nucleated RBC % 0.0 /100WBC Sodium 142 (135-145) mmol/L Potassium 3.6 (3.5-5.0) mmol/L Chloride 110 (101-111) mmol/L Carbon Dioxide 27 (21-32) mmol/L Anion Gap 5.0 L (6-13) BUN 12 (6-20) mg/dL Creatinine 1.0 (0.4-1.0) mg/dL Estimated GFR (MDRD) 56 L (>89) Glucose 82 (70-100) mg/dL POC Whole Bld Glucose 86 (70 - 100) mg/dL Estimat Average Glucose (70-100) mg/dL Hemoglobin A1c % (4.27-6.07) % Calcium 8.5 (8.5-10.3) mg/dL Phosphorus 3.7 (2.5-4.6) mg/dL Magnesium 1.9 (1.7-2.8) mg/dL Iron (28-170) ug/dL TIBC (250-450) ug/dL % Saturation (20-50) % Transferrin (192-382) mg/dL Ferritin (11.0-306.8) ng/mL Total Bilirubin 0.4 (0.2-1.0) mg/dL AST 21 (10-42) IU/L ALT 22 (10-60) IU/L Alkaline Phosphatase 85 (42-121) IU/L Total Protein 4.6 L (6.7-8.2) g/dL Albumin 1.5 L (3.2-5.5) g/dL Globulin 3.1 (2.1-4.2) g/dL Albumin/Globulin Ratio 0.5 L (1.0-2.2) Prealbumin 16 L (18-45) mg/dL Triglycerides 114 ( - 149) mg/dL Blood Type Antibody Screen Crossmatch IS Only 06/26/20 06/26/20 06/26/20 Range/Units 16:46 12:07 07:30 WBC (4.8-10.8) x10^3/uL RBC (4.20-5.40) 10^6/uL Hgb (12.0-16.0) g/dL Hct (37.0-47.0) % MCV (81.0-99.0) fL MCH (27.0-31.0) pg MCHC (32.0-36.0) g/dL RDW (12.0-15.0) % Plt Count (130-450) 10^3/uL MPV (7.9-10.8) fL Neut # (Auto) (1.5-6.6) 10^3/uL Lymph # (Auto) (1.5-3.5) 10^3/uL [place] # (Auto) (0.0-1.0) 10^3/uL Eos # (Auto) (0.0-0.7) 10^3/uL Baso # (Auto) (0.0-0.1) 10^3/uL Absolute Nucleated RBC x10^3/uL Nucleated RBC % /100WBC Sodium (135-145) mmol/L Potassium (3.5-5.0) mmol/L Chloride (101-111) mmol/L Carbon Dioxide (21-32) mmol/L Anion Gap (6-13) BUN (6-20) mg/dL Creatinine (0.4-1.0) mg/dL Estimated GFR (MDRD) (>89) Glucose (70-100) mg/dL POC Whole Bld Glucose 94 78 (70 - 100) mg/dL Estimat Average Glucose (70-100) mg/dL Hemoglobin A1c % (4.27-6.07) % Calcium (8.5-10.3) mg/dL Phosphorus (2.5-4.6) mg/dL Magnesium (1.7-2.8) mg/dL Iron (28-170) ug/dL TIBC (250-450) ug/dL % Saturation (20-50) % Transferrin (192-382) mg/dL Ferritin (11.0-306.8) ng/mL Total Bilirubin (0.2-1.0) mg/dL AST (10-42) IU/L ALT (10-60) IU/L Alkaline Phosphatase (42-121) IU/L Total Protein (6.7-8.2) g/dL Albumin (3.2-5.5) g/dL Globulin (2.1-4.2) g/dL Albumin/Globulin Ratio (1.0-2.2) Prealbumin (18-45) mg/dL Triglycerides ( - 149) mg/dL Blood Type A POSITIVE Antibody Screen NEGATIVE Crossmatch IS Only See Detail 06/26/20 06/26/20 06/26/20 Range/Units 05:10 05:10 05:10 WBC (4.8-10.8) x10^3/uL RBC (4.20-5.40) 10^6/uL Hgb (12.0-16.0) g/dL Hct (37.0-47.0) % MCV (81.0-99.0) fL MCH (27.0-31.0) pg MCHC (32.0-36.0) g/dL RDW (12.0-15.0) % Plt Count (130-450) 10^3/uL MPV (7.9-10.8) fL Neut # (Auto) (1.5-6.6) 10^3/uL Lymph # (Auto) (1.5-3.5) 10^3/uL [place] # (Auto) (0.0-1.0) 10^3/uL Eos # (Auto) (0.0-0.7) 10^3/uL Baso # (Auto) (0.0-0.1) 10^3/uL Absolute Nucleated RBC x10^3/uL Nucleated RBC % /100WBC Sodium (135-145) mmol/L Potassium (3.5-5.0) mmol/L Chloride (101-111) mmol/L Carbon Dioxide (21-32) mmol/L Anion Gap (6-13) BUN (6-20) mg/dL Creatinine (0.4-1.0) mg/dL Estimated GFR (MDRD) (>89) Glucose (70-100) mg/dL POC Whole Bld Glucose (70 - 100) mg/dL Estimat Average Glucose 114 H (70-100) mg/dL Hemoglobin A1c % 5.6 (4.27-6.07) % Calcium (8.5-10.3) mg/dL Phosphorus (2.5-4.6) mg/dL Magnesium (1.7-2.8) mg/dL Iron 20 L (28-170) ug/dL TIBC 162 L (250-450) ug/dL % Saturation 12 L (20-50) % Transferrin 116 L (192-382) mg/dL Ferritin 206.5 (11.0-306.8) ng/mL Total Bilirubin (0.2-1.0) mg/dL AST (10-42) IU/L ALT (10-60) IU/L Alkaline Phosphatase (42-121) IU/L Total Protein (6.7-8.2) g/dL Albumin (3.2-5.5) g/dL Globulin (2.1-4.2) g/dL Albumin/Globulin Ratio (1.0-2.2) Prealbumin (18-45) mg/dL Triglycerides ( - 149) mg/dL Blood Type Antibody Screen Crossmatch IS Only ABX Reporting Has patient been on IV antibiotics over the past 48 hours?: No Assessment/Plan - Problem List (1) Postoperative anemia Impression: She responded properly to 1 unit of packed red blood cell. Her hemoglobin this morning is 8.4. There has been no evidence of bleeding. Stool occult is pending but low suspicion for gastrointestinal hemorrhage. I suspect her anemia has been related to a component of dilutional given IV fluid she received as well as postoperative anemia. Her iron studies are suggestive of anemia of chronic disease. Given her transferrin saturation is at 20%, it may be reasonable to trial iron segmentation as there can be a component of iron deficiency anemia as well. Will recommend daily CBC while hospitalized. (2) Lower extremity edema Impression: Slowly improving but ongoing. Likely secondary to the significant volume resuscitation she received. She has no dyspnea and echocardiogram does not suggest heart failure. Will recommend holding off on diuresis given she has excellent urine output and she will eventually mobilize this fluid. I did discuss with her that this will take up to a few weeks. (3) Diarrhea Impression: This is improved with Imodium. C. difficile was negative.Continue Imodium as needed. (4) Status post right hemicolectomy Impression: She is now postop day 8. She has been tolerating a diet and her pain is controlled. Management as per general surgery. (5) Adenomatous colon polyp Impression: She is now status post right hemicolectomy as the polyp had hyperplasia and was concerning for potential malignancy. Postop management as per general surgery. (6) Hypothyroidism Impression: TSH was elevated at 44 we have increased her Synthroid to 125 mcg. She will need to be discharged on this higher dose and have a repeat TSH in 4 to 6 weeks. (7) JOHANNE (acute kidney injury) Impression: Resolved. (8) Hypernatremia Impression: Resolved. (9) Hypovolemic shock Impression: Resolved. (10) Hypoglycemia Impression: She has had no further episodes of hypoglycemia for the past 24 hours. This is now resolved. Continue to encourage oral intake. (11) Leukocytosis Impression: Resolved. She has remained afebrile with evidence of infection. She has been off of meropenem now for 72 hours. Continue to hold antibiotics.
[2020-06-27] MEDS: LOPERAMIDE 2 MG CAPSULE PO PRN (08:01)
[2020-06-27] MEDS: SACCHAROMYCES BOULARDII 250 MG CAPSULE PO SCH ×2 (08:01→18:21)
[2020-06-27] MEDS: GABAPENTIN 400 MG CAPSULE PO SCH ×2 (08:01→20:58)
[2020-06-27] MEDS: MULTIVITAMIN W/MINERALS TABLET PO SCH (12:01)
--- NOTE | 2020-06-27 16:16 | PROVIDER PROGRESS NOTE ---
Progress Note Subjective: Patient remains in the ICU. Continues with Funk catheter. Positive bowel function. Advanced to full liquids. Out of bed with assistance. Advised of pathology which returned negative for malignancy. However extensive remnant adenomatous tissue. Mobilizing and autodiuresis with high urine output. Pre-Op Diagnosis: Post-polypectomy; unresectable adenomatous polyp, high grade dysplasia; SBO Procedure Performed: 1. Diagnostic laparoscopy 2. Laparoscopic adhesiolysis, extensive 3. Laparoscopic extended right colon resection 4. Laparoscopic hepatic flexure mobilization 5. Open umbilical hernia repair 6. Extracorporeal [id number] functional end-to-end isoperistaltic anastomosis 7. Tap block per anesthesia 8. Drain placement 9. Extensive abdominal washout 10. Drainage of abdominal fluid 11. Small bowel resection at site of obstruction Post Op Diagnosis: Same; SBO 2o SB inflammatory adhesion; extended right colectomy Objective Afebrile hemodynamically acceptable General Appearance: positive: No acute distress Eyes Bilateral: positive: Normal inspection ENT: positive: ENT inspection nml Neck: positive: Nml inspection Respiratory: positive: Chest non-tender, No respiratory distress, Breath sounds nml. negative: Wheezes, Rales, Rhonchi Cardiovascular: positive: Regular rate & rhythm Extremities: positive: Non-tender, Full ROM, Nml appearance Neurologic/Psychiatric: positive: Oriented x3, CN's nml (2-12) Abdominal Exam: Inspection - Erythema none; Scars trocars well healed Auscultation -normoactive bowel sounds Palpation - Hernias none; Fluctuance none; Induration none; Scar N/A Wound VAC intact. Drain intact with serosanguineous fluid. Wounds clean dry and intact Impression/Plan Postoperative day #7 status post laparoscopic-assisted right colectomy amongst others as listed above. Ileus Resolved. We will continue ICU for another day as the patient continues to autodiurese. Defer diuresis at this time - discussed with hospitalist service and together with the patient's historic renal failure amongst others would be better served with simply monitoring input and output diligently.. (1) GI - IVF, bowel regimen, advance diet as tolerated. GI ppx. Resolved ileus. Opiate sparring analgesia. Loose stool, C diff negative. (2) SURGERY - Plan for delayed primary closure of midline wound. (3) Renal/Lytes - continue IVF. Renal indices within normal limits. Continue Funk catheter. (4) Respiratory - O2 as necessary. Continue IS. (5) Heme - Will continue with DVT ppx. H/H stable. (6) Cardiovascular - HD acceptable. (7) Neuro - Opiate sparring analgesia. Antispasmodics with Robaxin. Neuropathic agents. Opiate sparing analgesia as stated. (8) Immune/Infectious Disease - discontinued antibiotics as the patient has gotten appropriate dosing and has normalized from white count.
[2020-06-27] MEDS ORDERED: LIDOCAINE-MPF 1% 5 ML VIAL ONE (18:37)
[2020-06-27] MEDS: LITHIUM ER 300 MG TABLET PO SCH (20:55)
[2020-06-27] MEDS: DULoxetine 30 MG CAPSULE PO SCH (20:56)
[2020-06-27] MEDS: ATORVASTATIN 10 MG TABLET PO SCH (20:58)
[2020-06-28] MEDS: methocarbamoL 500 MG TABLET PO SCH ×4 (01:14→17:37)
[2020-06-28] MEDS: SODIUM CHLORIDE FLUSH 0.9% 10 ML SYRINGE IVP SCH ×3 (01:14→17:40)
[2020-06-28] MEDS: ACETAMINOPHEN 500 MG TABLET PO SCH ×4 (04:43→21:05)
[2020-06-28 04:49] LABS: BASOPHILS % (AUTO) 0.2 %; EOSINOPHILS # (AUTO) 0.3 10^3/uL (0.0-0.7); EOSINOPHILS % (AUTO) 3.4 %; HCT - HEMATOCRIT 26.2 % (37.0-47.0); HGB - HEMOGLOBIN 8.2 g/dL (12.0-16.0); LYMPHOCYTES # (AUTO) 1.1 10^3/uL (1.5-3.5); LYMPHOCYTES % (AUTO) 13.7 %; MEAN CORPUSCULAR HEMOGLOBIN 30.8 pg (27.0-31.0); MEAN CORPUSCULAR HGB CONC 31.3 g/dL (32.0-36.0); MEAN CORPUSCULAR VOLUME 98.5 fL (81.0-99.0); MEAN PLATELET VOLUME 10.9 fL (7.9-10.8); MONOCYTES # (AUTO) 0.6 10^3/uL (0.0-1.0); MONOCYTES % (AUTO) 7.5 %; NEUTROPHILS % (AUTO) 74.3 %; PLT - PLATELET COUNT 354 10^3/uL (130-450); RED BLOOD COUNT 2.66 10^6/uL (4.20-5.40); RED CELL DISTRIBUTION WIDTH 15.8 % (12.0-15.0); WHITE BLOOD COUNT 8.1 x10^3/uL (4.8-10.8)
[2020-06-28 04:53] LABS: CALCIUM 8.2 mg/dL (8.5-10.3); CREATININE 1.1 mg/dL (0.4-1.0); POTASSIUM 3.2 mmol/L (3.5-5.0)
[2020-06-28] MEDS ORDERED: POTASSIUM CHLORIDE 20 MEQ TABLET PO ONE (07:00)
[2020-06-28] MEDS: PANTOPRAZOLE 40 MG TABLET PO SCH ×2 (07:04→16:09)
[2020-06-28] MEDS: LEVOTHYROXINE 125 MCG TABLET PO SCH (07:05)
[2020-06-28] MEDS: GABAPENTIN 400 MG CAPSULE PO SCH ×2 (08:37→21:07)
[2020-06-28] MEDS: HEPARIN 5,000 UNIT/ML VIAL SUBQ SCH ×2 (08:37→21:04)
[2020-06-28] MEDS: SACCHAROMYCES BOULARDII 250 MG CAPSULE PO SCH ×2 (08:37→17:38)
[2020-06-28] MEDS: MULTIVITAMIN W/MINERALS TABLET PO SCH (11:57)
[2020-06-28] MEDS: SODIUM CHLORIDE FLUSH 0.9% 10 ML SYRINGE IVP PRN (15:34)
[2020-06-28] MEDS: MORPHINE 2 MG/ML CARPUJECT IVP PRN (15:34)
[2020-06-28] MEDS ORDERED: BACITRACIN ZINC OINT 1 PACKET TOP PRN (15:57)
[2020-06-28] MEDS ORDERED: LIDOCAINE 1% 50 ML MDV SUBQ ONE (16:00)
[2020-06-28] MEDS: LITHIUM ER 300 MG TABLET PO SCH (21:01)
[2020-06-28] MEDS: ATORVASTATIN 10 MG TABLET PO SCH (21:06)
[2020-06-28] MEDS: DULoxetine 30 MG CAPSULE PO SCH (21:07)
[2020-06-29] MEDS: methocarbamoL 500 MG TABLET PO SCH ×5 (00:20→23:14)
[2020-06-29] MEDS: ACETAMINOPHEN 500 MG TABLET PO SCH ×4 (05:46→21:09)
[2020-06-29] MEDS: LEVOTHYROXINE 125 MCG TABLET PO SCH (06:52)
[2020-06-29] MEDS: PANTOPRAZOLE 40 MG TABLET PO SCH ×2 (06:52→17:08)
[2020-06-29] MEDS: SODIUM CHLORIDE FLUSH 0.9% 10 ML SYRINGE IVP SCH ×3 (06:54→17:08)
[2020-06-29] MEDS: HEPARIN 5,000 UNIT/ML VIAL SUBQ SCH ×2 (08:20→21:20)
[2020-06-29] MEDS: SACCHAROMYCES BOULARDII 250 MG CAPSULE PO SCH ×2 (08:21→17:07)
[2020-06-29] MEDS: GABAPENTIN 400 MG CAPSULE PO SCH ×2 (08:21→21:09)
[2020-06-29] MEDS: MULTIVITAMIN W/MINERALS TABLET PO SCH (12:26)
--- NOTE | 2020-06-29 13:09 | PROVIDER PROGRESS NOTE ---
Progress Note Subjective: Patient remains in the ICU. Continues with Funk catheter. Positive bowel function. Advanced to soft diet. Out of bed with assistance. Advised of pathology which returned negative for malignancy. However extensive remnant adenomatous tissue. Mobilizing and autodiuresis with high urine output. Pre-Op Diagnosis: Post-polypectomy; unresectable adenomatous polyp, high grade dysplasia; SBO Procedure Performed: 1. Diagnostic laparoscopy 2. Laparoscopic adhesiolysis, extensive 3. Laparoscopic extended right colon resection 4. Laparoscopic hepatic flexure mobilization 5. Open umbilical hernia repair 6. Extracorporeal [id number] functional end-to-end isoperistaltic anastomosis 7. Tap block per anesthesia 8. Drain placement 9. Extensive abdominal washout 10. Drainage of abdominal fluid 11. Small bowel resection at site of obstruction Post Op Diagnosis: Same; SBO 2o SB inflammatory adhesion; extended right colectomy Objective Afebrile hemodynamically acceptable General Appearance: positive: No acute distress Eyes Bilateral: positive: Normal inspection ENT: positive: ENT inspection nml Neck: positive: Nml inspection Respiratory: positive: Chest non-tender, No respiratory distress, Breath sounds nml. negative: Wheezes, Rales, Rhonchi Cardiovascular: positive: Regular rate & rhythm Extremities: positive: Non-tender, Full ROM, Nml appearance Neurologic/Psychiatric: positive: Oriented x3, CN's nml (2-12) Abdominal Exam: Inspection - Erythema none; Scars trocars well healed Auscultation -normoactive bowel sounds Palpation - Hernias none; Fluctuance none; Induration none; Scar N/A Wound VAC intact. Drain intact with serosanguineous fluid. Wounds clean dry and intact Impression/Plan Postoperative day #8 status post laparoscopic-assisted right colectomy amongst others as listed above. Ileus Resolved. We will continue ICU for yet another day as the patient continues to autodiurese. Defer diuresis at this time - discussed with hospitalist service and together with the patient's historic renal failure amongst others would be better served with simply monitoring input and output diligently. (1) GI - IVF, bowel regimen, advance diet as tolerated. GI ppx. Resolved ileus. Opiate sparring analgesia. Loose stool, C diff negative. (2) SURGERY - Plan for delayed primary closure of midline wound. (3) Renal/Lytes - continue IVF. Renal indices within normal limits. Continue Funk catheter. (4) Respiratory - O2 as necessary. Continue IS. (5) Heme - Will continue with DVT ppx. H/H stable. (6) Cardiovascular - HD acceptable. (7) Neuro - Opiate sparring analgesia. Antispasmodics with Robaxin. Neuropathic agents. Opiate sparing analgesia as stated. (8) Immune/Infectious Disease - discontinued antibiotics as the patient has gotten appropriate dosing and has normalized from white count.
--- NOTE | 2020-06-29 13:17 | POST OP PROGRESS NOTE ---
Subjective - General Admit Date: 06/13/20 Procedure Date: 06/28/20 Post Op Days: 1 Procedure Performed: Wound debridement; Delayed primary closure - Review of Systems Wound/Incisions: positive: Healing well, No drainage General: positive: No symptoms. negative: Fever, Weakness HEENT: positive: No symptoms Pulmonary: positive: No symptoms. negative: Shortness of breath, Cough Cardiovascular: positive: No symptoms. negative: Chest pain, Palpitations Genitourinary: positive: No symptoms, Other (voiding by noland) Psychiatric: positive: No symptoms - Other Other Information/Narrative: POD #9 s/p listed procedue elsewhere in the EMR. Plan for delayed primary closure. See below. Patient afebrile doing overall well. Plan to transfer out of the ICU later today if not tomorrow. Patient with midline incision wound VAC above and below the umbilicus. Changed historically. Patient with normal white count. Patient at this time had concern for infectious process given post polypectomy with local suppurative process. The patient at this time was appropriate for delayed primary closure. We plan to close these with interrupted vertical mattress sutures. Please note each wound was approximately 5 cm in length above and below the umbilicus. Patient was obtained for informed consent with risks and benefits discussed questions answered. Timeout was called and agreed to by all the room. Patient was prepped and draped in the usual sterile fashion. Patient was localized with lidocaine without any complication. The wound was aggressively irrigated with sterile saline and suctioned dry. There was no evidence of any infectious stigmata; no erythema, induration, purulence, or warmth. We proceeded to sterilely reapproximate using vertical mattress nylon sutures. These were placed at appropriate distance. There was no tension on the wound patient tolerated well. The wound was dressed with dry sterile gauze. I was present for the entirety of this intervention. Please note that voice recognition software was used to transcribe this note and inadvertent errors might persist in spite of review and editing. I am obliged to you for your attention. I am thankful to you for allowing me to participate with you in this care of this patient. Please note also all the bonnie were removed. The drain/Rk was removed as well and the drain site was sutured to prevent drainage and reapproximate the skin. This was performed with a simple interrupted of silk.
--- NOTE | 2020-06-29 18:49 | PROVIDER PROGRESS NOTE ---
Progress Note Subjective: Positive bowel function. OOB on own. Funk removed. Positive trial of void. Advised of pathology which returned negative for malignancy. However extensive remnant adenomatous tissue. Pre-Op Diagnosis: Post-polypectomy; unresectable adenomatous polyp, high grade dysplasia; SBO Procedure Performed: 1. Diagnostic laparoscopy 2. Laparoscopic adhesiolysis, extensive 3. Laparoscopic extended right colon resection 4. Laparoscopic hepatic flexure mobilization 5. Open umbilical hernia repair 6. Extracorporeal [id number] functional end-to-end isoperistaltic anastomosis 7. Tap block per anesthesia 8. Drain placement 9. Extensive abdominal washout 10. Drainage of abdominal fluid 11. Small bowel resection at site of obstruction Post Op Diagnosis: Same; SBO 2o SB inflammatory adhesion; extended right colectomy Objective Afebrile hemodynamically acceptable General Appearance: positive: No acute distress Eyes Bilateral: positive: Normal inspection ENT: positive: ENT inspection nml Neck: positive: Nml inspection Respiratory: positive: Chest non-tender, No respiratory distress, Breath sounds nml. negative: Wheezes, Rales, Rhonchi Cardiovascular: positive: Regular rate & rhythm Extremities: positive: Non-tender, Full ROM, Nml appearance Neurologic/Psychiatric: positive: Oriented x3, CN's nml (2-12) Abdominal Exam: Abd C/D/I Impression/Plan Postoperative day #9 status post laparoscopic-assisted right colectomy amongst others as listed above. Ileus Resolved. Plan D/C next 24-48hrs. (1) GI - IVF, bowel regimen, advance diet as tolerated. GI ppx. Resolved ileus. Opiate sparring analgesia. (2) SURGERY - Wounds closed, bonnie removed, drain discontinued. (3) Renal/Lytes - continue IVF. Renal indices within normal limits. Positive trial of void. (4) Respiratory - O2 as necessary. Continue IS. (5) Heme - Will continue with DVT ppx. H/H stable. (6) Cardiovascular - HD acceptable. (7) Neuro - Opiate sparring analgesia. Antispasmodics with Robaxin. Neuropathic agents. Opiate sparing analgesia as stated.
[2020-06-29] MEDS: LITHIUM ER 300 MG TABLET PO SCH (21:09)
[2020-06-29] MEDS: ATORVASTATIN 10 MG TABLET PO SCH (21:09)
[2020-06-29] MEDS: DULoxetine 30 MG CAPSULE PO SCH (21:09)
[2020-06-30] MEDS: SODIUM CHLORIDE FLUSH 0.9% 10 ML SYRINGE IVP SCH ×3 (01:21→16:58)
[2020-06-30] MEDS: ACETAMINOPHEN 500 MG TABLET PO SCH ×4 (02:01→20:57)
[2020-06-30] MEDS: SODIUM CHLORIDE FLUSH 0.9% 10 ML SYRINGE IVP PRN ×3 (04:00→17:01)
[2020-06-30 04:50] LABS: BASOPHILS % (AUTO) 0.2 %; EOSINOPHILS # (AUTO) 0.3 10^3/uL (0.0-0.7); EOSINOPHILS % (AUTO) 2.8 %; HCT - HEMATOCRIT 26.5 % (37.0-47.0); HGB - HEMOGLOBIN 8.2 g/dL (12.0-16.0); LYMPHOCYTES % (AUTO) 11.1 %; MEAN CORPUSCULAR HEMOGLOBIN 30.9 pg (27.0-31.0); MEAN CORPUSCULAR HGB CONC 30.9 g/dL (32.0-36.0); MEAN PLATELET VOLUME 10.4 fL (7.9-10.8); MONOCYTES # (AUTO) 0.5 10^3/uL (0.0-1.0); MONOCYTES % (AUTO) 5.4 %; NEUTROPHILS # (AUTO) 7.2 10^3/uL (1.5-6.6); NEUTROPHILS % (AUTO) 79.9 %; PLT - PLATELET COUNT 413 10^3/uL (130-450); RED BLOOD COUNT 2.65 10^6/uL (4.20-5.40)
[2020-06-30 05:02] LABS: ALBUMIN 1.8 g/dL (3.2-5.5); ALBUMIN/GLOBULIN RATIO 0.5 (1.0-2.2); BILIRUBIN,TOTAL 0.5 mg/dL (0.2-1.0); CALCIUM 8.6 mg/dL (8.5-10.3); CREATININE 1.1 mg/dL (0.4-1.0); POTASSIUM 3.4 mmol/L (3.5-5.0); TOTAL PROTEIN 5.3 g/dL (6.7-8.2)
[2020-06-30] MEDS: PANTOPRAZOLE 40 MG TABLET PO SCH ×2 (06:14→16:01)
[2020-06-30] MEDS: methocarbamoL 500 MG TABLET PO SCH ×3 (06:14→18:29)
[2020-06-30] MEDS: LEVOTHYROXINE 125 MCG TABLET PO SCH (06:14)
[2020-06-30] MEDS: SACCHAROMYCES BOULARDII 250 MG CAPSULE PO SCH ×2 (07:57→16:47)
[2020-06-30] MEDS: GABAPENTIN 400 MG CAPSULE PO SCH ×2 (08:09→21:04)
[2020-06-30] MEDS: HEPARIN 5,000 UNIT/ML VIAL SUBQ SCH ×2 (08:30→21:04)
[2020-06-30] MEDS: MULTIVITAMIN W/MINERALS TABLET PO SCH (13:12)
[2020-06-30] MEDS: ATORVASTATIN 10 MG TABLET PO SCH (20:58)
[2020-06-30] MEDS: LITHIUM ER 300 MG TABLET PO SCH (21:00)
[2020-06-30] MEDS: DULoxetine 30 MG CAPSULE PO SCH (21:00)
[2020-07-01 05:25] LABS: BASOPHILS % (AUTO) 0.2 %; EOSINOPHILS # (AUTO) 0.3 10^3/uL (0.0-0.7); EOSINOPHILS % (AUTO) 2.9 %; HCT - HEMATOCRIT 26.1 % (37.0-47.0); HGB - HEMOGLOBIN 8.2 g/dL (12.0-16.0); LYMPHOCYTES # (AUTO) 0.8 10^3/uL (1.5-3.5); LYMPHOCYTES % (AUTO) 8.4 %; MEAN CORPUSCULAR HEMOGLOBIN 30.9 pg (27.0-31.0); MEAN CORPUSCULAR HGB CONC 31.4 g/dL (32.0-36.0); MEAN CORPUSCULAR VOLUME 98.5 fL (81.0-99.0); MEAN PLATELET VOLUME 10.3 fL (7.9-10.8); MONOCYTES # (AUTO) 0.6 10^3/uL (0.0-1.0); MONOCYTES % (AUTO) 6.6 %; NEUTROPHILS # (AUTO) 7.9 10^3/uL (1.5-6.6); NEUTROPHILS % (AUTO) 81.6 %; PLT - PLATELET COUNT 451 10^3/uL (130-450); RED BLOOD COUNT 2.65 10^6/uL (4.20-5.40); RED CELL DISTRIBUTION WIDTH 16.2 % (12.0-15.0); WHITE BLOOD COUNT 9.7 x10^3/uL (4.8-10.8)
[2020-07-01] MEDS: ACETAMINOPHEN 500 MG TABLET PO SCH ×3 (05:31→14:42)
[2020-07-01] MEDS: SODIUM CHLORIDE FLUSH 0.9% 10 ML SYRINGE IVP SCH ×3 (05:39→17:45)
[2020-07-01 05:45] LABS: ALBUMIN 1.8 g/dL (3.2-5.5); ALBUMIN/GLOBULIN RATIO 0.5 (1.0-2.2); BILIRUBIN,TOTAL 0.7 mg/dL (0.2-1.0); CALCIUM 8.8 mg/dL (8.5-10.3); TOTAL PROTEIN 5.4 g/dL (6.7-8.2)
[2020-07-01] MEDS: LEVOTHYROXINE 125 MCG TABLET PO SCH (06:42)
[2020-07-01] MEDS: PANTOPRAZOLE 40 MG TABLET PO SCH ×2 (06:42→17:43)
[2020-07-01] MEDS: methocarbamoL 500 MG TABLET PO SCH ×4 (07:27→17:43)
[2020-07-01] MEDS: SACCHAROMYCES BOULARDII 250 MG CAPSULE PO SCH ×2 (08:21→17:43)
[2020-07-01] MEDS: GABAPENTIN 400 MG CAPSULE PO SCH (08:21)
[2020-07-01] MEDS: HEPARIN 5,000 UNIT/ML VIAL SUBQ SCH (08:34)
[2020-07-01] MEDS ORDERED: POTASSIUM CHLORIDE 20 MEQ TABLET PO ONE (11:39)
[2020-07-01] MEDS: MULTIVITAMIN W/MINERALS TABLET PO SCH (12:01)
[2020-07-01] MEDS: LOPERAMIDE 2 MG CAPSULE PO PRN (12:01)
[2020-07-01] MEDS: POTASSIUM CHLOR 10 MEQ/100 ML 10 MEQ/100 ML BAG IV SCH ×2 (12:06→13:06)
--- NOTE | 2020-07-01 12:24 | PROVIDER PROGRESS NOTE ---
Progress Note Subjective: Positive bowel function. OOB on own. Funk removed. Positive trial of void. Advised of pathology which returned negative for malignancy. However extensive remnant adenomatous tissue. Pre-Op Diagnosis: Post-polypectomy; unresectable adenomatous polyp, high grade dysplasia; SBO Procedure Performed: 1. Diagnostic laparoscopy 2. Laparoscopic adhesiolysis, extensive 3. Laparoscopic extended right colon resection 4. Laparoscopic hepatic flexure mobilization 5. Open umbilical hernia repair 6. Extracorporeal [id number] functional end-to-end isoperistaltic anastomosis 7. Tap block per anesthesia 8. Drain placement 9. Extensive abdominal washout 10. Drainage of abdominal fluid 11. Small bowel resection at site of obstruction Post Op Diagnosis: Same; SBO 2o SB inflammatory adhesion; extended right colectomy Objective Afebrile hemodynamically acceptable General Appearance: positive: No acute distress Eyes Bilateral: positive: Normal inspection ENT: positive: ENT inspection nml Neck: positive: Nml inspection Respiratory: positive: Chest non-tender, No respiratory distress, Breath sounds nml. negative: Wheezes, Rales, Rhonchi Cardiovascular: positive: Regular rate & rhythm Extremities: positive: Non-tender, Full ROM, Nml appearance Neurologic/Psychiatric: positive: Oriented x3, CN's nml (2-12) Abdominal Exam: Abd C/D/I Impression/Plan Postoperative day #10 status post laparoscopic-assisted right colectomy amongst others as listed above. Ileus Resolved. Plan D/C tomorrow after labs. Home with Home PT and Home Health. (1) GI - IVF, bowel regimen, advance diet as tolerated. GI ppx. Resolved ileus. Opiate sparring analgesia. (2) SURGERY - Wounds closed, bonnie removed, drain discontinued. (3) Renal/Lytes - continue IVF. Renal indices within normal limits. Positive trial of void. (4) Respiratory - O2 as necessary. Continue IS. (5) Heme - Will continue with DVT ppx. H/H stable. (6) Cardiovascular - HD acceptable. (7) Neuro - Opiate sparring analgesia. Antispasmodics with Robaxin. Neuropathic agents. Opiate sparing analgesia as stated.
--- NOTE | 2020-07-01 12:25 | DISCHARGE SUMMARY ---
"Discharge Summary Admit Date: 06/13/20 Discharge Date: 07/01/20 Discharging Provider: Saida Code Status: Attempt Resuscitation Condition at Discharge: Good Discharge Disposition: 06 Home Health Service - DIAGNOSES Admission Diagnoses: 1. Acute on chronic renal failure 2. Sepsis 3. Septic shock 4. Post polypectomy 5. Unresectable polyps 6. Obesity Discharge Diagnoses with Status of Each Condition: 1. Acute on chronic renal failure - RESOLVED/TREATED 2. Sepsis - RESOLVED/TREATED 3. Septic shock - RESOLVED/TREATED 4. Post polypectomy - RESOLVED/TREATED 5. Unresectable polyps - RESOLVED/TREATED 6. Obesity - STABLE 7. Electrolyte abnormalities - Resolved/Treated - HPI History of Present Illness: 64 female patient admitted with post polypectomy syndrome. Patient with extensive colonic polyps as per below. Pathology is as follows as well. Admitted also with acute renal failure. PATHOLOGY: 1. Cecal polypectomy consistent with tubular adenoma negative for high-grade dysplasia and carcinoma. 2. Ascending colon tubular adenoma negative for high-grade dysplasia and carcinoma 3. Transverse colonic polyp please note that this polyp was not completely resected: Tubulovillous adenoma with patchy high-grade dysplasia negative for invasive carcinoma 4. Splenic flexure polyp tubulovillous adenoma multiple fragments negative for high-grade dysplasia and carcinoma COLON FINDINGS: 1. Appropriate prep 2. Ileocecal valve achieved as evidenced by the appendiceal orifice and ICV; both photographed. 3. Multiple scrolling large sessile polyps throughout the entirety of the right and transverse colon please see below. 4. Cecum without cecitis. The entirety of the colon was without colitis. No diverticulosis or diverticulitis. 5. Careful slow withdrawal notable for multiple polyps: A. Ascending colonic hot snare polypectomy x2. Complete. Retrieved. These were both irregular along folds and exceedingly difficult to resect. B. There was a large cecal polyp, broad sessile. Hot snare polypectomy. Complete. Retrieved. C. There was a semicircumferential discontinuous polyp within the mid tr ansverse colon that could not be removed in its entirety thus NOT COMPLETE. Hot snare biopsy performed of an area concerning for malignancy. Clipped & tattoo. D. Within the splenic flexure there was yet another area concerning for a large semicircumferential polyp along a fold. Hot snare polypectomy. Complete. Retrieved. This area was clipped for hemostasis and also injected for tattoo 6. Exceedingly tortuous colon and redundant colon. 7. Rectum without proctitis. 8. Nonbleeding internal hemorrhoids nonbleeding. - CONSULTS | PROCEDURES Consultations: Hospitalist; Anesthesia Procedures: Pre-Op Diagnosis: Post-polypectomy; unresectable adenomatous polyp, high grade dysplasia; SBO Procedure Performed: 1. Diagnostic laparoscopy 2. Laparoscopic adhesiolysis, extensive 3. Laparoscopic extended right colon resection 4. Laparoscopic hepatic flexure mobilization 5. Open umbilical hernia repair 6. Extracorporeal [id number] functional end-to-end isoperistaltic anastomosis 7. Tap block per anesthesia 8. Drain placement 9. Extensive abdominal washout 10. Drainage of abdominal fluid 11. Small bowel resection at site of obstruction Post Op Diagnosis: Same; SBO 2o SB inflammatory adhesion; extended right c olectomy Procedure performed: 1. Ultrasound guided right femoral artery access 2. Successful placement right femoral arterial catheter placement Procedure Performed: 1. Left internal jugular ultrasound-guided venous access 2. Placement of left deep neck venous vascular access 3. Radiographic confirmation of line placement - HOSPITAL COURSE Hospital Course: [id number] who was admitted with post polypectomy syndrome. There is no concern for carolin perforation at the time of admission. She had multiple polyps per above under HPI for which several were attempted for complex polypectomy pending pathology. She was maintained bowel rest. Pathology was discussed and it revealed that the transverse colonic polyp that was not completely resected had high-grade dysplasia and was concerning for malignancy and thus would be indicated for segmental resection as part of right colectomy. The area of concern to the patient's post polypectomy syndrome was in the cecum. Patient underwent preoperative medical optimization. Pre-op evaluation: According to NSQIP Surgical risk calculator Patient has a 3.8% risk of serious complication and 4.7% risk of any complication. In comparison to 8.3% and 10.1% average risks respectively Patient has predicted length of hospital stay of 2.5 days following surgery. Patient is currently medically optimized for surgery He underwent above listed procedure. She had signs of sepsis likely from contained perforation at the setting of her post polypectomy syndrome which had evolved since admission. Thus the timing of operative intervention was appropriate. There were early signs of shock for which she was maintained on aggressive fluid resuscitation and pressors. She was maintained in the ICU with a line and triple-lumen catheter for monitoring and resuscitation. She ultimately had resumption of bowel function. She was removed from the [facility]. She was maintained briefly on TPN. She was repleted for electrolyte abnormalities throughout her hospitalization including hypokalemia, hypomagnesemia, and hypophosphatemia. She was followed by physical therapy and Occupational Therapy. Ultimately on the day prior to discharge she was cleared for physical therapy at home. She had delayed primary closure of her midline wound. She was maintained on antibiotics throughout. On the day of discharge she was afebrile, hemodynamically acceptable, already closed for her wound, removed for her drain. Pathology was without any concerns for malignancy from the operative specimen. Patient was planned for short interval follow-up with labs as well. - ALLERGIES Allergies/Adverse Reactions: Allergies Allergy/AdvReac Type Severity Reaction Status Date / Time bupropion HCl * Allergy ANXIETY/ANG Verified 06/12/20 14:41 [From Wellbutrin] RY cephalexin [From Keflex] Allergy C-Diff/Coli Verified 06/12/20 14:41 tis ciprofloxacin [From Cipro] Allergy C-DIFF/COLI Verified 06/12/20 14:41 TIS ciprofloxacin HCl * Allergy C-DIFF/COLI Verified 06/12/20 14:41 [From Cipro] TIS - MEDICATIONS Home Medications: Ambulatory Orders Medication Instructions Recorded Confirmed Albuterol Sulfate [Proair Hfa 1 puffs IH Q4-6H PRN 12/29/12 06/13/20 Inhaler] DULoxetine [Cymbalta] 60 mg PO DAILY 12/29/12 06/12/20 Fluticasone [Flonase] 1 sprays CARLITA DAILY PRN MDD 1 12/29/12 06/12/20 Gabapentin [Neurontin] 1,600 mg PO BID 12/29/12 06/12/20 Bieber ER [Lithobid] 900 mg PO QPM 12/29/12 06/13/20 Atorvastatin [Lipitor] 20 mg PO DAILY PM 06/10/20 06/12/20 Omeprazole Magnesium 20 mg PO QDAC 06/13/20 06/13/20 Levothyroxine [Synthroid] 125 mcg PO QDAC 06/30/20 06/30/20 Acetaminophen [Tylenol] 1,000 mg PO Q6H tablet 07/01/20 Levothyroxine [Synthroid] 125 mcg PO QDAC #0 tablet 07/01/20 Potassium Chloride [K-Dur] 40 meq PO DAILY #30 tablet 07/01/20 oxyCODONE [Roxicodone] 5 mg PO Q6H PRN #20 tablet 07/01/20 - PHYSICAL EXAM AT DISCHARGE Physical Exam Other/Comments: Patient alert awake and oriented x3 No acute distress resting comfortably in bed Lungs clear to auscultation bilaterally no wheezes rales or rhonchi Radial pulses palpable bilaterally with good capillary refill Abdomen soft nontender nondistended no rebound no guarding Moving all extremities with no sensorimotor deficits Cranial nerves II through XII grossly intact Abdominal Exam: Inspection - Erythema none; Scars trocars well healed Auscultation -normoactive bowel sounds Palpation - Hernias none; Fluctuance none; Induration none; Scar N/A - LABS Result Diagrams: 07/01/20 05:10 07/01/20 15:14 - SEPSIS Current Stage of Sepsis: Resolved Possible source of Sepsis: GI tract/intra-abdominal - TIME SPENT Time Spent in Discharge (Minutes): 60"
--- NOTE | 2020-07-01 12:25 | Discharge Plan ---
Discharge Plan Problem Reviewed?: Yes Disposition: 06 Home Health Service Condition: Stable Prescriptions: Potassium Chloride [K-Dur] 40 meq PO DAILY #30 tablet oxyCODONE [Roxicodone] 5 mg PO Q6H PRN #20 tablet PRN Reason: Pain Diet: Soft Activity Restrictions: no heavy lift/push/pull Shower Restrictions: No Driving Restrictions: Yes (No driving while taking pain medications) Assistance Devices: Walker Instruction Topics: Bowel Surg Recovery, Colorectal Surg Recovery, Colorectal Surg Hospital Home Health Concerns: Home physical therapy Home health services. Care Goals: Call for fevers, nause, vomiting. Stool softeners while taking narcotics. Avoid slowing agents/anti-diarrheal agents in immediate post-operative period. Follow up with me on post-discharge. No heavy lifting/pushing/pulling. No Smoking: If you smoke, Please STOP! Call for help. Follow-up with: Aiyana Tracey PA-C [Primary Care Provider] - 1-2 Days
[2020-07-01] MEDS: SODIUM CHLORIDE FLUSH 0.9% 10 ML SYRINGE IVP PRN (14:22)
[2020-07-01 15:37] LABS: CALCIUM 8.5 mg/dL (8.5-10.3); POTASSIUM 3.2 mmol/L (3.5-5.0)
[2020-07-01 18:23] VITALS: BP 118/69
[2020-07-01] MEDS ORDERED: POTASSIUM CHLORIDE 20 MEQ/15 ML UDC PO ONE (19:00)
== END 2020-07-01 18:25 | disposition home health service (06) | DRG 329 ==
LOC: ED 14:21 → MS3 19:41 → OBSVTOIN 06-13 15:17 → MS2 06-15 14:26 → ICU 06-19 16:31
PROVIDERS: ADMIT Surgery; ATTEND Surgery
PROC: 0DBB4ZZ Excision of Ileum, Percutaneous Endoscopic Approach (ICD-10-PCS; 2020-06-19)
PROC: 0DNE4ZZ Release Large Intestine, Percutaneous Endoscopic Approach (ICD-10-PCS; 2020-06-19)
PROC: 0DN84ZZ Release Small Intestine, Percutaneous Endoscopic Approach (ICD-10-PCS; 2020-06-19)
PROC: 04HY32Z Insertion of Monitoring Device into Lower Artery, Percutaneous Approach (ICD-10-PCS; 2020-06-19)
PROC: 4A133B1 Monitoring of Arterial Pressure, Peripheral, Percutaneous Approach (ICD-10-PCS; 2020-06-19)
PROC: 4A133J1 Monitoring of Arterial Pulse, Peripheral, Percutaneous Approach (ICD-10-PCS; 2020-06-19)
PROC: 02HV33Z Insertion of Infusion Device into Superior Vena Cava, Percutaneous Approach (ICD-10-PCS; 2020-06-19)
PROC: 30243N1 Transfusion of Nonautologous Red Blood Cells into Central Vein, Percutaneous Approach (ICD-10-PCS; 2020-06-19)
PROC: 02HV33Z Insertion of Infusion Device into Superior Vena Cava, Percutaneous Approach (ICD-10-PCS; 2020-06-19)
PROC: 0DTF4ZZ Resection of Right Large Intestine, Percutaneous Endoscopic Approach (ICD-10-PCS; principal; 2020-06-19 12:00)
PROC: 3E0436Z Introduction of Nutritional Substance into Central Vein, Percutaneous Approach (ICD-10-PCS; 2020-06-20)
DX: G89.18 Other acute postprocedural pain (principal); R10.30 Lower abdominal pain, unspecified; K91.89 Other postprocedural complications and disorders of digestive system; K65.9 Peritonitis, unspecified; E86.0 Dehydration; A41.9 Sepsis, unspecified organism; R65.21 Severe sepsis with septic shock; R57.1 Hypovolemic shock; N17.0 Acute kidney failure with tubular necrosis; K63.1 Perforation of intestine (nontraumatic); K63.0 Abscess of intestine; E87.0 Hyperosmolality and hypernatremia; K56.50 Intestinal adhesions [bands], unspecified as to partial versus complete obstruction; K56.7 Ileus, unspecified; D62 Acute posthemorrhagic anemia; E87.2 Acidosis; I24.8 Other forms of acute ischemic heart disease; D12.2 Benign neoplasm of ascending colon; E87.6 Hypokalemia; E87.8 Other disorders of electrolyte and fluid balance, not elsewhere classified; K42.9 Umbilical hernia without obstruction or gangrene; R19.7 Diarrhea, unspecified; R60.0 Localized edema; E16.2 Hypoglycemia, unspecified; J43.9 Emphysema, unspecified; N18.9 Chronic kidney disease, unspecified; E03.9 Hypothyroidism, unspecified; E78.00 Pure hypercholesterolemia, unspecified; F31.9 Bipolar disorder, unspecified; F43.10 Post-traumatic stress disorder, unspecified; F40.240 Claustrophobia; K21.9 Gastro-esophageal reflux disease without esophagitis; R32 Unspecified urinary incontinence; R35.0 Frequency of micturition; H91.90 Unspecified hearing loss, unspecified ear; Z79.899 Other long term (current) drug therapy; Z90.49 Acquired absence of other specified parts of digestive tract; Z87.891 Personal history of nicotine dependence
CPT/HCPCS: 36415; 51798; 71045; 74176; 80048; 80053; 80178; 81001; 82040; 82272; 82310; 82728; 82803; 83036; 83540; 83605; 83690; 83735; 84100; 84134; 84443; 84466; 84478; 84484; 85014; 85018; 85025; 85027; 85610; 86140; 86850; 86900; 86901; 86920; 87040; 87150; 87493; 87631; 93005; 93306; 94640; 96365; 96366; 96367; 96368; 96372; 96375; 96376; 97110; 97116; 97161; 97166; 97530; 97535; 99284; 99285; A6250; A9270; C1751; J0131; J1170; J1650; J1815; J2060; J2185; J2765; J3490; J7120; P9016; Q9967; 0202U; 81003; 84439; 87086; 88305; 88307

== ENCOUNTER 2020-07-03 16:00 | Outpatient (CLI) | payer MEDICARE, MEDICAID ==
[2020-07-03 16:34] LABS: BASOPHILS % (AUTO) 0.2 %; EOSINOPHILS # (AUTO) 0.3 10^3/uL (0.0-0.7); EOSINOPHILS % (AUTO) 2.8 %; HCT - HEMATOCRIT 26.3 % (37.0-47.0); HGB - HEMOGLOBIN 8.2 g/dL (12.0-16.0); LYMPHOCYTES # (AUTO) 0.9 10^3/uL (1.5-3.5); LYMPHOCYTES % (AUTO) 7.3 %; MEAN CORPUSCULAR HGB CONC 31.2 g/dL (32.0-36.0); MEAN CORPUSCULAR VOLUME 102.7 fL (81.0-99.0); MEAN PLATELET VOLUME 9.9 fL (7.9-10.8); MONOCYTES # (AUTO) 0.7 10^3/uL (0.0-1.0); MONOCYTES % (AUTO) 5.8 %; NEUTROPHILS # (AUTO) 9.9 10^3/uL (1.5-6.6); NEUTROPHILS % (AUTO) 83.6 %; PLT - PLATELET COUNT 500 10^3/uL (130-450); RED BLOOD COUNT 2.56 10^6/uL (4.20-5.40); RED CELL DISTRIBUTION WIDTH 16.6 % (12.0-15.0); WHITE BLOOD COUNT 11.8 x10^3/uL (4.8-10.8)
--- NOTE | 2020-07-03 16:47 | XRAY Report ---
PROCEDURE: Chest 2 View X-Ray INDICATIONS: DYSPNEA TECHNIQUE: 2 view(s) of the chest. COMPARISON: Chest x-ray, one view, 06/19/2020.. FINDINGS: Surgical changes and devices: Cholecystectomy clips are noted. Lungs and pleura: No pleural effusions or pneumothorax. Lungs are clear. Mediastinum: Mediastinal contours are normal. Heart size is normal. Bones and chest wall: No suspicious bony abnormalities. Soft tissues appear unremarkable. IMPRESSION: No acute cardiopulmonary disease. Reviewed by: Orion Holcomb MD on 07/03/2020 4:45 PM PDT Approved by: Orion Holcomb MD on 07/03/2020 4:45 PM PDT Station ID: [id number]
[2020-07-03 16:50] LABS: ALBUMIN 2.4 g/dL (3.2-5.5); ALBUMIN/GLOBULIN RATIO 0.6 (1.0-2.2); BILIRUBIN,TOTAL 0.8 mg/dL (0.2-1.0); CALCIUM 9.2 mg/dL (8.5-10.3); MAGNESIUM 2.2 mg/dL (1.7-2.8); PHOSPHORUS 3.7 mg/dL (2.5-4.6); POTASSIUM 4.5 mmol/L (3.5-5.0); TOTAL PROTEIN 6.7 g/dL (6.7-8.2)
== END 2020-07-03 16:01 | disposition home or self-care (01) ==
LOC: DI 16:00
PROVIDERS: ATTEND Surgery
DX: R06.00 Dyspnea, unspecified (principal); N28.9 Disorder of kidney and ureter, unspecified; D64.9 Anemia, unspecified
CPT/HCPCS: 36415; 80053; 83735; 84100; 85025

== ENCOUNTER 2020-08-14 14:26 | Outpatient (CLI) | payer MEDICARE, MEDICAID ==
[2020-08-14 17:52] LABS: BASOPHILS % (AUTO) 0.6 %; EOSINOPHILS # (AUTO) 0.2 10^3/uL (0.0-0.7); EOSINOPHILS % (AUTO) 3.5 %; HCT - HEMATOCRIT 30.7 % (37.0-47.0); HGB - HEMOGLOBIN 9.4 g/dL (12.0-16.0); LYMPHOCYTES # (AUTO) 1.3 10^3/uL (1.5-3.5); LYMPHOCYTES % (AUTO) 28.6 %; MEAN CORPUSCULAR HEMOGLOBIN 31.2 pg (27.0-31.0); MEAN CORPUSCULAR HGB CONC 30.6 g/dL (32.0-36.0); MEAN PLATELET VOLUME 10.4 fL (7.9-10.8); MONOCYTES # (AUTO) 0.4 10^3/uL (0.0-1.0); MONOCYTES % (AUTO) 7.8 %; NEUTROPHILS # (AUTO) 2.7 10^3/uL (1.5-6.6); NEUTROPHILS % (AUTO) 59.3 %; PLT - PLATELET COUNT 342 10^3/uL (130-450); RED BLOOD COUNT 3.01 10^6/uL (4.20-5.40); RED CELL DISTRIBUTION WIDTH 15.4 % (12.0-15.0); WHITE BLOOD COUNT 4.6 x10^3/uL (4.8-10.8)
[2020-08-14 18:27] LABS: ALBUMIN 4.1 g/dL (3.2-5.5); ALBUMIN/GLOBULIN RATIO 1.2 (1.0-2.2); BILIRUBIN,TOTAL 0.7 mg/dL (0.2-1.0); CALCIUM 9.6 mg/dL (8.5-10.3); POTASSIUM 3.9 mmol/L (3.5-5.0); TOTAL PROTEIN 7.4 g/dL (6.7-8.2)
== END 2020-08-14 23:59 | disposition home or self-care (01) ==
LOC: LAB.WCP 14:26
PROVIDERS: ATTEND Physician Assistant Medical
DX: N28.9 Disorder of kidney and ureter, unspecified (principal); D64.9 Anemia, unspecified
CPT/HCPCS: 36415; 80053; 82728; 83540; 84466; 85025

== ENCOUNTER 2020-10-15 08:00 | Outpatient (CLI) | payer MEDICARE, MEDICAID ==
[2020-10-15 17:57] LABS: BASOPHILS % (AUTO) 0.7 %; EOSINOPHILS # (AUTO) 0.1 10^3/uL (0.0-0.7); EOSINOPHILS % (AUTO) 2.9 %; HGB - HEMOGLOBIN 11.7 g/dL (12.0-16.0); LYMPHOCYTES # (AUTO) 1.4 10^3/uL (1.5-3.5); MEAN CORPUSCULAR HEMOGLOBIN 30.5 pg (27.0-31.0); MEAN CORPUSCULAR VOLUME 101.6 fL (81.0-99.0); MEAN PLATELET VOLUME 10.5 fL (7.9-10.8); MONOCYTES # (AUTO) 0.3 10^3/uL (0.0-1.0); MONOCYTES % (AUTO) 6.3 %; NEUTROPHILS # (AUTO) 2.5 10^3/uL (1.5-6.6); NEUTROPHILS % (AUTO) 57.6 %; PLT - PLATELET COUNT 261 10^3/uL (130-450); RED BLOOD COUNT 3.84 10^6/uL (4.20-5.40); RED CELL DISTRIBUTION WIDTH 13.5 % (12.0-15.0); WHITE BLOOD COUNT 4.4 x10^3/uL (4.8-10.8)
[2020-10-15 18:25] LABS: BUN - BLOOD UREA NITROGEN 17 mg/dL (6-20); CALCIUM 9.9 mg/dL (8.5-10.3); CARBON DIOXIDE - CO2 26 mmol/L (21-32); CHLORIDE 110 mmol/L (101-111); CHOL/HDL RATIO 2.8 (<4.4); CHOLESTEROL 195 mg/dL; CREATININE 1.2 mg/dL (0.4-1.0); GFR - MDRD 46 (>89); GLUCOSE 95 mg/dL (70-100); HDL CHOLESTEROL 69 mg/dL; LDL CHOLESTEROL,CALCULATED 110 mg/dL; LDL/HDL RATIO 1.6 (<4.4); POTASSIUM 3.9 mmol/L (3.5-5.0); SODIUM 141 mmol/L (135-145); TRIGLYCERIDES 80 mg/dL; VLDL CHOLESTEROL 16 mg/dL
[2020-10-15 18:27] LABS: THYROID STIMULATING HORMONE 3.13 uIU/mL (0.34-5.60)
== END 2020-10-15 23:59 | disposition home or self-care (01) ==
LOC: LAB.WCP 08:00
PROVIDERS: ATTEND Physician Assistant Medical
DX: N28.9 Disorder of kidney and ureter, unspecified (principal); E78.5 Hyperlipidemia, unspecified; E03.9 Hypothyroidism, unspecified; D64.9 Anemia, unspecified
CPT/HCPCS: 36415; 80048; 80061; 83721; 84443; 85025

== ENCOUNTER 2021-07-28 11:59 | Day surgery (SDC) | payer MEDICARE, MEDICAID ==
[2021-07-28] MEDS ORDERED: PROPOFOL 500 MG/50 ML 500 MG/50 ML VIAL ONE (12:32)
[2021-07-28] MEDS ORDERED: LACTATED RINGERS 1,000 ML IV ONE ×2 (12:41→13:43)
--- NOTE | 2021-07-28 13:10 | ANESTHESIA ---
Pre-Anesthesia VS, & Labs - Diagnosis hx of polyps - Procedure colonoscopy Vital Signs: Temp Pulse Resp BP Pulse Ox 36.4 C L 72 16 131/79 H 97 07/28/21 12:10 07/28/21 12:10 07/28/21 12:10 07/28/21 12:10 07/28/21 12:10 Height: 5 ft 4 in Weight (kg): 77.9 kg Body Mass Index: 29.5 BMI Classification: Overweight - NPO >8 hours - Is Patient ?: No Home Medications and Allergies Home Medications: Ambulatory Orders Ferrous Sulfate 1 tab ORAL DAILY 07/28/21 Gabapentin [Neurontin] 1,200 mg ORAL QPM 07/28/21 Vit C/E/Cuperic/Zinc/Lutein [Eye Multivitamin-Lutein Sftgel] 1 cap ORAL DAILY 07/28/21 Albuterol Sulfate [Proair Hfa Inhaler] 1 puffs IH Q4-6H PRN 12/29/12 DULoxetine [Cymbalta] 60 mg PO DAILY 12/29/12 Gabapentin [Neurontin] 800 mg PO DAILY 12/29/12 Abrams ER [Lithobid] 900 mg PO QPM 12/29/12 Omeprazole Magnesium 20 mg PO QDAC 06/13/20 Ferrous Sulfate 1 tab ORAL DAILY 07/28/21 Gabapentin [Neurontin] 1,200 mg ORAL QPM 07/28/21 Vit C/E/Cuperic/Zinc/Lutein [Eye Multivitamin-Lutein Sftgel] 1 cap ORAL DAILY 07/28/21 Allergies/Adverse Reactions: Allergies Allergy/AdvReac Type Severity Reaction Status Date / Time bupropion HCl * Allergy ANXIETY/ANG Verified 07/27/21 14:40 [From Wellbutrin] RY cephalexin [From Keflex] Allergy C-Diff/Coli Verified 07/27/21 14:40 tis ciprofloxacin [From Cipro] Allergy C-DIFF/COLI Verified 07/27/21 14:40 TIS ciprofloxacin HCl * Allergy C-DIFF/COLI Verified 07/27/21 14:40 [From Cipro] TIS Anes History & Medical History - Anesthetic History Anesthesia Complications: reports: No previous complications Family history of Anesthesia Complications: Denies Family history of Malignant Hyperthermia: Denies - Medical History Cardiovascular: reports: High cholesterol Pulmonary: reports: Asthma, COPD, Emphysema Gastrointestinal: reports: GERD, Colon polyps Urinary: reports: Incontinence Neuro: reports: None Musculoskeletal: reports: Osteoarthritis, Osteopenia Endocrine/Autoimmune: reports: HyPOthyroidism Blood Disorders: reports: None Skin: reports: Eczema Smoking Status: Former smoker (quit 1999) - Surgical History General: reports: Cholecystectomy, Appendectomy, Colonoscopy, EGD Gynecologic: reports: LEEP (Cervical surgery) Orthopedic: reports: Other Exam General: Alert, Oriented x3, Cooperative Dental: Partials Upper, Partials Lower Mouth Openin Fingerbreadth Neck Mobility: Normal Mallampati classification: I Thyromental Distance: 4-6 cm Respiratory: Lungs clear Cardiovascular: Regular rate Plan Anesthesia Type: Total IV Consent for Procedure(s) Verified and Reviewed: Yes Code Status: Attempt Resuscitation ASA classification: 2-Mild systemic disease Is this case an emergency?: No
[2021-07-28 14:00] VITALS: BP 135/77
--- NOTE | 2021-07-28 15:57 | ANESTHESIA POST OP EVALUATION ---
Anesthesia Post Eval - Post Anesthesia Eval Vitals: Last Vital Signs Temp 36.4 C L 07/28/21 13:59 Pulse 63 07/28/21 13:59 Resp 16 07/28/21 13:59 BP 135/77 H 07/28/21 13:59 Pulse Ox 99 07/28/21 13:59 CV Function Including HR & BP: Stable Pain Control: Satisfactory Nausea & Vomiting: Negative Mental Status: Baseline Respiratory Status: Airway Patent Hydration Status: Satisfactory Anesthesia Complications: None
== END 2021-07-28 12:00 | disposition home or self-care (01) ==
LOC: SDS 11:59
PROVIDERS: ATTEND Surgery
DX: Z12.11 Encounter for screening for malignant neoplasm of colon (principal); K64.4 Residual hemorrhoidal skin tags; J45.909 Unspecified asthma, uncomplicated; J43.9 Emphysema, unspecified; Z90.49 Acquired absence of other specified parts of digestive tract; Z86.010 Personal history of colon polyps; Z98.0 Intestinal bypass and anastomosis status; Z87.891 Personal history of nicotine dependence
CPT/HCPCS: G0105; J7120

== ENCOUNTER 2021-09-14 14:32 | Outpatient (CLI) | payer MEDICARE ==
[2021-09-14 17:51] LABS: CALCIUM 9.9 mg/dL (8.5-10.3); CREATININE 1.2 mg/dL (0.4-1.0); POTASSIUM 3.7 mmol/L (3.5-5.0)
[2021-09-14 19:31] LABS: THYROID STIMULATING HORMONE 107.88 uIU/mL (0.34-5.60)
[2021-09-14 20:05] LABS: FREE T4 (FREE THYROXINE) 0.58 ng/dL (0.58-1.64)
== END 2021-09-14 14:33 | disposition home or self-care (01) ==
LOC: LAB.N 14:32
PROVIDERS: ATTEND Physician Assistant Medical
DX: N28.9 Disorder of kidney and ureter, unspecified (principal); E03.9 Hypothyroidism, unspecified
CPT/HCPCS: 36415; 80048; 84439; 84443

== ENCOUNTER 2022-11-18 19:30 | Outpatient (CLI) | payer MEDICARE, MEDICAID | END 2022-11-18 23:59 | disposition critical access hospital (66) | LOC: EMS 19:30 | DX: I48.91 Unspecified atrial fibrillation (principal) | CPT/HCPCS: A0425; A0429 ==

== ENCOUNTER 2022-11-18 19:50 | Emergency (ER) | payer MEDICARE, MEDICAID ==
[2022-11-18 20:00] VITALS: O2SAT 100
--- NOTE | 2022-11-18 20:14 | ED Physician Documentation ---
History of Present Illness - Stated complaint Stated Complaint: INCREASED HEART RATE - Chief complaint Chief Complaint: Cardiac - Additonal information Additional information: Patient 66-year-old femalePresenting with heart palpitations and shortness of breath. Presents via EMS from urgent care where she was subsequently found to be in atrial fibrillation with rapid ventricular response. Reports feels as though she has been going in and out of this rhythm for the last several weeks. Does not identify a clear time of onset for today and is uncertain if she has been in a continuous arrhythmia. Reports that she takes a thyroid supplement but denies any other chronic medical issues. Reports allergies to ciprofloxacin, Keflex, Wellbutrin. Review of Systems Constitutional: denies: Fever Eyes: denies: Loss of vision Ears: denies: Loss of hearing Nose: denies: Rhinorrhea / runny nose Throat: denies: Dental pain / toothache Cardiac: reports: Palpitations. denies: Chest pain / pressure Respiratory: reports: Dyspnea PD PAST MEDICAL HISTORY - Past Medical History Cardiovascular: High cholesterol Respiratory: Asthma, COPD, Emphysema Neuro: None Endocrine/Autoimmune: HyPOthyroidism GI: GERD, Colon polyps : Incontinence HEENT: Chronic hearing loss Psych: Bipolar disorder, Post traumatic stress disorder, Claustrophobia Musculoskeletal: Osteoarthritis, Osteopenia Derm: Eczema - Past Surgical History Past Surgical History: Yes General: Cholecystectomy, Appendectomy, Colonoscopy, EGD Ortho: Other /CLINICAL ASSESSMENT MANAGER: LEEP (Cervical surgery) - Present Medications Home Medications: Ambulatory Orders Medication Instructions Recorded Confirmed Albuterol Sulfate [Proair Hfa 1 puffs IH Q4-6H PRN 12/29/12 07/28/21 Inhaler] DULoxetine [Cymbalta] 60 mg PO DAILY 12/29/12 07/28/21 Gabapentin [Neurontin] 800 mg PO DAILY 12/29/12 07/28/21 Pana ER [Lithobid] 900 mg PO QPM 12/29/12 07/28/21 Omeprazole Magnesium 20 mg PO QDAC 06/13/20 07/28/21 Levothyroxine [Synthroid] 125 mcg PO QDAC #0 tablet 07/01/20 07/28/21 Ferrous Sulfate 1 tab ORAL DAILY 07/28/21 07/28/21 Gabapentin [Neurontin] 1,200 mg ORAL QPM 07/28/21 07/28/21 Vit C/E/Cuperic/Zinc/Lutein [Eye 1 cap ORAL DAILY 07/28/21 07/28/21 Multivitamin-Lutein Sftgel] Aspirin Chewable [St Remy 81 mg PO DAILY #30 tablet 11/19/22 Aspirin] diltiaZEM [Cardizem] 60 mg ORAL BID #60 tablet 11/19/22 - Allergies Allergies/Adverse Reactions: Allergies Allergy/AdvReac Type Severity Reaction Status Date / Time bupropion HCl * Allergy ANXIETY/ANG Verified 07/27/21 14:40 [From Wellbutrin] RY cephalexin [From Keflex] Allergy C-Diff/Coli Verified 07/27/21 14:40 tis ciprofloxacin [From Cipro] Allergy C-DIFF/COLI Verified 07/27/21 14:40 TIS ciprofloxacin HCl * Allergy C-DIFF/COLI Verified 07/27/21 14:40 [From Cipro] TIS - Social History Does the pt smoke?: No Smoking Status: Former smoker (quit 1999) Does the pt drink ETOH?: Yes Does the pt have substance abuse?: No - Immunizations Immunizations are current?: Yes - POLST Patient has POLST: No POLST Status: Full Code PD ED PE NORMAL - Vitals Vital signs reviewed: Yes (Tachycardic, irregularly irregular) - General General: Alert and oriented X 3, No acute distress, Well developed/nourished - HEENT HEENT: Atraumatic - Neck Neck: Supple, no meningeal sign, No bony TTP, No adenopathy, No JVD, C-Spine cleared by NEXUS criteria - Cardiac Cardiac: RRR, No murmur - Respiratory Respiratory: No respiratory distress - Abdomen Abdomen: Normal bowel sounds - Female Female : Deferred - Rectal Rectal: Deferred - Back Back: No CVA TTP - Extremities Extremities: No deformity Results - Vitals Vitals: Vital Signs - 24 hr 11/18/22 11/18/22 11/18/22 19:59 20:02 20:29 Temperature 37 C Heart Rate 151 H 87 75 Respiratory 20 17 17 Rate Blood Pressure 136/86 H 121/75 129/89 H O2 Saturation 100 100 100 If not protocol 2 : Oxygen Flow, liters/minute 11/18/22 11/19/22 23:38 00:08 Temperature 36.7 C Heart Rate 110 H 72 Respiratory 20 20 Rate Blood Pressure 110/74 130/78 O2 Saturation 100 100 If not protocol : Oxygen Flow, liters/minute Oxygen O2 Source Room air - EKG (time done) 1954 EKG releavant findings:: EKG personally interpreted by author of this note. Relevant findings are: Atrial fibrillation with rate 151 bpm. Normal axis. Normal QRS interval. QTc borderline at [address] segment elevations. Nonspecific ST-T wave abnormalities noted. 4 EKG releavant findings:: EKG personally interpreted by author of this note. Relevant findings are: Sinus rhythm with rate 8058 bpm. Normal axis. Normal RI, QRS, QTc intervals. No ST segment elevations or T wave inversions. - Labs Labs: Laboratory Tests 11/18/22 11/18/22 19:57 19:57 WBC 7.4 RBC 4.33 Hgb 12.8 Hct 41.4 MCV 95.6 MCH 29.6 MCHC 30.9 L RDW 13.1 Plt Count 260 MPV 10.3 Neut # (Auto) 5.0 Lymph # (Auto) 1.6 [place] # (Auto) 0.6 Eos # (Auto) 0.2 Baso # (Auto) 0.0 Absolute Nucleated RBC 0.00 Nucleated RBC % 0.0 Sodium 139 Potassium 4.2 Chloride 109 Carbon Dioxide 25 Anion Gap 5.0 L BUN 16 Creatinine 1.3 Estimated GFR (MDRD) 41 L Glucose 96 Calcium 10.7 H Magnesium 2.1 Total Bilirubin 0.4 AST 11 ALT 10 Alkaline Phosphatase 109 Total Protein 7.1 Albumin 4.2 Globulin 2.9 Albumin/Globulin Ratio 1.4 Lipase 15 Ethyl Alcohol < 10.0 PD Medical Decision Making - ED course Complexity details: reviewed results, re-evaluated patient, considered differential, d/w patient ED course: Patient 66-year-old female presenting to the emergency department in atrial fibrillation with rapid ventricular response. Initially arrives A-fib RVR with heart rate in the 150s. Denies chest pain. Labs electrolytes generally within normal limits. She does have an elevation in TSH but she reports that she takes a thyroid supplement. No indications thyroid storm. No chest pain that would be of imminent concern for cardiac ischemia and otherwise her clinical presentation is inconsistent with pulmonary emboli. She is initially treated with push doses of Cardizem with some rate control however despite 3 doses of 10 mg Cardizem she continued to have persistent tachycardia with physical activity. Subsequently started on a heparin continuous infusion. Monitor for several hours in the emergency department. Initial plan was for hospitalization however she converted to sinus rhythm at approximately 0415 hrs. On review she is a low risk [id number] scoring. Will initiate 81 mg daily aspirin and prescribe extended release Cardizem. Will encourage her to follow- up with her primary care doctor or return to the emergency department immediately for new or worsening symptoms. Departure - Departure Disposition: 01 Home, Self Care Clinical Impression: Atrial fibrillation with rapid ventricular response Instructions: Atrial Fibrillation Dc, ED Paroxysmal Atrial Flutter Prescriptions: diltiaZEM [Cardizem] 60 mg ORAL BID #60 tablet Aspirin Chewable [St Remy Aspirin] 81 mg PO DAILY #30 tablet Comments: Thank you for allowing us to care for you today [facility]. Today in the emergency department you were treated for atrial fibrillation with a rapid ventricular rate. I written a prescription for medication to take to help control your heart rate as well as for a daily 81 mg aspirin which decreases your risk for blood clot. These were sent to your preferred pharmacy, [facility] in [place]. It is important that you follow-up with your primary care doctor soon as possible concerning at your ER visit. If it anytime you have new or worsening symptoms, if you feel yourself go back into atrial fibrillation please return to the emergency department. Forms: PCP List
[2022-11-18] MEDS ORDERED: SODIUM CHLORIDE 0.9% 1,000 ML IV STA (20:15)
[2022-11-18] MEDS ORDERED: diltiaZEM INJ 5 MG/ML VIAL IVP PRN (20:16)
[2022-11-18 20:23] LABS: BASOPHILS % (AUTO) 0.4 %; EOSINOPHILS # (AUTO) 0.2 10^3/uL (0.0-0.7); HCT - HEMATOCRIT 41.4 % (37.0-47.0); HGB - HEMOGLOBIN 12.8 g/dL (12.0-16.0); LYMPHOCYTES # (AUTO) 1.6 10^3/uL (1.5-3.5); LYMPHOCYTES % (AUTO) 22.2 %; MEAN CORPUSCULAR HEMOGLOBIN 29.6 pg (27.0-31.0); MEAN CORPUSCULAR HGB CONC 30.9 g/dL (32.0-36.0); MEAN CORPUSCULAR VOLUME 95.6 fL (81.0-99.0); MEAN PLATELET VOLUME 10.3 fL (7.9-10.8); MONOCYTES # (AUTO) 0.6 10^3/uL (0.0-1.0); MONOCYTES % (AUTO) 7.8 %; NEUTROPHILS % (AUTO) 67.5 %; PLT - PLATELET COUNT 260 10^3/uL (130-450); RED BLOOD COUNT 4.33 10^6/uL (4.20-5.40); RED CELL DISTRIBUTION WIDTH 13.1 % (12.0-15.0); WHITE BLOOD COUNT 7.4 x10^3/uL (4.8-10.8)
[2022-11-18 20:38] LABS: ALBUMIN 4.2 g/dL (3.2-5.5); ALBUMIN/GLOBULIN RATIO 1.4 (1.0-2.2); ALKALINE PHOSPHATASE 109 IU/L (42-121); ALT ALANINE AMINOTRANSFERASE 10 IU/L (10-60); AST ASPARTATE AMINOTRANSFERASE 11 IU/L (10-42); BILIRUBIN,TOTAL 0.4 mg/dL (0.2-1.0); BUN - BLOOD UREA NITROGEN 16 mg/dL (6-20); CALCIUM 10.7 mg/dL (8.5-10.3); CARBON DIOXIDE - CO2 25 mmol/L (21-32); CHLORIDE 109 mmol/L (101-111); CREATININE 1.3 mg/dL (0.6-1.3); ETOH - ETHANOL < 10.0 mg/dL; GFR - MDRD 41 (>89); GLUCOSE 96 mg/dL (74-104); LIPASE 15 U/L (11-82); MAGNESIUM 2.1 mg/dL (1.7-2.3); POTASSIUM 4.2 mmol/L (3.5-4.5); SODIUM 139 mmol/L (135-145); TOTAL PROTEIN 7.1 g/dL (6.4-8.9)
[2022-11-18] MEDS ORDERED: diltiaZEM INJ 125 MG in DEXTROSE 5% 100 ML IV STA (21:24)
[2022-11-18] MEDS ORDERED: diltiaZEM INJ 5 MG/ML VIAL ONE (21:43)
[2022-11-19] MEDS ORDERED: diltiaZEM 30 MG TABLET PO STA ×2 (04:20→04:28)
[2022-11-19 04:47] VITALS: BP 120/74
== END 2022-11-19 04:44 | disposition home or self-care (01) ==
LOC: EDSEX → EDUNIT# → ED 19:50
DX: I48.91 Unspecified atrial fibrillation (principal); R94.6 Abnormal results of thyroid function studies; Z87.891 Personal history of nicotine dependence
CPT/HCPCS: 36415; 80053; 83690; 83735; 85025; 93005; 96374; 96376; 99284; A9270; G0480; 80320

== ENCOUNTER 2022-12-21 13:39 | Outpatient (CLI) | payer MEDICARE, MEDICAID ==
[2022-12-21 18:22] LABS: THYROID STIMULATING HORMONE 0.02 uIU/mL (0.34-5.60)
== END 2022-12-21 13:40 | disposition home or self-care (01) ==
LOC: LAB.N 13:39
PROVIDERS: ATTEND Physician Assistant Medical
DX: E03.9 Hypothyroidism, unspecified (principal)
CPT/HCPCS: 36415; 84439; 84443

== ENCOUNTER 2023-01-14 14:56 | Outpatient (CLI) | payer MEDICARE, MEDICAID ==
[2023-01-14 18:21] LABS: LITHIUM 0.83 mmol/L
== END 2023-01-14 14:57 | disposition home or self-care (01) ==
LOC: LAB.N 14:56
PROVIDERS: ATTEND Internal Medicine Nephrology
DX: E55.9 Vitamin D deficiency, unspecified (principal); R78.89 Finding of other specified substances, not normally found in blood
CPT/HCPCS: 36415; 80178; 82306

== ENCOUNTER 2023-01-16 10:55 | Outpatient (CLI) | payer MEDICARE, MEDICAID ==
--- NOTE | 2023-01-16 18:02 | Ultrasound Report ---
PROCEDURE: Retroperitoneal INDICATIONS: KIDNEY DISEASE TECHNIQUE: Real-time scanning was performed of the retroperitoneal organs, with image documentation. COMPARISON: None. FINDINGS: Kidneys: Right kidney measures 11.7cm long; left kidney measures 9.8 cm long. Right renal cortical thickness is 4 cm; left renal cortical thickness is 4 cm. No solid masses, hydronephrosis, or nephro lithiasis. There are 2 right simple cortical renal cysts. Bladder: Pre-void bladder volume is 153.5 mL. Post-void residual is 10.7 mL. Pre-void images demon strate no intraluminal masses or stones. On pre-void images, bilateral ureteral jets are noted with color Doppler interrogation. (Of note, ureteral jets may not be detectable in up to 25% of cases due to insufficient differences in specific gravity between ureteral and bladder urine). Miscellaneous: No free abdominal fluid. IMPRESSION: 1. Bilateral cortical thinning. 2. Post void residual. Reviewed by: Jeanette Fletcher MD on 01/16/2023 6:01 PM PST Approved by: Jeanette Fletcher MD on 01/16/2023 6:01 PM PST Station ID: [id number]
== END 2023-01-16 10:56 | disposition home or self-care (01) ==
LOC: DI 10:55
PROVIDERS: ATTEND Internal Medicine Nephrology
DX: N18.32 Chronic kidney disease, stage 3b (principal); N32.0 Bladder-neck obstruction

== ENCOUNTER 2023-02-18 16:49 | Emergency (ER) | payer MEDICARE, MEDICAID ==
--- NOTE | 2023-02-18 17:27 | ED Physician Documentation ---
PD HPI CHEST PAIN - Stated complaint Stated Complaint: HIGH HEART RATE - Chief complaint Chief Complaint: Cardiac - History obtained from History obtained from: Patient, Family - Additional information Additional information: 67-year-old female presents to the emergency department today for heart palpitations. Patient reports that she had A-fib sometime late summer early fall this year did not require shock reports that she was put on some sort of drip and converted back to normal sinus rhythm. She was discharged with An oral medication for her A-fib does not recall the name, has been taking it daily but noticed today some heart palpitations in her upper chest her daughter who is an RN checked her pulse and said that she felt like she is back in A-fib and told her to come to the emergency department. She has no chest pain no dizziness no shortness of breath no nausea vomiting no recent illnesses. Patient denies any alcohol or drug use. 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 (Cervical surgery) - Present Medications Home Medications: Ambulatory Orders Medication Instructions Recorded Confirmed Albuterol Sulfate [Proair Hfa 1 puffs IH Q4-6H PRN 12/29/12 07/28/21 Inhaler] DULoxetine [Cymbalta] 60 mg PO DAILY 12/29/12 07/28/21 Gabapentin [Neurontin] 800 mg PO DAILY 12/29/12 07/28/21 [place] [facility] [Lithobid] 900 mg PO QPM 12/29/12 07/28/21 Omeprazole Magnesium 20 mg PO QDAC 06/13/20 07/28/21 Levothyroxine [Synthroid] 125 mcg PO QDAC #0 tablet 07/01/20 07/28/21 Ferrous Sulfate 1 tab ORAL DAILY 07/28/21 07/28/21 Gabapentin [Neurontin] 1,200 mg ORAL QPM 07/28/21 07/28/21 Vit C/E/Cuperic/Zinc/Lutein [Eye 1 cap ORAL DAILY 07/28/21 07/28/21 Multivitamin-Lutein Sftgel] Aspirin Chewable [St Remy 81 mg PO DAILY #30 tablet 11/19/22 Aspirin] diltiaZEM [Cardizem] 60 mg ORAL BID #60 tablet 11/19/22 - Allergies Allergies/Adverse Reactions: Allergies Allergy/AdvReac Type Severity Reaction Status Date / Time bupropion HCl * Allergy ANXIETY/ANG Verified 07/27/21 14:40 [From Wellbutrin] RY cephalexin [From Keflex] Allergy C-Diff/Coli Verified 07/27/21 14:40 tis ciprofloxacin [From Cipro] Allergy C-DIFF/COLI Verified 07/27/21 14:40 TIS ciprofloxacin HCl * Allergy C-DIFF/COLI Verified 07/27/21 14:40 [From Cipro] TIS - Social History Does the pt smoke?: No Smoking Status: Never smoker Does the pt drink ETOH?: Yes Does the pt have substance abuse?: No - Immunizations Immunizations are current?: Yes - POLST Patient has POLST: No POLST Status: Full Code PD ED PE NORMAL - Vitals Vital signs reviewed: Yes - General General: Alert and oriented X 3, No acute distress - Cardiac Cardiac: No murmur, Other (Irregularly irregular) - Respiratory Respiratory: No respiratory distress, Clear bilaterally - Abdomen Abdomen: Normal bowel sounds, Non tender - Neuro Neuro: Alert and oriented X 3 - Psych Psych: Normal mood Results - Vitals Vitals: Vital Signs - 24 hr 02/18/23 02/18/23 02/18/23 17:11 17:12 19:12 Temperature 36.7 C 36.7 C 36.8 C Heart Rate 103 H 103 H 63 Respiratory 18 18 21 Rate Blood Pressure 125/84 H 125/84 H 115/70 O2 Saturation 97 97 100 Oxygen O2 Source Room air - EKG (time done) 1713 EKG releavant findings:: EKG personally interpreted by author of this note. Relevant findings are: Rate: Rate (enter#) (110), Tachy Rhythm: Atrial fibrillation [place]: Normal QRS: Normal Ischemia: ST depression Computer interpretation: Agree with computer - Labs Labs: Laboratory Tests 02/18/23 02/18/23 02/18/23 17:47 17:47 17:47 WBC 6.2 RBC 4.16 L Hgb 12.0 Hct 39.1 MCV 94.0 MCH 28.8 MCHC 30.7 L RDW 14.0 Plt Count 281 MPV 10.1 Neut # (Auto) 4.3 Lymph # (Auto) 1.2 L [place] # (Auto) 0.5 Eos # (Auto) 0.2 Baso # (Auto) 0.0 Absolute Nucleated RBC 0.00 Nucleated RBC % 0.0 Sodium 137 Potassium 4.0 Chloride 108 Carbon Dioxide 25 Anion Gap 4.0 L BUN 21 H Creatinine 1.4 H Estimated GFR (MDRD) 38 L Glucose 94 Calcium 10.2 Magnesium 2.1 Total Bilirubin 0.3 AST 10 ALT 9 L Alkaline Phosphatase 94 Total Protein 6.7 Albumin 4.0 Globulin 2.7 Albumin/Globulin Ratio 1.5 TSH 0.05 L Free T4 Direct Free T3 pg/mL Last Dose Date UNKNOWN Last Dose Time UNKNOWN [place] 0.84 02/18/23 17:47 WBC RBC Hgb Hct MCV MCH MCHC RDW Plt Count MPV Neut # (Auto) Lymph # (Auto) [place] # (Auto) Eos # (Auto) Baso # (Auto) Absolute Nucleated RBC Nucleated RBC % Sodium Potassium Chloride Carbon Dioxide Anion Gap BUN Creatinine Estimated GFR (MDRD) Glucose Calcium Magnesium Total Bilirubin AST ALT Alkaline Phosphatase Total Protein Albumin Globulin Albumin/Globulin Ratio TSH Free T4 Direct 1.01 Free T3 pg/mL 2.62 Last Dose Date Last Dose Time [place] PD Medical Decision Making - ED course ED course: 67-year-old female presents the emergency department for heart palpitations confirming on ECG with A-fib. Upon my chart review last time patient was here in the emergency department was 11/18/2022 she received 3 doses of Cardizem did not convert she was started on a heparin drip for hospitalization and then self converted back to normal sinus rhythm. She was discharged with p.o. Cardizem has been taking it daily since then Labs are evaluated CBC overall unremarkable, in regards to her chemistry BUN is 21, GFR 38 most likely prerenal we will give 1 L IV fluids for rehydration. TSH also came back quite low 0.5, will order T3-T4. On chart review patient was taking levothyroxine for hypothyroid. At 1857 patient was found to be in normal sinus rhythm heart rate 60 With support of procainamide drip. Repeat EKG confirms she is in normal sinus rhythm Patient reports that she takes lithium for type II bipolar disorder she is currently working with her primary care provider about possibly weaning medication or coming off of lithium because recently having issues with her kidneys Confirmed with patient she does takes 125 mcg of levothyroxine daily she was told to discontinue this going home until she is able to follow-up with her primary care provider for repeat TSH as she is now in iatrogenic hyperthyroid Patient remained in normal sinus rhythm remaining of ER visit she is safe for discharge at this time she denies any chest pain or shortness of breath. She is told to follow-up with her cardiology appointment the end of this month and follow-up with her primary care provider about her thyroid levels and her ER visit in regards to paroxysmal atrial fibrillation. All questions answered patient given strict ER return precautions Departure - Departure Disposition: Home, Self Care Clinical Impression: Iatrogenic hyperthyroidism A-fib Qualifiers: Atrial fibrillation type: paroxysmal Qualified Code(s): I48.0 - Paroxysmal atrial fibrillation Condition: Good Instructions: Atrial Fibrillation Dc Comments: Thank you for trusting us with your care as we discussed is important that you discontinue taking your levothyroxine until you are able to follow-up with your primary care provider to have your thyroid labs reevaluated. Please follow-up with your sales and service specialist at your scheduled appointment. Please come back to the emergency department for having any chest pain, shortness of breath or if you feel like your A-fib has come back on again. Forms: PCP List Discharge Date/Time: 02/18/23 19:41
[2023-02-18] MEDS ORDERED: PROCAINAMIDE 1,000 MG in SODIUM CHLORIDE 0.9% 240 ML IV STA (17:47)
[2023-02-18 18:12] LABS: BASOPHILS % (AUTO) 0.5 %; EOSINOPHILS # (AUTO) 0.2 10^3/uL (0.0-0.7); EOSINOPHILS % (AUTO) 2.7 %; HCT - HEMATOCRIT 39.1 % (37.0-47.0); LYMPHOCYTES # (AUTO) 1.2 10^3/uL (1.5-3.5); LYMPHOCYTES % (AUTO) 19.8 %; MEAN CORPUSCULAR HEMOGLOBIN 28.8 pg (27.0-31.0); MEAN CORPUSCULAR HGB CONC 30.7 g/dL (32.0-36.0); MEAN PLATELET VOLUME 10.1 fL (7.9-10.8); MONOCYTES # (AUTO) 0.5 10^3/uL (0.0-1.0); MONOCYTES % (AUTO) 7.6 %; NEUTROPHILS # (AUTO) 4.3 10^3/uL (1.5-6.6); NEUTROPHILS % (AUTO) 69.2 %; PLT - PLATELET COUNT 281 10^3/uL (130-450); RED BLOOD COUNT 4.16 10^6/uL (4.20-5.40); WHITE BLOOD COUNT 6.2 x10^3/uL (4.8-10.8)
[2023-02-18 18:19] LABS: ALBUMIN/GLOBULIN RATIO 1.5 (1.0-2.2); BILIRUBIN,TOTAL 0.3 mg/dL (0.2-1.0); CALCIUM 10.2 mg/dL (8.5-10.3); CREATININE 1.4 mg/dL (0.6-1.3); MAGNESIUM 2.1 mg/dL (1.7-2.3); TOTAL PROTEIN 6.7 g/dL (6.4-8.9)
[2023-02-18 18:32] LABS: THYROID STIMULATING HORMONE 0.05 uIU/mL (0.34-5.60)
[2023-02-18] MEDS ORDERED: SODIUM CHLORIDE 0.9% 1,000 ML IV STA (18:37)
[2023-02-18] MEDS ORDERED: METOPROLOL TARTRATE 50 MG TABLET PO STA (18:45)
[2023-02-18 19:11] LABS: LITHIUM 0.84 mmol/L
[2023-02-18 19:22] VITALS: BP 115/70; O2SAT 100
== END 2023-02-18 19:41 | disposition home or self-care (01) ==
LOC: ED 16:49
DX: I48.0 Paroxysmal atrial fibrillation (principal); E05.80 Other thyrotoxicosis without thyrotoxic crisis or storm
CPT/HCPCS: 36415; 80053; 80178; 83735; 84439; 84443; 84481; 85025; 93005; 96365; 99284; 99285; J2690

== ENCOUNTER 2023-06-08 14:59 | Emergency (ER) | payer MEDICARE, MEDICAID ==
[2023-06-08 15:35] LABS: BASOPHILS % (AUTO) 0.6 %; EOSINOPHILS # (AUTO) 0.1 10^3/uL (0.0-0.7); EOSINOPHILS % (AUTO) 2.2 %; HCT - HEMATOCRIT 40.6 % (37.0-47.0); HGB - HEMOGLOBIN 12.4 g/dL (12.0-16.0); LYMPHOCYTES # (AUTO) 1.2 10^3/uL (1.5-3.5); LYMPHOCYTES % (AUTO) 24.5 %; MEAN CORPUSCULAR HEMOGLOBIN 29.7 pg (27.0-31.0); MEAN CORPUSCULAR HGB CONC 30.5 g/dL (32.0-36.0); MEAN CORPUSCULAR VOLUME 97.4 fL (81.0-99.0); MEAN PLATELET VOLUME 10.1 fL (7.9-10.8); MONOCYTES # (AUTO) 0.4 10^3/uL (0.0-1.0); MONOCYTES % (AUTO) 8.2 %; NEUTROPHILS # (AUTO) 3.2 10^3/uL (1.5-6.6); NEUTROPHILS % (AUTO) 64.3 %; PLT - PLATELET COUNT 227 10^3/uL (130-450); RED BLOOD COUNT 4.17 10^6/uL (4.20-5.40); RED CELL DISTRIBUTION WIDTH 13.7 % (12.0-15.0); WHITE BLOOD COUNT 4.9 x10^3/uL (4.8-10.8)
[2023-06-08 15:50] LABS: MAGNESIUM 2.1 mg/dL (1.7-2.3)
[2023-06-08 15:56] LABS: ALBUMIN 4.2 g/dL (3.2-5.5); ALBUMIN/GLOBULIN RATIO 1.4 (1.0-2.2); BILIRUBIN,TOTAL 0.3 mg/dL (0.2-1.0); CALCIUM 10.6 mg/dL (8.5-10.3); CREATININE 1.3 mg/dL (0.6-1.3); POTASSIUM 3.8 mmol/L (3.5-4.5); TOTAL PROTEIN 7.1 g/dL (6.4-8.9)
[2023-06-08 16:27] LABS: LITHIUM 0.49 mmol/L
--- NOTE | 2023-06-08 16:27 | ED Physician Documentation ---
History of Present Illness - Stated complaint Stated Complaint: HIGH HR,CHEST PRESSURE - Chief complaint Chief Complaint: Cardiac - History obtained from History obtained from: Patient - Additonal information Additional information: 67-year-old woman with history of paroxysmal atrial fibrillation on Eliquis and diltiazem. She developed her symptoms of symptomatic A-fib this morning with pounding heart. There is no chest pain with it. She did have heartburn last night but that went away. She was chemically cardioverted successfully with procainamide about 3 months ago here. 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: LEEP (Cervical surgery) - Present Medications Home Medications: Ambulatory Orders Medication Instructions Recorded Confirmed Albuterol Sulfate [Proair Hfa 1 puffs IH Q4-6H PRN 12/29/12 07/28/21 Inhaler] DULoxetine [Cymbalta] 60 mg PO DAILY 12/29/12 07/28/21 Gabapentin [Neurontin] 800 mg PO DAILY 12/29/12 07/28/21 [place] [facility] [Lithobid] 900 mg PO QPM 12/29/12 07/28/21 Omeprazole Magnesium 20 mg PO QDAC 06/13/20 07/28/21 Levothyroxine [Synthroid] 125 mcg PO QDAC #0 tablet 07/01/20 07/28/21 Ferrous Sulfate 1 tab ORAL DAILY 07/28/21 07/28/21 Gabapentin [Neurontin] 1,200 mg ORAL QPM 07/28/21 07/28/21 Vit C/E/Cuperic/Zinc/Lutein [Eye 1 cap ORAL DAILY 07/28/21 07/28/21 Multivitamin-Lutein Sftgel] Aspirin Chewable [St Remy 81 mg PO DAILY #30 tablet 11/19/22 Aspirin] diltiaZEM [Cardizem] 60 mg ORAL BID #60 tablet 11/19/22 lamoTRIgine [Lamictal] 100 mg PO DAILY 06/08/23 - Allergies Allergies/Adverse Reactions: Allergies Allergy/AdvReac Type Severity Reaction Status Date / Time bupropion HCl * Allergy ANXIETY/ANG Verified 06/08/23 15:19 [From Wellbutrin] RY cephalexin [From Keflex] Allergy C-Diff/Coli Verified 06/08/23 15:19 tis ciprofloxacin [From Cipro] Allergy C-DIFF/COLI Verified 06/08/23 15:19 TIS ciprofloxacin HCl * Allergy C-DIFF/COLI Verified 06/08/23 15:19 [From Cipro] TIS - Social History Does the pt smoke?: No Smoking Status: Never smoker Does the pt drink ETOH?: Yes Does the pt have substance abuse?: No - Immunizations Immunizations are current?: Yes - POLST Patient has POLST: No POLST Status: Full Code PD ED PE NORMAL - Vitals Vital signs reviewed: Yes - General General: Alert and oriented X 3, No acute distress - HEENT HEENT: PERRL, EOMI - Neck Neck: Supple, no meningeal sign, No bony TTP - Cardiac Cardiac: Other (irreg/irreg, no murmur) - Respiratory Respiratory: No respiratory distress, Clear bilaterally - Abdomen Abdomen: Non tender - Extremities Extremities: No edema, No calf tenderness / cord - Neuro Neuro: Alert and oriented X 3 - Psych Psych: Normal mood, Normal affect Results - Vitals Vitals: Vital Signs - 24 hr 06/08/23 06/08/23 15:05 15:18 Temperature 36.6 C Heart Rate 101 H Respiratory 16 Rate Blood Pressure 122/77 Blood Pressure 123/91 H [Right] O2 Saturation 96 Oxygen O2 Source Room air - EKG (time done) 1515 EKG releavant findings:: EKG personally interpreted by author of this note. Relevant findings are: Rate: Rate (enter#) (109) Rhythm: Atrial fibrillation [place]: Normal QRS: Normal Ischemia: Non specific changes. No: Q waves Computer interpretation: Disagree with computer (Computer calling old infarct, I do not see significant Q waves anywhere.) - Labs Labs: Laboratory Tests 06/08/23 06/08/23 06/08/23 15:27 15:27 15:27 WBC 4.9 RBC 4.17 L Hgb 12.4 Hct 40.6 MCV 97.4 MCH 29.7 MCHC 30.5 L RDW 13.7 Plt Count 227 MPV 10.1 Neut # (Auto) 3.2 Lymph # (Auto) 1.2 L [place] # (Auto) 0.4 Eos # (Auto) 0.1 Baso # (Auto) 0.0 Absolute Nucleated RBC 0.00 Nucleated RBC % 0.0 Sodium 141 Potassium 3.8 Chloride 111 Carbon Dioxide 26 Anion Gap 4.0 L BUN 18 Creatinine 1.3 Estimated GFR (MDRD) 41 L Glucose 97 Calcium 10.6 H Magnesium 2.1 Total Bilirubin 0.3 AST 10 ALT 9 L Alkaline Phosphatase 89 Total Protein 7.1 Albumin 4.2 Globulin 2.9 Albumin/Globulin Ratio 1.4 Last Dose Date Not Reportable Last Dose Time Not Reportable [place] 0.49 PD Medical Decision Making - ED course ED course: 67-year-old woman with symptomatic atrial fibrillation. This is a known problem for her. No ischemic chest pain. CBC, CMP, lithium levels were unremarkable. She was started on a procainamide drip and did convert back into normal sinus rhythm. Departure - Departure Disposition: 01 Home, Self Care Clinical Impression: Atrial fibrillation Condition: Good Record reviewed to determine appropriate education?: Yes Instructions: Atrial Fibrillation Dc Comments: You were seen today for symptomatic atrial fibrillation. We started you on a Procainamide drip, 1 g over 1 hour and you did convert back to sinus rhythm thankfully. 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 Continue current medications and return if worse. Forms: PCP List
[2023-06-08] MEDS: PROCAINAMIDE 1,000 MG in SODIUM CHLORIDE 0.9% 240 ML IV STA (16:51)
[2023-06-08 18:33] VITALS: BP 120/82; O2SAT 99
== END 2023-06-08 18:27 | disposition home or self-care (01) ==
LOC: ED 14:59
DX: I48.91 Unspecified atrial fibrillation (principal); Z79.01 Long term (current) use of anticoagulants; E78.00 Pure hypercholesterolemia, unspecified; J44.9 Chronic obstructive pulmonary disease, unspecified; J43.9 Emphysema, unspecified; E03.9 Hypothyroidism, unspecified; Z79.899 Other long term (current) drug therapy; Z79.82 Long term (current) use of aspirin
CPT/HCPCS: 36415; 80053; 80178; 83735; 85025; 93005; 96365; 99285; J2690

== ENCOUNTER 2023-08-03 09:47 | Outpatient (CLI) | payer MEDICARE, MEDICAID ==
[2023-08-03 12:17] LABS: ALBUMIN 4.3 g/dL (3.2-5.5); ALBUMIN/GLOBULIN RATIO 1.4 (1.0-2.2); BILIRUBIN,TOTAL 0.3 mg/dL (0.2-1.0); CALCIUM 10.8 mg/dL (8.5-10.3); CREATININE 1.2 mg/dL (0.6-1.3); POTASSIUM 3.7 mmol/L (3.5-4.5); TOTAL PROTEIN 7.3 g/dL (6.4-8.9)
[2023-08-03 12:19] LABS: THYROID STIMULATING HORMONE 0.02 uIU/mL (0.34-5.60)
== END 2023-08-03 09:48 | disposition home or self-care (01) ==
LOC: LAB.N 09:47
PROVIDERS: ATTEND Physician Assistant Medical
DX: N28.9 Disorder of kidney and ureter, unspecified (principal); E03.9 Hypothyroidism, unspecified; Z79.899 Other long term (current) drug therapy
CPT/HCPCS: 36415; 80053; 84439; 84443

== ENCOUNTER 2023-10-03 11:45 | Outpatient (CLI) | payer MEDICARE, MEDICAID ==
[2023-10-03 18:17] LABS: CREATININE 1.3 mg/dL (0.6-1.3); POTASSIUM 4.1 mmol/L (3.5-4.5)
== END 2023-10-03 11:46 | disposition home or self-care (01) ==
LOC: LAB.N 11:45
PROVIDERS: ATTEND Physician Assistant Medical
DX: N28.9 Disorder of kidney and ureter, unspecified (principal)
CPT/HCPCS: 36415; 80048

== ENCOUNTER 2023-10-13 23:23 | Emergency (ER) | payer MEDICARE, MEDICAID ==
[2023-10-13 23:44] LABS: BASOPHILS % (AUTO) 0.3 %; EOSINOPHILS # (AUTO) 0.1 10^3/uL (0.0-0.7); EOSINOPHILS % (AUTO) 1.1 %; HCT - HEMATOCRIT 38.9 % (37.0-47.0); HGB - HEMOGLOBIN 11.9 g/dL (12.0-16.0); LYMPHOCYTES # (AUTO) 0.3 10^3/uL (1.5-3.5); LYMPHOCYTES % (AUTO) 4.1 %; MEAN CORPUSCULAR HEMOGLOBIN 29.8 pg (27.0-31.0); MEAN CORPUSCULAR HGB CONC 30.6 g/dL (32.0-36.0); MEAN CORPUSCULAR VOLUME 97.3 fL (81.0-99.0); MEAN PLATELET VOLUME 9.9 fL (7.9-10.8); MONOCYTES # (AUTO) 0.4 10^3/uL (0.0-1.0); NEUTROPHILS # (AUTO) 6.3 10^3/uL (1.5-6.6); NEUTROPHILS % (AUTO) 88.4 %; PLT - PLATELET COUNT 206 10^3/uL (130-450); RED CELL DISTRIBUTION WIDTH 13.4 % (12.0-15.0); WHITE BLOOD COUNT 7.1 x10^3/uL (4.8-10.8)
[2023-10-13 23:55] LABS: MAGNESIUM 1.7 mg/dL (1.7-2.3)
[2023-10-14 00:01] LABS: ALBUMIN 4.1 g/dL (3.2-5.5); ALBUMIN/GLOBULIN RATIO 1.6 (1.0-2.2); BILIRUBIN,TOTAL 0.3 mg/dL (0.2-1.0); CREATININE 1.3 mg/dL (0.6-1.3); POTASSIUM 3.7 mmol/L (3.5-4.5); TOTAL PROTEIN 6.7 g/dL (6.4-8.9)
--- NOTE | 2023-10-14 00:04 | XRAY Report ---
PROCEDURE: Chest 1V INDICATIONS: Chest pain TECHNIQUE: One view of the chest was acquired. COMPARISON: 07/03/2020 FINDINGS: Surgical changes and devices: None. Lungs and pleura: No pleural effusions or pneumothorax. Lungs are clear. Questionable 9 mm nodule in the right lung apex. Mediastinum: Mediastinal contours appear normal. Heart size is normal. Bones and chest wall: No suspicious bony lesions. Overlying soft tissues appear unremarkable. IMPRESSION: No acute cardiopulmonary process. Questionable 9 mm nodule in the right lung apex. Recommend confirmation with outpatient, low-dose [facility] CT unless otherwise indicated. Reviewed by: Trent Vidal MD on 10/14/2023 12:03 AM PDT Approved by: Trent Vidal MD on 10/14/2023 12:03 AM PDT Station ID: [id number]
--- NOTE | 2023-10-14 00:28 | ED Physician Documentation ---
History of Present Illness - Stated complaint Stated Complaint: AFIB - Chief complaint Chief Complaint: Cardiac - Additonal information Additional information: 67-year-old female with history of atrial fibrillation on diltiazem, Eliquis, colitis, hemicolectomy, iatrogenic hyperthyroidism presents with irregular heart rate. Today, she felt her heart rate being irregular. She thinks her monitor at home may have said it was in the 20s at one point. However, she felt no no symptoms during this. She denies chest pain, lightheadedness, syncope, shortness of breath, nausea vomiting diarrhea, dysuria, hematuria, urinary frequency, diarrhea, constipation, rash, head or neck or back or abdominal or flank pain, leg swelling or leg pain. She is consistent with her medications. She did feel warm at one point. She denies cough, sore throat, rhinorrhea though felt some myalgias. No other new concerns. ROS Constitutional: +fever, no chills Eyes: no visual disturbance, no discharge Ears, Nose, Mouth, Throat: no rhinorrhea, no sore throat Cardiovascular: no chest pain, +palpitations Respiratory: no cough, no shortness of breath Gastrointestinal: no abdominal pain, no vomiting, no diarrhea Genitourinary: no dysuria, no hematuria Musculoskeletal: no back pain, no neck stiffness Skin: no rash, no wound Neurological: no focal weakness, no focal numbness PD PAST MEDICAL HISTORY - Past Medical History Past Medical History: Yes Cardiovascular: High cholesterol, Atrial fibrillation Respiratory: Asthma, COPD, Emphysema Neuro: None Endocrine/Autoimmune: HyPOthyroidism GI: GERD, Colon polyps TOBACCO EDUCATOR: None : Incontinence HEENT: Chronic hearing loss Psych: Bipolar disorder, Post traumatic stress disorder, Claustrophobia Musculoskeletal: Osteoarthritis, Osteopenia Derm: Eczema - Past Surgical History Past Surgical History: Yes General: Cholecystectomy, Appendectomy, Colonoscopy, EGD Ortho: Other /TOBACCO EDUCATOR: LEEP (Cervical surgery) - Present Medications Home Medications: Ambulatory Orders Medication Instructions Recorded Confirmed Albuterol Sulfate [Proair Hfa 1 puffs IH Q4-6H PRN 12/29/12 07/28/21 Inhaler] DULoxetine [Cymbalta] 60 mg PO DAILY 12/29/12 07/28/21 Gabapentin [Neurontin] 800 mg PO DAILY 12/29/12 07/28/21 [place] [facility] [Lithobid] 900 mg PO QPM 12/29/12 07/28/21 Omeprazole Magnesium 20 mg PO QDAC 06/13/20 07/28/21 Levothyroxine [Synthroid] 125 mcg PO QDAC #0 tablet 07/01/20 07/28/21 Ferrous Sulfate 1 tab ORAL DAILY 07/28/21 07/28/21 Gabapentin [Neurontin] 1,200 mg ORAL QPM 07/28/21 07/28/21 Vit C/E/Cuperic/Zinc/Lutein [Eye 1 cap ORAL DAILY 07/28/21 07/28/21 Multivitamin-Lutein Sftgel] Aspirin Chewable [St Remy 81 mg PO DAILY #30 tablet 11/19/22 Aspirin] diltiaZEM [Cardizem] 60 mg ORAL BID #60 tablet 11/19/22 lamoTRIgine [Lamictal] 100 mg PO DAILY 06/08/23 - Allergies Allergies/Adverse Reactions: Allergies Allergy/AdvReac Type Severity Reaction Status Date / Time bupropion HCl * Allergy ANXIETY/ANG Verified 10/13/23 23:25 [From Wellbutrin] RY cephalexin [From Keflex] Allergy C-Diff/Coli Verified 10/13/23 23:25 tis ciprofloxacin [From Cipro] Allergy C-DIFF/COLI Verified 10/13/23 23:25 TIS ciprofloxacin HCl * Allergy C-DIFF/COLI Verified 10/13/23 23:25 [From Cipro] TIS - Social History Does the pt smoke?: No Smoking Status: Never smoker Does the pt drink ETOH?: Yes Does the pt have substance abuse?: No - Immunizations Immunizations are current?: Yes - POLST Patient has POLST: No POLST Status: Full Code Results - Vitals Vitals: Vital Signs - 24 hr 10/13/23 10/13/23 10/14/23 23:26 23:58 00:28 Temperature 36.5 C Heart Rate 108 H 99 88 Respiratory 16 18 16 Rate Blood Pressure 132/66 H 144/74 H 127/77 O2 Saturation 95 96 100 10/14/23 10/14/23 00:49 02:11 Temperature Heart Rate 88 96 Respiratory 16 Rate Blood Pressure 123/87 H O2 Saturation 98 Oxygen O2 Source Room air - EKG (time done) EKG normal sinus rhythm without acute ischemia or immediately concerning interval prolongation. Note morphology appears overall similar to June 07. EKG releavant findings:: EKG personally interpreted by author of this note. Relevant findings are: Repeat EKG NSR without acute ischemia or immediately concerning interval prolongation, overall similar morphology to prior. EKG releavant findings:: EKG personally interpreted by author of this note. Relevant findings are: - Labs Labs: Laboratory Tests 10/13/23 10/13/23 10/13/23 23:41 23:41 23:41 WBC 7.1 RBC 4.00 L Hgb 11.9 L Hct 38.9 MCV 97.3 MCH 29.8 MCHC 30.6 L RDW 13.4 Plt Count 206 MPV 9.9 Neut # (Auto) 6.3 Lymph # (Auto) 0.3 L Pender # (Auto) 0.4 Eos # (Auto) 0.1 Baso # (Auto) 0.0 Absolute Nucleated RBC 0.00 Nucleated RBC % 0.0 Sodium 141 Potassium 3.7 Chloride 112 H Carbon Dioxide 22 Anion Gap 7.0 BUN 17 Creatinine 1.3 Estimated GFR (MDRD) 41 L Glucose 131 H Calcium 10.0 Magnesium 1.7 Total Bilirubin 0.3 AST 11 ALT 8 L Alkaline Phosphatase 78 Troponin I High Sens 6.0 Total Protein 6.7 Albumin 4.1 Globulin 2.6 Albumin/Globulin Ratio 1.6 Lipase 11 TSH 0.06 L Free T4 Direct Nasal Adenovirus (PCR) Nasal B. parapertussis DNA (PCR) Nasal Coronavir 229E PCR Nasal Coronavir HKU1 PCR Nasal Coronavir NL63 PCR Nasal Coronavir OC43 PCR Nasal Enterovir/Rhinovir PCR Nasal Influenza B PCR Nasal Influenza A PCR Nasal Parainfluen 1 PCR Nasal Parainfluen 2 PCR Nasal Parainfluen 3 PCR Nasal Parainfluen 4 PCR Nasal RSV (PCR) Nasal B.pertussis DNA PCR Nasal C.pneumoniae (PCR) Kaleb Human Metapneumo PCR Nasal M.pneumoniae (PCR) Nasal SARS-CoV-2 (PCR) 10/13/23 10/14/23 23:41 00:45 WBC RBC Hgb Hct MCV MCH MCHC RDW Plt Count MPV Neut # (Auto) Lymph # (Auto) Pender # (Auto) Eos # (Auto) Baso # (Auto) Absolute Nucleated RBC Nucleated RBC % Sodium Potassium Chloride Carbon Dioxide Anion Gap BUN Creatinine Estimated GFR (MDRD) Glucose Calcium Magnesium Total Bilirubin AST ALT Alkaline Phosphatase Troponin I High Sens Total Protein Albumin Globulin Albumin/Globulin Ratio Lipase TSH Free T4 Direct 1.08 Nasal Adenovirus (PCR) NOT DETECTED Nasal B. parapertussis DNA (PCR) NOT DETECTED Nasal Coronavir 229E PCR NOT DETECTED Nasal Coronavir HKU1 PCR NOT DETECTED Nasal Coronavir NL63 PCR NOT DETECTED Nasal Coronavir OC43 PCR NOT DETECTED Nasal Enterovir/Rhinovir PCR NOT DETECTED Nasal Influenza B PCR NOT DETECTED Nasal Influenza A PCR NOT DETECTED Nasal Parainfluen 1 PCR NOT DETECTED Nasal Parainfluen 2 PCR NOT DETECTED Nasal Parainfluen 3 PCR NOT DETECTED Nasal Parainfluen 4 PCR NOT DETECTED Nasal RSV (PCR) NOT DETECTED Nasal B.pertussis DNA PCR NOT DETECTED Nasal C.pneumoniae (PCR) NOT DETECTED Kaleb Human Metapneumo PCR NOT DETECTED Nasal M.pneumoniae (PCR) NOT DETECTED Nasal SARS-CoV-2 (PCR) DETECTED A - Rads (name of study) CXR Relevant Findings:: EMP independent interpretation of test, See rad report (I agree with radiology read on my independent review; copy being given to patient given likely incidental findings for follow up outpatient. ), Other PD Medical Decision Making - ED course ED course: This patient presents with myalgias, subjective fever, sensation of palpitations, reported possible bradycardia though this was isolated to monitor read at home without associated symptoms at the time. Currently, patient is normal sinus rhythm, well-perfused, comfortable appearing. She does have known atrial fibrillation, on rate controlling medications as well as anticoagulation that she is consistent with per her report. In this setting, I suspect potential paroxysmal atrial fibrillation or PVCs may be contributory to sensation of palpitations. I also suspect a viral syndrome may have contributed to myalgias and subjective fever. I am obtaining labs to assess for cardiac injury, anemia, electrolyte derangements, JOHANNE, thyroid derangement, along with chest x-ray to assess for pneumonia and viral swab. I will closely reassess. Patient declines medications currently. EKG normal sinus rhythm without acute ischemia or immediately concerning interval prolongation. Note morphology appears overall similar to June 08, 2023 EKG, aside from atrial fibrillation at that time. This is also in the setting of patient having NO chest pain at any time, and troponin as below WNL. However, EKG quality is marginal, so will repeat. Labs: CBC with no cytosis, with mild anemia similar to prior, no thrombocytopenia. CMP with no immediately concerning electrolyte derangements, creatinine similar to prior, no LFT elevation. TSH was low, though free T4 was added and later returned within normal limits. High sensitivity troponin reassuring. Viral panel returned with positive COVID. This is likely driving myalgias and subjective fever. CXR: I agree with radiology reads of imaging on my independent review of imaging.. Copy also been provided to patient for follow-up. "FINDINGS: Surgical changes and devices: None. Lungs and pleura: No pleural effusions or pneumothorax. Lungs are clear. Questionable 9 mm nodule in the right lung apex. Mediastinum: Mediastinal contours appear normal. Heart size is normal. Bones and chest wall: No suspicious bony lesions. Overlying soft tissues appear unremarkable. IMPRESSION: No acute cardiopulmonary process. Questionable 9 mm nodule in the right lung apex. Recommend confirmation with outpatient, low-dose chest CT unless otherwise indicated. Reviewed by: Trent Vidal MD on 10/14/2023 12:03 AM PDT " Repeat EKG NSR without acute ischemia or immediately concerning interval prolongation, overall similar morphology to prior. This again is in setting of no chest pain, reassuring troponin. PVCs present which could also have con tributed to sensation of palpitations. On review, most likely diagnosis is COVID with intermittent benign palpitations. No evidence of malignant dysrhythmia here on extended monitoring here with tel emetry. Patient declined Paxlovid or other antivirals for COVID. TSH is low but hyperthyroidism unlikely to be driving current presentation, with outpatient follow up of TSH suitable (pt aware). She is comfortable with discharge with follow up and return precautions, understanding incidental CXR finding for follow up (copy of read given), and with no other new concerns. She remains NSR, well perfused, neurovascularly intact, not dyspneic, with no chest pain. Patient ambulatory and tolerating PO. She is with family. Repeat exams and vital signs reassuring. Patient questions answered and plan reviewed. Strong return precautions given. Patient discharged. Departure - Departure Disposition: 01 Home, Self Care Clinical Impression: COVID, Low TSH level Condition: Good Comments: It was a pleasure taking care of you today. It is important to fully read and understand the below. Please ask us if you have any questions. We think the most likely cause of your symptoms is COVID. Please quarantine for 5 days. We discussed and you declined antivirals like Paxlovid. As discussed, you have important incidental chest x-ray findings, as well as a low TSH. I sent a free T4, but this is not back yet. Please discuss these findings with and be reassessed by your primary doctor within 2 to 3 days. Return if you worsen. No tests or assessments are perfect, and your condition could exchange administrator time. If your symptoms change or worsen, it is very important you immediately seek medical care. If you have any new or worsening pain, lightheadedness or passing out, shortness of breath, fever, vomiting, confusion, numbness, weakness, or anything else that concerns you, please immediately seek medical care. If you have been prescribed any medications: please read the drug package inserts on how to properly use the medication and any potential side effects. If you had labs (blood tests) or imaging (CT scan or x-rays) done during your visit: please follow up on the results of these with your primary care doctor, as discussed. In addition, please know the results we received today may be preliminary. Our usual practice is to follow up on tests within a few days of a patient's discharge from the Emergency Department and notify you of any changes. These may lead to changes to your treatment plan. However, the best way to obtain and interpret these test results is through your Primary Care Provider. If you need to update your contact information, please stop by the front office medical assistant and alert the Registration personnel before you leave the Emergency Department. Thank you for the opportunity to participate in your healthcare. We are always here and happy to see you in the future. --- YOUR CHEST XR TO BRING TO YOUR PRIMARY DOCTOR: FINDINGS: Surgical changes and devices: None. Lungs and pleura: No pleural effusions or pneumothorax. Lungs are clear. Questionable 9 mm nodule in the right lung apex. Mediastinum: Mediastinal contours appear normal. Heart size is normal. Bones and chest wall: No suspicious bony lesions. Overlying soft tissues appear unremarkable. IMPRESSION: No acute cardiopulmonary process. Questionable 9 mm nodule in the right lung apex. Recommend confirmation with outpatient, low-dose chest CT unless otherwise indicated. Reviewed by: Trent Vidal MD on 10/14/2023 12:03 AM PDT --- ALSO FOLLOW UP ON YOUR TSH AND PENDING FREE T4 Forms: PCP List Discharge Date/Time: 10/14/23 02:11
[2023-10-14 01:52] LABS: CORONAVIRUS 229E-RESP PCR NOT DETECTED; CORONAVIRUS HKU1-RESP PCR NOT DETECTED; CORONAVIRUS NL63-RESP PCR NOT DETECTED; CORONAVIRUS OC43-RESP PCR NOT DETECTED
[2023-10-14 01:53] LABS: B. PARAPERTUSSIS- RESP PCR PAN NOT DETECTED; B. PERTUSSIS- RESP PCR PANEL NOT DETECTED; C. PNEUMONIAE- RESP PCR PANEL NOT DETECTED; HUMAN METAPNEUMOVIRUS NOT DETECTED; INFLUENZA A- RESP PCR PANEL NOT DETECTED; INFLUENZA B - RESP PCR PANEL NOT DETECTED; M. PNEUMONIAE- RESP PCR PANEL NOT DETECTED; PARAINFLUENZA VIRUS 1 NOT DETECTED; PARAINFLUENZA VIRUS 2 NOT DETECTED; PARAINFLUENZA VIRUS 3 NOT DETECTED; PARAINFLUENZA VIRUS 4 NOT DETECTED; RHINOVIRUS/ENTEROVIRUS NOT DETECTED; RSV- RESP PCR PANEL NOT DETECTED; SARS-CoV-2 -RESP PCR PANEL DETECTED
[2023-10-14 02:14] VITALS: BP 123/87; O2SAT 98
== END 2023-10-14 02:11 | disposition home or self-care (01) ==
LOC: ED 23:23
DX: U07.1 COVID-19 (principal); J44.9 Chronic obstructive pulmonary disease, unspecified; J43.9 Emphysema, unspecified; E78.00 Pure hypercholesterolemia, unspecified; I48.91 Unspecified atrial fibrillation; E03.9 Hypothyroidism, unspecified; Z79.01 Long term (current) use of anticoagulants; Z79.899 Other long term (current) drug therapy; Z79.82 Long term (current) use of aspirin
CPT/HCPCS: 36415; 80053; 83690; 83735; 84439; 84443; 84484; 85025; 87633; 93005; 99283; 99284